=== PATIENT | male | born 1955 ===

== ENCOUNTER 2017-12-09 11:44 | Inpatient (IN) | payer MEDICARE, MEDICAID ==
[2017-12-09 11:45] VITALS: BMI 20.9
[2017-12-09] MEDS ORDERED: Piperacill/Tazo 3.375gm in Dex 3.375 GM/50 ML BAG IVPB STA (13:46)
--- NOTE | 2017-12-09 14:23 | RAD ---
Date of service: 12/09/2017 PROCEDURE: Bilateral Feet Radiographs. HISTORY: Ulcer COMPARISON: . Unspecified location FINDINGS: BONES: Right Foot: Prior resection right 5th metatarsal and digit subtle erosive changes 4th metatarsal phalangeal junction. Left Foot: Prior resection 2nd digit and distal 2nd metatarsal JOINTS: Right Foot: Hammertoe deformities. Left Foot: Hammertoe deformities. SOFT TISSUES: Right Foot: Air within the soft tissues plantar aspect of the right foot at the level of and interposed between the 3rd and 4th digits. Presumably this is the site of the ulcer. Left Foot: Normal. OTHER FINDINGS: None. IMPRESSION: Air within soft tissues right foot and erosive changes this area suspicious for gas-forming organism/osteomyelitis.
[2017-12-09 14:31] LABS: BASO # 0.4 K/uL (0.0-0.2); BASO % 1.4 % (0.0-2.0); EOS # 0.2 K/uL (0.0-0.7); EOS % 0.9 % (0.0-4.0); HEMOGLOBIN 8.8 g/dL (12.0-18.0); LYMPH # 1.8 K/uL (1.0-4.3); LYMPH % 6.6 % (20.0-40.0); MEAN CELL VOLUME 85.1 fL (80.0-94.0); MEAN CORPUSCULAR HEMOGLOBIN 27.7 pg (27.0-31.0); MEAN CORPUSCULAR HGB CONC 32.6 g/dL (33.0-37.0); MEAN PLATELET VOLUME 7.3 fL (7.2-11.7); MONO # 1.8 K/uL (0.0-0.8); MONO % 6.9 % (0.0-10.0); NEUT # 22.2 K/uL (1.8-7.0); NEUT % 84.2 % (50.0-75.0); RBC 3.18 Mil/uL (4.40-5.90); RED CELL DISTRIBUTION WIDTH 16.1 % (11.5-14.5); WHITE BLOOD COUNT 26.4 K/uL (4.8-10.8)
[2017-12-09] MEDS ORDERED: Vancomycin 1 GM 1 GM/250 ML BAG IVPB ONE (14:36)
[2017-12-09] MEDS ORDERED: Piperacillin/Tazobact 3.375 gm 100 ML IVPB ONE (14:36)
--- NOTE | 2017-12-09 14:36 | C.PDOC ---
History Of Present Illness 62 y/o male, w/PMhx of ESRD HD MWF w/ L UE AV fistula, depression, anemia [facility] evaluation of bilateral foot pain. Patient has ulcer to the right heel. Patient also has abnormal labs, he has elevated WBC to 28k. He denies any other complaints. He notes ulcer is mildly painful, denies any drainage from ulcer. No falls, headache, chest pain, neck stiffness or any other complaints. Denies having weakness, numbness, fever, and chills. Pt notes getting dialysis yesterday. No other complaints Time Seen by Provider: 12/09/17 13:26 Chief Complaint (Nursing): Abnormal Skin Integrity Past Medical History Reviewed: Historical Data, Nursing Documentation, Vital Signs Vital Signs: Last Vital Signs Temp 98.5 F 12/09/17 16:18 Pulse 70 12/09/17 16:18 Resp 16 12/09/17 16:18 BP 108/54 L 12/09/17 16:18 Pulse Ox 99 12/09/17 16:32 - Medical History PMH: Anemia, Depression, HTN, Hypercholesterolemia, Peripheral Edema, Chronic Kidney Disease Other Surgeries: Hx of surgeries Family History: States: No Known Family Hx - Social History Hx Alcohol Use: No Hx Substance Use: No - Immunization History Hx Tetanus Toxoid Vaccination: No Hx Influenza Vaccination: Yes Hx Pneumococcal Vaccination: No Review Of Systems Except As Marked, All Systems Reviewed And Found Negative. Constitutional: Negative for: Fever, Chills Musculoskeletal: Positive for: Foot Pain Neurological: Negative for: Weakness, Numbness Physical Exam - Physical Exam Appears: Non-toxic, No Acute Distress Skin: Normal Color, Warm, Dry, Other (ulcer to heel of right foot and R pad of foot 3x2 cm, ulcer to 2nd digit of left foot) Head: Atraumatic, Normacephalic Eye(s): bilateral: Normal Inspection Nose: Normal Oral Mucosa: Moist Neck: Supple, Other (no meningeal signs) Chest: Symmetrical Cardiovascular: Rhythm Regular Respiratory: Normal Breath Sounds, No Rales, No Rhonchi, No Wheezing Back: No CVA Tenderness Extremity: Normal ROM (good n/v status) Extremity: Left: Atraumatic (LUE AVF w/ good bruit and thrill, no erythema), Right: Atraumatic Neurological/Psych: Oriented x3, Normal Speech, Normal Cranial Nerves, No Cerebellar Signs Other Neurological Findings: No Facial Palsy ED Course And Treatment - Laboratory Results Result Diagrams: 12/09/17 14:25 12/09/17 14:25 O2 Sat by Pulse Oximetry: 99 (RA) Pulse Ox Interpretation: Normal - Other Rad X-Ray- Foot X-Ray: Viewed By Me, Read By Radiologist Interpretation: Date of service: 12/09/2017. PROCEDURE: Bilateral Feet Radiographs. HISTORY: Ulcer. COMPARISON: . Unspecified location. FINDINGS: BONES: Right Foot: Prior resection right 5th metatarsal and digit subtle erosive changes 4th metatarsal phalangeal junction. Left Foot: Prior resection 2nd digit and distal 2nd metatarsal. JOINTS: Right Foot: Hammertoe deformities. Left Foot: Hammertoe deformities. SOFT TISSUES: Right Foot: Air within the soft tissues plantar aspect of the right foot at the level of and interposed between the 3rd and 4th digits. Presumably this is the site of the ulcer. Left Foot: Normal. OTHER FINDINGS: None. IMPRESSION: Air within soft tissues right foot and erosive changes this area suspicious for gas-forming organism/osteomyelitis. Medical Decision Making Medical Decision Makin yr old male BIBA from [facility] w/ hx of ESRD HD MWF p/w b/l foot pain. Was xferred for OR as well as elevated wbc to 28k. Given likely sepsis will rx with antibiotics. Given ESRD on HD and non dry on exam will hold fluids for now. 1330 Appreciate consult w/ Dr. John Ayon: Pt likely to OR for gangrenous foot [address] Rios 1436 P[address] Pod[address]. Rios 1445 platelets 1k AOx3 here. 1505 cancelled previous platelet order: 1012 x10^3, not 1012. cancelled ct. spoke to blood bank to cancel order. appreciate consult w/ Dr. Rios: to admit to his service appreciate consult w/ podiatry resident- to see pt XR reviewed w/ podiatry resident: IV Abx ordered previously Disposition - Disposition Disposition Time: 15:05 Condition: GOOD - Clinical Impression Clinical Impression: Gangrene - Scribe Statement The provider has reviewed the documentation as recorded by the Harleyibradha Shelton Provider Attestation: All medical record entries made by the Harleyibe were at my direction and personally dictated by me. I have reviewed the chart and agree that the record accurately reflects my personal performance of the history, physical exam, medical decision making, and the department course for this patient. I have also personally directed, reviewed, and agree with the discharge instructions and disposition.
[2017-12-09 14:39] LABS: INR 1.2; PROTHROMBIN TIME 13.3 SECONDS (9.7-12.2)
[2017-12-09 14:41] LABS: ALB/GLOB RATIO 0.9 (1.0-2.1); ALBUMIN 4.2 g/dL (3.5-5.0); CALCIUM 9.3 mg/dl (8.6-10.4)
[2017-12-09 14:42] LABS: PLATELET COUNT 1012 K/uL (130-400)
[2017-12-09 15:19] LABS: EOSINOPHIL 3 % (0-4); LYMPHOCYTE 8 % (20-40); MONOCYTE 4 % (0-10); NEUTROPHIL 84 % (50-75); PLATELET ESTIMATE MARKEDLY INCREASED (NORMAL); REACTIVE LYMPHOCYTES 1 % (0-0); TOTAL CELLS COUNTED 100
[2017-12-09 15:20] LABS: ANISOCYTOSIS SLIGHT; HYPOCHROMIC SLIGHT; LARGE PLATELETS PRESENT; POIKILOCYTOSIS SLIGHT
--- NOTE | 2017-12-09 17:13 | CP.PCM.PN ---
Subjective - Date & Time of Evaluation Date of Evaluation: 12/09/17 Time of Evaluation: 17:12 - Subjective Subjective: This is a 62 year old male presenting to the ED via EMS, sent from long-term for RLE skin changes. He is unable to provide an accurate history of events and appears confused. As per podiatry the pt was sent in by Dr. Watters following examination of the RLE and concern for gangrene. As per Dr. Rios, the pt's PMD, he has baseline dementia and confusion. The patient denies any complaints himself. PMD: Gabriel PMHx: (obtained via Dr. Rios) Anemia, Depression, HTN, Hypercholesterolemia, Peripheral Edema, Chronic Kidney Disease PSHx: Pt denies- confirmation needed Meds: Allopurinol 100mg QD, Norvasc 10mg QD, B-complex, EPO 10k U IJ TID, Hydralazine 50mg PO TID, Memantine 5mg PO BID, Mirtazepine 30mg PO QHS, Sertraline 20mg PO daily, Renvela 800mg PO daily, zocor 20mg PO daily Allergies: ASA, shellfish Fam HX: unknown Social Hx: previous smoker, further details unclear Objective - Vital Signs/Intake and Output Vital Signs (last 24 hours): Temp Pulse Resp BP Pulse Ox 98.5 F 70 16 108/54 L 99 12/09/17 16:18 12/09/17 16:18 12/09/17 16:18 12/09/17 16:18 12/09/17 16:34 - Labs Labs: 12/09/17 14:25 12/09/17 14:25 PT 13.3 SECONDS (9.7-12.2) H 12/09/17 14:25 INR 1.2 12/09/17 14:25 APTT 37 SECONDS (21-34) H 12/09/17 14:25 - Constitutional Appears: No Acute Distress - Head Exam Head Exam: ATRAUMATIC, NORMOCEPHALIC - Eye Exam Eye Exam: EOMI, Normal appearance - ENT Exam ENT Exam: Mucous Membranes Moist - Respiratory Exam Respiratory Exam: Clear to Ausculation Bilateral, NORMAL BREATHING PATTERN - Cardiovascular Exam Cardiovascular Exam: REGULAR RHYTHM, +S1, +S2 - GI/Abdominal Exam GI & Abdominal Exam: Soft. absent: Tenderness - Extremities Exam Additional comments: Extensive skin decay RLE sole of the foot- necrosis - Neurological Exam Neurological Exam: Alert. absent: Oriented x3 - Psychiatric Exam Psychiatric exam: Normal Affect, Normal Mood Assessment and Plan - Assessment and Plan (Free Text) Plan: Gangrene RLE Podiatry Consult placed- Dr. Aimee white appreciated f/u recs Right foot wound cultures taken - pending KEN/PVR ordered - pending Vascular Surgery Consult placed- Dr. Alan white appreciated f/u recs ID Consult placed- Dr. Tasha white appreciated f/u recs Zosyn and Vanc x1 given in ED Afebrile XRay- air in soft tissue spaces- concern for OM Follow up dopplers Follow up blood Cx Follow up AM labs Thrombocytosis Heme/Onc Consult placed- Dr. Keisha white appreciated f/u recs Repeat labs in AM CKD Creatinine 6.0; baseline unclear Nephro consult placed to Dr. Natacha white appreciated HTN Currently normotensive-hypotensive Hold BP meds at this time Reintroduce PRN Depression Home meds- mirtazepine 30mg PO QD and sertraline 20mg PO QD continued Diabetes II- unclear history Consider ISS and hypoglycemia protocol pending A1C and fingersticks Case discussed with Dr. Rios All medical management as per Dr. Rios
--- NOTE | 2017-12-09 17:32 | CP.PCM.CON ---
History of Present Illness - History of Present Illness History of Present Illness: Podiatry Consult Note: Dr. Ahn 62 year old male with PMHx of Anemia, Depression, HTN, Hypercholesterolemia, Peripheral Edema, Chronic Kidney Disease was seen and evaluated for right plantar foot gangrenous changes. Patient is appears confused during the encounter and is a poor historian. Patient was sent by Dr. Ahn from the snf to be admitted for the concerns of right foot gangrene. Patient reports that he has had this wound for a very long time. Denies of of any pain from the right foot. Patient denies of any recent F/N/V/C/SOB/CP/headache. Denies of any other pedal complains at this time. PMHx: Anemia, Depression, HTN, Hypercholesterolemia, Peripheral Edema, Chronic Kidney Disease PSHx: Patient denies Allergies: ASA SHx: Previous smoker (1 pack every 2 days), denies EtOH or illicit drug usage Review of Systems - Constitutional Constitutional: As Per HPI Past Patient History - Infectious Disease Hx of Infectious Diseases: None - Past Medical History & Family History Past Medical History?: Yes - Past Social History Smoking Status: Never Smoked - CARDIAC Hx Hypercholesterolemia: Yes Hx Hypertension: Yes Hx Peripheral Edema: Yes - RENAL Hx Chronic Kidney Disease: Yes - ENDOCRINE/METABOLIC Hx Endocrine Disorders: Yes Hx Diabetes Mellitus Type 2: Yes - HEMATOLOGICAL/ONCOLOGICAL Hx Anemia: Yes - INTEGUMENTARY Hx Dermatological Problems: Yes (GANGRENE RIGHT FOOT) - MUSCULOSKELETAL/RHEUMATOLOGICAL Hx Musculoskeletal Disorders: Yes Hx Gout: Yes - PSYCHIATRIC Hx Depression: Yes Hx Substance Use: No - SURGICAL HISTORY Hx Surgeries: Yes Hx Vascular Surgery: Yes (AV FISTULA LEFT ARM) - ANESTHESIA Hx Anesthesia: Yes Hx Anesthesia Reactions: No Hx Malignant Hyperthermia: No Meds Allergies/Adverse Reactions: Allergies Allergy/AdvReac Type Severity Reaction Status Date / Time aspirin Allergy Intermediate Verified 12/09/17 12:10 shellfish derived Allergy Intermediate Verified 12/09/17 12:10 Physical Exam - Constitutional Appears: Well, Non-toxic, No Acute Distress - Extremities Exam Additional comments: Bilateral LE exam VASC: DP/PT pulses are very faintly palpable 1/4, Cap refill time is approx 3 sec do the digits, Temp gradient is warm to warm from proximal to distal on the right and warm to cool from proximal to distal on the left, minimal non-pitting edema noted on the right foot DERM: Circular wound measuring approx 4 cm x 3 cm x 0.2 cm noted on the plantar lateral fore foot sub-metatarsal head 3-5, Wound base is mainly necrotic with fibrotic appearance on the periphery, yong-wound maceration with sloughing noted, mal-odor present, tunneling present on the proximal margin at 6 o'clock, no probe to bone, mild yong-wound erythema, no active purulence drainage Left foot: small approx 0.5 cm x 0.5 cm x 0.1 cm wound present on the dorsum of the 2nd digit, wound base is mainly grannular with no active drainage, no tunneling, no tracking, no purulence, no probe to bone, no erythema, no clinical suspicion of active infection NEURO: Protective sensation grossly diminished ORTHO: no pain on palpation of the wounded site, left foot partial 2nd ray amputation, right foot partial 5th ray amputation - Neurological Exam Neurological exam: Alert, Oriented x3 - Psychiatric Exam Psychiatric exam: Normal Affect, Normal Mood Results - Vital Signs Recent Vital Signs: Last Vital Signs Temp 98.5 F 12/09/17 16:18 Pulse 70 12/09/17 16:18 Resp 16 12/09/17 16:18 BP 108/54 L 12/09/17 16:18 Pulse Ox 99 12/09/17 16:34 - Labs Result Diagrams: 12/09/17 14:25 12/09/17 14:25 Labs: Laboratory Results - last 24 hr 12/09/17 12/09/17 12/09/17 12:07 14:25 14:25 WBC 26.4 H RBC 3.18 L Hgb 8.8 L Hct 27.1 L MCV 85.1 MCH 27.7 MCHC 32.6 L RDW 16.1 H Plt Count 1012 H* MPV 7.3 Neut % (Auto) 84.2 H Lymph % (Auto) 6.6 L [place] % (Auto) 6.9 Eos % (Auto) 0.9 Baso % (Auto) 1.4 Neut # (Auto) 22.2 H Lymph # (Auto) 1.8 [place] # (Auto) 1.8 H Eos # (Auto) 0.2 Baso # (Auto) 0.4 H Neutrophils % (Manual) 84 H Lymphocytes % (Manual) 8 L Reactive Lymphs % 1 H Monocytes % (Manual) 4 Eosinophils % (Manual) 3 Platelet Estimate Markedly increased H Large Platelets Present Hypochromasia (manual) Slight Poikilocytosis (manual Slight Anisocytosis (manual) Slight PT INR APTT Sodium 141 Potassium 4.2 Chloride 91 L Carbon Dioxide 37 H Anion Gap 18 BUN 25 H Creatinine 6.0 H Est GFR ( Amer) 12 Est GFR (Non-Af Amer) 10 POC Glucose (mg/dL) 155 H Random Glucose 145 H Calcium 9.3 Magnesium 2.2 Total Bilirubin 0.8 AST 26 ALT 20 L Alkaline Phosphatase 116 Total Protein 8.8 H Albumin 4.2 Globulin 4.7 H Albumin/Globulin Ratio 0.9 L Blood Type Blood Type Confirm Antibody Screen 12/09/17 12/09/17 14:25 14:25 WBC RBC Hgb Hct MCV MCH MCHC RDW Plt Count MPV Neut % (Auto) Lymph % (Auto) [place] % (Auto) Eos % (Auto) Baso % (Auto) Neut # (Auto) Lymph # (Auto) [place] # (Auto) Eos # (Auto) Baso # (Auto) Neutrophils % (Manual) Lymphocytes % (Manual) Reactive Lymphs % Monocytes % (Manual) Eosinophils % (Manual) Platelet Estimate Large Platelets Hypochromasia (manual) Poikilocytosis (manual Anisocytosis (manual) PT 13.3 H INR 1.2 APTT 37 H Sodium Potassium Chloride Carbon Dioxide Anion Gap BUN Creatinine Est GFR ( Amer) Est GFR (Non-Af Amer) POC Glucose (mg/dL) Random Glucose Calcium Magnesium Total Bilirubin AST ALT Alkaline Phosphatase Total Protein Albumin Globulin Albumin/Globulin Ratio Blood Type B POSITIVE Blood Type Confirm B POSITIVE Antibody Screen Negative Assessment & Plan - Assessment and Plan (Free Text) Assessment: 62 year old male with PMHx of Anemia, Depression, HTN, Hypercholesterolemia, Peripheral Edema, Chronic Kidney Disease was evaluated for 1). gangrenous changes of the right plantar foot 2). Stable non-infected 2nd digit wound on the left Plan: Patient seen and evaluated Discussed plan with attending Dr. Ahn Labs, vitals and charts reviewed - afebrile, elevated leukocytosis, elevated coags Right foot wound cultures taken - pending X-rays of the foot taken/evaluated - superficial localized radiolucensy within soft tissue concerning for soft tissue emphysema on the right plantar foot KEN/PVR ordered - pending ID Consult - Dr. Vargas, recs appreciated Vascular consult - Dr. Nina, recs appreciated Wound cleaned with saline and dressing applied using betadine, DSD Podiatry plans for Trans-metatarsal amputation of the right foot once medically stable Thank you for the podiatry consult and allowing to take part in patient care Podiatry to monitor patient while in-house - Date & Time Date: 12/09/17 Time: 17:51
--- NOTE | 2017-12-09 22:47 | CP.PCM.CON ---
History of Present Illness - History of Present Illness History of Present Illness: Vasc Surgery: Dr Nina Pt is a 62M who came to the ED via EMS, per EMR pt was sent in by Dr. Watters following examination of the RLE and concern for gangrene. Per EMR the pt suffers from baseline dementia as well. The patient denies any complaints himself but is concerned he will need amputation. Vascular surgery was called to evaluate. PMD: Gabriel PMHx: (obtained via Dr. Rios) Anemia, Depression, HTN, Hypercholesterolemia, Peripheral Edema, Chronic Kidney Disease PSHx: Pt denies- confirmation needed Allergies: ASA, shellfish Review of Systems - Review of Systems All systems: reviewed and no additional remarkable complaints except (as per hpi) Past Patient History - Infectious Disease Hx of Infectious Diseases: None - Past Medical History & Family History Past Medical History?: Yes - Past Social History Smoking Status: unknown - CARDIAC Hx Cardiac Disorders: Yes Hx Hypercholesterolemia: Yes Hx Hypertension: Yes Hx Peripheral Edema: Yes - PULMONARY Hx Respiratory Disorders: No - NEUROLOGICAL Hx Neurological Disorder: Yes Other/Comment: Forgetful, oriented to person only - HEENT Hx HEENT Problems: No - RENAL Hx Chronic Kidney Disease: Yes Hx Dialysis: Yes Date of Last Dialysis Treatment: 12/08/17 - ENDOCRINE/METABOLIC Hx Endocrine Disorders: Yes Hx Diabetes Mellitus Type 2: Yes - HEMATOLOGICAL/ONCOLOGICAL Hx Blood Disorders: Yes Hx Anemia: Yes - INTEGUMENTARY Hx Dermatological Problems: Yes (GANGRENE RIGHT FOOT) - MUSCULOSKELETAL/RHEUMATOLOGICAL Hx Musculoskeletal Disorders: Yes Hx Falls: No Hx Gout: Yes - GASTROINTESTINAL Hx Gastrointestinal Disorders: No - GENITOURINARY/GYNECOLOGICAL Hx Genitourinary Disorders: No - PSYCHIATRIC Hx Psychophysiologic Disorder: Yes Hx Depression: Yes Hx Substance Use: No - SURGICAL HISTORY Hx Surgeries: Yes Hx Vascular Surgery: Yes (AV FISTULA LEFT ARM) - ANESTHESIA Hx Anesthesia: Yes Hx Anesthesia Reactions: No Hx Malignant Hyperthermia: No Meds Allergies/Adverse Reactions: Allergies Allergy/AdvReac Type Severity Reaction Status Date / Time aspirin Allergy Intermediate Verified 12/09/17 12:10 shellfish derived Allergy Intermediate Verified 12/09/17 12:10 - Medications Medications: Current Medications Acetaminophen (Tylenol 325mg Tab) 650 mg PO Q6 PRN PRN Reason: Fever >100.4 F Mirtazapine (Remeron) 30 mg PO HS [facility] Last Admin: 12/09/17 21:54 Dose: 30 mg Sertraline HCl (Zoloft) 25 mg PO DAILY [facility] Physical Exam - Constitutional Appears: Non-toxic, No Acute Distress, Cachectic - Head Exam Head Exam: ATRAUMATIC - Eye Exam Eye Exam: Normal appearance - ENT Exam ENT Exam: Mucous Membranes Moist - Respiratory Exam Respiratory Exam: absent: Accessory Muscle Use, Respiratory Distress - Cardiovascular Exam Cardiovascular Exam: REGULAR RHYTHM - GI/Abdominal Exam GI & Abdominal Exam: Soft. absent: Tenderness - Extremities Exam Additional comments: b/l distal gangrene of the digits no palpable PT/DP or popliteal appreciated palpable femorals 2+ Results - Vital Signs Recent Vital Signs: Last Vital Signs Temp 98.2 F 12/09/17 20:44 Pulse 80 12/09/17 22:10 Resp 20 12/09/17 20:44 BP 170/75 H 12/09/17 20:44 Pulse Ox 98 12/09/17 20:44 - Labs Result Diagrams: 12/09/17 14:25 12/09/17 14:25 Labs: Laboratory Results - last 24 hr 12/09/17 12/09/17 12/09/17 12:07 14:25 14:25 WBC 26.4 H RBC 3.18 L Hgb 8.8 L Hct 27.1 L MCV 85.1 MCH 27.7 MCHC 32.6 L RDW 16.1 H Plt Count 1012 H* MPV 7.3 Neut % (Auto) 84.2 H Lymph % (Auto) 6.6 L [place] % (Auto) 6.9 Eos % (Auto) 0.9 Baso % (Auto) 1.4 Neut # (Auto) 22.2 H Lymph # (Auto) 1.8 [place] # (Auto) 1.8 H Eos # (Auto) 0.2 Baso # (Auto) 0.4 H Neutrophils % (Manual) 84 H Lymphocytes % (Manual) 8 L Reactive Lymphs % 1 H Monocytes % (Manual) 4 Eosinophils % (Manual) 3 Platelet Estimate Markedly increased H Large Platelets Present Hypochromasia (manual) Slight Poikilocytosis (manual Slight Anisocytosis (manual) Slight PT INR APTT Sodium 141 Potassium 4.2 Chloride 91 L Carbon Dioxide 37 H Anion Gap 18 BUN 25 H Creatinine 6.0 H Est GFR ( Amer) 12 Est GFR (Non-Af Amer) 10 POC Glucose (mg/dL) 155 H Random Glucose 145 H Calcium 9.3 Magnesium 2.2 Total Bilirubin 0.8 AST 26 ALT 20 L Alkaline Phosphatase 116 Total Protein 8.8 H Albumin 4.2 Globulin 4.7 H Albumin/Globulin Ratio 0.9 L Blood Type Blood Type Confirm Antibody Screen 12/09/17 12/09/17 12/09/17 14:25 14:25 21:20 WBC RBC Hgb Hct MCV MCH MCHC RDW Plt Count MPV Neut % (Auto) Lymph % (Auto) [place] % (Auto) Eos % (Auto) Baso % (Auto) Neut # (Auto) Lymph # (Auto) [place] # (Auto) Eos # (Auto) Baso # (Auto) Neutrophils % (Manual) Lymphocytes % (Manual) Reactive Lymphs % Monocytes % (Manual) Eosinophils % (Manual) Platelet Estimate Large Platelets Hypochromasia (manual) Poikilocytosis (manual Anisocytosis (manual) PT 13.3 H INR 1.2 APTT 37 H Sodium Potassium Chloride Carbon Dioxide Anion Gap BUN Creatinine Est GFR ( Amer) Est GFR (Non-Af Amer) POC Glucose (mg/dL) 115 H Random Glucose Calcium Magnesium Total Bilirubin AST ALT Alkaline Phosphatase Total Protein Albumin Globulin Albumin/Globulin Ratio Blood Type B POSITIVE Blood Type Confirm B POSITIVE Antibody Screen Negative Assessment & Plan - Assessment and Plan (Free Text) Assessment: 62M with peripheral gangrene of the feet Plan: will need CTA with illeofemoral runoff given dialysis scheduled and shellfish allergy will need to place on prednisone/benadryl protocol and coordinate with dialysis further recs to follow d/w Dr Floridalma Barnhart, PGY4
[2017-12-10 07:47] LABS: BASO # 0.3 K/uL (0.0-0.2); BASO % 1.2 % (0.0-2.0); EOS # 0.7 K/uL (0.0-0.7); EOS % 3.2 % (0.0-4.0); HEMOGLOBIN 8.8 g/dL (12.0-18.0); LYMPH # 1.2 K/uL (1.0-4.3); LYMPH % 5.6 % (20.0-40.0); MEAN CELL VOLUME 84.9 fL (80.0-94.0); MEAN CORPUSCULAR HEMOGLOBIN 27.7 pg (27.0-31.0); MEAN CORPUSCULAR HGB CONC 32.6 g/dL (33.0-37.0); MEAN PLATELET VOLUME 7.7 fL (7.2-11.7); MONO # 1.3 K/uL (0.0-0.8); NEUT # 17.8 K/uL (1.8-7.0); RBC 3.17 Mil/uL (4.40-5.90); RED CELL DISTRIBUTION WIDTH 15.8 % (11.5-14.5); WHITE BLOOD COUNT 21.2 K/uL (4.8-10.8)
[2017-12-10 07:52] LABS: PLATELET COUNT 982 K/uL (130-400)
[2017-12-10 08:23] LABS: ALB/GLOB RATIO 0.9 (1.0-2.1); ALT/SGPT 18 U/L (21-72); AST/SGOT 21 U/L (17-59); BLOOD UREA NITROGEN 31 mg/dL (9-20); CALCIUM 8.8 mg/dl (8.6-10.4); GFR NON-AFRICAN AMERICAN 7; HDL CHOLESTEROL 24 mg/dL (30-70); LDL CHOLESTEROL < 30 mg/dL (0-129)
[2017-12-10 09:01] LABS: FOLATE > 20.0 ng/mL
--- NOTE | 2017-12-10 09:23 | CP.PCM.PN ---
Subjective - Date & Time of Evaluation Date of Evaluation: 12/10/17 Time of Evaluation: 07:00 - Subjective Subjective: PGY2- Progress Note for Dr. Rios Patient seen and examined at bedside and in no acute distress. Patient has baseline dementia and is slightly confused. Patient says it is March 2017 and [place] [facility] [place] knows Ángel is the the President. Patient has no complaints. Patient says he has had problems with his feet for a long time, but cannot quantify the amount of time. Patient also believes he has been getting dialysis for one year. Patient denies any headache, chest pain, abdominal pain, nausea, vomiting, constipation, or diarrhea. Objective - Vital Signs/Intake and Output Vital Signs (last 24 hours): Temp Pulse Resp BP Pulse Ox 98.4 F 76 18 152/70 H 96 12/10/17 07:00 12/10/17 07:00 12/10/17 07:00 12/10/17 07:00 12/10/17 07:00 Intake and Output: 12/10/17 12/10/17 06:59 18:59 Intake Total 30 Output Total 0 Balance 30 - Medications Medications: Current Medications Acetaminophen (Tylenol 325mg Tab) 650 mg PO Q6 PRN PRN Reason: Fever >100.4 F Allopurinol (Zyloprim) 100 mg PO DAILY ON LICENSE OF [facility] Amlodipine Besylate (Norvasc) 10 mg PO DAILY ON LICENSE OF [facility] Hydralazine HCl (Apresoline) 50 mg PO TID ON LICENSE OF [facility] Memantine (Namenda) 5 mg PO BID ON LICENSE OF [facility] Mirtazapine (Remeron) 30 mg PO [facility] Last Admin: 12/09/17 21:54 Dose: 30 mg Sertraline HCl (Zoloft) 25 mg PO DAILY ON LICENSE OF [facility] - Labs Labs: 12/10/17 07:37 12/10/17 07:37 PT 13.3 SECONDS (9.7-12.2) H 12/09/17 14:25 INR 1.2 12/09/17 14:25 APTT 37 SECONDS (21-34) H 12/09/17 14:25 - Constitutional Appears: Non-toxic, No Acute Distress - Head Exam Head Exam: ATRAUMATIC, NORMAL INSPECTION, NORMOCEPHALIC - Eye Exam Eye Exam: EOMI, Normal appearance - ENT Exam ENT Exam: Mucous Membranes Moist - Respiratory Exam Respiratory Exam: Clear to Ausculation Bilateral, NORMAL BREATHING PATTERN. absent: Rhonchi, Wheezes - Cardiovascular Exam Cardiovascular Exam: REGULAR RHYTHM, RRR, +S1, +S2 - GI/Abdominal Exam GI & Abdominal Exam: Soft, Normal Bowel Sounds. absent: Tenderness - Extremities Exam Extremities Exam: Normal Inspection. absent: Pedal Edema, Tenderness Additional comments: bilateral feet dressings in place-clean/dry/intact, no palpable pulses noted bilaterally for TP or DP left arm av fistula with palpable thrill - Neurological Exam Neurological Exam: Alert, Awake, Oriented x3 - Psychiatric Exam Psychiatric exam: Normal Affect, Normal Mood - Skin Additional comments: bilateral feet dressings in place-clean/dry/intact, no palpable pulses noted bilaterally for TP or DP left arm av fistula with palpable thrill Assessment and Plan - Assessment and Plan (Free Text) Assessment: Gangrene RLE Podiatry Consult placed- Dr. Aimee white appreciated Right foot wound cultures taken - pending KEN/PVR ordered - pending Podiatry plans for Trans-metatarsal amputation of the right foot on 12/11/17, npo past midnight except meds Vascular Surgery Consult placed- Dr. Alan white appreciated CTA to be done on 12/11 after metatarsal amputation and after conclusion of [place] protocol Prednisone 50mg po to be given at 2200 on 12/10, to be given at 3am, 9am on 12/11 Benadryl 50mg po to be given at 9am on 12/11 ID Consult placed- Dr. Tasha white appreciated f/u recs Zosyn and Vanc x1 given in ED Afebrile XRay- air in soft tissue spaces- concern for OM Follow up dopplers blood cultures negative right foot wound culture- gram neg rods meds: Zosyn 2.25gm q8h Vanco 500mg MWF Thrombocytosis Heme/Onc Consult placed- Dr. Keisha white appreciated f/u recs Repeat labs in AM CKD BUN/Cr increasin/7.7 L AVF, [facility] Renvela 800mg tid Procrit 8,000 u MWF Heparin 2000 IVP MWF Nephro consult placed to Dr. Duong HTN continue home meds: Hydralazine 50mg po daily Norvasc 10mg po daily Dementia Namenda 5mg po daily (decreased from BID as per renal dosing) Depression Home meds- mirtazepine 30mg PO QD and sertraline 20mg PO QD IGT HgA1C: 6.1 Prophylaxis Heparin 5000 u sc q12h Dispo: Podiatry plans for Trans-metatarsal amputation of the right foot on 12/11/17 Patient is Class I cardiac risk for noncardiac surgery -6% risk of complications as per Detsky score Case discussed with Dr. Rios All medical management as per Dr. Rios
[2017-12-10 09:49] LABS: ANISOCYTOSIS SLIGHT; BASOPHIL 2 % (0-2); EOSINOPHIL 4 % (0-4); HYPOCHROMIC SLIGHT; LYMPHOCYTE 9 % (20-40); MONOCYTE 5 % (0-10); NEUTROPHIL 80 % (50-75); PLATELET ESTIMATE MARKEDLY INCREASED (NORMAL); POIKILOCYTOSIS SLIGHT; TOTAL CELLS COUNTED 100
[2017-12-10] MEDS ORDERED: Vancomycin 1 gm/NS 200 ml 1 GM/200 ML BAG IVPB ONE (10:00)
[2017-12-10] MEDS ORDERED: Piperacillin/Tazobact 2.25 GM in Sodium Chloride 100 ML IVPB SCH (11:00)
--- NOTE | 2017-12-10 11:15 | CP.PCM.CON ---
History of Present Illness - History of Present Illness History of Present Illness: 62M who came to the ED following examination of the RLE and concern for gangrene. Has necrotic wound on plantar aspect right foot ID consulted for antibiotic management SH denied PMHx: Anemia, Vascular dementia Depression, HTN, Hypercholesterolemia, Peripheral Edema, Chronic Kidney Disease on HD via left arm AV Fistula PSHx: previous digit amputationa and left arm AVF Allergies: ASA, shellfish Review of Systems - Review of Systems All systems: reviewed and no additional remarkable complaints except - Constitutional Constitutional: As Per HPI - EENT Eyes: absent: As Per HPI, Blind Spots, Blurred Vision, Change in Vision, Decreased Night Vision, Diplopia, Discharge, Dry Eye, Exophthalmos, Floaters, Irritation, Itchy Eyes, Loss of Peripheral Vision, Pain, Photophobia, Requires Corrective Lenses, Sees Flashes, Spots in Vision, Tunnel Vision, Other Visual Disturbances, Loss of Vision, Other Ears: absent: As Per HPI, Decreased Hearing, Ear Discharge, Ear Pain, Tinnitus, Abnormal Hearing, Disequilibrium, Dizziness, Other Nose/Mouth/Throat: absent: As Per HPI, Epistaxis, Nasal Congestion, Nasal Discharge, Nasal Obstruction, Nasal Trauma, Nose Pain, Post Nasal Drip, Sinus Pain, Sinus Pressure, Bleeding Gums, Change in Voice, Dental Pain, Dry Mouth, Dysphagia, Halitosis, Hoarsness, Lip Swelling, Mouth Lesions, Mouth Pain, Odynophagia, Sore Throat, Throat Swelling, Tongue Swelling, Facial Pain, Neck Pain, Neck Mass, Other - Cardiovascular Cardiovascular: As Per HPI - Respiratory Respiratory: absent: As Per HPI, Cough, Dyspnea, Hemoptysis, Dyspnea on Exertion, Wheezing, Snoring, Stridor, Pain on Inspiration, Chest Congestion, Excessive Mucous Production, Change in Mucous Color, Pain with Coughing, Other - Gastrointestinal Gastrointestinal: absent: As Per HPI, Abdominal Pain, Belching, Bloating, Change in Bowel Habits, Change in Stool Character, Coffee Ground Emesis, Constipation, Cramping, Diarrhea, Dyspepsia, Dysphagia, Early Satiety, Excessive Flatus, Fecal Incontinence, Heartburn, Hematemesis, Hematochezia, Loose Stools, Melena, Nausea, Odynophagia, Temesmus, Vomiting, Other - Genitourinary Genitourinary: absent: As Per HPI, Change in Urinary Stream, Difficulty Urinating, Dysuria, Flank Pain, Hematuria, Pyuria, Nocturia, Urinary Incontin ence, Urinary Frequency, Urinary Hesitance, Urinary Urgency, Voiding Freq/Small Amts, Freq UTI, Hx Renal/Bladder Calculi, Hx /Renal Surgery, Bladder Distension, Other - Musculoskeletal Musculoskeletal: As Per HPI - Integumentary Integumentary: As Per HPI, Skin Pain, Wounds - Neurological Neurological: As Per HPI - Psychiatric Psychiatric: absent: As Per HPI, Abnormal Sleep Pattern, Anhedonia, Anxiety, Auditory Hallucinations, Behavioral Changes, Change in Appetite, Change in Libido, Confusion, Depression, Difficulty Concentrating, Hallucinations, Homicidal Ideation, Hopelessness, Irritability, Memory Loss, Mood Swings, Panic Attacks, Paranoia, Suicidal Ideation, Visual Hallucinations, Tactile Hallucinations, Other - Endocrine Endocrine: As Per HPI - Hematologic/Lymphatic Hematologic: absent: As Per HPI, Easy Bleeding, Easy Bruising, Lymphadenopathy, Other Past Patient History - Infectious Disease Hx of Infectious Diseases: None - Past Medical History & Family History Past Medical History?: Yes - Past Social History Smoking Status: unknown - CARDIAC Hx Cardiac Disorders: Yes Hx Hypercholesterolemia: Yes Hx Hypertension: Yes Hx Peripheral Edema: Yes - PULMONARY Hx Respiratory Disorders: No - NEUROLOGICAL Hx Neurological Disorder: Yes Other/Comment: Forgetful, oriented to person only - HEENT Hx HEENT Problems: No - RENAL Hx Chronic Kidney Disease: Yes Hx Dialysis: Yes Date of Last Dialysis Treatment: 12/08/17 - ENDOCRINE/METABOLIC Hx Endocrine Disorders: Yes Hx Diabetes Mellitus Type 2: Yes - HEMATOLOGICAL/ONCOLOGICAL Hx Blood Disorders: Yes Hx Anemia: Yes - INTEGUMENTARY Hx Dermatological Problems: Yes (GANGRENE RIGHT FOOT) - MUSCULOSKELETAL/RHEUMATOLOGICAL Hx Musculoskeletal Disorders: Yes Hx Falls: No Hx Gout: Yes - GASTROINTESTINAL Hx Gastrointestinal Disorders: No - GENITOURINARY/GYNECOLOGICAL Hx Genitourinary Disorders: No - PSYCHIATRIC Hx Psychophysiologic Disorder: Yes Hx Depression: Yes Hx Substance Use: No - SURGICAL HISTORY Hx Surgeries: Yes Hx Vascular Surgery: Yes (AV FISTULA LEFT ARM) - ANESTHESIA Hx Anesthesia: Yes Hx Anesthesia Reactions: No Hx Malignant Hyperthermia: No Meds Allergies/Adverse Reactions: Allergies Allergy/AdvReac Type Severity Reaction Status Date / Time aspirin Allergy Intermediate Verified 12/09/17 12:10 shellfish derived Allergy Intermediate Verified 12/09/17 12:10 - Medications Medications: Current Medications Acetaminophen (Tylenol 325mg Tab) 650 mg PO Q6 PRN PRN Reason: Fever >100.4 F Allopurinol (Zyloprim) 100 mg PO DAILY [facility] Amlodipine Besylate (Norvasc) 10 mg PO DAILY [facility] Heparin Sodium (Porcine) (Heparin) 5,000 units SC Q12 [facility] Hydralazine HCl (Apresoline) 50 mg PO TID [facility] Vancomycin/Sodium Chloride (Vancomycin 1 Gm/Ns 200 Ml) 1 gm in 200 mls @ 133.333 mls/hr IVPB ONCE ONE; Protocol Stop: 12/10/17 11:29 Vancomycin HCl 500 mg/ Sodium (Chloride) 100 mls @ 100 mls/hr IVPB MWF [facility]; Protocol Piperacillin Sod/Tazobactam Sod (Zosyn 2.25 Gm Iv Premix) 2.25 gm in 50 mls @ 100 mls/hr IVPB Q8H [facility]; Protocol Memantine (Namenda) 5 mg PO DAILY [facility] Mirtazapine (Remeron) 30 mg PO HS [facility] Last Admin: 12/09/17 21:54 Dose: 30 mg Pneumococcal Polyvalent Vaccine (Pneumovax 23 Vaccine) 0.5 ml IM .ONCE ONE Stop: 12/11/17 12:01 Sertraline HCl (Zoloft) 25 mg PO DAILY [facility] Sevelamer Carbonate (Renvela) 800 mg PO DAILY [facility] Physical Exam - Constitutional Appears: No Acute Distress, Confused, Cachectic, Chronically Ill - Head Exam Head Exam: ATRAUMATIC, NORMAL INSPECTION, NORMOCEPHALIC - Eye Exam Eye Exam: EOMI, PERRL. absent: Scleral icterus - ENT Exam ENT Exam: Mucous Membranes Dry, Normal External Ear Exam, Normal Oropharynx - Neck Exam Neck exam: Negative for: Lymphadenopathy, Thyromegaly - Respiratory Exam Respiratory Exam: Decreased Breath Sounds, Clear to Auscultation Bilateral - Cardiovascular Exam Cardiovascular Exam: REGULAR RHYTHM, +S1, +S2 - GI/Abdominal Exam GI & Abdominal Exam: Diminished Bowel Sounds, Soft. absent: Tenderness - Rectal Exam Rectal Exam: Deferred - Exam Exam: NORMAL INSPECTION - Extremities Exam Extremities exam: Negative for: calf tenderness, pedal edema, tenderness, pedal pulses present Additional comments: Bilateral LE exam VASC: DP/PT pulses are very faintly palpable 1/4, Cap refill time is approx 3 sec do the digits, Temp gradient is warm to warm from proximal to distal on the right and warm to cool from proximal to distal on the left, minimal non-pitting edema noted on the right foot DERM: Circular wound measuring approx 4 cm x 3 cm x 0.2 cm noted on the plantar lateral fore foot sub-metatarsal head 3-5, Wound base is mainly necrotic with fibrotic appearance on the periphery, yong-wound maceration with sloughing noted, mal-odor present, tunneling present on the proximal margin at 6 o'clock, no probe to bone, mild yong-wound erythema, no active purulence drainage Left foot: small approx 0.5 cm x 0.5 cm x 0.1 cm wound present on the dorsum of the 2nd digit, wound base is mainly grannular with no active drainage, no tunneling, no tracking, no purulence, no probe to bone, no erythema, no clinical suspicion of active infection NEURO: Protective sensation grossly diminished ORTHO: no pain on palpation of the wounded site, left foot partial 2nd ray a mputation, right foot partial 5th ray amputation - Back Exam Back exam: absent: CVA tenderness (L), CVA tenderness (R), paraspinal tenderness - Neurological Exam Neurological exam: Alert, CN II-XII Intact - Psychiatric Exam Psychiatric exam: Depressed - Skin Skin Exam: Dry Results - Vital Signs Recent Vital Signs: Last Vital Signs Temp 98.4 F 12/10/17 07:00 Pulse 76 12/10/17 07:00 Resp 18 12/10/17 07:00 BP 152/70 H 12/10/17 07:00 Pulse Ox 96 12/10/17 07:00 - Labs Result Diagrams: 12/10/17 07:37 12/10/17 07:37 Labs: Laboratory Results - last 24 hr 12/09/17 12/09/17 12/09/17 12:07 14:25 14:25 WBC 26.4 H RBC 3.18 L Hgb 8.8 L Hct 27.1 L MCV 85.1 MCH 27.7 MCHC 32.6 L RDW 16.1 H Plt Count 1012 H* MPV 7.3 Neut % (Auto) 84.2 H Lymph % (Auto) 6.6 L [place] % (Auto) 6.9 Eos % (Auto) 0.9 Baso % (Auto) 1.4 Neut # (Auto) 22.2 H Lymph # (Auto) 1.8 [place] # (Auto) 1.8 H Eos # (Auto) 0.2 Baso # (Auto) 0.4 H Neutrophils % (Manual) 84 H Lymphocytes % (Manual) 8 L Reactive Lymphs % 1 H Monocytes % (Manual) 4 Eosinophils % (Manual) 3 Basophils % (Manual) Platelet Estimate Markedly increased H Large Platelets Present Hypochromasia (manual) Slight Poikilocytosis (manual Slight Anisocytosis (manual) Slight PT INR APTT Sodium 141 Potassium 4.2 Chloride 91 L Carbon Dioxide 37 H Anion Gap 18 BUN 25 H Creatinine 6.0 H Est GFR ( Amer) 12 Est GFR (Non-Af Amer) 10 POC Glucose (mg/dL) 155 H Random Glucose 145 H Hemoglobin A1c Calcium 9.3 Magnesium 2.2 Ferritin Total Bilirubin 0.8 AST 26 ALT 20 L Alkaline Phosphatase 116 Total Protein 8.8 H Albumin 4.2 Globulin 4.7 H Albumin/Globulin Ratio 0.9 L Triglycerides Cholesterol LDL Cholesterol Direct HDL Cholesterol Vitamin B12 Folate TSH 3rd Generation Blood Type Blood Type Confirm Antibody Screen 12/09/17 12/09/17 12/09/17 14:25 14:25 21:20 WBC RBC Hgb Hct MCV MCH MCHC RDW Plt Count MPV Neut % (Auto) Lymph % (Auto) [place] % (Auto) Eos % (Auto) Baso % (Auto) Neut # (Auto) Lymph # (Auto) [place] # (Auto) Eos # (Auto) Baso # (Auto) Neutrophils % (Manual) Lymphocytes % (Manual) Reactive Lymphs % Monocytes % (Manual) Eosinophils % (Manual) Basophils % (Manual) Platelet Estimate Large Platelets Hypochromasia (manual) Poikilocytosis (manual Anisocytosis (manual) PT 13.3 H INR 1.2 APTT 37 H Sodium Potassium Chloride Carbon Dioxide Anion Gap BUN Creatinine Est GFR ( Amer) Est GFR (Non-Af Amer) POC Glucose (mg/dL) 115 H Random Glucose Hemoglobin A1c Calcium Magnesium Ferritin Total Bilirubin AST ALT Alkaline Phosphatase Total Protein Albumin Globulin Albumin/Globulin Ratio Triglycerides Cholesterol LDL Cholesterol Direct HDL Cholesterol Vitamin B12 Folate TSH 3rd Generation Blood Type B POSITIVE Blood Type Confirm B POSITIVE Antibody Screen Negative 12/10/17 12/10/17 12/10/17 06:24 07:37 07:37 WBC 21.2 H RBC 3.17 L Hgb 8.8 L Hct 27.0 L MCV 84.9 MCH 27.7 MCHC 32.6 L RDW 15.8 H Plt Count 982 H* MPV 7.7 Neut % (Auto) 84.0 H Lymph % (Auto) 5.6 L [place] % (Auto) 6.0 Eos % (Auto) 3.2 Baso % (Auto) 1.2 Neut # (Auto) 17.8 H Lymph # (Auto) 1.2 [place] # (Auto) 1.3 H Eos # (Auto) 0.7 Baso # (Auto) 0.3 H Neutrophils % (Manual) 80 H Lymphocytes % (Manual) 9 L Reactive Lymphs % Monocytes % (Manual) 5 Eosinophils % (Manual) 4 Basophils % (Manual) 2 Platelet Estimate Markedly increased H Large Platelets Hypochromasia (manual) Slight Poikilocytosis (manual Slight Anisocytosis (manual) Slight PT INR APTT Sodium 144 Potassium 3.8 Chloride 94 L Carbon Dioxide 33 H Anion Gap 22 H BUN 31 H Creatinine 7.7 H* D Est GFR ( Amer) 9 Est GFR (Non-Af Amer) 7 POC Glucose (mg/dL) 89 Random Glucose 99 Hemoglobin A1c Calcium 8.8 Magnesium Ferritin 1490.0 Total Bilirubin 0.6 AST 21 ALT 18 L Alkaline Phosphatase 95 Total Protein 8.2 Albumin 4.0 Globulin 4.2 H Albumin/Globulin Ratio 0.9 L Triglycerides 126 Cholesterol 91 LDL Cholesterol Direct < 30 HDL Cholesterol 24 L Vitamin B12 756 Folate > 20.0 TSH 3rd Generation 0.78 Blood Type Blood Type Confirm Antibody Screen 12/10/17 07:37 WBC RBC Hgb Hct MCV MCH MCHC RDW Plt Count MPV Neut % (Auto) Lymph % (Auto) [place] % (Auto) Eos % (Auto) Baso % (Auto) Neut # (Auto) Lymph # (Auto) [place] # (Auto) Eos # (Auto) Baso # (Auto) Neutrophils % (Manual) Lymphocytes % (Manual) Reactive Lymphs % Monocytes % (Manual) Eosinophils % (Manual) Basophils % (Manual) Platelet Estimate Large Platelets Hypochromasia (manual) Poikilocytosis (manual Anisocytosis (manual) PT INR APTT Sodium Potassium Chloride Carbon Dioxide Anion Gap BUN Creatinine Est GFR ( Amer) Est GFR (Non-Af Amer) POC Glucose (mg/dL) Random Glucose Hemoglobin A1c 6.1 Calcium Magnesium Ferritin Total Bilirubin AST ALT Alkaline Phosphatase Total Protein Albumin Globulin Albumin/Globulin Ratio Triglycerides Cholesterol LDL Cholesterol Direct HDL Cholesterol Vitamin B12 Folate TSH 3rd Generation Blood Type Blood Type Confirm Antibody Screen Assessment & Plan (1) Gangrene Status: Suspected (2) Diabetes Status: Acute (3) PVD (peripheral vascular disease) Status: Acute (4) End stage renal disease on dialysis Status: Acute (5) End stage renal disease on dialysis Status: Acute - Assessment and Plan (Free Text) Assessment: Vascular and podiatry on board cultures pending needs vascular work up as well as MRI right foot to r/o OM cont iv anibiotics and wound care prognosis guarded
[2017-12-10] MEDS: Piperacill/Tazo 2.25gm in Dex 2.25 GM/50 ML BAG IVPB SCH ×2 (11:33→20:38)
--- NOTE | 2017-12-10 14:33 | CP.PCM.PN ---
Subjective - Date & Time of Evaluation Date of Evaluation: 12/10/17 Time of Evaluation: 10:00 - Subjective Subjective: Vascular surgery progress note for Dr. Bebo Tejeda, PGY-2 Pt S & E at bedside at 0940 Pt resting comfortably in bed, no current complaints. Reports he gets HD on MWF. Objective - Vital Signs/Intake and Output Vital Signs (last 24 hours): Temp Pulse Resp BP Pulse Ox 98.4 F 76 18 152/70 H 96 12/10/17 07:00 12/10/17 07:00 12/10/17 07:00 12/10/17 07:00 12/10/17 07:00 Intake and Output: 12/10/17 12/10/17 06:59 18:59 Intake Total 30 Output Total 0 Balance 30 - Medications Medications: Current Medications Acetaminophen (Tylenol 325mg Tab) 650 mg PO Q6 PRN PRN Reason: Fever >100.4 F Allopurinol (Zyloprim) 100 mg PO DAILY [facility] Last Admin: 12/10/17 12:10 Dose: 100 mg Amlodipine Besylate (Norvasc) 10 mg PO DAILY [facility] Last Admin: 12/10/17 12:10 Dose: 10 mg Diphenhydramine HCl (Benadryl) 50 mg PO 0500 ONE Stop: 12/11/17 05:01 Heparin Sodium (Porcine) (Heparin) 5,000 units SC Q12 [facility] Last Admin: 12/10/17 11:00 Dose: Not Given Hydralazine HCl (Apresoline) 50 mg PO TID [facility] Last Admin: 12/10/17 13:59 Dose: 50 mg Hydroxyurea (Hydrea) 1,000 mg PO DAILY [facility] Last Admin: 12/10/17 13:59 Dose: 1,000 mg Vancomycin HCl 500 mg/ Sodium (Chloride) 100 mls @ 100 mls/hr IVPB MWF [facility]; Protocol Piperacillin Sod/Tazobactam Sod (Zosyn 2.25 Gm Iv Premix) 2.25 gm in 50 mls @ 100 mls/hr IVPB Q8H [facility]; Protocol Last Admin: 12/10/17 11:33 Dose: 100 mls/hr Memantine (Namenda) 5 mg PO DAILY [facility] Last Admin: 12/10/17 12:11 Dose: 5 mg Mirtazapine (Remeron) 30 mg PO HS [facility] Last Admin: 12/09/17 21:54 Dose: 30 mg Pneumococcal Polyvalent Vaccine (Pneumovax 23 Vaccine) 0.5 ml IM .ONCE ONE Stop: 12/11/17 12:01 Prednisone (Prednisone Tab) 50 mg PO 0500,1800,2300 [facility] Stop: 12/11/17 05:01 Sertraline HCl (Zoloft) 25 mg PO DAILY [facility] Last Admin: 12/10/17 12:11 Dose: 25 mg Sevelamer Carbonate (Renvela) 800 mg PO DAILY [facility] Last Admin: 12/10/17 12:11 Dose: 800 mg - Labs Labs: 12/10/17 07:37 12/10/17 07:37 PT 13.3 SECONDS (9.7-12.2) H 12/09/17 14:25 INR 1.2 12/09/17 14:25 APTT 37 SECONDS (21-34) H 12/09/17 14:25 - Constitutional Appears: Non-toxic, No Acute Distress - Head Exam Head Exam: ATRAUMATIC, NORMAL INSPECTION, NORMOCEPHALIC - Eye Exam Eye Exam: EOMI, Normal appearance - ENT Exam ENT Exam: Mucous Membranes Moist, Normal Exam - Neck Exam Neck Exam: Full ROM, Normal Inspection - Cardiovascular Exam Cardiovascular Exam: REGULAR RHYTHM, +S1, +S2 - GI/Abdominal Exam GI & Abdominal Exam: Soft. absent: Distended, Firm, Guarding, Rigid, Tenderness - Extremities Exam Extremities Exam: absent: Normal Inspection (bilateral feet dressing in place- clean/dry/intact, no palpable pulses noted bilaterally for TP or DP) - Neurological Exam Neurological Exam: Alert, Awake, CN II-XII Intact, Oriented x3 - Psychiatric Exam Psychiatric exam: Normal Affect, Normal Mood - Skin Skin Exam: Dry, Intact, Normal Color, Warm Assessment and Plan - Assessment and Plan (Free Text) Assessment: 62M w/periperal gangrene of B/L feet Plan: CTA w/ilieofemoral runoff [place] protocol for allergy Plan for CTA on 12/11 after conclusion of [place] protocol Further recs pending imaging results DW Dr. Maico Tejeda, PGY-2
[2017-12-10] MEDS ORDERED: Epoetin Alfa Dialysis 40000 UNIT/ml Inj IV SCH (15:00)
[2017-12-10] MEDS ORDERED: Epoetin Alfa 10,000 unit/ml Dialysis IV SCH (16:15)
--- NOTE | 2017-12-10 16:21 | CP.PCM.CON ---
History of Present Illness - History of Present Illness History of Present Illness: Nephrology Consultation Note: Assessment: Stable Leg ulcers with Gangrene and ? PVD Diabetic chronic Kidney Disease (E11.22) Hypertensive Chronic Kidney Disease (I12.0) End stage renal disease (N18.6) dependence on hemodialysis (Z99.2) (MWF) via AVF Anemia (D64.9), Hyperphosphatemia (E83.39), Secondary Hyperparathyroidism (E21.1), HTN (I12.0) Thrombocytosis Plan: Will plan for HD today as ordered. Continue with Nephrovite 1 tab/day. PRBC as needed for anemia. started on SEUN with dialysis as last Hb 8.8 Continue with phos binders, check phos level BP control with meds as ordered. Patient not on RAAS milan, consider to add if BP high Glycemic control, Dialysis consistent diet Further work up/management as per primary team Dose meds/antibiotics (if needed) for ESRD status. Avoid fleets enema/magnesium based laxatives. vascular surgery, podiatry following, recs reviewed and appreciated heme following, pt on hydroxyurea Thanks for allowing me to participate in care of your patient. Will follow patient with you. Please call if any Qs. had d/w team Dr Volodymyr Oconnor Office: [phone] Chief Complaint; leg wound reason for consult: ESRD HPI: Pt is a 62 M with hx of ESRD on hemodialysis (MWF) via avf for last 1 month in [place], [place] , last dialysis Mon, chronic anemia, hyperphosphatemia, secondary hyperparathyroidism, Diabetes Mellitus, hypertension, presented with complaints of leg wounds and concerns for gangrene. being evaluated for PVD as well Renal consult requested for ESRD management. pt seen on hd and feels same. 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 Pulmonary: no shortness of breath Gastrointestinal: denies abdominal pain No nausea. No vomiting. Genitourinary: No pain while urinating. Denies blood in urine. All other negative except as mentioned in HPI Physical Examination: seen on HD General Appearance: Comfortable, in no acute respiratory distress, co-operative . Vitals reviewed and noted as below Head; Atraumatic, normocephalic ENT: no ulcers no thrush. Tongue is midline. Oropharynx: no rash or ulcers. EYES: Pupils are equal, round and reactive to light accommodation. Eye muscles and extra-ocular movement intact. Sclera is anicteric. Neck; supple no lymphadenopathy, no thyromegaly or bruit Lungs: Normal respiratory rate/effort. Breath sounds bilateral clear Heart: Normal rate. s1s2 normal. No rub or gallop. Extremities: no edema. No varicose veins. feets dressed Neurological: Patient is alert, awake and oriented to person, place and time. No focal deficit. Strength bilateral appropriate and equal Skin: Warm and dry. Normal turgor. No rash. Palpitation: Normal elasticity for age Abdomen: Abdomen is soft. Bowel sounds +. There is no abdominal tenderness, no guarding/rigidity or organomegaly Psych: lack insight and hsa normal affect/mood MSK: no joint tenderness or swelling. Digits and nails normal, no deformity : kidney or bladder not palpable Access: AVF Labs/imaging reviewed. Past medical history, past surgical history, family history, social history, allergy reviewed and noted as below Family Hx: no hx of CKD. Non contributory Past Patient History - Infectious Disease Hx of Infectious Diseases: None - Past Medical History & Family History Past Medical History?: Yes - Past Social History Smoking Status: unknown - CARDIAC Hx Cardiac Disorders: Yes Hx Hypercholesterolemia: Yes Hx Hypertension: Yes Hx Peripheral Edema: Yes - PULMONARY Hx Respiratory Disorders: No - NEUROLOGICAL Hx Neurological Disorder: Yes Other/Comment: Forgetful, oriented to person only - HEENT Hx HEENT Problems: No - RENAL Hx Chronic Kidney Disease: Yes Hx Dialysis: Yes Date of Last Dialysis Treatment: 12/08/17 - ENDOCRINE/METABOLIC Hx Endocrine Disorders: Yes Hx Diabetes Mellitus Type 2: Yes - HEMATOLOGICAL/ONCOLOGICAL Hx Blood Disorders: Yes Hx Anemia: Yes - INTEGUMENTARY Hx Dermatological Problems: Yes (GANGRENE RIGHT FOOT) - MUSCULOSKELETAL/RHEUMATOLOGICAL Hx Musculoskeletal Disorders: Yes Hx Falls: No Hx Gout: Yes - GASTROINTESTINAL Hx Gastrointestinal Disorders: No - GENITOURINARY/GYNECOLOGICAL Hx Genitourinary Disorders: No - PSYCHIATRIC Hx Psychophysiologic Disorder: Yes Hx Depression: Yes Hx Substance Use: No - SURGICAL HISTORY Hx Surgeries: Yes Hx Vascular Surgery: Yes (AV FISTULA LEFT ARM) - ANESTHESIA Hx Anesthesia: Yes Hx Anesthesia Reactions: No Hx Malignant Hyperthermia: No Meds Allergies/Adverse Reactions: Allergies Allergy/AdvReac Type Severity Reaction Status Date / Time aspirin Allergy Intermediate Verified 12/09/17 12:10 shellfish derived Allergy Intermediate Verified 12/09/17 12:10 - Medications Medications: Current Medications Acetaminophen (Tylenol 325mg Tab) 650 mg PO Q6 PRN PRN Reason: Fever >100.4 F Allopurinol (Zyloprim) 100 mg PO DAILY [facility] Last Admin: 12/10/17 12:10 Dose: 100 mg Amlodipine Besylate (Norvasc) 10 mg PO DAILY [facility] Last Admin: 12/10/17 12:10 Dose: 10 mg Diphenhydramine HCl (Benadryl) 50 mg PO 0500 [facility] Stop: 12/11/17 05:01 Epoetin Ivan (Procrit) 8,000 unit [place] [facility] [place] Sodium (Porcine) (Heparin) 5,000 units SC Q12 [facility] Last Admin: 12/10/17 11:00 Dose: Not Given Heparin Sodium (Porcine) (Heparin) 2,000 units IVP [facility] [place] Admin: 12/10/17 16:08 Dose: 2,000 units Hydralazine HCl (Apresoline) 50 mg PO TID [facility] Last Admin: 12/10/17 13:59 Dose: 50 mg Hydroxyurea (Hydrea) 1,000 mg PO DAILY [facility] Last Admin: 12/10/17 13:59 Dose: 1,000 mg Vancomycin HCl 500 mg/ Sodium (Chloride) 100 mls @ 100 mls/hr [place]PB [facility] [place] Protocol Piperacillin Sod/Tazobactam Sod (Zosyn 2.25 Gm Iv Premix) 2.25 gm in 50 mls @ 100 mls/hr IVPB Q8H [facility]; Protocol Last Admin: 12/10/17 11:33 Dose: 100 mls/hr Memantine (Namenda) 5 mg PO DAILY [facility] Last Admin: 12/10/17 12:11 Dose: 5 mg Mirtazapine (Remeron) 30 mg PO HS [facility] Last Admin: 12/09/17 21:54 Dose: 30 mg Pneumococcal Polyvalent Vaccine (Pneumovax 23 Vaccine) 0.5 ml IM .ONCE ONE Stop: 12/11/17 12:01 Prednisone (Prednisone Tab) 50 mg PO 0500,1800,2300 [facility] Stop: 12/11/17 05:01 Sertraline HCl (Zoloft) 25 mg PO DAILY [facility] Last Admin: 12/10/17 12:11 Dose: 25 mg Sevelamer Carbonate (Renvela) 800 mg PO DAILY [facility] Last Admin: 12/10/17 12:11 Dose: 800 mg Vitamin B Complex/Vit C/Folic Acid (Nephro-Carmen) 1 tab PO 0800 [facility] Results - Vital Signs Recent Vital Signs: Last Vital Signs Temp 97.8 F 12/10/17 15:40 Pulse 78 12/10/17 15:40 Resp 20 12/10/17 15:40 BP 148/65 12/10/17 15:55 Pulse Ox 96 12/10/17 15:40 - Labs Result Diagrams: 12/10/17 07:37 12/10/17 07:37 Labs: Laboratory Results - last 24 hr 12/09/17 12/09/17 12/10/17 14:25 21:20 06:24 WBC RBC Hgb Hct MCV MCH MCHC RDW Plt Count MPV Neut % (Auto) Lymph % (Auto) Saunders % (Auto) Eos % (Auto) Baso % (Auto) Neut # (Auto) Lymph # (Auto) Saunders # (Auto) Eos # (Auto) Baso # (Auto) Neutrophils % (Manual) Lymphocytes % (Manual) Monocytes % (Manual) Eosinophils % (Manual) Basophils % (Manual) Platelet Estimate Hypochromasia (manual) Poikilocytosis (manual Anisocytosis (manual) Smear Path Review Sodium Potassium Chloride Carbon Dioxide Anion Gap BUN Creatinine Est GFR ( Amer) Est GFR (Non-Af Amer) POC Glucose (mg/dL) 115 H 89 Random Glucose Hemoglobin A1c Calcium Ferritin Total Bilirubin AST ALT Alkaline Phosphatase Total Protein Albumin Globulin Albumin/Globulin Ratio Triglycerides Cholesterol LDL Cholesterol Direct HDL Cholesterol Vitamin B12 Folate TSH 3rd Generation 12/10/17 12/10/17 12/10/17 07:37 07:37 07:37 WBC 21.2 H RBC 3.17 L Hgb 8.8 L Hct 27.0 L MCV 84.9 MCH 27.7 MCHC 32.6 L RDW 15.8 H Plt Count 982 H* MPV 7.7 Neut % (Auto) 84.0 H Lymph % (Auto) 5.6 L Saunders % (Auto) 6.0 Eos % (Auto) 3.2 Baso % (Auto) 1.2 Neut # (Auto) 17.8 H Lymph # (Auto) 1.2 Saunders # (Auto) 1.3 H Eos # (Auto) 0.7 Baso # (Auto) 0.3 H Neutrophils % (Manual) 80 H Lymphocytes % (Manual) 9 L Monocytes % (Manual) 5 Eosinophils % (Manual) 4 Basophils % (Manual) 2 Platelet Estimate Markedly increased H Hypochromasia (manual) Slight Poikilocytosis (manual Slight Anisocytosis (manual) Slight Smear Path Review Sodium 144 Potassium 3.8 Chloride 94 L Carbon Dioxide 33 H Anion Gap 22 H BUN 31 H Creatinine 7.7 H* D Est GFR ( Amer) 9 Est GFR (Non-Af Amer) 7 POC Glucose (mg/dL) Random Glucose 99 Hemoglobin A1c 6.1 Calcium 8.8 Ferritin 1490.0 Total Bilirubin 0.6 AST 21 ALT 18 L Alkaline Phosphatase 95 Total Protein 8.2 Albumin 4.0 Globulin 4.2 H Albumin/Globulin Ratio 0.9 L Triglycerides 126 Cholesterol 91 LDL Cholesterol Direct < 30 HDL Cholesterol 24 L Vitamin B12 756 Folate > 20.0 TSH 3rd Generation 0.78 12/10/17 11:49 WBC RBC Hgb Hct MCV MCH MCHC RDW Plt Count MPV Neut % (Auto) Lymph % (Auto) Saunders % (Auto) Eos % (Auto) Baso % (Auto) Neut # (Auto) Lymph # (Auto) Saunders # (Auto) Eos # (Auto) Baso # (Auto) Neutrophils % (Manual) Lymphocytes % (Manual) Monocytes % (Manual) Eosinophils % (Manual) Basophils % (Manual) Platelet Estimate Hypochromasia (manual) Poikilocytosis (manual Anisocytosis (manual) Smear Path Review Sodium Potassium Chloride Carbon Dioxide Anion Gap BUN Creatinine Est GFR ( Amer) Est GFR (Non-Af Amer) POC Glucose (mg/dL) 152 H Random Glucose Hemoglobin A1c Calcium Ferritin Total Bilirubin AST ALT Alkaline Phosphatase Total Protein Albumin Globulin Albumin/Globulin Ratio Triglycerides Cholesterol LDL Cholesterol Direct HDL Cholesterol Vitamin B12 Folate TSH 3rd Generation
--- NOTE | 2017-12-10 17:27 | CP.PCM.PN ---
Subjective - Date & Time of Evaluation Date of Evaluation: 12/10/17 Time of Evaluation: 09:35 - Subjective Subjective: Podiatry progress note for Dr. Ahn: 62 year old male seen and evaluated for right plantar foot gangrenous changes. Patient is appears confused during the encounter and is a poor historian. Patient was sent by Dr. Ahn from the assisted to be admitted for the concerns of right foot gangrene. Patient reports that he has had this wound for a very long time. Denies of of any pain from the right foot but states he feels physically ill. Patient denies of any recent F/N/V/C/SOB/CP/headache. Denies of any other pedal complains at this time. Objective - Vital Signs/Intake and Output Vital Signs (last 24 hours): Temp Pulse Resp BP Pulse Ox 97.8 F 78 20 113/65 96 12/10/17 15:40 12/10/17 16:35 12/10/17 16:35 12/10/17 17:10 12/10/17 15:40 Intake and Output: 12/10/17 12/10/17 06:59 18:59 Intake Total 30 Output Total 0 Balance 30 - Medications Medications: Current Medications Acetaminophen (Tylenol 325mg Tab) 650 mg PO Q6 PRN PRN Reason: Fever >100.4 F Allopurinol (Zyloprim) 100 mg PO DAILY [facility] Last Admin: 12/10/17 12:10 Dose: 100 mg Amlodipine Besylate (Norvasc) 10 mg PO DAILY [facility] Last Admin: 12/10/17 12:10 Dose: 10 mg Diphenhydramine HCl (Benadryl) 50 mg PO 0900 [facility] Epoetin Ivan (Procrit) 8,000 unit IV MWF [facility] Last Admin: 12/10/17 16:16 Dose: 8,000 unit Heparin Sodium (Porcine) (Heparin) 5,000 units SC Q12 [facility] Last Admin: 12/10/17 11:00 Dose: Not Given Heparin Sodium (Porcine) (Heparin) 2,000 units IVP MWF [facility] Last Admin: 12/10/17 16:08 Dose: 2,000 units Hydralazine HCl (Apresoline) 50 mg PO TID [facility] Last Admin: 12/10/17 13:59 Dose: 50 mg Hydroxyurea (Hydrea) 1,000 mg PO DAILY [facility] Last Admin: 12/10/17 13:59 Dose: 1,000 mg Vancomycin HCl 500 mg/ Sodium (Chloride) 100 mls @ 100 mls/hr IVPB [facility]; Protocol Piperacillin Sod/Tazobactam Sod (Zosyn 2.25 Gm Iv Premix) 2.25 gm in 50 mls @ 100 mls/hr IVPB Q8H [facility]; Protocol Last Admin: 12/10/17 11:33 Dose: 100 mls/hr Memantine (Namenda) 5 mg PO DAILY [facility] Last Admin: 12/10/17 12:11 Dose: 5 mg Mirtazapine (Remeron) 30 mg PO HS [facility] Last Admin: 12/09/17 21:54 Dose: 30 mg Pneumococcal Polyvalent Vaccine (Pneumovax 23 Vaccine) 0.5 ml IM .ONCE [facility] Stop: 12/11/17 12:01 Prednisone (Prednisone Tab) 10 mg PO ONCE [facility] Stop: 12/10/17 22:01 Prednisone (Prednisone Tab) 40 mg PO Q6H [facility] Stop: 12/11/17 09:01 Prednisone (Prednisone Tab) 40 mg PO ONCE [facility] Stop: 12/10/17 22:01 Prednisone (Prednisone Tab) 10 mg PO Q6H [facility] Stop: 12/11/17 09:01 Sertraline HCl (Zoloft) 25 mg PO DAILY [facility] Last Admin: 12/10/17 12:11 Dose: 25 mg Sevelamer Carbonate (Renvela) 800 mg PO DAILY [facility] Last Admin: 12/10/17 12:11 Dose: 800 mg Vitamin B Complex/Vit C/Folic Acid (Nephro-Carmen) 1 tab PO 0800 [facility] - Labs Labs: 12/10/17 07:37 12/10/17 07:37 PT 13.3 SECONDS (9.7-12.2) H 12/09/17 14:25 INR 1.2 12/09/17 14:25 APTT 37 SECONDS (21-34) H 12/09/17 14:25 - Constitutional Appears: Well, Non-toxic, No Acute Distress - Extremities Exam Additional comments: Bilateral LE exam VASC: DP/PT pulses are very faintly palpable 1/4, Cap refill time is approx 3 sec do the digits, Temp gradient is warm to warm from proximal to distal on the right and warm to cool from proximal to distal on the left, minimal non-pitting edema noted on the right foot DERM: Circular wound measuring approx 4 cm x 3 cm x 0.2 cm noted on the plantar lateral fore foot sub-metatarsal head 3-5, Wound base is mainly necrotic with fibrotic appearance on the periphery, yong-wound maceration with sloughing noted, mal-odor present, tunneling present on the proximal margin at 6 o'clock, no probe to bone, mild yong-wound erythema, no active purulence drainage Left foot: small approx 0.5 cm x 0.5 cm x 0.1 cm wound present on the dorsum of the 2nd digit, wound base is mainly grannular with no active drainage, no tunneling, no tracking, no purulence, no probe to bone, no erythema, no clinical suspicion of active infection NEURO: Protective sensation grossly diminished ORTHO: no pain on palpation of the wounded site, left foot partial 2nd ray amputation, right foot partial 5th ray amputation - Neurological Exam Neurological Exam: Alert, Awake, Oriented x3 - Psychiatric Exam Psychiatric exam: Normal Affect, Normal Mood Assessment and Plan - Assessment and Plan (Free Text) Assessment: 62 year old male with PMHx of Anemia, Depression, HTN, Hypercholesterolemia, Peripheral Edema, Chronic Kidney Disease was evaluated for 1). gangrenous changes of the right plantar foot 2). Stable non-infected 2nd digit wound on the left Plan: Patient seen and evaluated Discussed plan with attending Dr. Ahn Labs, vitals and charts reviewed - afebrile, elevated leukocytosis, elevated coags Right foot wound cultures taken - gram negative carlotta X-rays of the foot taken/evaluated - superficial localized radiolucensy within soft tissue concerning for soft tissue emphysema on the right plantar foot KEN/PVR ordered - performed - read pending ID Consult - Dr. Vargas, recs appreciated Vascular consult - Dr. Nina - will perform peripheral angio once TMA performed Wound cleaned with saline and dressing applied using betadine, DSD Podiatry plans for Trans-metatarsal amputation of the right foot 12/11 at 7:45 AM - medical clearance appreciated Thank you for the podiatry consult and allowing to take part in patient care Podiatry to monitor patient while in-house
--- NOTE | 2017-12-10 20:23 | CON ---
DATE: 12/10/2017 CONSULTATION REQUESTED BY: Bryan Rios MD This is a 62-year-old [place] male, who was seen at [facility] last week. At that time, I noticed that he had a malodorous gangrenous right foot. At that time, I requested that the patient be medically cleared for a surgical procedure. At that time, however, medical clearance was not obtained and I was notified yesterday that the patient was being admitted to [facility]. We see him today at bedside, alert and oriented x3. It is noted that there is a malodorous right foot, and the patient will be required to have surgery on this foot as soon as medical clearance is obtained. The patient will be scheduled to OR for tomorrow morning upon all medical clearances. Roman Hooper DPM
--- NOTE | 2017-12-10 21:03 | CP.PCM.CON ---
History of Present Illness - History of Present Illness History of Present Illness: 62 year old male with a history of HTN, DM, ESRD on HD, PVD with LE ulcers and concern for gangrene, found to have thrombocytosis. The patient is a poor historian and is unaware of having blood problems in the past. Review of his blood work shows a platelet count of 1million, hgb of 8.8, and leukocytosis with neutrophilia, monocytosis, and basophilia. Past medical history: HTN, DM, ESRD on HD, PVD, LE ulcers Past surgical history: AV fistula Family history: Denies hematologic and oncologic problems Social history: Denies tobacco, alcohol, and illicit drug use. Allergies: Aspirin Review of systems: All remaining review of systems including HEENT, cardiovascular, respiratory, gastrointestinal, genitourinary, musculoskeletal, dermatologic, neurologic, and psychiatric are negative unless mentioned in the HPI. Past Patient History - Infectious Disease Hx of Infectious Diseases: None - Past Medical History & Family History Past Medical History?: Yes - Past Social History Smoking Status: unknown - CARDIAC Hx Cardiac Disorders: Yes Hx Hypercholesterolemia: Yes Hx Hypertension: Yes Hx Peripheral Edema: Yes - PULMONARY Hx Respiratory Disorders: No - NEUROLOGICAL Hx Neurological Disorder: Yes Other/Comment: Forgetful, oriented to person only - HEENT Hx HEENT Problems: No - RENAL Hx Chronic Kidney Disease: Yes Hx Dialysis: Yes Date of Last Dialysis Treatment: 12/08/17 - ENDOCRINE/METABOLIC Hx Endocrine Disorders: Yes Hx Diabetes Mellitus Type 2: Yes - HEMATOLOGICAL/ONCOLOGICAL Hx Blood Disorders: Yes Hx Anemia: Yes - INTEGUMENTARY Hx Dermatological Problems: Yes (GANGRENE RIGHT FOOT) - MUSCULOSKELETAL/RHEUMATOLOGICAL Hx Musculoskeletal Disorders: Yes Hx Falls: No Hx Gout: Yes - GASTROINTESTINAL Hx Gastrointestinal Disorders: No - GENITOURINARY/GYNECOLOGICAL Hx Genitourinary Disorders: No - PSYCHIATRIC Hx Psychophysiologic Disorder: Yes Hx Depression: Yes Hx Substance Use: No - SURGICAL HISTORY Hx Surgeries: Yes Hx Vascular Surgery: Yes (AV FISTULA LEFT ARM) - ANESTHESIA Hx Anesthesia: Yes Hx Anesthesia Reactions: No Hx Malignant Hyperthermia: No Meds Allergies/Adverse Reactions: Allergies Allergy/AdvReac Type Severity Reaction Status Date / Time aspirin Allergy Intermediate Verified 12/09/17 12:10 shellfish derived Allergy Intermediate Verified 12/09/17 12:10 - Medications Medications: Current Medications Acetaminophen (Tylenol 325mg Tab) 650 mg PO Q6 PRN PRN Reason: Fever >100.4 F Allopurinol (Zyloprim) 100 mg PO DAILY [facility] Last Admin: 12/10/17 12:10 Dose: 100 mg Amlodipine Besylate (Norvasc) 10 mg PO DAILY [facility] Last Admin: 12/10/17 12:10 Dose: 10 mg Diphenhydramine HCl (Benadryl) 50 mg PO 1100 [facility] Stop: 12/11/17 11:01 Epoetin Ivan (Procrit) 8,000 unit IV [facility] Last Admin: 12/10/17 16:16 Dose: 8,000 unit Heparin Sodium (Porcine) (Heparin) 5,000 units SC Q12 [facility] Last Admin: 12/10/17 11:00 Dose: Not Given Heparin Sodium (Porcine) (Heparin) 2,000 units IVP [facility] Last Admin: 12/10/17 16:08 Dose: 2,000 units Hydralazine HCl (Apresoline) 50 mg PO TID [facility] Last Admin: 12/10/17 20:18 Dose: Not Given Hydroxyurea (Hydrea) 1,000 mg PO DAILY [facility] Last Admin: 12/10/17 13:59 Dose: 1,000 mg Vancomycin HCl 500 mg/ Sodium (Chloride) 100 mls @ 100 mls/hr IVPB [facility]; Protocol Piperacillin Sod/Tazobactam Sod (Zosyn 2.25 Gm Iv Premix) 2.25 gm in 50 mls @ 100 mls/hr IVPB Q8H [facility]; Protocol Last Admin: 12/10/17 20:38 Dose: 100 mls/hr Memantine (Namenda) 5 mg PO DAILY [facility] Last Admin: 12/10/17 12:11 Dose: 5 mg Mirtazapine (Remeron) 30 mg PO HS [facility] Last Admin: 12/09/17 21:54 Dose: 30 mg Pneumococcal Polyvalent Vaccine (Pneumovax 23 Vaccine) 0.5 ml IM .ONCE ONE Stop: 12/11/17 12:01 Prednisone (Prednisone Tab) 40 mg PO Q6H [facility] Stop: 12/11/17 11:01 Prednisone (Prednisone Tab) 10 mg PO ONCE ONE Stop: 12/11/17 00:01 Prednisone (Prednisone Tab) 40 mg PO ONCE ONE Stop: 12/11/17 00:01 Prednisone (Prednisone Tab) 10 mg PO Q6H [facility] Stop: 12/11/17 11:01 Sertraline HCl (Zoloft) 25 mg PO DAILY [facility] Last Admin: 12/10/17 12:11 Dose: 25 mg Sevelamer Carbonate (Renvela) 800 mg PO DAILY [facility] Last Admin: 12/10/17 12:11 Dose: 800 mg Vitamin B Complex/Vit C/Folic Acid (Nephro-Carmen) 1 tab PO 0800 [facility] Physical Exam - Head Exam Head Exam: ATRAUMATIC - Eye Exam Eye Exam: Normal appearance - ENT Exam ENT Exam: Mucous Membranes Dry - Respiratory Exam Respiratory Exam: NORMAL BREATHING PATTERN - Cardiovascular Exam Cardiovascular Exam: +S1, +S2 - GI/Abdominal Exam GI & Abdominal Exam: Normal Bowel Sounds - Extremities Exam Additional comments: B/L LE foot dressings - Neurological Exam Neurological exam: Altered - Psychiatric Exam Psychiatric exam: Normal Affect, Normal Mood - Skin Skin Exam: Warm Results - Vital Signs Recent Vital Signs: Last Vital Signs Temp 97.9 F 12/10/17 19:10 Pulse 89 12/10/17 19:10 Resp 18 12/10/17 19:10 BP 120/55 L 12/10/17 19:10 Pulse Ox 98 12/10/17 19:10 - Labs Result Diagrams: 12/10/17 07:37 12/10/17 07:37 Labs: Laboratory Results - last 24 hr 12/09/17 12/09/17 12/10/17 14:25 21:20 06:24 WBC RBC Hgb Hct MCV MCH MCHC RDW Plt Count MPV Neut % (Auto) Lymph % (Auto) [place] % (Auto) Eos % (Auto) Baso % (Auto) Neut # (Auto) Lymph # (Auto) [place] # (Auto) Eos # (Auto) Baso # (Auto) Neutrophils % (Manual) Lymphocytes % (Manual) Monocytes % (Manual) Eosinophils % (Manual) Basophils % (Manual) Platelet Estimate Hypochromasia (manual) Poikilocytosis (manual Anisocytosis (manual) Smear Path Review Sodium Potassium Chloride Carbon Dioxide Anion Gap BUN Creatinine Est GFR ( Amer) Est GFR (Non-Af Amer) POC Glucose (mg/dL) 115 H 89 Random Glucose Hemoglobin A1c Calcium Ferritin Total Bilirubin AST ALT Alkaline Phosphatase Total Protein Albumin Globulin Albumin/Globulin Ratio Triglycerides Cholesterol LDL Cholesterol Direct HDL Cholesterol Vitamin B12 Folate TSH 3rd Generation Hep Bs Antigen 12/10/17 12/10/17 12/10/17 07:37 07:37 07:37 WBC 21.2 H RBC 3.17 L Hgb 8.8 L Hct 27.0 L MCV 84.9 MCH 27.7 MCHC 32.6 L RDW 15.8 H Plt Count 982 H* MPV 7.7 Neut % (Auto) 84.0 H Lymph % (Auto) 5.6 L [place] % (Auto) 6.0 Eos % (Auto) 3.2 Baso % (Auto) 1.2 Neut # (Auto) 17.8 H Lymph # (Auto) 1.2 [place] # (Auto) 1.3 H Eos # (Auto) 0.7 Baso # (Auto) 0.3 H Neutrophils % (Manual) 80 H Lymphocytes % (Manual) 9 L Monocytes % (Manual) 5 Eosinophils % (Manual) 4 Basophils % (Manual) 2 Platelet Estimate Markedly increased H Hypochromasia (manual) Slight Poikilocytosis (manual Slight Anisocytosis (manual) Slight Smear Path Review Sodium 144 Potassium 3.8 Chloride 94 L Carbon Dioxide 33 H Anion Gap 22 H BUN 31 H Creatinine 7.7 H* D Est GFR ( Amer) 9 Est GFR (Non-Af Amer) 7 POC Glucose (mg/dL) Random Glucose 99 Hemoglobin A1c 6.1 Calcium 8.8 Ferritin 1490.0 Total Bilirubin 0.6 AST 21 ALT 18 L Alkaline Phosphatase 95 Total Protein 8.2 Albumin 4.0 Globulin 4.2 H Albumin/Globulin Ratio 0.9 L Triglycerides 126 Cholesterol 91 LDL Cholesterol Direct < 30 HDL Cholesterol 24 L Vitamin B12 756 Folate > 20.0 TSH 3rd Generation 0.78 Hep Bs Antigen 12/10/17 12/10/17 11:49 16:19 WBC RBC Hgb Hct MCV MCH MCHC RDW Plt Count MPV Neut % (Auto) Lymph % (Auto) [place] % (Auto) Eos % (Auto) Baso % (Auto) Neut # (Auto) Lymph # (Auto) [place] # (Auto) Eos # (Auto) Baso # (Auto) Neutrophils % (Manual) Lymphocytes % (Manual) Monocytes % (Manual) Eosinophils % (Manual) Basophils % (Manual) Platelet Estimate Hypochromasia (manual) Poikilocytosis (manual Anisocytosis (manual) Smear Path Review Sodium Potassium Chloride Carbon Dioxide Anion Gap BUN Creatinine Est GFR ( Amer) Est GFR (Non-Af Amer) POC Glucose (mg/dL) 152 H Random Glucose Hemoglobin A1c Calcium Ferritin Total Bilirubin AST ALT Alkaline Phosphatase Total Protein Albumin Globulin Albumin/Globulin Ratio Triglycerides Cholesterol LDL Cholesterol Direct HDL Cholesterol Vitamin B12 Folate TSH 3rd Generation Hep Bs Antigen Negative Assessment & Plan (1) Thrombocytosis Assessment and Plan: rule out myeloproliferative disorder, essential thrombocytosis JAK2 mutation patient allergic to aspirin will start hydroxyurea daily given vascular disease may also be reactive to gangrene rule out iron deficiency Status: Acute (2) Anemia Assessment and Plan: anemia of CKD - epo per renal likely chronic disease from LE ulcers/gangrene retic count, b12, folate, ferritin to further characterize Status: Acute (3) Leukocytosis Assessment and Plan: given basophilia, will check BCR/ABL on antibiotics Thank you for this interesting consult. Status: Acute
[2017-12-11] MEDS: Piperacill/Tazo 2.25gm in Dex 2.25 GM/50 ML BAG IVPB SCH ×2 (02:16→13:00)
[2017-12-11 05:51] LABS: BASO # 0.3 K/uL (0.0-0.2); BASO % 1.2 % (0.0-2.0); EOS # 0.6 K/uL (0.0-0.7); EOS % 2.2 % (0.0-4.0); HEMOGLOBIN 9.2 g/dL (12.0-18.0); LYMPH # 1.2 K/uL (1.0-4.3); LYMPH % 4.7 % (20.0-40.0); MEAN CELL VOLUME 84.7 fL (80.0-94.0); MEAN CORPUSCULAR HEMOGLOBIN 28.1 pg (27.0-31.0); MEAN CORPUSCULAR HGB CONC 33.2 g/dL (33.0-37.0); MEAN PLATELET VOLUME 7.9 fL (7.2-11.7); MONO # 0.8 K/uL (0.0-0.8); MONO % 3.3 % (0.0-10.0); NEUT # 22.3 K/uL (1.8-7.0); NEUT % 88.6 % (50.0-75.0); RBC 3.27 Mil/uL (4.40-5.90); RED CELL DISTRIBUTION WIDTH 15.9 % (11.5-14.5); WHITE BLOOD COUNT 25.2 K/uL (4.8-10.8)
[2017-12-11 06:00] LABS: PLATELET COUNT 1118 K/uL (130-400)
[2017-12-11 06:21] LABS: ALB/GLOB RATIO 0.9 (1.0-2.1); ALBUMIN 4.3 g/dL (3.5-5.0); CALCIUM 9.1 mg/dl (8.6-10.4)
[2017-12-11] MEDS ORDERED: Sodium Chloride 0.9% 20 ML IV ONE (07:03)
[2017-12-11] MEDS ORDERED: Midazolam 2 MG/2 ML VIAL ONE (07:24)
[2017-12-11] MEDS ORDERED: Propofol 10 mg/ml Inj (20 ML) ONE (07:24)
--- NOTE | 2017-12-11 07:30 | CP.PCM.PN ---
Subjective - Date & Time of Evaluation Date of Evaluation: 12/11/17 Time of Evaluation: 13:00 - Subjective Subjective: PGY2- Progress Note for Dr. Rios Patient seen and examined at bedside s/p right Chopart's amputation, POD #0. Patient comfortable and in no acute distress. Patient has no complaints. Patient is having no pain. Patient denies any headache, chest pain, abdominal pain, nausea, vomiting, constipation, or diarrhea. Objective - Vital Signs/Intake and Output Vital Signs (last 24 hours): Temp Pulse Resp BP Pulse Ox 97.8 F 71 20 147/72 97 12/11/17 07:05 12/11/17 07:05 12/11/17 07:05 12/11/17 07:05 12/11/17 04:00 - Medications Medications: Current Medications Acetaminophen (Tylenol 325mg Tab) 650 mg PO Q6 PRN PRN Reason: Fever >100.4 F Allopurinol (Zyloprim) 100 mg PO DAILY [facility] Last Admin: 12/10/17 12:10 Dose: 100 mg Amlodipine Besylate (Norvasc) 10 mg PO DAILY [facility] Last Admin: 12/10/17 12:10 Dose: 10 mg Diphenhydramine HCl (Benadryl) 50 mg PO 1100 [facility] Stop: 12/11/17 11:01 Epoetin Ivan (Procrit) 8,000 unit IV [facility] Last Admin: 12/10/17 16:16 Dose: 8,000 unit Heparin Sodium (Porcine) (Heparin) 5,000 units SC Q12 [facility] Last Admin: 12/10/17 21:22 Dose: 5,000 units Heparin Sodium (Porcine) (Heparin) 2,000 units IVP [facility] Last Admin: 12/10/17 16:08 Dose: 2,000 units Hydralazine HCl (Apresoline) 50 mg PO TID [facility] Last Admin: 12/10/17 20:18 Dose: Not Given Hydroxyurea (Hydrea) 1,000 mg PO DAILY [facility] Last Admin: 12/10/17 13:59 Dose: 1,000 mg Vancomycin HCl 500 mg/ Sodium (Chloride) 100 mls @ 100 mls/hr IVPB [facility] [place]; Protocol Piperacillin Sod/Tazobactam Sod (Zosyn 2.25 Gm Iv Premix) 2.25 gm in 50 mls @ 100 mls/hr IVPB Q8H [facility]; Protocol Last Admin: 12/11/17 02:16 Dose: 100 mls/hr Memantine (Namenda) 5 mg PO DAILY [facility] Last Admin: 12/10/17 12:11 Dose: 5 mg Mirtazapine (Remeron) 30 mg PO HS [facility] Last Admin: 12/10/17 21:22 Dose: 30 mg Pneumococcal Polyvalent Vaccine (Pneumovax 23 Vaccine) 0.5 ml IM .ONCE ONE Stop: 12/11/17 12:01 Prednisone (Prednisone Tab) 40 mg PO Q6H [facility] Stop: 12/11/17 11:01 Last Admin: 12/11/17 05:11 Dose: 40 mg Prednisone (Prednisone Tab) 10 mg PO Q6H [facility] Stop: 12/11/17 11:01 Last Admin: 12/11/17 05:11 Dose: 10 mg Sertraline HCl (Zoloft) 25 mg PO DAILY [facility] Last Admin: 12/10/17 12:11 Dose: 25 mg Sevelamer Carbonate (Renvela) 800 mg PO DAILY [facility] Last Admin: 12/10/17 12:11 Dose: 800 mg Vitamin B Complex/Vit C/Folic Acid (Nephro-Carmen) 1 tab PO 0800 [facility] - Labs Labs: 12/11/17 05:34 12/11/17 05:34 PT 13.3 SECONDS (9.7-12.2) H 12/09/17 14:25 INR 1.2 12/09/17 14:25 APTT 37 SECONDS (21-34) H 12/09/17 14:25 - Constitutional Appears: Non-toxic, No Acute Distress - Head Exam Head Exam: ATRAUMATIC, NORMAL INSPECTION, NORMOCEPHALIC - Eye Exam Eye Exam: EOMI, Normal appearance - ENT Exam ENT Exam: Mucous Membranes Moist - Respiratory Exam Respiratory Exam: Clear to Ausculation Bilateral, NORMAL BREATHING PATTERN. absent: Rales, Rhonchi, Wheezes - Cardiovascular Exam Cardiovascular Exam: REGULAR RHYTHM, RRR, +S1, +S2 - GI/Abdominal Exam GI & Abdominal Exam: Soft, Normal Bowel Sounds. absent: Tenderness - Back Exam Back Exam: NORMAL INSPECTION - Neurological Exam Neurological Exam: Alert, Awake, Oriented x3 - Psychiatric Exam Psychiatric exam: Normal Affect, Normal Mood - Skin Skin Exam: Warm Additional comments: left foot wrapped in c/d/i dressing right foot s/p surgery wrapped in c/d/i dressing and elevated on pillow Assessment and Plan - Assessment and Plan (Free Text) Assessment: Right Chopart's Amputation, POD #0 2/2 right foot gas gangrene Podiatry Consult placed- Dr. Aimee white appreciated Right foot wound cultures taken - proteus mirabilis Foot XRay- air in soft tissue spaces- concern for OM blood cultures negative KEN/PVR ordered - pending Podiatry plans for Trans-metatarsal amputation of the right foot on 12/11/17, npo past midnight except meds Vascular Surgery Consult placed- Dr. Alan white appreciated CTA to be done on 12/11 after metatarsal amputation and after conclusion of [place] protocol Follow up dopplers ID Consult placed- Dr. Tasha white appreciated Zosyn and Vanc x1 given in ED Afebrile meds: Zosyn 2.25gm q8h Vanco 500mg MWF Leukocytosis given basophilia, will check BCR/ABL on Zosyn and Vanco Thrombocytosis Heme/Onc Consult placed- Dr. Keisha white appreciated f/u recs- rule out myeloproliferative disorder, essential thrombocytosis, JAK2 mutation, iron deficiency -hydroxyurea daily given vascular disease -may also be reactive to gangrene Anemia anemia of CKD - epo per renal b12: 756 folate: >20, ferritin 1490 CKD dialysis done yesterday - BUN/Cr improved L AVF, dialysis MWF at [facility] Renvela 800mg tid Procrit 8,000 u MWF Heparin 2000 IVP MWF Nephro consult placed to Dr. Duong HTN continue home meds: Hydralazine 50mg po daily Norvasc 10mg po daily lipid panel: triglycerides: 126, Cholesterol: 91, LDL < 30, HDL 24 Dementia Namenda 5mg po daily (decreased from BID as per renal dosing) Depression Home meds- mirtazepine 30mg PO QD and sertraline 20mg PO QD Gout Continue Home med- allopurinol 100mg po daily IGT HgA1C: 6.1 Prophylaxis Heparin 5000 u sc q12h Discussed with Dr. Rios Management as per Dr. Rios
--- NOTE | 2017-12-11 07:32 | CP.PCM.PN ---
Subjective - Date & Time of Evaluation Date of Evaluation: 12/11/17 Time of Evaluation: 07:31 - Subjective Subjective: Vascular surgery progress note for Dr. Bebo Tejeda, PGY-2 Pt S & E at bedside at 0640 Pt reports being upset at getting blood draw this AM, no other compliants at this time. Objective - Vital Signs/Intake and Output Vital Signs (last 24 hours): Temp Pulse Resp BP Pulse Ox 97.8 F 71 20 147/72 97 12/11/17 07:05 12/11/17 07:05 12/11/17 07:05 12/11/17 07:05 12/11/17 04:00 - Medications Medications: Current Medications Acetaminophen (Tylenol 325mg Tab) 650 mg PO Q6 PRN PRN Reason: Fever >100.4 F Allopurinol (Zyloprim) 100 mg PO DAILY [facility] Last Admin: 12/10/17 12:10 Dose: 100 mg Amlodipine Besylate (Norvasc) 10 mg PO DAILY [facility] Last Admin: 12/10/17 12:10 Dose: 10 mg Diphenhydramine HCl (Benadryl) 50 mg PO 1100 [facility] Stop: 12/11/17 11:01 Epoetin Ivan (Procrit) 8,000 unit IV [facility] [place] Last Admin: 12/10/17 16:16 Dose: 8,000 unit Heparin Sodium (Porcine) (Heparin) 5,000 units SC Q12 [facility] Last Admin: 12/10/17 21:22 Dose: 5,000 units Heparin Sodium (Porcine) (Heparin) 2,000 units IVP [facility] Last Admin: 12/10/17 16:08 Dose: 2,000 units Hydralazine HCl (Apresoline) 50 mg PO TID [facility] Last Admin: 12/10/17 20:18 Dose: Not Given Hydroxyurea (Hydrea) 1,000 mg PO DAILY [facility] Last Admin: 12/10/17 13:59 Dose: 1,000 mg Vancomycin HCl 500 mg/ Sodium (Chloride) 100 mls @ 100 mls/hr IVPB MWF [facility]; Protocol Piperacillin Sod/Tazobactam Sod (Zosyn 2.25 Gm Iv Premix) 2.25 gm in 50 mls @ 100 mls/hr IVPB Q8H [facility]; Protocol Last Admin: 12/11/17 02:16 Dose: 100 mls/hr Memantine (Namenda) 5 mg PO DAILY [facility] Last Admin: 12/10/17 12:11 Dose: 5 mg Mirtazapine (Remeron) 30 mg PO HS [facility] Last Admin: 12/10/17 21:22 Dose: 30 mg Pneumococcal Polyvalent Vaccine (Pneumovax 23 Vaccine) 0.5 ml IM .ONCE ONE Stop: 12/11/17 12:01 Prednisone (Prednisone Tab) 40 mg PO Q6H [facility] Stop: 12/11/17 11:01 Last Admin: 12/11/17 05:11 Dose: 40 mg Prednisone (Prednisone Tab) 10 mg PO Q6H [facility] Stop: 12/11/17 11:01 Last Admin: 12/11/17 05:11 Dose: 10 mg Sertraline HCl (Zoloft) 25 mg PO DAILY [facility] Last Admin: 12/10/17 12:11 Dose: 25 mg Sevelamer Carbonate (Renvela) 800 mg PO DAILY [facility] Last Admin: 12/10/17 12:11 Dose: 800 mg Vitamin B Complex/Vit C/Folic Acid (Nephro-Carmen) 1 tab PO 0800 [facility] - Labs Labs: 12/11/17 05:34 12/11/17 05:34 PT 13.3 SECONDS (9.7-12.2) H 12/09/17 14:25 INR 1.2 12/09/17 14:25 APTT 37 SECONDS (21-34) H 12/09/17 14:25 - Constitutional Appears: Non-toxic, No Acute Distress - Head Exam Head Exam: ATRAUMATIC, NORMAL INSPECTION, NORMOCEPHALIC - Eye Exam Eye Exam: EOMI, Normal appearance - ENT Exam ENT Exam: Mucous Membranes Moist, Normal Exam - Neck Exam Neck Exam: Full ROM, Normal Inspection - Respiratory Exam Respiratory Exam: NORMAL BREATHING PATTERN - Cardiovascular Exam Cardiovascular Exam: REGULAR RHYTHM, +S1, +S2 - GI/Abdominal Exam GI & Abdominal Exam: Soft. absent: Distended, Tenderness - Extremities Exam Extremities Exam: absent: Normal Inspection (Bilateral dressings to feet- clean/dry/intact) - Neurological Exam Neurological Exam: Alert, Awake, CN II-XII Intact, Oriented x3 - Psychiatric Exam Psychiatric exam: Normal Affect, Normal Mood - Skin Skin Exam: Dry, Normal Color, Warm Assessment and Plan - Assessment and Plan (Free Text) Assessment: 62M w/periperal gangrene of B/L feet Plan: CTA w/ilieofemoral runoff today to be completed by noon after [place] protocol is completed Further recs pending imaging results Will DW Dr. Maico Tejeda, PGY-2
--- NOTE | 2017-12-11 07:46 | RAD ---
Date of service: 12/11/2017 PROCEDURE: CHEST RADIOGRAPH, 1 VIEW HISTORY: pre op COMPARISON: None available. FINDINGS: LUNGS: Clear. PLEURA: No pneumothorax or pleural fluid seen. CARDIOVASCULAR: Top-normal heart size Atherosclerotic vascular calcifications present. OSSEOUS STRUCTURES: Bilateral shoulder arthrosis. VISUALIZED UPPER ABDOMEN: Normal. OTHER FINDINGS: None. IMPRESSION: No acute cardiopulmonary pathology noted.
[2017-12-11] MEDS: Multivitamin Vitamin B Complex (Nephro-Vite) Tab PO SCH (08:00)
[2017-12-11 08:08] LABS: ANISOCYTOSIS SLIGHT; BANDS 1 % (0-2); EOSINOPHIL 2 % (0-4); LYMPHOCYTE 4 % (20-40); MONOCYTE 2 % (0-10); NEUTROPHIL 91 % (50-75); PLATELET ESTIMATE MARKEDLY INCREASED (NORMAL); TOTAL CELLS COUNTED 100
[2017-12-11 08:10] LABS: HYPOCHROMIC SLIGHT; POLYCHROMIC SLIGHT
[2017-12-11] MEDS ORDERED: ePHEDrine 50 mg/ml Inj ONE (08:35)
[2017-12-11] MEDS ORDERED: Phenylephrine 10 mg/ml Inj ONE (08:35)
[2017-12-11] MEDS ORDERED: Oxycodone/Acetaminophen 5/325 mg Tab PO PRN ×2 (09:38)
--- NOTE | 2017-12-11 09:46 | PCM.SURG1 ---
Surgeon's Initial Post Op Note - Surgeon's Notes Surgeon: Dr. Ahn DPM Through Operator: Dr. Huggins PGY1 Dr. Veliz PGY1 Dr. Chin PGY2 Type of Anesthesia: General LMA Anesthesia Administered By: Johnny Pre-Operative Diagnosis: Right foot gas gangrene Operative Findings: see dictation. M: 2-0 chromic gut, 2-0 nylon, ana rosa. xeroform DSD Post-Operative Diagnosis: same Operation Performed: Right Chopart's amputation Specimen/Specimens Removed: Right forefoot bone and soft tissue Estimated Blood Loss: EBL {In ML}: 150 Blood Products Given: N/A Drains Used: Kwame Post-Op Condition: Good Date of Surgery/Procedure: 12/11/17 Time of Surgery/Procedure: 09:46
[2017-12-11] MEDS ORDERED: HYDROmorphone 0.5 mg/0.5 ml ISec IVP PRN (09:50)
[2017-12-11 10:10] LABS: BASO # 0.2 K/uL (0.0-0.2); BASO % 0.9 % (0.0-2.0); EOS # 0.4 K/uL (0.0-0.7); EOS % 1.6 % (0.0-4.0); HEMOGLOBIN 8.8 g/dL (12.0-18.0); LYMPH # 1.8 K/uL (1.0-4.3); LYMPH % 7.1 % (20.0-40.0); MEAN CELL VOLUME 85.5 fL (80.0-94.0); MEAN CORPUSCULAR HGB CONC 32.7 g/dL (33.0-37.0); MEAN PLATELET VOLUME 7.6 fL (7.2-11.7); MONO # 0.4 K/uL (0.0-0.8); MONO % 1.6 % (0.0-10.0); NEUT % 88.8 % (50.0-75.0); RBC 3.15 Mil/uL (4.40-5.90); RED CELL DISTRIBUTION WIDTH 16.2 % (11.5-14.5); WHITE BLOOD COUNT 24.8 K/uL (4.8-10.8)
[2017-12-11 10:14] LABS: PLATELET COUNT 1077 K/uL (130-400)
--- NOTE | 2017-12-11 10:42 | RAD ---
Date of service: 12/11/2017 PROCEDURE: Right Foot Radiographs. HISTORY: s/p right foot chopart amputation COMPARISON: 12/09/2017 FINDINGS: BONES: Interval resection at mid tarsal level. Of those bones present mottled bone mineralization noted. No gross cortical destruction appreciated. JOINTS: Resection as above. Dorsal talonavicular arthrosis SOFT TISSUES: Postop changes. Vascular calcifications.. OTHER FINDINGS: Inferior calcaneal spurring IMPRESSION: Recent amputation at mid tarsal level-history chopart amputation
[2017-12-11 11:35] LABS: BANDS 1 % (0-2); EOSINOPHIL 1 % (0-4); LYMPHOCYTE 7 % (20-40); NEUTROPHIL 91 % (50-75); TOTAL CELLS COUNTED 100
[2017-12-11 11:41] LABS: ANISOCYTOSIS SLIGHT; HYPOCHROMIC SLIGHT; PLATELET ESTIMATE MARKEDLY INCREASED (NORMAL); POLYCHROMIC SLIGHT
[2017-12-11] MEDS ORDERED: Pneumococcal 23-Valent Vaccine IM ONE (12:00)
--- NOTE | 2017-12-11 15:22 | CP.PCM.PN ---
Subjective - Date & Time of Evaluation Date of Evaluation: 12/11/17 Time of Evaluation: 15:21 - Subjective Subjective: Nephrology Consultation Note: Assessment: Stable Leg ulcers with Gangrene and ? PVD Diabetic chronic Kidney Disease (E11.22) Hypertensive Chronic Kidney Disease (I12.0) End stage renal disease (N18.6) dependence on hemodialysis (Z99.2) (MWF) via AVF Anemia (D64.9), Hyperphosphatemia (E83.39), Secondary Hyperparathyroidism (E21.1), HTN (I12.0) Thrombocytosis Plan: Will plan for HD tomorrow as ordered. Continue with Nephrovite 1 tab/day. PRBC as needed for anemia. started on SEUN with dialysis as last Hb 8.8 Continue with phos binders, check phos level BP control with meds as ordered. Patient not on RAAS milan, hydralazine changed to PRN as BP low Glycemic control, Dialysis consistent diet Further work up/management as per primary team Dose meds/antibiotics (if needed) for ESRD status. Avoid fleets enema/magnesium based laxatives. vascular surgery, podiatry following, recs reviewed and appreciated heme following, pt on hydroxyurea Thanks for allowing me to participate in care of your patient. Will follow patient with you. Please call if any Qs. had d/w team Dr Volodymyr Oconnor Office: [phone] Chief Complaint; leg wound reason for consult: ESRD HPI: Pt is a 62 M with hx of ESRD on hemodialysis (MWF) via avf for last 1 month in [place], [place] , last dialysis Mon, chronic anemia, hyperphosphatemia, secondary hyperparathyroidism, Diabetes Mellitus, hypertension, presented with complaints of leg wounds and concerns for gangrene. being evaluated for PVD as well Renal consult requested for ESRD management. pt seen on hd and feels same. 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 Pulmonary: no shortness of breath Gastrointestinal: denies abdominal pain No nausea. No vomiting. Genitourinary: No pain while urinating. Denies blood in urine. All other negative except as mentioned in HPI Physical Examination: General Appearance: Comfortable, in no acute respiratory distress, co-operative . Vitals reviewed and noted as below Head; Atraumatic, normocephalic ENT: no ulcers no thrush. Tongue is midline. Oropharynx: no rash or ulcers. EYES: Pupils are equal, round and reactive to light accommodation. Eye muscles and extra-ocular movement intact. Sclera is anicteric. Neck; supple no lymphadenopathy, no thyromegaly or bruit Lungs: Normal respiratory rate/effort. Breath sounds bilateral clear Heart: Normal rate. s1s2 normal. No rub or gallop. Extremities: no edema. No varicose veins. feets dressed. s/p Rt Foot TMA Neurological: Patient is alert, awake and oriented to person, place and time. No focal deficit. Strength bilateral appropriate and equal Skin: Warm and dry. Normal turgor. No rash. Palpitation: Normal elasticity for age Abdomen: Abdomen is soft. Bowel sounds +. There is no abdominal tenderness, no guarding/rigidity or organomegaly Psych: lack insight and hsa normal affect/mood MSK: no joint tenderness or swelling. Digits and nails normal, no deformity : kidney or bladder not palpable Access: AVF Labs/imaging reviewed. Past medical history, past surgical history, family history, social history, allergy reviewed and noted as below Family Hx: no hx of CKD. Non contributory Objective - Vital Signs/Intake and Output Vital Signs (last 24 hours): Temp Pulse Resp BP Pulse Ox 98 F 80 12 103/43 L 97 12/11/17 11:00 12/11/17 14:00 12/11/17 11:00 12/11/17 11:00 12/11/17 11:00 Intake and Output: 12/11/17 12/11/17 06:59 18:59 Intake Total 90 950 Output Total 100 Balance 90 850 - Medications Medications: Current Medications Acetaminophen (Tylenol 325mg Tab) 650 mg PO Q6 PRN PRN Reason: Fever >100.4 F Allopurinol (Zyloprim) 100 mg PO DAILY [facility] Last Admin: 12/11/17 10:41 Dose: Not Given Amlodipine Besylate (Norvasc) 10 mg PO DAILY [facility] Last Admin: 12/11/17 09:30 Dose: Not Given Epoetin Ivan (Procrit) 8,000 unit IV MWF [facility] Last Admin: 12/10/17 16:16 Dose: 8,000 unit Heparin Sodium (Porcine) (Heparin) 5,000 units SC Q12 [facility] Last Admin: 12/11/17 10:39 Dose: Not Given Heparin Sodium (Porcine) (Heparin) 2,000 units IVP [facility] [place] Last Admin: 12/10/17 16:08 Dose: 2,000 units Hydralazine HCl (Apresoline) 50 mg PO TID PRN PRN Reason: Other Hydroxyurea (Hydrea) 1,000 mg PO DAILY [facility] Last Admin: 12/11/17 10:00 Dose: Not Given Vancomycin HCl 500 mg/ Sodium (Chloride) 100 mls @ 100 mls/hr [facility]; Protocol Piperacillin Sod/Tazobactam Sod (Zosyn 2.25 Gm Iv Premix) 2.25 gm in 50 mls @ 100 mls/hr IVPB Q8H [facility]; Protocol Last Admin: 12/11/17 13:00 Dose: 100 mls/hr Memantine (Namenda) 5 mg PO DAILY [facility] Last Admin: 12/11/17 10:00 Dose: Not Given Mirtazapine (Remeron) 30 mg PO HS [facility] Last Admin: 12/10/17 21:22 Dose: 30 mg Oxycodone/Acetaminophen (Percocet 5/325 Mg Tab) 1 tab PO Q4H PRN PRN Reason: Pain, moderate (4-7) Stop: 12/14/17 09:39 Oxycodone/Acetaminophen (Percocet 5/325 Mg Tab) 2 tab PO Q4H PRN PRN Reason: Pain, severe (8-10) Stop: 12/14/17 09:39 Prednisone (Prednisone Tab) 50 mg PO ONCE PRN PRN Reason: Other Last Admin: 12/11/17 15:01 Dose: 50 mg Sertraline HCl (Zoloft) 25 mg PO DAILY [facility] Last Admin: 12/11/17 09:30 Dose: Not Given Sevelamer Carbonate (Renvela) 800 mg PO DAILY [facility] Last Admin: 12/11/17 10:40 Dose: Not Given Vitamin B Complex/Vit C/Folic Acid (Nephro-Carmen) 1 tab PO 0800 [facility] Last Admin: 12/11/17 08:00 Dose: Not Given - Labs Labs: 12/11/17 10:06 12/11/17 05:34 PT 13.3 SECONDS (9.7-12.2) H 12/09/17 14:25 INR 1.2 12/09/17 14:25 APTT 37 SECONDS (21-34) H 12/09/17 14:25
[2017-12-11] MEDS ORDERED: Iodixanol 320 mg/ml 150 ml Bottle IV ONE (16:03)
--- NOTE | 2017-12-11 18:02 | CP.PCM.PN ---
Subjective - Date & Time of Evaluation Date of Evaluation: 12/11/17 Time of Evaluation: 09:00 - Subjective Subjective: s/p right foot TMA Objective - Vital Signs/Intake and Output Vital Signs (last 24 hours): Temp Pulse Resp BP Pulse Ox 98.3 F 83 20 144/64 100 12/11/17 15:28 12/11/17 15:28 12/11/17 15:28 12/11/17 15:28 12/11/17 15:28 Intake and Output: 12/11/17 12/11/17 06:59 18:59 Intake Total 90 950 Output Total 100 Balance 90 850 - Medications Medications: Current Medications Acetaminophen (Tylenol 325mg Tab) 650 mg PO Q6 PRN PRN Reason: Fever >100.4 F Allopurinol (Zyloprim) 100 mg PO DAILY [facility] Last Admin: 12/11/17 10:41 Dose: Not Given Amlodipine Besylate (Norvasc) 10 mg PO DAILY [facility] Last Admin: 12/11/17 09:30 Dose: Not Given Epoetin Ivan (Procrit) 8,000 unit IV MWF [facility] Last Admin: 12/10/17 16:16 Dose: 8,000 unit Heparin Sodium (Porcine) (Heparin) 5,000 units SC Q12 [facility] Last Admin: 12/11/17 10:39 Dose: Not Given Heparin Sodium (Porcine) (Heparin) 2,000 units IVP MWF [facility] Last Admin: 12/10/17 16:08 Dose: 2,000 units Hydralazine HCl (Apresoline) 50 mg PO TID PRN PRN Reason: Other Hydroxyurea (Hydrea) 1,000 mg PO DAILY [facility] Last Admin: 12/11/17 10:00 Dose: Not Given Vancomycin HCl 500 mg/ Sodium (Chloride) 100 mls @ 100 mls/hr IVPB MWF [facility]; Protocol Meropenem 500 mg/ Sodium (Chloride) 100 mls @ 100 mls/hr IVPB Q12H [facility]; Protocol Memantine (Namenda) 5 mg PO DAILY [facility] Last Admin: 12/11/17 10:00 Dose: Not Given Mirtazapine (Remeron) 30 mg PO HS [facility] Last Admin: 12/10/17 21:22 Dose: 30 mg Oxycodone/Acetaminophen (Percocet 5/325 Mg Tab) 1 tab PO Q4H PRN PRN Reason: Pain, moderate (4-7) Stop: 12/14/17 09:39 Oxycodone/Acetaminophen (Percocet 5/325 Mg Tab) 2 tab PO Q4H PRN PRN Reason: Pain, severe (8-10) Stop: 12/14/17 09:39 Prednisone (Prednisone Tab) 50 mg PO ONCE PRN PRN Reason: Other Last Admin: 12/11/17 15:01 Dose: 50 mg Sertraline HCl (Zoloft) 25 mg PO DAILY [facility] Last Admin: 12/11/17 09:30 Dose: Not Given Sevelamer Carbonate (Renvela) 800 mg PO DAILY [facility] Last Admin: 12/11/17 10:40 Dose: Not Given Vitamin B Complex/Vit C/Folic Acid (Nephro-Carmen) 1 tab PO 0800 [facility] Last Admin: 12/11/17 08:00 Dose: Not Given - Labs Labs: 12/11/17 10:06 12/11/17 05:34 PT 13.3 SECONDS (9.7-12.2) H 12/09/17 14:25 INR 1.2 12/09/17 14:25 APTT 37 SECONDS (21-34) H 12/09/17 14:25 - Constitutional Appears: Non-toxic, Chronically Ill - Head Exam Head Exam: NORMOCEPHALIC - Eye Exam Eye Exam: PERRL - ENT Exam ENT Exam: Mucous Membranes Dry - Neck Exam Neck Exam: absent: Lymphadenopathy - Respiratory Exam Respiratory Exam: Decreased Breath Sounds, Rhonchi - Cardiovascular Exam Cardiovascular Exam: REGULAR RHYTHM, +S1, +S2 - GI/Abdominal Exam GI & Abdominal Exam: Distended, Soft. absent: Tenderness - Rectal Exam Rectal Exam: Deferred - Exam Exam: NORMAL INSPECTION - Extremities Exam Extremities Exam: Pedal Edema - Back Exam Back Exam: absent: CVA tenderness (L), CVA tenderness (R) - Neurological Exam Neurological Exam: Alert - Skin Skin Exam: Dry Assessment and Plan (1) Gangrene Status: Suspected (2) Diabetes Status: Acute (3) PVD (peripheral vascular disease) Status: Acute (4) End stage renal disease on dialysis Status: Acute (5) End stage renal disease on dialysis Status: Acute - Assessment and Plan (Free Text) Assessment: s/p amputation iv rx adjusted prognosis guarded
[2017-12-11] MEDS: Meropenem 500 MG in Sodium Chloride 0.9% 100 ML IVPB SCH (19:15)
[2017-12-11] MEDS ORDERED: (Novolog) Insulin Aspart, Recombinant 100 u/ml 10 ml vial SC STA (21:58)
[2017-12-11] MEDS: (Novolog) Insulin Aspart, Recombinant 100 u/ml 10 ml vial SC SCH (22:20)
[2017-12-12] MEDS ORDERED: (Novolog) Insulin Aspart, Recombinant 100 u/ml 10 ml vial SC ONE (02:17)
[2017-12-12] MEDS: Meropenem 500 MG in Sodium Chloride 0.9% 100 ML IVPB SCH ×2 (06:08→18:42)
--- NOTE | 2017-12-12 07:11 | CP.PCM.PN ---
Subjective - Date & Time of Evaluation Date of Evaluation: 12/12/17 Time of Evaluation: 07:57 - Subjective Subjective: PGY 3 Medicine Note- Dr. Rios's service Patient seen and examined in no acute distress. Patient s/p day 1 right chopart's amputation. Patient is tolerating a diet without problems. Patient denies subjective fevers or chills, nausea. vomiting, diarrhea or constipation at this time. Objective - Vital Signs/Intake and Output Vital Signs (last 24 hours): Temp Pulse Resp BP Pulse Ox 98.6 F 85 20 118/58 L 98 12/12/17 04:00 12/12/17 04:00 12/12/17 04:00 12/12/17 04:00 12/12/17 04:00 Intake and Output: 12/12/17 12/12/17 06:59 18:59 Intake Total 350 Balance 350 - Medications Medications: Current Medications Acetaminophen (Tylenol 325mg Tab) 650 mg PO Q6 PRN PRN Reason: Fever >100.4 F Allopurinol (Zyloprim) 100 mg PO DAILY [facility] Last Admin: 12/11/17 10:41 Dose: Not Given Amlodipine Besylate (Norvasc) 10 mg PO DAILY [facility] Last Admin: 12/11/17 09:30 Dose: Not Given Epoetin Ivan (Procrit) 8,000 unit IV [facility] Last Admin: 12/10/17 16:16 Dose: 8,000 unit Heparin Sodium (Porcine) (Heparin) 5,000 units SC Q12 [facility] Last Admin: 12/11/17 22:27 Dose: 5,000 units Heparin Sodium (Porcine) (Heparin) 2,000 units IVP [facility] Last Admin: 12/10/17 16:08 Dose: 2,000 units Hydralazine HCl (Apresoline) 50 mg PO TID PRN PRN Reason: Other Last Admin: 12/12/17 00:54 Dose: 50 mg Hydroxyurea (Hydrea) 1,000 mg PO DAILY [facility] Last Admin: 12/11/17 10:00 Dose: Not Given Vancomycin HCl 500 mg/ Sodium (Chloride) 100 mls @ 100 mls/hr IVPB [facility]; Protocol Meropenem 500 mg/ Sodium (Chloride) 100 mls @ 100 mls/hr IVPB Q12H [facility]; Protocol Last Admin: 12/12/17 06:08 Dose: 100 mls/hr Insulin Aspart (Novolog) 0 unit SC ACHS [facility]; Protocol Last Admin: 12/11/17 22:20 Dose: Not Given Memantine (Namenda) 5 mg PO DAILY [facility] Last Admin: 12/11/17 10:00 Dose: Not Given Mirtazapine (Remeron) 30 mg PO HS [facility] Last Admin: 12/11/17 22:18 Dose: 30 mg Oxycodone/Acetaminophen (Percocet 5/325 Mg Tab) 1 tab PO Q4H PRN PRN Reason: Pain, moderate (4-7) Stop: 12/14/17 09:39 Oxycodone/Acetaminophen (Percocet 5/325 Mg Tab) 2 tab PO Q4H PRN PRN Reason: Pain, severe (8-10) Stop: 12/14/17 09:39 Prednisone (Prednisone Tab) 50 mg PO ONCE PRN PRN Reason: Other Last Admin: 12/11/17 15:01 Dose: 50 mg Sertraline HCl (Zoloft) 25 mg PO DAILY [facility] Last Admin: 12/11/17 09:30 Dose: Not Given Sevelamer Carbonate (Renvela) 800 mg PO DAILY [facility] Last Admin: 12/11/17 10:40 Dose: Not Given Vitamin B Complex/Vit C/Folic Acid (Nephro-Carmen) 1 tab PO 0800 [facility] Last Admin: 12/11/17 08:00 Dose: Not Given - Labs Labs: 12/11/17 10:06 12/11/17 05:34 PT 13.3 SECONDS (9.7-12.2) H 12/09/17 14:25 INR 1.2 12/09/17 14:25 APTT 37 SECONDS (21-34) H 12/09/17 14:25 - Constitutional Appears: Non-toxic, No Acute Distress - Head Exam Head Exam: ATRAUMATIC, NORMAL INSPECTION - Eye Exam Eye Exam: EOMI, Normal appearance, PERRL Pupil Exam: NORMAL ACCOMODATION - ENT Exam ENT Exam: Mucous Membranes Moist - Neck Exam Neck Exam: Full ROM - Respiratory Exam Respiratory Exam: NORMAL BREATHING PATTERN - Cardiovascular Exam Cardiovascular Exam: +S1, +S2 - GI/Abdominal Exam GI & Abdominal Exam: Soft, Normal Bowel Sounds - Extremities Exam Extremities Exam: Full ROM. absent: Pedal Edema, Tenderness Additional comments: right foot, dressed - site, clean dry and intact - Back Exam Back Exam: NORMAL INSPECTION - Neurological Exam Neurological Exam: Alert, Awake, Oriented x3 - Psychiatric Exam Psychiatric exam: Normal Affect, Normal Mood - Skin Skin Exam: Warm Assessment and Plan - Assessment and Plan (Free Text) Assessment: Right Chopart's Amputation, POD #1 Secondary to right foot gas gangrene Podiatry Consult placed- Dr. Watters- christopher appreciated Right foot wound cultures taken - proteus mirabilis blood cultures negative KEN/PVR ordered -F/U Vascular Surgery Consult placed- Dr. Nina- F/U recs CTA F/U Dopplers- Prelim study negative. F/U official report. ID Consult placed- Dr. Tasha white appreciated Previously on Zosyn 12/09-12/11 On Merrem Started 12/11 On Vanco 500mg MWF started 12/12 Leukocytosis Given basophilia, F/U BCR/ABL On antibiotics therapy Thrombocytosis Heme/Onc Consult placed- Dr. Keisha white appreciated f/u recs- rule out myeloproliferative disorder, essential thrombocytosis, JAK2 mutation, iron deficiency Hydroxyurea daily given vascular disease May also have been reactive secondary to gangrene CKD Dialysis today Renvela 800mg tid Procrit 8,000 u MWF Heparin 2000 IVP MWF Nephro consult placed to Dr. Duong Anemia Anemia of CKD - epo per renal b12: 756 folate: >20, ferritin 1490 HTN Continue home meds: Hydralazine 50mg po daily Norvasc 10mg po daily Gout Continue Home med- Allopurinol 100mg po daily Hyperglycemia HgA1C: 6.1. No other prior records. ISS low dose scale. Will not increase to high dose at this time, due to increased rosk of hypoglycemic events - due to ESRD. 10 units Lantus added on HS- Patient has been having hyperglycemic events overnight Lipid panel: triglycerides: 126, Cholesterol: 91, LDL < 30, HDL 24 Dementia Namenda 5mg po daily (decreased from BID as per renal dosing) Depression Home meds- mirtazapine 30mg PO QD and sertraline 20mg PO QD Prophylaxis Heparin 5000 u sc q12h Discussed with attending. All management and planning as per Dr. Rios
[2017-12-12] MEDS: (Novolog) Insulin Aspart, Recombinant 100 u/ml 10 ml vial SC SCH ×4 (07:57→21:29)
[2017-12-12] MEDS: Multivitamin Vitamin B Complex (Nephro-Vite) Tab PO SCH (07:58)
--- NOTE | 2017-12-12 08:57 | CP.PCM.PN ---
Subjective - Date & Time of Evaluation Date of Evaluation: 12/12/17 Time of Evaluation: 08:54 - Subjective Subjective: Vascular surgery progress note for Dr. Bebo Tejeda, PGY-2 Pt S & E at bedside at 0630 Pt without complaints this AM. Is s/p Right Chopart's amputation, no pain.. Objective - Vital Signs/Intake and Output Vital Signs (last 24 hours): Temp Pulse Resp BP Pulse Ox 98.2 F 82 20 158/63 H 96 12/12/17 07:33 12/12/17 07:33 12/12/17 07:33 12/12/17 07:33 12/12/17 07:33 Intake and Output: 12/12/17 12/12/17 06:59 18:59 Intake Total 460 Balance 460 - Medications Medications: Current Medications Acetaminophen (Tylenol 325mg Tab) 650 mg PO Q6 PRN PRN Reason: Fever >100.4 F Allopurinol (Zyloprim) 100 mg PO DAILY [facility] Last Admin: 12/11/17 10:41 Dose: Not Given Amlodipine Besylate (Norvasc) 10 mg PO DAILY [facility] Last Admin: 12/11/17 09:30 Dose: Not Given [facility]etin [facility] ([facility]) [facility] Last Admin: 12/10/17 16:16 Dose: 8,000 unit Heparin Sodium (Porcine) (Heparin) 5,000 units SC Q12 [facility] Last Admin: 12/11/17 22:27 Dose: 5,000 units Heparin Sodium (Porcine) (Heparin) 2,000 units IVP [facility] [place] [facility] Last Admin: 12/10/17 16:08 Dose: 2,000 units Hydralazine HCl (Apresoline) 50 mg PO TID PRN PRN Reason: Other Last Admin: 12/12/17 00:54 Dose: 50 mg Hydroxyurea (Hydrea) 1,000 mg PO DAILY [facility] Last Admin: 12/11/17 10:00 Dose: Not Given Vancomycin HCl 500 mg/ Sodium (Chloride) 100 mls @ 100 mls/hr IVPB MWF [facility]; Protocol Meropenem 500 mg/ Sodium (Chloride) 100 mls @ 100 mls/hr IVPB Q12H [facility]; Protocol Last Admin: 12/12/17 06:08 Dose: 100 mls/hr Insulin Aspart (Novolog) 0 unit SC ACHS [facility]; Protocol Last Admin: 12/12/17 07:57 Dose: 6 units Memantine (Namenda) 5 mg PO DAILY [facility] Last Admin: 12/11/17 10:00 Dose: Not Given Mirtazapine (Remeron) 30 mg PO HS [facility] Last Admin: 12/11/17 22:18 Dose: 30 mg Oxycodone/Acetaminophen (Percocet 5/325 Mg Tab) 1 tab PO Q4H PRN PRN Reason: Pain, moderate (4-7) Stop: 12/14/17 09:39 Oxycodone/Acetaminophen (Percocet 5/325 Mg Tab) 2 tab PO Q4H PRN PRN Reason: Pain, severe (8-10) Stop: 12/14/17 09:39 Prednisone (Prednisone Tab) 50 mg PO ONCE PRN PRN Reason: Other Last Admin: 12/11/17 15:01 Dose: 50 mg Sertraline HCl (Zoloft) 25 mg PO DAILY [facility] Last Admin: 12/11/17 09:30 Dose: Not Given Sevelamer Carbonate (Renvela) 800 mg PO DAILY [facility] Last Admin: 12/11/17 10:40 Dose: Not Given Vitamin B Complex/Vit C/Folic Acid (Nephro-Carmen) 1 tab PO 0800 [facility] Last Admin: 12/12/17 07:58 Dose: 1 tab - Labs Labs: 12/11/17 10:06 12/11/17 05:34 PT 13.3 SECONDS (9.7-12.2) H 12/09/17 14:25 INR 1.2 12/09/17 14:25 APTT 37 SECONDS (21-34) H 12/09/17 14:25 - Constitutional Appears: Non-toxic, No Acute Distress - Head Exam Head Exam: ATRAUMATIC, NORMAL INSPECTION, NORMOCEPHALIC - Eye Exam Eye Exam: EOMI, Normal appearance - ENT Exam ENT Exam: Mucous Membranes Moist, Normal Exam - Neck Exam Neck Exam: Full ROM, Normal Inspection - Respiratory Exam Respiratory Exam: NORMAL BREATHING PATTERN - Cardiovascular Exam Cardiovascular Exam: REGULAR RHYTHM, +S1, +S2 - GI/Abdominal Exam GI & Abdominal Exam: Soft. absent: Tenderness - Extremities Exam Extremities Exam: absent: Normal Inspection (Right foot with dressing in place- clean/dry/intact) - Neurological Exam Neurological Exam: Alert, Awake - Psychiatric Exam Psychiatric exam: Normal Affect, Normal Mood - Skin Skin Exam: Dry, Normal Color, Warm Assessment and Plan - Assessment and Plan (Free Text) Assessment: 62M w/periperal gangrene of B/L feet, s/p R Chopart's amputation with podiatry Plan: Awaiting read of CTA Further recs pending imaging results Will DW Dr. Maico Tejeda, PGY-2
[2017-12-12 09:24] LABS: BASO # 0.2 K/uL (0.0-0.2); BASO % 0.6 % (0.0-2.0); HEMOGLOBIN 7.4 g/dL (12.0-18.0); LYMPH # 0.8 K/uL (1.0-4.3); LYMPH % 2.2 % (20.0-40.0); MEAN CELL VOLUME 85.2 fL (80.0-94.0); MEAN CORPUSCULAR HEMOGLOBIN 27.1 pg (27.0-31.0); MEAN CORPUSCULAR HGB CONC 31.8 g/dL (33.0-37.0); MEAN PLATELET VOLUME 7.9 fL (7.2-11.7); MONO # 0.9 K/uL (0.0-0.8); MONO % 2.5 % (0.0-10.0); NEUT # 34.9 K/uL (1.8-7.0); NEUT % 94.7 % (50.0-75.0); RBC 2.71 Mil/uL (4.40-5.90); RED CELL DISTRIBUTION WIDTH 16.6 % (11.5-14.5); WHITE BLOOD COUNT 36.9 K/uL (4.8-10.8)
[2017-12-12 09:29] LABS: PLATELET COUNT 1273 K/uL (130-400)
--- NOTE | 2017-12-12 09:39 | VASCLAB ---
Date of service: 12/10/2017 PROCEDURE: Lower Extremity Venous Duplex Exam. HISTORY: r/o DVT. PRIORS: None. TECHNIQUE: Bilateral common femoral, femoral, popliteal and posterior tibial, peroneal and great saphenous veins were evaluated. Flow was assessed with color Doppler, compressibility, assessment of phasic flow and augmentation response. Report prepared by Jamie Porras, BS, RVT FINDINGS: RIGHT: 1. Common Femoral Vein: 1.1. Compressibility - Fully compressible: Thrombus - None : Flow - Phasic: Augmentation -Normal: Reflux - None. 2. Femoral Vein: 2.1. Compressibility - Fully compressible: Thrombus - None : Flow - Phasic: Augmentation -Normal: Reflux - None. 3. Popliteal Vein: 3.1. Compressibility - Fully compressible: Thrombus - None : Flow - Phasic: Augmentation -Normal: Reflux - YES. 4. Posterior Tibial Vein: 4.1. Compressibility - Fully compressible: Thrombus - None: Flow - Phasic: Augmentation -Normal: Reflux - None. 5. Peroneal Vein: 5.1. Compressibility - Fully compressible: Thrombus - None: Flow - Phasic: Augmentation -Normal: Reflux - None. 6. Great Saphenous Vein: 6.1. Compressibility - Fully compressible: Thrombus - None: Flow - Phasic: Augmentation - Normal: Reflux - YES. LEFT: 1. Common Femoral Vein: 1.1. Compressibility - Fully compressible: Thrombus - None: Flow - Phasic: Augmentation -Normal: Reflux - None. 2. Femoral Vein: 2.1. Compressibility - Fully compressible: Thrombus - None: Flow - Phasic: Augmentation -Normal: Reflux - None. 3. Popliteal Vein: 3.1. Compressibility - Fully compressible: Thrombus - None : Flow - Phasic: Augmentation -Normal: Reflux - YES. 4. Posterior Tibial Vein: 4.1. Compressibility - Fully compressible: Thrombus - None: Flow - Phasic: Augmentation -Normal: Reflux - None. 5. Peroneal Vein: 5.1. Compressibility - Fully compressible: Thrombus - None: Flow - Phasic: Augmentation -Normal: Reflux - YES. 6. Great Saphenous Vein: 6.1. Compressibility - Fully compressible: Thrombus - None: Flow - Phasic: Augmentation - Normal: Reflux - None. OTHER FINDINGS: Right: None significant. Left: None significant. IMPRESSION: Right: No evidence of deep or superficial vein thrombosis of the right lower extremity. Valvular incompetence of the right popliteal and greater saphenous veins. Left: No evidence of deep or superficial vein thrombosis of the left lower extremity. Valvular incompetence of the left popliteal and peroneal veins.
--- NOTE | 2017-12-12 09:42 | VASCLAB ---
Date of service: 12/10/2017 STUDY DESCRIPTION: Lower Extremity Arterial Exam (PVR). HISTORY: poor pulses, infection right foot PRIORS: None. TECHNIQUE: Pulse volume recording waveforms and segmental pressures of bilateral lower extremities at multiple levels were obtained. Ankle Brachial Indices (ABIs) were calculated. Report prepared by NEGAR Arango, RVT RIGHT LOWER EXTREMITY: * Brachial artery: Pressure - 127 mmHg. * High thigh: Pressure - 220 mmHg: Ratio - NC: PVR waveform - Pulsatile * Low thigh: Pressure - 220 mmHg: Ratio - NC PVR waveform: Pulsatile * Calf: Pressure - 220 mmHg: Ratio - NC PVR waveform: Pulsatile * Posterior tibial Artery: Pressure - 220 mmHg: Ratio - NC PVR waveform: Pulsatile * Dorsalis pedis Artery: Pressure - 220 mmHg: Ratio - NC PVR waveform: Pulsatile * Great toe: Pressure - mmHg: Ratio - PVR waveform: Ankle brachial index (KEN): NC LEFT LOWER EXTREMITY: * Brachial artery: Pressure - mmHg. * High thigh: Pressure - 220 mmHg: Ratio - NC: PVR waveform - Pulsatile * Low thigh: Pressure - 220 mmHg: Ratio - NC PVR waveform: Pulsatile * Calf: Pressure - 220 mmHg: Ratio - NC PVR waveform: Pulsatile * Posterior tibial Artery: Pressure - 220 mmHg: Ratio - NC PVR waveform: Pulsatile * Dorsalis pedis Artery: Pressure - 220 mmHg: Ratio - NC PVR waveform: Pulsatile * Great toe: Pressure - mmHg: Ratio - PVR waveform: Ankle brachial index (KEN): NC OTHER FINDINGS: Right: Left: IMPRESSION: Right: The ankle pressure index of the right lower extremity is non-diagnostic due to possible arterial wall calcifications. Left: The ankle pressure index of the left lower extremity is non-diagnostic due to possible arterial wall calcifications. Recommend CT angiogram.
[2017-12-12 10:03] LABS: ANISOCYTOSIS SLIGHT; LYMPHOCYTE 3 % (20-40); MONOCYTE 2 % (0-10); MYELOCYTE 1 % (0-0); NEUTROPHIL 94 % (50-75); PLATELET ESTIMATE MARKEDLY INCREASED (NORMAL); POIKILOCYTOSIS SLIGHT; TOTAL CELLS COUNTED 100
[2017-12-12 10:04] LABS: HYPOCHROMIC MODERATE; LARGE PLATELETS PRESENT; MICROCYTOSIS SLIGHT; TARGET CELLS SLIGHT
[2017-12-12 10:10] LABS: ALB/GLOB RATIO 0.9 (1.0-2.1); ALBUMIN 3.8 g/dL (3.5-5.0); CALCIUM 8.5 mg/dl (8.6-10.4)
--- NOTE | 2017-12-12 10:13 | CP.PCM.PN ---
Subjective - Date & Time of Evaluation Date of Evaluation: 12/12/17 Time of Evaluation: 10:11 - Subjective Subjective: Podiatry progress note for Dr. Ahn 62 year old male seen and evaluated 1 day s/p right chopart's amputation. Reports that he was seen by Dr. Ahn this morning and his dressing was changed. Denies of of any pain from the right foot. Patient denies of any recent F/N/V/C/SOB/CP/headache. Denies of any other pedal complains at this time. Objective - Vital Signs/Intake and Output Vital Signs (last 24 hours): Temp Pulse Resp BP Pulse Ox 97.7 F 93 H 16 103/57 L 96 12/12/17 09:10 12/12/17 09:10 12/12/17 09:10 12/12/17 09:10 12/12/17 09:10 Intake and Output: 12/12/17 12/12/17 06:59 18:59 Intake Total 460 Balance 460 - Medications Medications: Current Medications Acetaminophen (Tylenol 325mg Tab) 650 mg PO Q6 PRN PRN Reason: Fever >100.4 F Allopurinol (Zyloprim) 100 mg PO DAILY [facility] Last Admin: 12/11/17 10:41 Dose: Not Given Amlodipine Besylate (Norvasc) 10 mg PO DAILY [facility] Last Admin: 12/11/17 09:30 Dose: Not Given Epoetin Ivan (Procrit) 12,000 unit IV MWF [facility] Heparin Sodium (Porcine) (Heparin) 5,000 units SC Q12 [facility] Last Admin: 12/11/17 22:27 Dose: 5,000 units Heparin Sodium (Porcine) (Heparin) 2,000 units IVP [facility] Hydralazine HCl (Apresoline) 50 mg PO TID PRN PRN Reason: Other Last Admin: 12/12/17 00:54 Dose: 50 mg Hydroxyurea (Hydrea) 1,000 mg PO DAILY [facility] Last Admin: 12/11/17 10:00 Dose: Not Given Vancomycin HCl 500 mg/ Sodium (Chloride) 100 mls @ 100 mls/hr IVPB MWF [facility]; Protocol Meropenem 500 mg/ Sodium (Chloride) 100 mls @ 100 mls/hr IVPB Q12H [facility]; Protocol Last Admin: 12/12/17 06:08 Dose: 100 mls/hr Insulin Aspart (Novolog) 0 unit SC ACHS [facility]; Protocol Memantine (Namenda) 5 mg PO DAILY [facility] Last Admin: 12/11/17 10:00 Dose: Not Given Mirtazapine (Remeron) 30 mg PO HS [facility] Last Admin: 12/11/17 22:18 Dose: 30 mg Oxycodone/Acetaminophen (Percocet 5/325 Mg Tab) 1 tab PO Q4H PRN PRN Reason: Pain, moderate (4-7) Stop: 12/14/17 09:39 Oxycodone/Acetaminophen (Percocet 5/325 Mg Tab) 2 tab PO Q4H PRN PRN Reason: Pain, severe (8-10) Stop: 12/14/17 09:39 Prednisone (Prednisone Tab) 50 mg PO ONCE PRN PRN Reason: Other Last Admin: 12/11/17 15:01 Dose: 50 mg Sertraline HCl (Zoloft) 25 mg PO DAILY [facility] Last Admin: 12/11/17 09:30 Dose: Not Given Sevelamer Carbonate (Renvela) 800 mg PO DAILY [facility] Last Admin: 12/11/17 10:40 Dose: Not Given Vitamin B Complex/Vit C/Folic Acid (Nephro-Carmen) 1 tab PO 0800 [facility] Last Admin: 12/12/17 07:58 Dose: 1 tab - Labs Labs: 12/12/17 09:21 12/12/17 09:21 PT 13.3 SECONDS (9.7-12.2) H 12/09/17 14:25 INR 1.2 12/09/17 14:25 APTT 37 SECONDS (21-34) H 12/09/17 14:25 - Constitutional Appears: Well, Non-toxic, No Acute Distress - Extremities Exam Additional comments: Dressing is clean, dry and intact with no strike-through noted - Neurological Exam Neurological Exam: Alert, Awake, Oriented x3 - Psychiatric Exam Psychiatric exam: Normal Affect, Normal Mood Assessment and Plan - Assessment and Plan (Free Text) Assessment: 62 year old male evaluated 1 day s/p right chopart's amputation Plan: Patient seen and evaluated by attending Dr. Ahn Labs, vitals and charts reviewed - afebrile, elevated leukocytosis Right foot wound cultures taken - Proteus Mirabilis Pre-op X-rays of the foot taken/evaluated - superficial localized radiolucensy within soft tissue concerning for soft tissue emphysema on the right plantar foot Pre-op KEN/PVR ordered - non-conclusive ID Consult - Dr. Vargas, recs appreciated - Continue IV abx as per ID Vascular consult - Dr. Nina - christopher appreciated - s/p CTA Surgical path - pending report Wound cleaned with saline and dressing applied using hydrogenperoxide, DSD, MELISA bandage; DSD to the left foot Patient to remain NWB to the RLE at this time Podiatry to monitor patient while in-house
--- NOTE | 2017-12-12 10:35 | CP.PCM.PN ---
Subjective - Date & Time of Evaluation Date of Evaluation: 12/12/17 Time of Evaluation: 10:33 - Subjective Subjective: Nephrology Consultation Note: Assessment: Stable Leg ulcers with Gangrene and ? PVD Diabetic chronic Kidney Disease (E11.22) Hypertensive Chronic Kidney Disease (I12.0) End stage renal disease (N18.6) dependence on hemodialysis (Z99.2) (MWF) via AVF Anemia (D64.9), Hyperphosphatemia (E83.39), Secondary Hyperparathyroidism (E21.1), HTN (I12.0) Thrombocytosis uncontrolled DM with hyperglycemia Plan: Will plan for HD as ordered per MWF schedule. Continue with Nephrovite 1 tab/day. PRBC as needed for anemia. started on SEUN with dialysis as last Hb 8.8 Continue with phos binders, last phos level 3.3 BP control with meds as ordered. Patient not on RAAS milan, hydralazine changed to PRN and d/c norvasc as BP low Glycemic control, Dialysis consistent diet Further work up/management as per primary team Dose meds/antibiotics (if needed) for ESRD status. Avoid fleets enema/magnesium based laxatives. vascular surgery, podiatry following, recs reviewed and appreciated heme following, pt on hydroxyurea Thanks for allowing me to participate in care of your patient. Will follow patient with you. Please call if any Qs. had d/w team Dr Volodymyr Oconnor Office: [phone] Chief Complaint; leg wound reason for consult: ESRD HPI: Pt is a 62 M with hx of ESRD on hemodialysis (MWF) via avf for last 1 month in [place], [place] , last dialysis Mon, chronic anemia, hyperphosphatemia, secondary hyperparathyroidism, Diabetes Mellitus, hypertension, presented with complaints of leg wounds and concerns for gangrene. being evaluated for PVD as well Renal consult requested for ESRD management. pt seen on hd and feels same. 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 Pulmonary: no shortness of breath Gastrointestinal: denies abdominal pain No nausea. No vomiting. Genitourinary: No pain while urinating. Denies blood in urine. All other negative except as mentioned in HPI Physical Examination: seen on HD General Appearance: Comfortable, in no acute respiratory distress, co-operative . Vitals reviewed and noted as below Head; Atraumatic, normocephalic ENT: no ulcers no thrush. Tongue is midline. Oropharynx: no rash or ulcers. EYES: Pupils are equal, round and reactive to light accommodation. Eye muscles and extra-ocular movement intact. Sclera is anicteric. Neck; supple no lymphadenopathy, no thyromegaly or bruit Lungs: Normal respiratory rate/effort. Breath sounds bilateral clear Heart: Normal rate. s1s2 normal. No rub or gallop. Extremities: no edema. No varicose veins. feets dressed. s/p Rt Foot TMA Neurological: Patient is alert, awake and oriented to person, place and time. No focal deficit. Strength bilateral appropriate and equal Skin: Warm and dry. Normal turgor. No rash. Palpitation: Normal elasticity for age Abdomen: Abdomen is soft. Bowel sounds +. There is no abdominal tenderness, no guarding/rigidity or organomegaly Psych: lack insight and hsa normal affect/mood MSK: no joint tenderness or swelling. Digits and nails normal, no deformity : kidney or bladder not palpable Access: AVF Labs/imaging reviewed. Past medical history, past surgical history, family history, social history, allergy reviewed and noted as below Family Hx: no hx of CKD. Non contributory Objective - Vital Signs/Intake and Output Vital Signs (last 24 hours): Temp Pulse Resp BP Pulse Ox 97.7 F 93 H 16 97/52 L 96 12/12/17 09:10 12/12/17 09:10 12/12/17 09:10 12/12/17 10:10 12/12/17 09:10 Intake and Output: 12/12/17 12/12/17 06:59 18:59 Intake Total 460 Balance 460 - Medications Medications: Current Medications Acetaminophen (Tylenol 325mg Tab) 650 mg PO Q6 PRN PRN Reason: Fever >100.4 F Allopurinol (Zyloprim) 100 mg PO DAILY [facility] Last Admin: 12/11/17 10:41 Dose: Not Given Amlodipine Besylate (Norvasc) 10 mg PO DAILY [facility] Last Admin: 12/11/17 09:30 Dose: Not Given Epoetin Ivan (Procrit) 12,000 unit IV MWF [facility] Heparin Sodium (Porcine) (Heparin) 5,000 units SC Q12 [facility] Last Admin: 12/11/17 22:27 Dose: 5,000 units Heparin Sodium (Porcine) (Heparin) 2,000 units IVP [facility] Hydralazine HCl (Apresoline) 50 mg PO TID PRN PRN Reason: Other Last Admin: 12/12/17 00:54 Dose: 50 mg Hydroxyurea (Hydrea) 1,000 mg PO DAILY [facility] Last Admin: 12/11/17 10:00 Dose: Not Given Vancomycin HCl 500 mg/ Sodium (Chloride) 100 mls @ 100 mls/hr IVPB MWF [facility]; Protocol Meropenem 500 mg/ Sodium (Chloride) 100 mls @ 100 mls/hr IVPB Q12H [facility]; Protocol Last Admin: 12/12/17 06:08 Dose: 100 mls/hr Insulin Aspart (Novolog) 0 unit SC ACHS [facility]; Protocol Memantine (Namenda) 5 mg PO DAILY [facility] Last Admin: 12/11/17 10:00 Dose: Not Given Mirtazapine (Remeron) 30 mg PO HS [facility] Last Admin: 12/11/17 22:18 Dose: 30 mg Oxycodone/Acetaminophen (Percocet 5/325 Mg Tab) 1 tab PO Q4H PRN PRN Reason: Pain, moderate (4-7) Stop: 12/14/17 09:39 Oxycodone/Acetaminophen (Percocet 5/325 Mg Tab) 2 tab PO Q4H PRN PRN Reason: Pain, severe (8-10) Stop: 12/14/17 09:39 Prednisone (Prednisone Tab) 50 mg PO ONCE PRN PRN Reason: Other Last Admin: 12/11/17 15:01 Dose: 50 mg Sertraline HCl (Zoloft) 25 mg PO DAILY [facility] Last Admin: 12/11/17 09:30 Dose: Not Given Sevelamer Carbonate (Renvela) 800 mg PO DAILY [facility] Last Admin: 12/11/17 10:40 Dose: Not Given Vitamin B Complex/Vit C/Folic Acid (Nephro-Carmen) 1 tab PO 0800 [facility] Last Admin: 12/12/17 07:58 Dose: 1 tab - Labs Labs: 12/12/17 09:21 12/12/17 09:21 PT 13.3 SECONDS (9.7-12.2) H 12/09/17 14:25 INR 1.2 12/09/17 14:25 APTT 37 SECONDS (21-34) H 12/09/17 14:25
[2017-12-12] MEDS ORDERED: Glucagon Recombinant 1 mg Inj IM PRN (11:13)
[2017-12-12] MEDS ORDERED: Dextrose 50% SYRINGE Inj (50 ml) IV PRN (11:13)
[2017-12-12] MEDS ORDERED: (Novolog) Insulin Aspart, Recombinant 100 u/ml 10 ml vial SC SCH (11:30)
--- NOTE | 2017-12-12 11:45 | CARD ---
APPROVED REPORT Date of service: 12/10/2017 EKG Measurement Heart [id number] <Conclusion> Normal sinus rhythm Prolonged QT Abnormal ECG
--- NOTE | 2017-12-12 11:51 | PN ---
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 PHYSICAL EXAMINATION: GENERAL: The patient is seen at bedside this morning, alert, orientated x3, in no apparent distress. EXTREMITIES: Dressing is changed. The drain is pulled. ASSESSMENT AND PLAN: It appears that the surgical site is coapting nicely and from my standpoint, the patient to be transferred to a subacute facility and I will follow him up there. Roman Hooper DPM
[2017-12-12] MEDS: EPOETIN ALFA 4,000 UNIT/ML ML Dialysis IV SCH (11:53)
--- NOTE | 2017-12-12 12:06 | CT ---
Date of service: 12/11/2017 PROCEDURE: CT Angiography Abdomen, Pelvis and Lower Extremity with Contrast HISTORY: peripheral vascular disease COMPARISON: None available. TECHNIQUE: Technique: CT angiography of the abdomen, pelvis and bilateral lower extremities performed in the arterial phase of enhancement. Coronal and sagittal reformats, and well as rotating MIP images of the vessels generated at the workstation. Intravenous contrast dose: 150 milliliters Visipaque 320 Radiation dose: Total exam DLP = 1518.59 mGy-cm. This CT exam was performed using one or more of the following dose reduction techniques: Automated exposure control, adjustment of the mA and/or kV according to patient size, and/or use of iterative reconstruction technique. FINDINGS: CT ANGIOGRAPHY: ABDOMINAL AORTA:: Diffuse calcification throughout the abdominal aorta without any stenosis. MAJOR AORTIC BRANCHES: [place]: Diffuse moderate calcific plaque without stenosis. Superior mesenteric artery: Diffuse moderate calcific plaque without stenosis. Inferior mesenteric artery: Diffuse moderate calcific plaque without stenosis. Renal arteries: No significant stenosis of the renal arteries. PELVIC ARTERIES: Right Common Iliac: Moderate calcific plaque without significant stenosis per Right External Iliac: Unremarkable. Right Internal Iliac: Unremarkable. Left Common Iliac: Moderate calcific plaque without significant stenosis. Left External Iliac: Unremarkable. Left Internal Iliac: Unremarkable. RIGHT LOWER EXTREMITY ARTERIES: Right Common Femoral: Severe calcific plaque with moderate stenosis. Right Superficial Femoral: Severe calcific plaque throughout the SFA with multiple areas of mild to severe stenosis and a occluded segment in the mid SF A. Right Profunda Femoris: Unremarkable. Right Popliteal:Severe calcific plaque of the popliteal artery with moderate stenosis. Right Anterior Tibial: Assessment of anterior tibial artery is limited secondary diffuse severe calcific plaque. The occluded. Right Tibioperoneal Trunk: Unremarkable. Right Posterior Tibial: Into the posterior tibial artery is limited secondary to calcific plaque. Possibly occluded. Right Peroneal: There is flow seen within the peroneal artery. Right dorsalis pedis : Unremarkable. LEFT LOWER EXTREMITY ARTERIES: Left Common Femoral: Calcific plaque with no significant stenosis. Left Superficial Femoral: Severe calcific plaque throughout the SFA stenosis in the proximal segment. Left Profunda Femoris: Unremarkable. Left Popliteal: Plaque of the popliteal artery without significant stenosis. Left Anterior Tibial: Into the anterior tibial artery is limited secondary to diffuse moderate calcific plaque. Left Tibioperoneal Trunk: Unremarkable. Left Posterior Tibial: Of the posterior tibial artery is limited secondary to diffuse moderate calcific plaque. Left Peroneal: Unremarkable. Left Dorsalis pedis: Unremarkable. NON-ANGIOGRAPHIC ASPECT OF THE EXAM: LOWER THORAX: Unremarkable. LIVER: Unremarkable. No gross lesion or ductal dilatation. GALLBLADDER AND BILE DUCTS: Unremarkable. PANCREAS: Unremarkable. No gross lesion or ductal dilatation. SPLEEN: Unremarkable. ADRENALS: Unremarkable. No mass. KIDNEYS AND URETERS: Unremarkable. No hydronephrosis. No solid mass. STOMACH AND BOWEL: Unremarkable. No obstruction. No gross mural thickening. APPENDIX: Normal appendix. PERITONEUM: Unremarkable. No free fluid. No free air. LYMPH NODES: Unremarkable. No enlarged lymph nodes. BLADDER: Unremarkable. REPRODUCTIVE: Unremarkable. BONES: No acute fracture. OTHER FINDINGS: None. IMPRESSION: CT ANGIOGRAM ABDOMEN/PELVIS: 1. Moderate calcific plaque throughout the abdominal aorta, the major branches, and the pelvic arteries without significant stenosis. RIGHT LOWER EXTREMITY CT ANGIOGRAM: 1. Moderate to severe calcific plaque of the common femoral artery with moderate stenosis. 2. Severe calcific plaque throughout the SFA with multiple areas of moderate stenosis and a short segment occlusion of the mid SFA. 3. Mild to severe calcific plaque of the popliteal artery moderate stenosis. 4. Runoff shows a patent peroneal artery. The anterior tibial and posterior tibial artery are diffusely calcified which limits evaluation. LEFT LOWER EXTREMITY CT ANGIOGRAM: 1. Moderate calcific plaque of the common femoral artery with no significant stenosis. 2. Severe calcific plaque of the SFA with moderate stenosis of the proximal segment. 3. Popliteal artery is mildly calcified but not stenotic. 4. The peroneal artery is patent. Assessment of the anterior tibial artery and posterior tibial artery is limited secondary to diffuse calcific plaque.
--- NOTE | 2017-12-12 18:45 | CP.PCM.PN ---
Subjective - Date & Time of Evaluation Date of Evaluation: 12/12/17 Time of Evaluation: 09:00 - Subjective Subjective: tolerating rx s/p amp await path cultures reviewed iv rx reordered Objective - Vital Signs/Intake and Output Vital Signs (last 24 hours): Temp Pulse Resp BP Pulse Ox 98.2 F 83 20 131/67 100 12/12/17 15:00 12/12/17 16:00 12/12/17 15:00 12/12/17 15:00 12/12/17 15:00 Intake and Output: 12/12/17 12/12/17 06:59 18:59 Intake Total 460 Balance 460 - Medications Medications: Current Medications Acetaminophen (Tylenol 325mg Tab) 650 mg PO Q6 PRN PRN Reason: Fever >100.4 F Allopurinol (Zyloprim) 100 mg PO DAILY [facility] Last Admin: 12/12/17 13:14 Dose: 100 mg Dextrose (Dextrose 50% Inj) 0 ml IV STAT PRN; Protocol PRN Reason: Hypoglycemia Protocol Dextrose (Glutose 15) 0 gm PO ONCE PRN; Protocol PRN Reason: Hypoglycemia Protocol Epoetin Ivan (Procrit) 12,000 unit IV [facility] Last Admin: 12/12/17 11:53 Dose: 12,000 unit Glucagon (Glucagen Diagnostic Kit) 0 mg IM STAT PRN; Protocol PRN Reason: Hypoglycemia Protocol Heparin Sodium (Porcine) (Heparin) 5,000 units SC Q12 [facility] Last Admin: 12/12/17 10:50 Dose: Not Given Heparin Sodium (Porcine) (Heparin) 2,000 units IVP [facility] Hydralazine HCl (Apresoline) 50 mg PO TID PRN PRN Reason: Other Last Admin: 12/12/17 00:54 Dose: 50 mg Hydroxyurea (Hydrea) 1,000 mg PO DAILY [facility] Last Admin: 12/12/17 13:14 Dose: 1,000 mg Vancomycin HCl 500 mg/ Sodium (Chloride) 100 mls @ 100 mls/hr IVPB [facility]; Protocol Last Admin: 12/12/17 13:16 Dose: 100 mls/hr Meropenem 500 mg/ Sodium (Chloride) 100 mls @ 100 mls/hr IVPB Q12H [facility]; Protocol Last Admin: 12/12/17 18:42 Dose: 100 mls/hr Dextrose (Dextrose 5% In Water 1000 Ml) 1,000 mls @ 0 mls/hr IV .Q0M PRN; Protocol PRN Reason: Hypoglycemia Protocol Insulin Aspart (Novolog) 0 unit SC [facility]; Protocol Last Admin: 12/12/17 16:44 Dose: 3 units Insulin Glargine (Lantus) 10 unit SC [facility] Memantine (Namenda) 5 mg PO DAILY [facility] Last Admin: 12/12/17 13:15 Dose: 5 mg Mirtazapine (Remeron) 30 mg PO [facility] Last Admin: 12/11/17 22:18 Dose: 30 mg Oxycodone/Acetaminophen (Percocet 5/325 Mg Tab) 1 tab PO Q4H PRN PRN Reason: Pain, moderate (4-7) Stop: 12/14/17 09:39 Oxycodone/Acetaminophen (Percocet 5/325 Mg Tab) 2 tab PO Q4H PRN PRN Reason: Pain, severe (8-10) Stop: 12/14/17 09:39 Prednisone (Prednisone Tab) 50 mg PO ONCE PRN PRN Reason: Other Last Admin: 12/11/17 15:01 Dose: 50 mg Sertraline HCl (Zoloft) 25 mg PO DAILY [facility] Last Admin: 12/12/17 13:15 Dose: 25 mg Sevelamer Carbonate (Renvela) 800 mg PO DAILY [facility] Last Admin: 12/12/17 13:15 Dose: 800 mg Vitamin B Complex/Vit C/Folic Acid (Nephro-Carmen) 1 tab PO 0800 [facility] Last Admin: 12/12/17 07:58 Dose: 1 tab - Labs Labs: 12/12/17 09:21 12/12/17 09:21 PT 13.3 SECONDS (9.7-12.2) H 12/09/17 14:25 INR 1.2 12/09/17 14:25 APTT 37 SECONDS (21-34) H 12/09/17 14:25 - Constitutional Appears: Non-toxic, Chronically Ill - Head Exam Head Exam: NORMOCEPHALIC - Eye Exam Eye Exam: PERRL - ENT Exam ENT Exam: Mucous Membranes Dry - Neck Exam Neck Exam: absent: Lymphadenopathy - Respiratory Exam Respiratory Exam: Decreased Breath Sounds - Cardiovascular Exam Cardiovascular Exam: REGULAR RHYTHM - GI/Abdominal Exam GI & Abdominal Exam: Distended, Soft - Rectal Exam Rectal Exam: Deferred - Exam Exam: NORMAL INSPECTION - Extremities Exam Extremities Exam: Pedal Edema, Tenderness. absent: Calf Tenderness - Back Exam Back Exam: absent: CVA tenderness (L), CVA tenderness (R) - Neurological Exam Neurological Exam: Alert, Awake - Psychiatric Exam Psychiatric exam: Depressed Assessment and Plan (1) Gangrene Status: Suspected (2) Diabetes Status: Acute (3) PVD (peripheral vascular disease) Status: Acute (4) End stage renal disease on dialysis Status: Acute (5) End stage renal disease on dialysis Status: Acute - Assessment and Plan (Free Text) Assessment: iv rx reordered cont wound care
[2017-12-12] MEDS: (Lantus) Insulin Glargine, Recombinant SC SCH (21:19)
--- NOTE | 2017-12-12 22:51 | CP.PCM.PN ---
Subjective - Date & Time of Evaluation Date of Evaluation: 12/11/17 Time of Evaluation: 13:00 - Subjective Subjective: S/p right TMA Objective - Vital Signs/Intake and Output Vital Signs (last 24 hours): Temp Pulse Resp BP Pulse Ox 98.2 F 82 20 131/67 100 12/12/17 15:00 12/12/17 20:00 12/12/17 15:00 12/12/17 15:00 12/12/17 15:00 - Medications Medications: Current Medications Acetaminophen (Tylenol 325mg Tab) 650 mg PO Q6 PRN PRN Reason: Fever >100.4 F Allopurinol (Zyloprim) 100 mg PO DAILY [facility] Last Admin: 12/12/17 13:14 Dose: 100 mg Dextrose (Dextrose 50% Inj) 0 ml IV STAT PRN; Protocol PRN Reason: Hypoglycemia Protocol Dextrose (Glutose 15) 0 gm PO ONCE PRN; Protocol PRN Reason: Hypoglycemia Protocol Epoetin Ivan (Procrit) 12,000 unit IV [facility] Last Admin: 12/12/17 11:53 Dose: 12,000 unit Glucagon (Glucagen Diagnostic Kit) 0 mg IM STAT PRN; Protocol PRN Reason: Hypoglycemia Protocol Heparin Sodium (Porcine) (Heparin) 5,000 units SC Q12 [facility] Last Admin: 12/12/17 21:19 Dose: 5,000 units Heparin Sodium (Porcine) (Heparin) 2,000 units IVP [facility] Hydralazine HCl (Apresoline) 50 mg PO TID PRN PRN Reason: Other Last Admin: 12/12/17 00:54 Dose: 50 mg Hydroxyurea (Hydrea) 1,000 mg PO DAILY [facility] Last Admin: 12/12/17 13:14 Dose: 1,000 mg Vancomycin HCl 500 mg/ Sodium (Chloride) 100 mls @ 100 mls/hr IVPB [facility]; Protocol Last Admin: 12/12/17 13:16 Dose: 100 mls/hr Meropenem 500 mg/ Sodium (Chloride) 100 mls @ 100 mls/hr IVPB Q12H [facility]; Protocol Last Admin: 12/12/17 18:42 Dose: 100 mls/hr Dextrose (Dextrose 5% In Water 1000 Ml) 1,000 mls @ 0 mls/hr IV .Q0M PRN; Protocol PRN Reason: Hypoglycemia Protocol Insulin Aspart (Novolog) 0 unit SC [facility]; Protocol Last Admin: 12/12/17 21:29 Dose: Not Given Insulin Glargine (Lantus) 10 unit SC [facility] Last Admin: 12/12/17 21:19 Dose: 10 units Memantine (Namenda) 5 mg PO DAILY [facility] Last Admin: 12/12/17 13:15 Dose: 5 mg Mirtazapine (Remeron) 30 mg PO [facility] Last Admin: 12/12/17 21:19 Dose: 30 mg Oxycodone/Acetaminophen (Percocet 5/325 Mg Tab) 1 tab PO Q4H PRN PRN Reason: Pain, moderate (4-7) Stop: 12/14/17 09:39 Oxycodone/Acetaminophen (Percocet 5/325 Mg Tab) 2 tab PO Q4H PRN PRN Reason: Pain, severe (8-10) Stop: 12/14/17 09:39 Prednisone (Prednisone Tab) 50 mg PO ONCE PRN PRN Reason: Other Last Admin: 12/11/17 15:01 Dose: 50 mg Sertraline HCl (Zoloft) 25 mg PO DAILY [facility] Last Admin: 12/12/17 13:15 Dose: 25 mg Sevelamer Carbonate (Renvela) 800 mg PO DAILY [facility] Last Admin: 12/12/17 13:15 Dose: 800 mg Vitamin B Complex/Vit C/Folic Acid (Nephro-Carmen) 1 tab PO 0800 [facility] Last Admin: 12/12/17 07:58 Dose: 1 tab - Labs Labs: 12/12/17 09:21 12/12/17 09:21 PT 13.3 SECONDS (9.7-12.2) H 12/09/17 14:25 INR 1.2 12/09/17 14:25 APTT 37 SECONDS (21-34) H 12/09/17 14:25 - Head Exam Head Exam: ATRAUMATIC - Eye Exam Eye Exam: Normal appearance - ENT Exam ENT Exam: Mucous Membranes Dry - Respiratory Exam Respiratory Exam: NORMAL BREATHING PATTERN - Cardiovascular Exam Cardiovascular Exam: +S1, +S2 - GI/Abdominal Exam GI & Abdominal Exam: Normal Bowel Sounds Assessment and Plan (1) Thrombocytosis Assessment & Plan: rule out myeloproliferative disorder, essential thrombocytosis JAK2 mutation sent patient allergic to aspirin on hydroxyurea daily given vascular disease may also be reactive to gangrene no iron deficiency Status: Acute (2) Anemia Assessment & Plan: anemia of CKD - epo per renal anemia of chronic disease Status: Acute (3) Leukocytosis Assessment & Plan: given basophilia, f/u BCR/ABL on antibiotics Status: Acute
--- NOTE | 2017-12-12 22:55 | CP.PCM.PN ---
Subjective - Date & Time of Evaluation Date of Evaluation: 12/12/17 Time of Evaluation: 18:00 - Subjective Subjective: Has some surgical pain. Objective - Vital Signs/Intake and Output Vital Signs (last 24 hours): Temp Pulse Resp BP Pulse Ox 98.2 F 82 20 131/67 100 12/12/17 15:00 12/12/17 20:00 12/12/17 15:00 12/12/17 15:00 12/12/17 15:00 - Medications Medications: Current Medications Acetaminophen (Tylenol 325mg Tab) 650 mg PO Q6 PRN PRN Reason: Fever >100.4 F Allopurinol (Zyloprim) 100 mg PO DAILY [facility] Last Admin: 12/12/17 13:14 Dose: 100 mg Dextrose (Dextrose 50% Inj) 0 ml IV STAT PRN; Protocol PRN Reason: Hypoglycemia Protocol Dextrose (Glutose 15) 0 gm PO ONCE PRN; Protocol PRN Reason: Hypoglycemia Protocol Epoetin Ivan (Procrit) 12,000 unit IV [facility] Last Admin: 12/12/17 11:53 Dose: 12,000 unit Glucagon (Glucagen Diagnostic Kit) 0 mg IM STAT PRN; Protocol PRN Reason: Hypoglycemia Protocol Heparin Sodium (Porcine) (Heparin) 5,000 units SC Q12 [facility] Last Admin: 12/12/17 21:19 Dose: 5,000 units Heparin Sodium (Porcine) (Heparin) 2,000 units IVP [facility] Hydralazine HCl (Apresoline) 50 mg PO TID PRN PRN Reason: Other Last Admin: 12/12/17 00:54 Dose: 50 mg Hydroxyurea (Hydrea) 1,000 mg PO DAILY [facility] Last Admin: 12/12/17 13:14 Dose: 1,000 mg Vancomycin HCl 500 mg/ Sodium (Chloride) 100 mls @ 100 mls/hr IVPB [facility]; Protocol Last Admin: 12/12/17 13:16 Dose: 100 mls/hr Meropenem 500 mg/ Sodium (Chloride) 100 mls @ 100 mls/hr IVPB Q12H [facility]; Protocol Last Admin: 12/12/17 18:42 Dose: 100 mls/hr Dextrose (Dextrose 5% In Water 1000 Ml) 1,000 mls @ 0 mls/hr IV .Q0M PRN; Pr otocol PRN Reason: Hypoglycemia Protocol Insulin Aspart (Novolog) 0 unit SC [facility]; Protocol Last Admin: 12/12/17 21:29 Dose: Not Given Insulin Glargine (Lantus) 10 unit SC [facility] Last Admin: 12/12/17 21:19 Dose: 10 units Memantine (Namenda) 5 mg PO DAILY [facility] Last Admin: 12/12/17 13:15 Dose: 5 mg Mirtazapine (Remeron) 30 mg PO [facility] Last Admin: 12/12/17 21:19 Dose: 30 mg Oxycodone/Acetaminophen (Percocet 5/325 Mg Tab) 1 tab PO Q4H PRN PRN Reason: Pain, moderate (4-7) Stop: 12/14/17 09:39 Oxycodone/Acetaminophen (Percocet 5/325 Mg Tab) 2 tab PO Q4H PRN PRN Reason: Pain, severe (8-10) Stop: 12/14/17 09:39 Prednisone (Prednisone Tab) 50 mg PO ONCE PRN PRN Reason: Other Last Admin: 12/11/17 15:01 Dose: 50 mg Sertraline HCl (Zoloft) 25 mg PO DAILY [facility] Last Admin: 12/12/17 13:15 Dose: 25 mg Sevelamer Carbonate (Renvela) 800 mg PO DAILY [facility] Last Admin: 12/12/17 13:15 Dose: 800 mg Vitamin B Complex/Vit C/Folic Acid (Nephro-Carmen) 1 tab PO 0800 [facility] Last Admin: 12/12/17 07:58 Dose: 1 tab - Labs Labs: 12/12/17 09:21 12/12/17 09:21 PT 13.3 SECONDS (9.7-12.2) H 12/09/17 14:25 INR 1.2 12/09/17 14:25 APTT 37 SECONDS (21-34) H 12/09/17 14:25 - Head Exam Head Exam: ATRAUMATIC - Eye Exam Eye Exam: Normal appearance - ENT Exam ENT Exam: Mucous Membranes Dry - Respiratory Exam Respiratory Exam: NORMAL BREATHING PATTERN - Cardiovascular Exam Cardiovascular Exam: +S1, +S2 - GI/Abdominal Exam GI & Abdominal Exam: Normal Bowel Sounds Assessment and Plan (1) Thrombocytosis Assessment & Plan: rule out myeloproliferative disorder, essential thrombocytosis JAK2 mutation sent patient allergic to aspirin on hydroxyurea daily given vascular disease may also be reactive to gangrene no iron deficiency Status: Acute (2) Anemia Assessment & Plan: anemia of CKD - epo per renal anemia of chronic disease Status: Acute (3) Leukocytosis Assessment & Plan: f/u BCR/ABL on antibiotics Status: Acute
[2017-12-13] MEDS: Meropenem 500 MG in Sodium Chloride 0.9% 100 ML IVPB SCH ×2 (06:22→19:55)
[2017-12-13 07:06] LABS: BASO # 0.2 K/uL (0.0-0.2); BASO % 0.6 % (0.0-2.0); EOS # 0.5 K/uL (0.0-0.7); EOS % 1.5 % (0.0-4.0); HEMOGLOBIN 6.8 g/dL (12.0-18.0); LYMPH # 2.8 K/uL (1.0-4.3); LYMPH % 8.2 % (20.0-40.0); MEAN CELL VOLUME 85.5 fL (80.0-94.0); MEAN CORPUSCULAR HEMOGLOBIN 27.4 pg (27.0-31.0); MEAN PLATELET VOLUME 8.2 fL (7.2-11.7); MONO # 1.2 K/uL (0.0-0.8); MONO % 3.4 % (0.0-10.0); NEUT # 29.4 K/uL (1.8-7.0); NEUT % 86.3 % (50.0-75.0); NRBC % 0.1 % (0.0-2.0); RBC 2.49 Mil/uL (4.40-5.90); RED CELL DISTRIBUTION WIDTH 16.2 % (11.5-14.5); WHITE BLOOD COUNT 34.2 K/uL (4.8-10.8)
[2017-12-13 07:13] LABS: PLATELET COUNT 1225 K/uL (130-400)
[2017-12-13 07:27] LABS: ALB/GLOB RATIO 0.9 (1.0-2.1); ALBUMIN 3.5 g/dL (3.5-5.0); CALCIUM 8.4 mg/dl (8.6-10.4)
[2017-12-13] MEDS: (Novolog) Insulin Aspart, Recombinant 100 u/ml 10 ml vial SC SCH ×4 (08:20→21:35)
[2017-12-13] MEDS: Multivitamin Vitamin B Complex (Nephro-Vite) Tab PO SCH (08:25)
[2017-12-13 09:32] LABS: BANDS 1 % (0-2); EOSINOPHIL 1 % (0-4); LYMPHOCYTE 9 % (20-40); MONOCYTE 4 % (0-10); NEUTROPHIL 85 % (50-75); NUCLEATED RED BLOOD CELL 1 % (0-0); PLATELET ESTIMATE MARKEDLY INCREASED (NORMAL); TOTAL CELLS COUNTED 100
[2017-12-13 09:33] LABS: ANISOCYTOSIS SLIGHT; HYPOCHROMIC SLIGHT; POLYCHROMIC SLIGHT
[2017-12-13 09:34] LABS: LARGE PLATELETS PRESENT
--- NOTE | 2017-12-13 10:16 | CP.PCM.PN ---
Subjective - Date & Time of Evaluation Date of Evaluation: 12/13/17 Time of Evaluation: 10:15 - Subjective Subjective: Nephrology Consultation Note: Assessment: Stable Leg ulcers with Gangrene and ? PVD Diabetic chronic Kidney Disease (E11.22) Hypertensive Chronic Kidney Disease (I12.0) End stage renal disease (N18.6) dependence on hemodialysis (Z99.2) (MWF) via AVF Anemia (D64.9), Hyperphosphatemia (E83.39), Secondary Hyperparathyroidism (E21.1), HTN (I12.0) Thrombocytosis uncontrolled DM with hyperglycemia Plan: 2 unit PRBC with HD today as pt without any peripheral access to give PRBC Will plan for next HD as ordered per MWF schedule. Continue with Nephrovite 1 tab/day. PRBC as needed for anemia. started on SEUN with dialysis as last Hb 6.8 Continue with phos binders, last phos level 3.3 BP control with meds as ordered. Patient not on RAAS milan, hydralazine changed to PRN and d/c norvasc as BP low Glycemic control, Dialysis consistent diet Further work up/management as per primary team Dose meds/antibiotics (if needed) for ESRD status. Avoid fleets enema/magnesium based laxatives. vascular surgery, podiatry following, recs reviewed and appreciated heme following, pt on hydroxyurea Thanks for allowing me to participate in care of your patient. Will follow patient with you. Please call if any Qs. had d/w team Dr Volodymyr Oconnor Office: [phone] Chief Complaint; leg wound reason for consult: ESRD HPI: Pt is a 62 M with hx of ESRD on hemodialysis (MWF) via avf for last 1 month in [place], [place] , last dialysis Mon, chronic anemia, hyperphosphatemia, secondary hyperparathyroidism, Diabetes Mellitus, hypertension, presented with complaints of leg wounds and concerns for gangrene. being evaluated for PVD as well Renal consult requested for ESRD management. pt seen on hd and feels same. not aware about his reason for ESRD or who his environmental health sanitarian is ROS: limited from pt Cardiovascular: No chest pain. Pulmonary: no shortness of breath Gastrointestinal: denies abdominal pain No nausea. No vomiting. Genitourinary: No pain while urinating. Denies blood in urine. All other negative except as mentioned in HPI Physical Examination: General Appearance: Comfortable, in no acute respiratory distress, co-operative . Vitals reviewed and noted as below Head; Atraumatic, normocephalic ENT: no ulcers no thrush. Tongue is midline. Oropharynx: no rash or ulcers. EYES: Pupils are equal, round and reactive to light accommodation. Eye muscles and extra-ocular movement intact. Sclera is anicteric. Neck; supple no lymphadenopathy, no thyromegaly or bruit Lungs: Normal respiratory rate/effort. Breath sounds bilateral clear Heart: Normal rate. s1s2 normal. No rub or gallop. Extremities: no edema. No varicose veins. feets dressed. s/p Rt Foot TMA. had muscles wasting noted Neurological: Patient is alert, awake and oriented. No focal deficit. Strength bilateral appropriate and equal Skin: Warm and dry. Normal turgor. No rash. Palpitation: Normal elasticity for age Abdomen: Abdomen is soft. Bowel sounds +. There is no abdominal tenderness, no guarding/rigidity or organomegaly Psych: lack insight and crow normal affect/moods MSK: no joint tenderness or swelling. Digits and nails normal, no deformity : kidney or bladder not palpable Access: AVF Labs/imaging reviewed. Past medical history, past surgical history, family history, social history, allergy reviewed and noted as below Family Hx: no hx of CKD. Non contributory Objective - Vital Signs/Intake and Output Vital Signs (last 24 hours): Temp Pulse Resp BP Pulse Ox 97.9 F 66 20 118/65 97 12/13/17 07:00 12/13/17 07:00 12/13/17 07:00 12/13/17 07:00 12/13/17 07:00 Intake and Output: 12/13/17 12/13/17 06:59 18:59 Intake Total 560 Balance 560 - Medications Medications: Current Medications Acetaminophen (Tylenol 325mg Tab) 650 mg PO Q6 PRN PRN Reason: Fever >100.4 F Allopurinol (Zyloprim) 100 mg PO DAILY [facility] Last Admin: 12/12/17 13:14 Dose: 100 mg Dextrose (Dextrose 50% Inj) 0 ml IV STAT PRN; Protocol PRN Reason: Hypoglycemia Protocol Dextrose (Glutose 15) 0 gm PO ONCE PRN; Protocol PRN Reason: Hypoglycemia Protocol Epoetin Ivan (Procrit) 12,000 unit IV [facility] Last Admin: 12/12/17 11:53 Dose: 12,000 unit Glucagon (Glucagen Diagnostic Kit) 0 mg IM STAT PRN; Protocol PRN Reason: Hypoglycemia Protocol Heparin Sodium (Porcine) (Heparin) 5,000 units SC Q12 [facility] Last Admin: 12/12/17 21:19 Dose: 5,000 units Heparin Sodium (Porcine) (Heparin) 2,000 units IVP [facility] Hydralazine HCl (Apresoline) 50 mg PO TID PRN PRN Reason: Other Last Admin: 12/12/17 00:54 Dose: 50 mg Hydroxyurea (Hydrea) 1,000 mg PO DAILY [facility] Last Admin: 12/12/17 13:14 Dose: 1,000 mg Meropenem 500 mg/ Sodium (Chloride) 100 mls @ 100 mls/hr IVPB Q12H [facility]; Protocol Last Admin: 12/13/17 06:22 Dose: 100 mls/hr Dextrose (Dextrose 5% In Water 1000 Ml) 1,000 mls @ 0 mls/hr IV .Q0M PRN; Protocol PRN Reason: Hypoglycemia Protocol Insulin Aspart (Novolog) 0 unit SC [facility]; Protocol Last Admin: 12/13/17 08:20 Dose: 3 units Insulin Glargine (Lantus) 10 unit SC [facility] Last Admin: 12/12/17 21:19 Dose: 10 units Memantine (Namenda) 5 mg PO DAILY [facility] Last Admin: 12/12/17 13:15 Dose: 5 mg Mirtazapine (Remeron) 30 mg PO [facility] Last Admin: 12/12/17 21:19 Dose: 30 mg Oxycodone/Acetaminophen (Percocet 5/325 Mg Tab) 1 tab PO Q4H PRN PRN Reason: Pain, moderate (4-7) Stop: 12/14/17 09:39 Oxycodone/Acetaminophen (Percocet 5/325 Mg Tab) 2 tab PO Q4H PRN PRN Reason: Pain, severe (8-10) Stop: 12/14/17 09:39 Prednisone (Prednisone Tab) 50 mg PO ONCE PRN PRN Reason: Other Last Admin: 12/11/17 15:01 Dose: 50 mg Sertraline HCl (Zoloft) 25 mg PO DAILY [facility] Last Admin: 12/12/17 13:15 Dose: 25 mg Sevelamer Carbonate (Renvela) 800 mg PO DAILY [facility] Last Admin: 12/12/17 13:15 Dose: 800 mg Vitamin B Complex/Vit C/Folic Acid (Nephro-Carmen) 1 tab PO 0800 [facility] Last Admin: 12/13/17 08:25 Dose: Not Given - Labs Labs: 12/13/17 06:46 12/13/17 06:46 PT 13.3 SECONDS (9.7-12.2) H 12/09/17 14:25 INR 1.2 12/09/17 14:25 APTT 37 SECONDS (21-34) H 12/09/17 14:25
--- NOTE | 2017-12-13 12:50 | CP.PCM.PN ---
Subjective - Date & Time of Evaluation Date of Evaluation: 12/13/17 Time of Evaluation: 09:00 - Subjective Subjective: Vascular surgery progress note for Dr. Bebo Tejeda, PGY-2 Pt S & E at bedside at 0640 Pt resting comfortably in bed. No current complaints. Objective - Vital Signs/Intake and Output Vital Signs (last 24 hours): Temp Pulse Resp BP Pulse Ox 98.1 F 81 17 143/73 97 12/13/17 12:38 12/13/17 12:38 12/13/17 12:38 12/13/17 12:38 12/13/17 07:00 Intake and Output: 12/13/17 12/13/17 06:59 18:59 Intake Total 560 20 Balance 560 20 - Medications Medications: Current Medications Acetaminophen (Tylenol 325mg Tab) 650 mg PO Q6 PRN PRN Reason: Fever >100.4 F Allopurinol (Zyloprim) 100 mg PO DAILY [facility] Last Admin: 12/13/17 10:21 Dose: Not Given Dextrose (Dextrose 50% Inj) 0 ml IV STAT PRN; Protocol PRN Reason: Hypoglycemia Protocol Dextrose (Glutose 15) 0 gm PO ONCE PRN; Protocol PRN Reason: Hypoglycemia Protocol Epoetin Ivan (Procrit) 12,000 unit IV MWF [facility] Last Admin: 12/12/17 11:53 Dose: 12,000 unit Glucagon (Glucagen Diagnostic Kit) 0 mg IM STAT PRN; Protocol PRN Reason: Hypoglycemia Protocol Heparin Sodium (Porcine) (Heparin) 5,000 units SC Q12 [facility] Last Admin: 12/13/17 10:21 Dose: Not Given Heparin Sodium (Porcine) (Heparin) 2,000 units IVP [facility] Hydralazine HCl (Apresoline) 50 mg PO TID PRN PRN Reason: Other Last Admin: 12/12/17 00:54 Dose: 50 mg Hydroxyurea (Hydrea) 1,000 mg PO DAILY [facility] Last Admin: 12/13/17 10:21 Dose: Not Given Meropenem 500 mg/ Sodium (Chloride) 100 mls @ 100 mls/hr IVPB Q12H [facility]; Protocol Last Admin: 12/13/17 06:22 Dose: 100 mls/hr Dextrose (Dextrose 5% In Water 1000 Ml) 1,000 mls @ 0 mls/hr IV .Q0M PRN; Protocol PRN Reason: Hypoglycemia Protocol Influenza Virus Vaccine (Fluzone Quad 7310-3950) 60 mcg IM .ONCE ONE Stop: 12/15/17 10:01 Insulin Aspart (Novolog) 0 unit SC [facility]; Protocol Last Admin: 12/13/17 08:20 Dose: 3 units Insulin Glargine (Lantus) 10 unit SC [facility] Last Admin: 12/12/17 21:19 Dose: 10 units Memantine (Namenda) 5 mg PO DAILY [facility] Last Admin: 12/13/17 10:21 Dose: Not Given Mirtazapine (Remeron) 30 mg PO [facility] Last Admin: 12/12/17 21:19 Dose: 30 mg Oxycodone/Acetaminophen (Percocet 5/325 Mg Tab) 1 tab PO Q4H PRN PRN Reason: Pain, moderate (4-7) Stop: 12/14/17 09:39 Oxycodone/Acetaminophen (Percocet 5/325 Mg Tab) 2 tab PO Q4H PRN PRN Reason: Pain, severe (8-10) Stop: 12/14/17 09:39 Prednisone (Prednisone Tab) 50 mg PO ONCE PRN PRN Reason: Other Last Admin: 12/11/17 15:01 Dose: 50 mg Sertraline HCl (Zoloft) 25 mg PO DAILY [facility] Last Admin: 12/13/17 10:21 Dose: Not Given Sevelamer Carbonate (Renvela) 800 mg PO DAILY [facility] Last Admin: 12/13/17 10:21 Dose: Not Given Vitamin B Complex/Vit C/Folic Acid (Nephro-Carmen) 1 tab PO 0800 [facility] Last Admin: 12/13/17 08:25 Dose: Not Given - Labs Labs: 12/13/17 06:46 12/13/17 06:46 PT 13.3 SECONDS (9.7-12.2) H 12/09/17 14:25 INR 1.2 12/09/17 14:25 APTT 37 SECONDS (21-34) H 12/09/17 14:25 - Constitutional Appears: Non-toxic, No Acute Distress - Head Exam Head Exam: ATRAUMATIC, NORMAL INSPECTION, NORMOCEPHALIC - Eye Exam Eye Exam: EOMI, Normal appearance - ENT Exam ENT Exam: Mucous Membranes Moist, Normal Exam - Neck Exam Neck Exam: Full ROM, Normal Inspection - Respiratory Exam Respiratory Exam: NORMAL BREATHING PATTERN - Cardiovascular Exam Cardiovascular Exam: REGULAR RHYTHM, +S1, +S2 - GI/Abdominal Exam GI & Abdominal Exam: Soft. absent: Tenderness - Extremities Exam Extremities Exam: absent: Normal Inspection (right foot with dressing in place- clean/dry/intact; left foot with dressing in place-clean/dry/intact) - Neurological Exam Neurological Exam: Alert, Awake - Psychiatric Exam Psychiatric exam: Normal Affect, Normal Mood - Skin Skin Exam: Dry, Intact (did not examine under dressings), Normal Color, Warm Assessment and Plan - Assessment and Plan (Free Text) Assessment: 62M w/periperal gangrene of B/L feet, s/p R Chopart's amputation with podiatry CTA w/findings of multiple segments of stenosis/plaque in bilateral LE vessels Plan: Plan for angio 12/15 NPO pMN 12/[address] Maico Tejeda, PGY-2
--- NOTE | 2017-12-13 17:35 | CP.PCM.PN ---
Subjective - Date & Time of Evaluation Date of Evaluation: 12/13/17 Time of Evaluation: 17:32 - Subjective Subjective: Podiatry progress note for Dr. Ahn 62 year old male seen and evaluated 2 day s/p right chopart's amputation. AAOx3, NAD. Denies of of any pain from the right foot. Patient denies of any recent F/N/V/C/SOB/CP/headache. Denies of any other pedal complains at this time. Objective - Vital Signs/Intake and Output Vital Signs (last 24 hours): Temp Pulse Resp BP Pulse Ox 97.7 F 79 17 177/89 H 100 12/13/17 14:30 12/13/17 15:30 12/13/17 14:30 12/13/17 14:30 12/13/17 14:30 Intake and Output: 12/13/17 12/13/17 06:59 18:59 Intake Total 560 970 Balance 560 970 - Medications Medications: Current Medications Acetaminophen (Tylenol 325mg Tab) 650 mg PO Q6 PRN PRN Reason: Fever >100.4 F Allopurinol (Zyloprim) 100 mg PO DAILY [facility] Last Admin: 12/13/17 10:21 Dose: Not Given Dextrose (Dextrose 50% Inj) 0 ml IV STAT PRN; Protocol PRN Reason: Hypoglycemia Protocol Dextrose (Glutose 15) 0 gm PO ONCE PRN; Protocol PRN Reason: Hypoglycemia Protocol Epoetin Ivan (Procrit) 12,000 unit IV [facility] Last Admin: 12/12/17 11:53 Dose: 12,000 unit Glucagon (Glucagen Diagnostic Kit) 0 mg IM STAT PRN; Protocol PRN Reason: Hypoglycemia Protocol Heparin Sodium (Porcine) (Heparin) 5,000 units SC Q12 [facility] Last Admin: 12/13/17 10:21 Dose: Not Given Heparin Sodium (Porcine) (Heparin) 2,[facility] Hydralazine HCl (Apresoline) 50 mg PO TID PRN PRN Reason: Other Last Admin: 12/12/17 00:54 Dose: 50 mg Hydroxyurea (Hydrea) 1,000 mg PO DAILY [facility] Last Admin: 12/13/17 10:21 Dose: Not Given Meropenem 500 mg/ Sodium (Chloride) 100 mls @ 100 mls/hr IVPB Q12H [facility]; Protocol Last Admin: 12/13/17 06:22 Dose: 100 mls/hr Dextrose (Dextrose 5% In Water 1000 Ml) 1,000 mls @ 0 mls/hr IV .Q0M PRN; Protocol PRN Reason: Hypoglycemia Protocol Influenza Virus Vaccine (Fluzone Quad 9324-3713) 60 mcg IM .ONCE ONE Stop: 12/15/17 10:01 Insulin Aspart (Novolog) 0 unit SC [facility]; Protocol Last Admin: 12/13/17 11:30 Dose: Not Given Insulin Glargine (Lantus) 10 unit SC [facility] Last Admin: 12/12/17 21:19 Dose: 10 units Memantine (Namenda) 5 mg PO DAILY [facility] Last Admin: 12/13/17 10:21 Dose: Not Given Mirtazapine (Remeron) 30 mg PO [facility] Last Admin: 12/12/17 21:19 Dose: 30 mg Oxycodone/Acetaminophen (Percocet 5/325 Mg Tab) 1 tab PO Q4H PRN PRN Reason: Pain, moderate (4-7) Stop: 12/14/17 09:39 Oxycodone/Acetaminophen (Percocet 5/325 Mg Tab) 2 tab PO Q4H PRN PRN Reason: Pain, severe (8-10) Stop: 12/14/17 09:39 Prednisone (Prednisone Tab) 50 mg PO ONCE PRN PRN Reason: Other Last Admin: 12/11/17 15:01 Dose: 50 mg Sertraline HCl (Zoloft) 25 mg PO DAILY [facility] Last Admin: 12/13/17 10:21 Dose: Not Given Sevelamer Carbonate (Renvela) 800 mg PO DAILY [facility] Last Admin: 12/13/17 10:21 Dose: Not Given Vitamin B Complex/Vit C/Folic Acid (Nephro-Carmen) 1 tab PO 0800 [facility] Last Admin: 12/13/17 08:25 Dose: Not Given - Labs Labs: 12/13/17 06:46 12/13/17 06:46 PT 13.3 SECONDS (9.7-12.2) H 12/09/17 14:25 INR 1.2 12/09/17 14:25 APTT 37 SECONDS (21-34) H 12/09/17 14:25 - Extremities Exam Additional comments: Bilateral lower extremity exam: VASC: DP/PT pulses are very faintly palpable 1/4, Temp gradient is warm to warm from proximal to distal on the right DERM: surgical site ana rosa intact, no wound dehiscence noted, no malodor. Wound at the lateral malleolus noted measuring approximately 2.0 cm x2.0 cm with a fibrotic base, no malodor, no tunneling or tracking noted, no active drainage noted, no clinical signs of infection. Left foot: small approx 0.5 cm x 0.5 cm x 0.1 cm wound present on the dorsum of the 2nd digit, wound base is mainly grannular with no active drainage, no tunneling, no tracking, no purulence, no probe to bone, no erythema, no clinical suspicion of active infection NEURO: Protective sensation grossly diminished ORTHO: no pain on palpation of the wounded site, left foot partial 2nd ray amputation, gross inversion of right foot. Assessment and Plan - Assessment and Plan (Free Text) Assessment: 62 year old male evaluated 1 day s/p right chopart's amputation Plan: Patient seen and evaluated by attending Dr. Ahn Labs, vitals and charts reviewed - afebrile, elevated leukocytosis Right foot wound cultures taken - Proteus Mirabilis Pre-op X-rays of the foot taken/evaluated - superficial localized radiolucensy within soft tissue concerning for soft tissue emphysema on the right plantar foot Pre-op KEN/PVR ordered - non-conclusive ID Consult - Dr. Vargas, recs appreciated - Continue IV abx as per ID Vascular consult - Dr. Nina - recs appreciated - s/p CTA Surgical path - gangrene and acute OM Wound cleaned with saline and dressing applied DSD, MELISA bandage; DSD to the left foot Patient to remain NWB to the RLE at this time Podiatry to monitor patient while in-house
[2017-12-13] MEDS: (Lantus) Insulin Glargine, Recombinant SC SCH (21:35)
[2017-12-14] MEDS: Meropenem 500 MG in Sodium Chloride 0.9% 100 ML IVPB SCH ×2 (06:05→21:30)
[2017-12-14 07:39] LABS: BASO # 0.2 K/uL (0.0-0.2); BASO % 0.7 % (0.0-2.0); EOS # 0.9 K/uL (0.0-0.7); EOS % 3.2 % (0.0-4.0); LYMPH % 6.8 % (20.0-40.0); MEAN CORPUSCULAR HGB CONC 33.7 g/dL (33.0-37.0); MEAN PLATELET VOLUME 7.9 fL (7.2-11.7); MONO # 1.3 K/uL (0.0-0.8); MONO % 4.3 % (0.0-10.0); NEUT # 24.8 K/uL (1.8-7.0); NRBC % 0.2 % (0.0-2.0); RBC 3.28 Mil/uL (4.40-5.90); RED CELL DISTRIBUTION WIDTH 16.5 % (11.5-14.5); WHITE BLOOD COUNT 29.2 K/uL (4.8-10.8)
[2017-12-14 07:41] LABS: HEMOGLOBIN 9.5 g/dL (12.0-18.0)
[2017-12-14 07:42] LABS: PLATELET COUNT 1063 K/uL (130-400)
[2017-12-14 08:03] LABS: ALB/GLOB RATIO 0.8 (1.0-2.1); ALBUMIN 3.3 g/dL (3.5-5.0); CALCIUM 8.2 mg/dl (8.6-10.4)
[2017-12-14] MEDS: (Novolog) Insulin Aspart, Recombinant 100 u/ml 10 ml vial SC SCH ×4 (08:09→21:28)
[2017-12-14] MEDS: Multivitamin Vitamin B Complex (Nephro-Vite) Tab PO SCH ×3 (08:09→10:16)
--- NOTE | 2017-12-14 08:19 | CP.PCM.PN ---
Subjective - Date & Time of Evaluation Date of Evaluation: 12/14/17 Time of Evaluation: 08:17 - Subjective Subjective: Vascular surgery progress note for Dr. Bebo Tejeda, PGY-2 Pt S & E at bedside at 0640 Pt sleeping, resting comfortably in bed, no complaints. Understands he is to have angio tomorrow. Objective - Vital Signs/Intake and Output Vital Signs (last 24 hours): Temp Pulse Resp BP Pulse Ox 98.4 F 67 20 158/66 H 95 12/13/17 23:00 12/14/17 04:17 12/13/17 23:00 12/13/17 23:00 12/13/17 23:00 - Medications Medications: Current Medications Acetaminophen (Tylenol 325mg Tab) 650 mg PO Q6 PRN PRN Reason: Fever >100.4 F Allopurinol (Zyloprim) 100 mg PO DAILY [facility] Last Admin: 12/13/17 10:21 Dose: Not Given Dextrose (Dextrose 50% Inj) 0 ml IV STAT PRN; Protocol PRN Reason: Hypoglycemia Protocol Dextrose (Glutose 15) 0 gm PO ONCE PRN; Protocol PRN Reason: Hypoglycemia Protocol Epoetin Ivan (Procrit) 12,000 unit IV F [facility] Last Admin: 12/12/17 11:53 Dose: 12,000 unit Glucagon (Glucagen Diagnostic Kit) 0 mg IM STAT PRN; Protocol PRN Reason: Hypoglycemia Protocol Heparin Sodium (Porcine) (Heparin) 5,000 units SC Q12 [facility] Last Admin: 12/13/17 21:34 Dose: 5,000 units Heparin Sodium (Porcine) (Heparin) 2,000 units IVP [facility] [place] Hydralazine HCl (Apresoline) 50 mg PO TID PRN PRN Reason: Other Last Admin: 12/12/17 00:54 Dose: 50 mg Hydroxyurea (Hydrea) 1,000 mg PO DAILY [facility] Last Admin: 12/13/17 10:21 Dose: Not Given Meropenem 500 mg/ Sodium (Chloride) 100 mls @ 100 mls/hr IVPB Q12H [facility]; Protocol Last Admin: 12/14/17 06:05 Dose: 100 mls/hr Dextrose (Dextrose 5% In Water 1000 Ml) 1,000 mls @ 0 mls/hr IV .Q0M PRN; Protocol PRN Reason: Hypoglycemia Protocol Influenza Virus Vaccine (Fluzone Quad 9593-1157) 60 mcg IM .ONCE ONE Stop: 12/15/17 10:01 Insulin Aspart (Novolog) 0 unit SC [facility]; Protocol Last Admin: 12/14/17 08:09 Dose: 1 units Insulin Glargine (Lantus) 10 unit SC [facility] Last Admin: 12/13/17 21:35 Dose: 10 units Memantine (Namenda) 5 mg PO DAILY [facility] Last Admin: 12/13/17 10:21 Dose: Not Given Mirtazapine (Remeron) 30 mg PO [facility] Last Admin: 12/13/17 21:34 Dose: 30 mg Oxycodone/Acetaminophen (Percocet 5/325 Mg Tab) 1 tab PO Q4H PRN PRN Reason: Pain, moderate (4-7) Stop: 12/14/17 09:39 Oxycodone/Acetaminophen (Percocet 5/325 Mg Tab) 2 tab PO Q4H PRN PRN Reason: Pain, severe (8-10) Stop: 12/14/17 09:39 Prednisone (Prednisone Tab) 50 mg PO ONCE PRN PRN Reason: Other Last Admin: 12/11/17 15:01 Dose: 50 mg Sertraline HCl (Zoloft) 25 mg PO DAILY [facility] Last Admin: 12/13/17 10:21 Dose: Not Given Sevelamer Carbonate (Renvela) 800 mg PO DAILY [facility] Last Admin: 12/13/17 10:21 Dose: Not Given Vitamin B Complex/Vit C/Folic Acid (Nephro-Carmen) 1 tab PO 0800 [facility] Last Admin: 12/14/17 08:11 Dose: Not Given - Labs Labs: 12/14/17 07:23 12/14/17 07:23 PT 13.3 SECONDS (9.7-12.2) H 12/09/17 14:25 INR 1.2 12/09/17 14:25 APTT 37 SECONDS (21-34) H 12/09/17 14:25 - Constitutional Appears: Non-toxic, No Acute Distress - Head Exam Head Exam: ATRAUMATIC, NORMAL INSPECTION, NORMOCEPHALIC - Eye Exam Eye Exam: EOMI, Normal appearance - ENT Exam ENT Exam: Mucous Membranes Moist, Normal Exam - Neck Exam Neck Exam: Full ROM, Normal Inspection - Respiratory Exam Respiratory Exam: NORMAL BREATHING PATTERN - Cardiovascular Exam Cardiovascular Exam: REGULAR RHYTHM, +S1, +S2 - GI/Abdominal Exam GI & Abdominal Exam: Soft. absent: Distended, Tenderness - Extremities Exam Extremities Exam: absent: Normal Inspection (right foot with dressing in place- clean/dry/intact; left foot with dressing in place- clean/dry/intact) - Neurological Exam Neurological Exam: Alert, Awake, CN II-XII Intact, Oriented x3 - Psychiatric Exam Psychiatric exam: Normal Affect, Normal Mood - Skin Skin Exam: Dry, Normal Color, Warm Assessment and Plan - Assessment and Plan (Free Text) Assessment: 62M w/peripheral gangrene of B/L feet, s/p R Chopart's amputation with podiatry CTA w/findings of multiple segments of stenosis/plaque in bilateral LE vessels Plan: Plan for angio 12/15 NPO pMN tonight Consent in chart DW Dr. Maico Tejeda, PGY-2
[2017-12-14 09:27] LABS: BANDS 1 % (0-2); BASOPHIL 4 % (0-2); EOSINOPHIL 3 % (0-4); LYMPHOCYTE 6 % (20-40); MONOCYTE 4 % (0-10); NEUTROPHIL 82 % (50-75); NUCLEATED RED BLOOD CELL 1 % (0-0); TOTAL CELLS COUNTED 100
[2017-12-14 09:28] LABS: PLATELET ESTIMATE MARKEDLY INCREASED (NORMAL)
[2017-12-14 09:30] LABS: ANISOCYTOSIS SLIGHT; HYPOCHROMIC SLIGHT; MICROCYTOSIS SLIGHT; POIKILOCYTOSIS SLIGHT; POLYCHROMIC SLIGHT
[2017-12-14 09:31] LABS: OVALOCYTES SLIGHT
[2017-12-14 09:32] LABS: LARGE PLATELETS PRESENT
--- NOTE | 2017-12-14 11:55 | CP.PCM.PN ---
Subjective - Date & Time of Evaluation Date of Evaluation: 12/14/17 Time of Evaluation: 11:54 - Subjective Subjective: Nephrology Consultation Note: Assessment: Stable Leg ulcers with Gangrene and ? PVD Diabetic chronic Kidney Disease (E11.22) Hypertensive Chronic Kidney Disease (I12.0) End stage renal disease (N18.6) dependence on hemodialysis (Z99.2) (MWF) via AVF Anemia (D64.9), Hyperphosphatemia (E83.39), Secondary Hyperparathyroidism (E21.1), HTN (I12.0) Thrombocytosis uncontrolled DM with hyperglycemia Plan: s/p 2 unit PRBC with HD on 12/13/17 Will plan for next HD as ordered per [facility] schedule. Continue with Nephrovite 1 tab/day. PRBC as needed for anemia. started on SEUN with dialysis as last Hb 6.8 Continue with phos binders, last phos level 3.3 BP control with meds as ordered. Patient not on RAAS milan, hydralazine changed to PRN and added losartan Glycemic control, Dialysis consistent diet Further work up/management as per primary team Dose meds/antibiotics (if needed) for ESRD status. Avoid fleets enema/magnesium based laxatives. vascular surgery, podiatry following, recs reviewed and appreciated heme following, pt on hydroxyurea Thanks for allowing me to participate in care of your patient. Will follow patient with you. Please call if any Qs. had d/w team Dr Volodymyr Oconnor Office: [phone] Chief Complaint; leg wound reason for consult: ESRD HPI: Pt is a 62 M with hx of ESRD on hemodialysis (MWF) via avf for last Fri in [place], [place] , last dialysis Mon, chronic anemia, hyperphosphatemia, secondary hyperparathyroidism, Diabetes Mellitus, hypertension, presented with complaints of leg wounds and concerns for gangrene. being evaluated for PVD as well Renal consult requested for ESRD management. pt seen on hd and feels same. 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 Pulmonary: no shortness of breath Gastrointestinal: denies abdominal pain No nausea. No vomiting. Genitourinary: No pain while urinating. Denies blood in urine. All other negative except as mentioned in HPI Physical Examination: General Appearance: Comfortable, in no acute respiratory distress, co-operative . Vitals reviewed and noted as below Head; Atraumatic, normocephalic ENT: no ulcers no thrush. Tongue is midline. Oropharynx: no rash or ulcers. EYES: Pupils are equal, round and reactive to light accommodation. Eye muscles and extra-ocular movement intact. Sclera is anicteric. Neck; supple no lymphadenopathy, no thyromegaly or bruit Lungs: Normal respiratory rate/effort. Breath sounds bilateral clear Heart: Normal rate. s1s2 normal. No rub or gallop. Extremities: no edema. No varicose veins. feets dressed. s/p Rt Foot TMA. had muscles wasting noted Neurological: Patient is alert, awake and oriented. No focal deficit. Strength bilateral appropriate and equal Skin: Warm and dry. Normal turgor. No rash. Palpitation: Normal elasticity for age Abdomen: Abdomen is soft. Bowel sounds +. There is no abdominal tenderness, no guarding/rigidity or organomegaly Psych: lack insight and crow normal affect/moods MSK: no joint tenderness or swelling. Digits and nails normal, no deformity : kidney or bladder not palpable Access: AVF Labs/imaging reviewed. Past medical history, past surgical history, family history, social history, allergy reviewed and noted as below Family Hx: no hx of CKD. Non contributory Objective - Vital Signs/Intake and Output Vital Signs (last 24 hours): Temp Pulse Resp BP Pulse Ox 98.3 F 75 20 163/77 H 96 12/14/17 07:00 12/14/17 07:00 12/14/17 07:00 12/14/17 07:00 12/14/17 07:00 Intake and Output: 12/14/17 12/14/17 06:59 18:59 Intake Total 480 Balance 480 - Medications Medications: Current Medications Acetaminophen (Tylenol 325mg Tab) 650 mg PO Q6 PRN PRN Reason: Fever >100.4 F Allopurinol (Zyloprim) 100 mg PO DAILY [facility] Last Admin: 12/14/17 10:12 Dose: 100 mg Dextrose (Dextrose 50% Inj) 0 ml IV STAT PRN; Protocol PRN Reason: Hypoglycemia Protocol Dextrose (Glutose 15) 0 gm PO ONCE PRN; Protocol PRN Reason: Hypoglycemia Protocol Epoetin Ivan (Procrit) 12,000 unit IV MWF [facility] Last Admin: 12/12/17 11:53 Dose: 12,000 unit Glucagon (Glucagen Diagnostic Kit) 0 mg IM STAT PRN; Protocol PRN Reason: Hypoglycemia Protocol Heparin Sodium (Porcine) (Heparin) 5,000 units SC Q12 [facility] Last Admin: 12/14/17 10:21 Dose: 5,000 units Heparin Sodium (Porcine) (Heparin) 2,000 units IVP [facility] [place] Hydralazine HCl (Apresoline) 50 mg PO TID PRN PRN Reason: Other Last Admin: 12/12/17 00:54 Dose: 50 mg Hydroxyurea (Hydrea) 1,000 mg PO DAILY [facility] Last Admin: 12/14/17 10:19 Dose: 1,000 mg Meropenem 500 mg/ Sodium (Chloride) 100 mls @ 100 mls/hr IVPB Q12H [facility]; [facility]oco l Last Admin: 12/14/17 06:05 Dose: 100 mls/hr Dextrose (Dextrose 5% In Water 1000 Ml) 1,000 mls @ 0 mls/hr IV .Q0M PRN; Protocol PRN Reason: Hypoglycemia Protocol Influenza Virus Vaccine (Fluzone Quad 3427-5930) 60 mcg IM .ONCE ONE Stop: 12/15/17 10:01 Insulin Aspart (Novolog) 0 unit SC [facility]; Protocol Last Admin: 12/14/17 08:09 Dose: 1 units Insulin Glargine (Lantus) 10 unit SC [facility] Last Admin: 12/13/17 21:35 Dose: 10 units Losartan Potassium (Cozaar) 50 mg PO DAILY [facility] Last Admin: 12/14/17 10:48 Dose: 50 mg Memantine (Namenda) 5 mg PO DAILY [facility] Last Admin: 12/14/17 10:12 Dose: 5 mg Mirtazapine (Remeron) 30 mg PO HS [facility] Last Admin: 12/13/17 21:34 Dose: 30 mg Prednisone (Prednisone Tab) 50 mg PO ONCE PRN PRN Reason: Other Last Admin: 12/11/17 15:01 Dose: 50 mg Sertraline HCl (Zoloft) 25 mg PO DAILY [facility] Last Admin: 12/14/17 10:12 Dose: 25 mg Sevelamer Carbonate (Renvela) 800 mg PO DAILY [facility] Last Admin: 12/14/17 10:12 Dose: 800 mg Vitamin B Complex/Vit C/Folic Acid (Nephro-Carmen) 1 tab PO 0800 [facility] Last Admin: 12/14/17 10:16 Dose: 1 tab - Labs Labs: 12/14/17 07:23 12/14/17 07:23 PT 13.3 SECONDS (9.7-12.2) H 12/09/17 14:25 INR 1.2 12/09/17 14:25 APTT 37 SECONDS (21-34) H 12/09/17 14:25
--- NOTE | 2017-12-14 13:04 | CP.PCM.PN ---
Subjective - Date & Time of Evaluation Date of Evaluation: 12/14/17 Time of Evaluation: 13:01 - Subjective Subjective: Podiatry progress note for Dr. Ahn 62 year old male seen and evaluated 3 day s/p right chopart's amputation. AAOx3, NAD. Denies of of any pain from the right foot. Patient denies of any recent F/N/V/C/SOB/CP/headache. Denies of any other pedal complains at this time. Objective - Vital Signs/Intake and Output Vital Signs (last 24 hours): Temp Pulse Resp BP Pulse Ox 98.3 F 75 20 163/77 H 96 12/14/17 07:00 12/14/17 07:00 12/14/17 07:00 12/14/17 07:00 12/14/17 07:00 Intake and Output: 12/14/17 12/14/17 06:59 18:59 Intake Total 480 Balance 480 - Medications Medications: Current Medications Acetaminophen (Tylenol 325mg Tab) 650 mg PO Q6 PRN PRN Reason: Fever >100.4 F Allopurinol (Zyloprim) 100 mg PO DAILY [facility] Last Admin: 12/14/17 10:12 Dose: 100 mg Dextrose (Dextrose 50% Inj) 0 ml IV STAT PRN; Protocol PRN Reason: Hypoglycemia Protocol Dextrose (Glutose 15) 0 gm PO ONCE PRN; Protocol PRN Reason: Hypoglycemia Protocol Epoetin Ivan (Procrit) 12,000 unit IV [facility] Last Admin: 12/12/17 11:53 Dose: 12,000 unit Glucagon (Glucagen Diagnostic Kit) 0 mg IM STAT PRN; Protocol PRN Reason: Hypoglycemia Protocol Heparin Sodium (Porcine) (Heparin) 5,000 units SC Q12 [facility] Last Admin: 12/14/17 10:21 Dose: 5,000 units Heparin Sodium (Porcine) (Heparin) 2,000 units IVP MWF [facility] Hydralazine HCl (Apresoline) 50 mg PO TID PRN PRN Reason: Other Last Admin: 12/12/17 00:54 Dose: 50 mg Hydroxyurea (Hydrea) 1,000 mg PO DAILY [facility] Last Admin: 12/14/17 10:19 Dose: 1,000 mg Meropenem 500 mg/ Sodium (Chloride) 100 mls @ 100 mls/hr IVPB Q12H [facility]; Protocol Last Admin: 12/14/17 06:05 Dose: 100 mls/hr Dextrose (Dextrose 5% In Water 1000 Ml) 1,000 mls @ 0 mls/hr IV .Q0M PRN; Protocol PRN Reason: Hypoglycemia Protocol Influenza Virus Vaccine (Fluzone Quad 4634-0185) 60 mcg IM .ONCE ONE Stop: 12/15/17 10:01 Insulin Aspart (Novolog) 0 unit SC [facility]; Protocol Last Admin: 12/14/17 12:25 Dose: 1 units Insulin Glargine (Lantus) 10 unit SC [facility] Last Admin: 12/13/17 21:35 Dose: 10 units Losartan Potassium (Cozaar) 50 mg PO DAILY [facility] Last Admin: 12/14/17 10:48 Dose: 50 mg Memantine (Namenda) 5 mg PO DAILY [facility] Last Admin: 12/14/17 10:12 Dose: 5 mg Mirtazapine (Remeron) 30 mg PO HS [facility] Last Admin: 12/13/17 21:34 Dose: 30 mg Prednisone (Prednisone Tab) 50 mg PO ONCE PRN PRN Reason: Other Last Admin: 12/11/17 15:01 Dose: 50 mg Sertraline HCl (Zoloft) 25 mg PO DAILY [facility] Last Admin: 12/14/17 10:12 Dose: 25 mg Sevelamer Carbonate (Renvela) 800 mg PO DAILY [facility] Last Admin: 12/14/17 10:12 Dose: 800 mg Vitamin B Complex/Vit C/Folic Acid (Nephro-Carmen) 1 tab PO 0800 [facility] Last Admin: 12/14/17 10:16 Dose: 1 tab - Labs Labs: 12/14/17 07:23 12/14/17 07:23 PT 13.3 SECONDS (9.7-12.2) H 12/09/17 14:25 INR 1.2 12/09/17 14:25 APTT 37 SECONDS (21-34) H 12/09/17 14:25 - Constitutional Appears: Well, Non-toxic, No Acute Distress - Head Exam Head Exam: ATRAUMATIC, NORMOCEPHALIC - Extremities Exam Additional comments: Bilateral lower extremity exam: VASC: DP/PT pulses are very faintly palpable 1/4, Temp gradient is warm to warm from proximal to distal on the right DERM: surgical site ana rosa intact, no wound dehiscence noted, no malodor, no active drainage. Wound at the lateral malleolus noted measuring approximately 2.0 cm x2.0 cm with a fibrotic base, no malodor, no tunneling or tracking noted, no active drainage noted, no clinical signs of infection. Left foot: small approx 0.5 cm x 0.5 cm x 0.1 cm wound present on the dorsum of the 2nd digit, wound base is mainly grannular with no active drainage, no tunneling, no tracking, no purulence, no probe to bone, no erythema, no clinical suspicion of active infection NEURO: Protective sensation grossly diminished ORTHO: no pain on palpation of the wounded site, left foot partial 2nd ray amputation, gross inversion of right foot. - Neurological Exam Neurological Exam: Alert, Awake, Oriented x3 - Psychiatric Exam Psychiatric exam: Normal Affect - Skin Skin Exam: Normal Color Assessment and Plan - Assessment and Plan (Free Text) Assessment: 62 year old male evaluated 3 day s/p right chopart's amputation Plan: Patient seen and evaluated by attending Dr. Ahn Labs, vitals and charts reviewed - afebrile, elevated leukocytosis Right foot wound cultures taken - Proteus Mirabilis Post op x-rays : choparts amputation, no subcutaneous emphysema noted. Pre-op KEN/PVR ordered - non-conclusive ID Consult - christopher Irving appreciated - Continue IV abx as per ID Vascular consult - Dr. Nina - christopher appreciated - s/p CTA; angio 12/15 Surgical pathology - gangrene and acute OM Wound cleaned with saline and dressing applied DSD, MELISA bandage; DSD to the left foot Patient to remain NWB to the RLE at this time Podiatry to monitor patient while in-house
--- NOTE | 2017-12-14 15:04 | CP.PCM.PN ---
Subjective - Date & Time of Evaluation Date of Evaluation: 12/14/17 Time of Evaluation: 08:00 - Subjective Subjective: afeb s/p amp right foot Objective - Vital Signs/Intake and Output Vital Signs (last 24 hours): Temp Pulse Resp BP Pulse Ox 98.3 F 75 20 163/77 H 96 12/14/17 07:00 12/14/17 07:00 12/14/17 07:00 12/14/17 07:00 12/14/17 07:00 Intake and Output: 12/14/17 12/14/17 06:59 18:59 Intake Total 600 Balance 600 - Medications Medications: Current Medications Acetaminophen (Tylenol 325mg Tab) 650 mg PO Q6 PRN PRN Reason: Fever >100.4 F Allopurinol (Zyloprim) 100 mg PO DAILY [facility] Last Admin: 12/14/17 10:12 Dose: 100 mg Dextrose (Dextrose 50% Inj) 0 ml IV STAT PRN; Protocol PRN Reason: Hypoglycemia Protocol Dextrose (Glutose 15) 0 gm PO ONCE PRN; Protocol PRN Reason: Hypoglycemia Protocol Epoetin Ivan (Procrit) 12,000 unit [place] [facility] Last Admin: 12/12/17 11:53 Dose: 12,000 unit Glucagon (Glucagen Diagnostic Kit) 0 mg IM STAT PRN; Protocol PRN Reason: Hypoglycemia Protocol Heparin Sodium (Porcine) (Heparin) 5,000 units SC Q12 [facility] Last Admin: 12/14/17 10:21 Dose: 5,000 units Heparin Sodium (Porcine) (Heparin) 2,000 units IVP [facility] Hydralazine HCl (Apresoline) 50 mg PO TID PRN PRN Reason: Other Last Admin: 12/12/17 00:54 Dose: 50 mg Hydroxyurea (Hydrea) 1,000 mg PO DAILY [facility] Last Admin: 12/14/17 10:19 Dose: 1,000 mg Meropenem 500 mg/ Sodium (Chloride) 100 mls @ 100 mls/hr IVPB Q12H [facility]; Protocol Last Admin: 12/14/17 06:05 Dose: 100 mls/hr Dextrose (Dextrose 5% In Water 1000 Ml) 1,000 mls @ 0 mls/hr IV .Q0M PRN; Protocol PRN Reason: Hypoglycemia Protocol Influenza Virus Vaccine (Fluzone Quad 6841-0619) 60 mcg IM .ONCE ONE Stop: 12/15/17 10:01 Insulin Aspart (Novolog) 0 unit SC [facility]; Protocol Last Admin: 12/14/17 12:25 Dose: 1 units Insulin Glargine (Lantus) 10 unit SC [facility] Last Admin: 12/13/17 21:35 Dose: 10 units Losartan Potassium (Cozaar) 50 mg PO DAILY [facility] Last Admin: 12/14/17 10:48 Dose: 50 mg Memantine (Namenda) 5 mg PO DAILY [facility] Last Admin: 12/14/17 10:12 Dose: 5 mg Mirtazapine (Remeron) 30 mg PO [facility] Last Admin: 12/13/17 21:34 Dose: 30 mg Prednisone (Prednisone Tab) 50 mg PO ONCE PRN PRN Reason: Other Last Admin: 12/11/17 15:01 Dose: 50 mg Sertraline HCl (Zoloft) 25 mg PO DAILY [facility] Last Admin: 12/14/17 10:12 Dose: 25 mg Sevelamer Carbonate (Renvela) 800 mg PO DAILY [facility] Last Admin: 12/14/17 10:12 Dose: 800 mg Vitamin B Complex/Vit C/Folic Acid (Nephro-Carmen) 1 tab PO 0800 [facility] Last Admin: 12/14/17 10:16 Dose: 1 tab - Labs Labs: 12/14/17 07:23 12/14/17 07:23 PT 13.3 SECONDS (9.7-12.2) H 12/09/17 14:25 INR 1.2 12/09/17 14:25 APTT 37 SECONDS (21-34) H 12/09/17 14:25 - Constitutional Appears: Non-toxic, Chronically Ill - Head Exam Head Exam: NORMOCEPHALIC - Eye Exam Eye Exam: PERRL - ENT Exam ENT Exam: Mucous Membranes Dry - Neck Exam Neck Exam: absent: Lymphadenopathy - Respiratory Exam Respiratory Exam: Decreased Breath Sounds - Cardiovascular Exam Cardiovascular Exam: REGULAR RHYTHM - GI/Abdominal Exam GI & Abdominal Exam: Distended, Soft - Rectal Exam Rectal Exam: Deferred - Exam Exam: NORMAL INSPECTION - Extremities Exam Extremities Exam: absent: Pedal Edema - Back Exam Back Exam: absent: CVA tenderness (L), CVA tenderness (R) Assessment and Plan (1) Gangrene Status: Suspected (2) Diabetes Status: Acute (3) PVD (peripheral vascular disease) Status: Acute (4) End stage renal disease on dialysis Status: Acute (5) End stage renal disease on dialysis Status: Acute - Assessment and Plan (Free Text) Assessment: renew iv antibiotics
[2017-12-14] MEDS: (Lantus) Insulin Glargine, Recombinant SC SCH (21:31)
[2017-12-15] MEDS: Meropenem 500 MG in Sodium Chloride 0.9% 100 ML IVPB SCH ×2 (06:14→21:20)
[2017-12-15 06:45] LABS: BASO # 0.2 K/uL (0.0-0.2); BASO % 0.6 % (0.0-2.0); EOS # 1.1 K/uL (0.0-0.7); EOS % 4.4 % (0.0-4.0); HEMOGLOBIN 9.5 g/dL (12.0-18.0); LYMPH # 1.4 K/uL (1.0-4.3); LYMPH % 5.6 % (20.0-40.0); MEAN CELL VOLUME 87.3 fL (80.0-94.0); MEAN CORPUSCULAR HEMOGLOBIN 28.5 pg (27.0-31.0); MEAN CORPUSCULAR HGB CONC 32.7 g/dL (33.0-37.0); MEAN PLATELET VOLUME 7.5 fL (7.2-11.7); MONO # 0.9 K/uL (0.0-0.8); MONO % 3.5 % (0.0-10.0); NEUT # 21.5 K/uL (1.8-7.0); NEUT % 85.9 % (50.0-75.0); NRBC % 0.1 % (0.0-2.0); RBC 3.34 Mil/uL (4.40-5.90); RED CELL DISTRIBUTION WIDTH 16.5 % (11.5-14.5)
[2017-12-15 06:56] LABS: PLATELET COUNT 957 K/uL (130-400)
[2017-12-15 07:35] LABS: ALB/GLOB RATIO 0.9 (1.0-2.1); ALBUMIN 3.2 g/dL (3.5-5.0)
[2017-12-15] MEDS: (Novolog) Insulin Aspart, Recombinant 100 u/ml 10 ml vial SC SCH ×4 (07:45→21:20)
[2017-12-15] MEDS ORDERED: Midazolam 2 MG/2 ML VIAL ONE ×2 (08:03)
[2017-12-15] MEDS ORDERED: DiphenhydrAMINE 50 mg/ml Inj ONE (08:07)
[2017-12-15] MEDS: Multivitamin Vitamin B Complex (Nephro-Vite) Tab PO SCH (08:12)
[2017-12-15 08:28] LABS: EOSINOPHIL 2 % (0-4); LYMPHOCYTE 5 % (20-40); MONOCYTE 4 % (0-10); NEUTROPHIL 89 % (50-75); PLATELET ESTIMATE MARKEDLY INCREASED (NORMAL); TOTAL CELLS COUNTED 100
[2017-12-15 08:29] LABS: ANISOCYTOSIS SLIGHT; GIANT PLATELETS PRESENT; HYPOCHROMIC SLIGHT; LARGE PLATELETS PRESENT; POIKILOCYTOSIS SLIGHT
[2017-12-15] MEDS ORDERED: Iodixanol 320 MG/ML 100 ML BOTTLE IV ONE ×2 (08:37→09:24)
[2017-12-15] MEDS ORDERED: Heparin 2,000 ML IV ONE (08:37)
[2017-12-15] MEDS ORDERED: Iodixanol 320 MG/ML 200 ML BOTTLE IV ONE (08:37)
[2017-12-15] MEDS ORDERED: Lidocaine PF 2% (5 ml) Inj (For Cardiac Arrhy) ONE ×2 (09:01→09:02)
--- NOTE | 2017-12-15 09:43 | PCM.SURG1 ---
Addendum entered and electronically signed by Antonieta Minor DO 12/15/17 09:52: Aortofemoroangiogram R femoral selective angiogram. Original Note: Surgeon's Initial Post Op Note - Surgeon's Notes Surgeon: garrison Certified Wellness Program Manager: antonieta minor Anesthesia Administered By: shanika Pre-Operative Diagnosis: B/L SFA stenosis Operative Findings: <50% SFA segemental stenosis B/L. Good flow to right PT, AT, Peroneal. Good left PT, stenosed AT Post-Operative Diagnosis: same Operation Performed: B/L Angiogram Specimen/Specimens Removed: none Estimated Blood Loss: EBL {In ML}: 5 Blood Products Given: N/A Drains Used: No Drains Post-Op Condition: Good Date of Surgery/Procedure: 12/15/17 Time of Surgery/Procedure: 09:00
[2017-12-15] MEDS ORDERED: Oxycodone/Acetaminophen 5/325 mg Tab PO PRN (09:47)
[2017-12-15] MEDS ORDERED: Influenza Vaccine 60 MCG/0.5 ML SYR (3 yr & up) IM ONE (10:00)
--- NOTE | 2017-12-15 10:54 | CP.PCM.PN ---
Subjective - Date & Time of Evaluation Date of Evaluation: 12/15/17 Time of Evaluation: 13:00 - Subjective Subjective: PGY2 Progress Note for Dr. Rios Patient seen and examined at bedside s/p angio. Patient has no complaints. Patient denies any headache, chest pain, abdominal pain, nausea, vomiting, constipation, or diarrhea. Objective - Vital Signs/Intake and Output Vital Signs (last 24 hours): Temp Pulse Resp BP Pulse Ox 98.0 F 75 20 136/66 96 12/15/17 04:00 12/15/17 07:44 12/15/17 04:00 12/15/17 04:00 12/15/17 04:00 - Medications Medications: Current Medications Acetaminophen (Tylenol 325mg Tab) 650 mg PO Q6 PRN PRN Reason: Fever >100.4 F Allopurinol (Zyloprim) 100 mg PO DAILY [facility] Last Admin: 12/14/17 10:12 Dose: 100 mg Dextrose (Dextrose 50% Inj) 0 ml IV STAT PRN; Protocol PRN Reason: Hypoglycemia Protocol Dextrose (Glutose 15) 0 gm PO ONCE PRN; Protocol PRN Reason: Hypoglycemia Protocol Epoetin Ivan (Procrit) 12,000 unit IV F [facility] Last Admin: 12/12/17 11:53 Dose: 12,000 unit Glucagon (Glucagen Diagnostic Kit) 0 mg IM STAT PRN; Protocol PRN Reason: Hypoglycemia Protocol Heparin Sodium (Porcine) (Heparin) 5,000 units SC Q12 [facility] Last Admin: 12/14/17 21:30 Dose: 5,000 units Heparin Sodium (Porcine) (Heparin) 2,000 units IVP [facility] Hydralazine HCl (Apresoline) 50 mg PO TID PRN PRN Reason: Other Last Admin: 12/14/17 23:39 Dose: 50 mg Hydroxyurea (Hydrea) 1,000 mg PO DAILY [facility] Last Admin: 12/14/17 10:19 Dose: 1,000 mg Meropenem 500 mg/ Sodium (Chloride) 100 mls @ 100 mls/hr IVPB Q12H [facility]; Protocol Last Admin: 12/15/17 06:14 Dose: 100 mls/hr Dextrose (Dextrose 5% In Water 1000 Ml) 1,000 mls @ 0 mls/hr IV .Q0M PRN; Protocol PRN Reason: Hypoglycemia Protocol Insulin Aspart (Novolog) 0 unit SC ACHS [facility]; Protocol Last Admin: 12/15/17 07:45 Dose: Not Given Insulin Glargine (Lantus) 15 unit SC [facility] Losartan Potassium (Cozaar) 50 mg PO DAILY [facility] Last Admin: 12/14/17 10:48 Dose: 50 mg Memantine (Namenda) 5 mg PO DAILY [facility] Last Admin: 12/14/17 10:12 Dose: 5 mg Mirtazapine (Remeron) 30 mg PO [facility] Last Admin: 12/14/17 23:39 Dose: 30 mg Oxycodone/Acetaminophen (Percocet 5/325 Mg Tab) 2 tab PO Q4H PRN PRN Reason: Pain, moderate (4-7) Stop: 12/18/17 09:48 Prednisone (Prednisone Tab) 50 mg PO ONCE PRN PRN Reason: Other Last Admin: 12/11/17 15:01 Dose: 50 mg Sertraline HCl (Zoloft) 25 mg PO DAILY [facility] Last Admin: 12/14/17 10:12 Dose: 25 mg Sevelamer Carbonate (Renvela) 800 mg PO DAILY [facility] Last Admin: 12/14/17 10:12 Dose: 800 mg Vitamin B Complex/Vit C/Folic Acid (Nephro-Carmen) 1 tab PO 0800 [facility] Last Admin: 12/15/17 08:12 Dose: Not Given - Labs Labs: 12/15/17 06:35 12/15/17 06:35 PT 13.3 SECONDS (9.7-12.2) H 12/09/17 14:25 INR 1.2 12/09/17 14:25 APTT 37 SECONDS (21-34) H 12/09/17 14:25 - Additional Findings Additional findings: - Constitutional Appears: Non-toxic, No Acute Distress - Head Exam Head Exam: ATRAUMATIC, NORMAL INSPECTION - Eye Exam Eye Exam: EOMI, Normal appearance, PERRL Pupil Exam: NORMAL ACCOMODATION - ENT Exam ENT Exam: Mucous Membranes Moist - Neck Exam Neck Exam: Full ROM - Respiratory Exam Respiratory Exam: NORMAL BREATHING PATTERN - Cardiovascular Exam Cardiovascular Exam: +S1, +S2 - GI/Abdominal Exam GI & Abdominal Exam: Soft, Normal Bowel Sounds - Extremities Exam Extremities Exam: Full ROM. absent: Pedal Edema, Tenderness Additional comments: right foot, dressed - site, clean dry and intact - Back Exam Back Exam: NORMAL INSPECTION - Neurological Exam Neurological Exam: Alert, Awake, Oriented x3 - Psychiatric Exam Psychiatric exam: Normal Affect, Normal Mood - Skin Skin Exam: Warm Assessment and Plan - Assessment and Plan (Free Text) Assessment: Right Chopart's Amputation, POD #4 angiogram (12/15/17) showed: <50% SFA segemental stenosis B/L. Good flow to right PT, AT, Peroneal. Good left PT, stenosed AT Secondary to right foot gas gangrene Podiatry Consult placed- Dr. Aimee white appreciated Right foot wound cultures taken - proteus mirabilis blood cultures negative KEN/PVR ordered -F/U Vascular Surgery Consult placed- Dr. Nina- F/U recs CTA F/U Dopplers- Prelim study negative. F/U official report. ID Consult placed- Dr. Tasha white appreciated Previously on Zosyn 12/09-12/11 On Merrem 500mg q12h Started 12/11 (for at least 7 days) On Vanco 500mg MWF started 12/12 Leukocytosis Given basophilia, F/U BCR/ABL On antibiotics therapy Thrombocytosis Heme/Onc Consult placed- Dr. Keisha white appreciated f/u recs- rule out myeloproliferative disorder, essential thrombocytosis, JAK2 mutation, iron deficiency Hydroxyurea daily given vascular disease May also have been reactive secondary to gangrene CKD Dialysis MWF Renvela 800mg tid Procrit 8,000 u MWF Heparin 2000 IVP MWF Nephro consult placed to Dr. Duong Anemia Anemia of CKD - epo per renal b12: 756 folate: >20, ferritin 1490 HTN Hydralazine 50mg po TID prn Norvasc 10mg po daily Losartan 50mg po daily Gout Continue Home med- Allopurinol 100mg po daily Hyperglycemia HgA1C: 6.1. No other prior records. ISS low dose scale. Will not increase to high dose at this time, due to increased rosk of hypoglycemic events - due to ESRD. Lantus 15 u sc HS (increased from 10u on 12/15) Lipid panel: triglycerides: 126, Cholesterol: 91, LDL < 30, HDL 24 Dementia Namenda 5mg po daily (decreased from BID as per renal dosing) Depression Home meds- mirtazapine 30mg PO QD and sertraline 20mg PO QD Prophylaxis Heparin 5000 u sc q12h Discussed with attending. All management and planning as per Dr. Rios
--- NOTE | 2017-12-15 11:36 | CP.PCM.PN ---
Subjective - Date & Time of Evaluation Date of Evaluation: 12/15/17 Time of Evaluation: 11:33 - Subjective Subjective: Podiatry - Dr. Ahn 62M seen and examined this AM 4 days s/p right Chopart's amputation. Patient seen s/p aortofemoroangiogram, R femoral selective angiogram, recovering well w/o issues. Patient denies any pain to right foot surgical site; no new pedal complaints. Dressing to RLE clean/dry/intact. Denies N/V/F/D/C/SOB/CP/DELACRUZ. Objective - Vital Signs/Intake and Output Vital Signs (last 24 hours): Temp Pulse Resp BP Pulse Ox 98.0 F 75 20 136/66 96 12/15/17 04:00 12/15/17 07:44 12/15/17 04:00 12/15/17 04:00 12/15/17 04:00 - Medications Medications: Current Medications Acetaminophen (Tylenol 325mg Tab) 650 mg PO Q6 PRN PRN Reason: Fever >100.4 F Allopurinol (Zyloprim) 100 mg PO DAILY [facility] Last Admin: 12/15/17 11:30 Dose: Not Given Dextrose (Dextrose 50% Inj) 0 ml IV STAT PRN; Protocol PRN Reason: Hypoglycemia Protocol Dextrose (Glutose 15) 0 gm PO ONCE PRN; Protocol PRN Reason: Hypoglycemia Protocol Epoetin Ivan (Procrit) 12,000 unit IV [facility] Last Admin: 12/12/17 11:53 Dose: 12,000 unit Glucagon (Glucagen Diagnostic Kit) 0 mg IM STAT PRN; Protocol PRN Reason: Hypoglycemia Protocol Heparin Sodium (Porcine) (Heparin) 5,000 units SC Q12 [facility] Last Admin: 12/15/17 11:00 Dose: Not Given Heparin Sodium (Porcine) (Heparin) 2,000 units IVP [facility] Hydralazine HCl (Apresoline) 50 mg PO TID PRN PRN Reason: Other Last Admin: 12/14/17 23:39 Dose: 50 mg Hydroxyurea (Hydrea) 1,000 mg PO DAILY [facility] Last Admin: 12/15/17 11:00 Dose: Not Given Meropenem 500 mg/ Sodium (Chloride) 100 mls @ 100 mls/hr IVPB Q12H [facility]; Protocol Last Admin: 12/15/17 06:14 Dose: 100 mls/hr Dextrose (Dextrose 5% In Water 1000 Ml) 1,000 mls @ 0 mls/hr IV .Q0M PRN; Protocol PRN Reason: Hypoglycemia Protocol Insulin Aspart (Novolog) 0 unit SC [facility]; Protocol Last Admin: 12/15/17 07:45 Dose: Not Given Insulin Glargine (Lantus) 15 unit SC HS [facility] Losartan Potassium (Cozaar) 50 mg PO DAILY [facility] Last Admin: 12/15/17 11:00 Dose: Not Given Memantine (Namenda) 5 mg PO DAILY [facility] Last Admin: 12/15/17 11:00 Dose: Not Given Mirtazapine (Remeron) 30 mg PO HS [facility] Last Admin: 12/14/17 23:39 Dose: 30 mg Oxycodone/Acetaminophen (Percocet 5/325 Mg Tab) 2 tab PO Q4H PRN PRN Reason: Pain, moderate (4-7) Stop: 12/18/17 09:48 Prednisone (Prednisone Tab) 50 mg PO ONCE PRN PRN Reason: Other Last Admin: 12/11/17 15:01 Dose: 50 mg Sertraline HCl (Zoloft) 25 mg PO DAILY [facility] Last Admin: 12/15/17 11:29 Dose: Not Given Sevelamer Carbonate (Renvela) 800 mg PO DAILY [facility] Last Admin: 12/15/17 11:29 Dose: Not Given Vitamin B Complex/Vit C/Folic Acid (Nephro-Carmen) 1 tab PO 0800 [facility] Last Admin: 12/15/17 08:12 Dose: Not Given - Labs Labs: 12/15/17 06:35 12/15/17 06:35 PT 13.3 SECONDS (9.7-12.2) H 12/09/17 14:25 INR 1.2 12/09/17 14:25 APTT 37 SECONDS (21-34) H 12/09/17 14:25 - Constitutional Appears: Well, Non-toxic, No Acute Distress - Extremities Exam Additional comments: Bilateral lower extremity exam: VASC: DP/PT pulses are weakly palpable 1/4, Temp gradient is warm to warm from proximal to distal on the right DERM: Linear incision noted to distal Chopart's amputation site with ana rosa and sutures intact, no wound dehiscence noted, no malodor, no active drainage, minimal periwound erythema. Wound at the lateral malleolus noted measuring approximately 2.0 cm x2.0 cm with a fibrotic base, no malodor, no tunneling or tracking noted, no active drainage noted, no clinical signs of infection. Left foot: small approx 0.5 cm x 0.5 cm x 0.1 cm wound present on the dorsum of the 2nd digit, wound base is mainly granular with no active drainage, no tunneling, no tracking, no purulence, no probe to bone, no erythema, no clinical suspicion of active infection NEURO: Protective sensation grossly diminished ORTHO: RLE Chopart's amputation, left foot partial 2nd ray amputation, gross inversion of right foot. - Neurological Exam Neurological Exam: Alert, Awake - Psychiatric Exam Psychiatric exam: Normal Affect, Normal Mood Assessment and Plan - Assessment and Plan (Free Text) Assessment: 62M POD#4 right Chopart's amputation (DOS: 12/11/17) Plan: Patient seen and evaluated Discussed with attending, Dr. Ahn Afebrile, WBC trending downwards 25.0 Right foot WCx (12/09) - Proteus Mirabilis Surgical pathology - gangrene and acute OM Post op x-rays : choparts amputation, no subcutaneous emphysema noted. ID Dr. Vargas - continue IV abx, Meropenem Vascular Dr. Nina - Angio findings: <50% SFA segemental stenosis B/L. Good f low to right PT, AT, Peroneal. Good left PT, stenosed AT Continue local wound care: saline cleanse, DSD, MELISA RLE; DSD LLE Activity: NWB RLE Continue PT/OT Pain control: Tylenol PO Podiatry will continue to follow
[2017-12-15 12:43] LABS: JAK2 V617F DETECTED
--- NOTE | 2017-12-15 12:44 | CP.PCM.PN ---
Subjective - Date & Time of Evaluation Date of Evaluation: 12/15/17 Time of Evaluation: 09:00 - Subjective Subjective: stable post op course IV rx in progress Objective - Vital Signs/Intake and Output Vital Signs (last 24 hours): Temp Pulse Resp BP Pulse Ox 98.5 F 70 18 180/71 H 98 12/15/17 11:30 12/15/17 11:30 12/15/17 11:30 12/15/17 11:30 12/15/17 11:30 - Medications Medications: Current Medications Acetaminophen (Tylenol 325mg Tab) 650 mg PO Q6 PRN PRN Reason: Fever >100.4 F Allopurinol (Zyloprim) 100 mg PO DAILY [facility] Last Admin: 12/15/17 11:30 Dose: Not Given Dextrose (Dextrose 50% Inj) 0 ml IV STAT PRN; Protocol PRN Reason: Hypoglycemia Protocol Dextrose (Glutose 15) 0 gm PO ONCE PRN; Protocol PRN Reason: Hypoglycemia Protocol Epoetin Ivan (Procrit) 12,000 unit IV [facility] Last Admin: 12/12/17 11:53 Dose: 12,000 unit Glucagon (Glucagen Diagnostic Kit) 0 mg IM STAT PRN; Protocol PRN Reason: Hypoglycemia Protocol Heparin Sodium (Porcine) (Heparin) 5,000 units SC Q12 [facility] Last Admin: 12/15/17 11:00 Dose: Not Given Heparin Sodium (Porcine) (Heparin) 2,000 units IVP MWF [facility] Hydralazine HCl (Apresoline) 50 mg PO TID PRN PRN Reason: Other Last Admin: 12/14/17 23:39 Dose: 50 mg Hydroxyurea (Hydrea) 1,000 mg PO DAILY [facility] Last Admin: 12/15/17 11:00 Dose: Not Given Meropenem 500 mg/ Sodium (Chloride) 100 mls @ 100 mls/hr IVPB Q12H [facility]; Protocol Last Admin: 12/15/17 06:14 Dose: 100 mls/hr Insulin Aspart (Novolog) 0 unit SC ACHS [facility]; Protocol Last Admin: 12/15/17 12:22 Dose: 2 units Insulin Glargine (Lantus) 15 unit SC HS [facility] Losartan Potassium (Cozaar) 50 mg PO DAILY [facility] Last Admin: 12/15/17 11:00 Dose: Not Given Memantine (Namenda) 5 mg PO DAILY [facility] Last Admin: 12/15/17 11:00 Dose: Not Given Mirtazapine (Remeron) 30 mg PO HS [facility] Last Admin: 12/14/17 23:39 Dose: 30 mg Oxycodone/Acetaminophen (Percocet 5/325 Mg Tab) 2 tab PO Q4H PRN PRN Reason: Pain, moderate (4-7) Stop: 12/18/17 09:48 Prednisone (Prednisone Tab) 50 mg PO ONCE PRN PRN Reason: Other Last Admin: 12/11/17 15:01 Dose: 50 mg Sertraline HCl (Zoloft) 25 mg PO DAILY [facility] Last Admin: 12/15/17 11:29 Dose: Not Given Sevelamer Carbonate (Renvela) 800 mg PO DAILY [facility] Last Admin: 12/15/17 11:29 Dose: Not Given Vitamin B Complex/Vit C/Folic Acid (Nephro-Carmen) 1 tab PO 0800 [facility] Last Admin: 12/15/17 08:12 Dose: Not Given - Labs Labs: 12/15/17 06:35 12/15/17 06:35 PT 13.3 SECONDS (9.7-12.2) H 12/09/17 14:25 INR 1.2 12/09/17 14:25 APTT 37 SECONDS (21-34) H 12/09/17 14:25 - Constitutional Appears: Non-toxic, Chronically Ill - Head Exam Head Exam: NORMOCEPHALIC - Eye Exam Eye Exam: absent: Scleral icterus - ENT Exam ENT Exam: Mucous Membranes Dry - Neck Exam Neck Exam: absent: Lymphadenopathy - Respiratory Exam Respiratory Exam: Decreased Breath Sounds - Cardiovascular Exam Cardiovascular Exam: REGULAR RHYTHM - GI/Abdominal Exam GI & Abdominal Exam: Distended, Soft - Rectal Exam Rectal Exam: Deferred - Exam Exam: NORMAL INSPECTION Assessment and Plan (1) Gangrene Status: Suspected (2) Diabetes Status: Acute (3) PVD (peripheral vascular disease) Status: Acute (4) End stage renal disease on dialysis Status: Acute (5) End stage renal disease on dialysis Status: Acute - Assessment and Plan (Free Text) Assessment: cont iv rx and wound care
--- NOTE | 2017-12-15 15:38 | CP.PCM.PN ---
Subjective - Date & Time of Evaluation Date of Evaluation: 12/15/17 Time of Evaluation: 15:37 - Subjective Subjective: Nephrology Consultation Note: Assessment: Stable Leg ulcers with Gangrene and ? PVD Diabetic chronic Kidney Disease (E11.22) Hypertensive Chronic Kidney Disease (I12.0) End stage renal disease (N18.6) dependence on hemodialysis (Z99.2) (MWF) via AVF Anemia (D64.9), Hyperphosphatemia (E83.39), Secondary Hyperparathyroidism (E21.1), HTN (I12.0) Thrombocytosis uncontrolled DM with hyperglycemia Plan: s/p 2 unit PRBC with HD on 12/13/17 HD as ordered per MWF schedule. Continue with Nephrovite 1 tab/day. PRBC as needed for anemia. started on SEUN with dialysis as last Hb 9.5 Continue with phos binders, last phos level 3.3 BP control with meds as ordered. Patient not on RAAS milan, hydralazine changed to PRN and added losartan, norvasc Glycemic control, Dialysis consistent diet Further work up/management as per primary team Dose meds/antibiotics (if needed) for ESRD status. Avoid fleets enema/magnesium based laxatives. vascular surgery, podiatry following, recs reviewed and appreciated heme following, pt on hydroxyurea Thanks for allowing me to participate in care of your patient. Will follow patient with you. Please call if any Qs. had d/w team Dr Volodymyr Oconnor Office: [phone] Chief Complaint; leg wound reason for consult: ESRD HPI: Pt is a 62 M with hx of ESRD on hemodialysis (MWF) via avf for last 1 month in [place], [place] , last dialysis Mon, chronic anemia, hyperphosphatemia, secondary hyperparathyroidism, Diabetes Mellitus, hypertension, presented with complaints of leg wounds and concerns for gangrene. being evaluated for PVD as well Renal consult requested for ESRD management. pt seen on hd and feels same. not aware about his reason for ESRD or who his import specialist is ROS: limited from pt Cardiovascular: No chest pain. Pulmonary: no shortness of breath Gastrointestinal: denies abdominal pain No nausea. No vomiting. Genitourinary: No pain while urinating. Denies blood in urine. All other negative except as mentioned in HPI Physical Examination: seen on HD General Appearance: Comfortable, in no acute respiratory distress, co-operative . Vitals reviewed and noted as below Head; Atraumatic, normocephalic ENT: no ulcers no thrush. Tongue is midline. Oropharynx: no rash or ulcers. EYES: Pupils are equal, round and reactive to light accommodation. Eye muscles and extra-ocular movement intact. Sclera is anicteric. Neck; supple no lymphadenopathy, no thyromegaly or bruit Lungs: Normal respiratory rate/effort. Breath sounds bilateral clear Heart: Normal rate. s1s2 normal. No rub or gallop. Extremities: no edema. No varicose veins. feets dressed. s/p Rt Foot TMA. had muscles wasting noted Neurological: Patient is alert, awake and oriented. No focal deficit. Strength bilateral appropriate and equal Skin: Warm and dry. Normal turgor. No rash. Palpitation: Normal elasticity for age Abdomen: Abdomen is soft. Bowel sounds +. There is no abdominal tenderness, no guarding/rigidity or organomegaly Psych: lack insight and crow normal affect/moods MSK: no joint tenderness or swelling. Digits and nails normal, no deformity : kidney or bladder not palpable Access: AVF Labs/imaging reviewed. Past medical history, past surgical history, family history, social history, allergy reviewed and noted as below Family Hx: no hx of CKD. Non contributory Objective - Vital Signs/Intake and Output Vital Signs (last 24 hours): Temp Pulse Resp BP Pulse Ox 98.5 F 70 18 180/71 H 98 12/15/17 11:30 12/15/17 11:30 12/15/17 11:30 12/15/17 11:30 12/15/17 11:30 - Medications Medications: Current Medications Acetaminophen (Tylenol 325mg Tab) 650 mg PO Q6 PRN PRN Reason: Fever >100.4 F Allopurinol (Zyloprim) 100 mg PO DAILY [facility] Last Admin: 12/15/17 11:30 Dose: Not Given Amlodipine Besylate (Norvasc) 5 mg PO QPM [facility] Dextrose (Dextrose 50% Inj) 0 ml IV STAT PRN; Protocol PRN Reason: Hypoglycemia Protocol Dextrose (Glutose 15) 0 gm PO ONCE PRN; Protocol PRN Reason: Hypoglycemia Protocol Epoetin Ivan (Procrit) 12,000 unit IV MWF [facility] Last Admin: 12/12/17 11:53 Dose: 12,000 unit Glucagon (Glucagen Diagnostic Kit) 0 mg IM STAT PRN; Protocol PRN Reason: Hypoglycemia Protocol Heparin Sodium (Porcine) (Heparin) 5,000 units SC Q12 [facility] Last Admin: 12/15/17 11:00 Dose: Not Given Heparin Sodium (Porcine) (Heparin) 2,000 units IVP [facility] Hydralazine HCl (Apresoline) 50 mg PO TID PRN PRN Reason: Other Last Admin: 12/14/17 23:39 Dose: 50 mg Hydroxyurea (Hydrea) 1,000 mg PO DAILY [facility] Last Admin: 12/15/17 11:00 Dose: Not Given Meropenem 500 mg/ Sodium (Chloride) 100 mls @ 100 mls/hr IVPB Q12H [facility]; Protocol Last Admin: 12/15/17 06:14 Dose: 100 mls/hr Insulin Aspart (Novolog) 0 unit SC ACHS [facility]; Protocol Last Admin: 12/15/17 12:22 Dose: 2 units Insulin Glargine (Lantus) 15 unit SC [facility] Losartan Potassium (Cozaar) 50 mg PO DAILY [facility] Last Admin: 12/15/17 11:00 Dose: Not Given Memantine (Namenda) 5 mg PO DAILY [facility] Last Admin: 12/15/17 11:00 Dose: Not Given Mirtazapine (Remeron) 30 mg PO [facility] Last Admin: 12/14/17 23:39 Dose: 30 mg Oxycodone/Acetaminophen (Percocet 5/325 Mg Tab) 2 tab PO Q4H PRN PRN Reason: Pain, moderate (4-7) Stop: 12/18/17 09:48 Prednisone (Prednisone Tab) 50 mg PO ONCE PRN PRN Reason: Other Last Admin: 12/11/17 15:01 Dose: 50 mg Sertraline HCl (Zoloft) 25 mg PO DAILY [facility] Last Admin: 12/15/17 11:29 Dose: Not Given Sevelamer Carbonate (Renvela) 800 mg PO DAILY [facility] Last Admin: 12/15/17 11:29 Dose: Not Given Vitamin B Complex/Vit C/Folic Acid (Nephro-Carmen) 1 tab PO 0800 [facility] Last Admin: 12/15/17 08:12 Dose: Not Given - Labs Labs: 12/15/17 06:35 12/15/17 06:35 PT 13.3 SECONDS (9.7-12.2) H 12/09/17 14:25 INR 1.2 12/09/17 14:25 APTT 37 SECONDS (21-34) H 12/09/17 14:25
--- NOTE | 2017-12-15 20:43 | OP ---
PROCEDURE DATE: 12/15/2017 PREOPERATIVE DIAGNOSIS: Gangrene, both feet. POSTOPERATIVE DIAGNOSIS: Gangrene, both feet. PROCEDURE CARRIED OUT: Aortofemoral angiogram via left groin, selective catheterization of right femoral artery. HISTORY: The patient is a 62-year-old male on dialysis with gangrenous changes on his right foot. He had previous ischemic changes also on his left foot. He also undergone a high transmetatarsal amputation on the right. OPERATIVE FINDINGS: Access was obtained via the left groin. The aorta and renal arteries were free of significant occlusive disease. The right common iliac artery and left common iliac artery were widely patent. On the right side, the internal iliac artery was occluded. There was a high-grade stenosis at the origin of left internal iliac artery. Both common iliac arteries, external iliac arteries, and common femoral/profunda femoral arteries were widely patent. On both sides, there was less than 50% stenosis at proximal superficial femoral artery. Distally, there were moderate degrees of atherosclerotic changes throughout both superficial femoral arteries. However, there was a posterior tibial artery patent to the foot, and on the right side, the anterior tibial artery remained patent, and on the left side, it was occluded. Posterior tibial artery is a dominant vessel. Subsequent to the performance of diagnostic arteriogram, a stiff-angled guidewire was advanced. A selective catheterization had been made on the opposite side with the above-mentioned findings. Pressure was then applied to the left groin after the procedure was terminated. Blood loss from the procedure was less than 20 mL. OPERATION CARRIED OUT: Aortofemoral angiogram with selective catheterization of right femoral artery. Navi Nina Jr., MD
[2017-12-15] MEDS: (Lantus) Insulin Glargine, Recombinant SC SCH (22:39)
[2017-12-16 00:35] LABS: BCR-ABL SOURCE NOT GIVEN; P190 BCR-ABL1 NOT DETECTED; P210 BCR-ABL1 NOT DETECTED
[2017-12-16 07:20] LABS: BASO # 0.2 K/uL (0.0-0.2); BASO % 0.7 % (0.0-2.0); EOS # 0.1 K/uL (0.0-0.7); EOS % 0.2 % (0.0-4.0); LYMPH # 1.6 K/uL (1.0-4.3); LYMPH % 5.8 % (20.0-40.0); MEAN CELL VOLUME 86.9 fL (80.0-94.0); MEAN CORPUSCULAR HEMOGLOBIN 29.2 pg (27.0-31.0); MEAN CORPUSCULAR HGB CONC 33.6 g/dL (33.0-37.0); MEAN PLATELET VOLUME 7.9 fL (7.2-11.7); MONO # 1.1 K/uL (0.0-0.8); NEUT # 24.9 K/uL (1.8-7.0); NEUT % 89.3 % (50.0-75.0); PLATELET COUNT 833 K/uL (130-400); RBC 3.44 Mil/uL (4.40-5.90); RED CELL DISTRIBUTION WIDTH 16.6 % (11.5-14.5); WHITE BLOOD COUNT 27.9 K/uL (4.8-10.8)
[2017-12-16] MEDS: (Novolog) Insulin Aspart, Recombinant 100 u/ml 10 ml vial SC SCH ×4 (07:48→21:53)
[2017-12-16] MEDS: Multivitamin Vitamin B Complex (Nephro-Vite) Tab PO SCH (08:09)
[2017-12-16 08:11] LABS: ALB/GLOB RATIO 0.9 (1.0-2.1); ALBUMIN 3.4 g/dL (3.5-5.0); CALCIUM 8.6 mg/dl (8.6-10.4)
[2017-12-16 08:29] LABS: ANISOCYTOSIS SLIGHT; BASOPHIL 1 % (0-2); HYPOCHROMIC SLIGHT; LYMPHOCYTE 6 % (20-40); MONOCYTE 3 % (0-10); NEUTROPHIL 90 % (50-75); PLATELET ESTIMATE INCREASED (NORMAL); POIKILOCYTOSIS SLIGHT; TOTAL CELLS COUNTED 100
[2017-12-16 08:30] LABS: LARGE PLATELETS PRESENT; MICROCYTOSIS SLIGHT; POLYCHROMIC SLIGHT; TARGET CELLS SLIGHT; TEARDROP CELLS SLIGHT
--- NOTE | 2017-12-16 10:26 | CP.PCM.PN ---
Subjective - Date & Time of Evaluation Date of Evaluation: 12/16/17 Time of Evaluation: 10:19 - Subjective Subjective: Podiatry - Dr. Ahn 62M seen and examined this AM 5 days s/p right Chopart's amputation, right ankle wound, and left 2nd digit wound. Patient resting comfortably at time of visit, NAD. Pt stable since angio yesterday. Patient offers no complaints to right foot wound or surgical site. Patient scheduled for OR tomorrow 7:45 left 2nd digit amputation. Dressings clean/dry/intact. Denies N/V/F/D/C/SOB/CP/DELACRUZ. Objective - Vital Signs/Intake and Output Vital Signs (last 24 hours): Temp Pulse Resp BP Pulse Ox 97.8 F 78 20 199/94 H 96 12/16/17 07:00 12/16/17 07:00 12/16/17 07:00 12/16/17 07:00 12/16/17 07:00 - Medications Medications: Current Medications Acetaminophen (Tylenol 325mg Tab) 650 mg PO Q6 PRN PRN Reason: Fever >100.4 F Allopurinol (Zyloprim) 100 mg PO DAILY [facility] Last Admin: 12/15/17 11:30 Dose: Not Given Amlodipine Besylate (Norvasc) 5 mg PO QPM [facility] Last Admin: 12/15/17 19:01 Dose: 5 mg Dextrose (Dextrose 50% Inj) 0 ml IV STAT PRN; Protocol PRN Reason: Hypoglycemia Protocol Dextrose (Glutose 15) 0 gm PO ONCE PRN; Protocol PRN Reason: Hypoglycemia Protocol Epoetin Ivan (Procrit) 12,000 unit IV [facility] Last Admin: 12/12/17 11:53 Dose: 12,000 unit Glucagon (Glucagen Diagnostic Kit) 0 mg IM STAT PRN; Protocol PRN Reason: Hypoglycemia Protocol Heparin Sodium (Porcine) (Heparin) 5,000 units SC Q12 [facility] Last Admin: 12/15/17 22:38 Dose: 5,000 units Heparin Sodium (Porcine) (Heparin) 2,000 units IVP [facility] Hydralazine HCl (Apresoline) 50 mg PO TID PRN PRN Reason: Other Last Admin: 12/16/17 07:45 Dose: 50 mg Hydroxyurea (Hydrea) 1,000 mg PO DAILY [facility] Last Admin: 12/15/17 11:00 Dose: Not Given Meropenem 500 mg/ Sodium (Chloride) 100 mls @ 100 mls/hr IVPB Q12H [facility]; Protocol Last Admin: 12/15/17 21:20 Dose: Not Given Insulin Aspart (Novolog) 0 unit SC [facility]; Protocol Last Admin: 12/16/17 07:48 Dose: 2 units Insulin Glargine (Lantus) 15 unit SC [facility] Last Admin: 12/15/17 22:39 Dose: 15 u Losartan Potassium (Cozaar) 50 mg PO DAILY [facility] Last Admin: 12/15/17 11:00 Dose: Not Given Memantine (Namenda) 5 mg PO DAILY [facility] Last Admin: 12/15/17 11:00 Dose: Not Given Mirtazapine (Remeron) 30 mg PO HS [facility] Last Admin: 12/15/17 22:39 Dose: 30 mg Oxycodone/Acetaminophen (Percocet 5/325 Mg Tab) 2 tab PO Q4H PRN PRN Reason: Pain, moderate (4-7) Stop: 12/18/17 09:48 Prednisone (Prednisone Tab) 50 mg PO ONCE PRN PRN Reason: Other Last Admin: 12/11/17 15:01 Dose: 50 mg Sertraline HCl (Zoloft) 25 mg PO DAILY [facility] Last Admin: 12/15/17 11:29 Dose: Not Given Sevelamer Carbonate (Renvela) 800 mg PO DAILY [facility] Last Admin: 12/15/17 11:29 Dose: Not Given Vitamin B Complex/Vit C/Folic Acid (Nephro-Carmen) 1 tab PO 0800 [facility] Last Admin: 12/16/17 08:09 Dose: 1 tab - Labs Labs: 12/16/17 07:11 12/16/17 07:11 PT 13.3 SECONDS (9.7-12.2) H 12/09/17 14:25 INR 1.2 12/09/17 14:25 APTT 37 SECONDS (21-34) H 12/09/17 14:25 - Constitutional Appears: Well, Non-toxic, No Acute Distress - Extremities Exam Additional comments: Bilateral lower extremity exam: VASC: DP/PT pulses are weakly palpable 1/4 however audible on doppler exam, Temp gradient is warm to warm b/l. DERM: Linear incision noted to distal Chopart's amputation site with ana rosa and sutures intact, no wound dehiscence noted, no malodor, no active drainage, minimal periwound erythema. Wound at the lateral malleolus noted measuring approximately 2.0 cm x2.0 cm with a fibrotic base, no malodor, no tunneling or tracking noted, no active drainage noted, no clinical signs of infection. Left foot: Ulceration measuring approx. 0.5 cm x 0.5 cm x 0.1 cm present on the dorsum of the 2nd digit PIPJ, wound base is mainly granular with proximal phal angeal head exposed, no active drainage, no tunneling, no tracking, no purulence NEURO: Protective sensation grossly diminished ORTHO: RLE Chopart's amputation, left foot partial 2nd ray amputation, gross inversion of right foot. - Neurological Exam Neurological Exam: Alert, Awake, Oriented x3 - Psychiatric Exam Psychiatric exam: Normal Affect, Normal Mood Assessment and Plan - Assessment and Plan (Free Text) Assessment: 62M POD#5 right Chopart's amputation (DOS: 12/11/17) Right ankle ulceration Left 2nd digit ulceration with exposed proximal phalangeal head Plan: Patient seen and evaluated with attending, Dr. Ahn Afebrile, WBC 27.9 Right foot WCx (12/09) - Proteus Mirabilis Surgical pathology - gangrene and acute OM Post op x-rays : choparts amputation, no subcutaneous emphysema noted. ID Dr. Vargas - continue IV abx, Meropenem Vascular Dr. Nina - Angio findings: <50% SFA segemental stenosis B/L. Good flow to right PT, AT, Peroneal. Good left PT, stenosed AT Continue local wound care: saline cleanse, DSD, MELISA RLE; DSD LLE Plan for OR tomorrow Sunday 12/17 @ 7:45 Left 2nd digit amputation -NPO @ mn, hold heparin Activity: NWB RLE Continue PT/OT Pain control: Tylenol PO Podiatry will continue to follow
--- NOTE | 2017-12-16 12:29 | CP.PCM.PN ---
Subjective - Date & Time of Evaluation Date of Evaluation: 12/16/17 Time of Evaluation: 12:28 - Subjective Subjective: Nephrology Consultation Note: Assessment: Stable Leg ulcers with Gangrene and ? PVD Diabetic chronic Kidney Disease (E11.22) Hypertensive Chronic Kidney Disease (I12.0) End stage renal disease (N18.6) dependence on hemodialysis (Z99.2) (MWF) via AVF Anemia (D64.9), Hyperphosphatemia (E83.39), Secondary Hyperparathyroidism (E21.1), HTN (I12.0) Thrombocytosis uncontrolled DM with hyperglycemia Plan: s/p 2 unit PRBC with HD on 12/13/17 HD as ordered tomorrow per F schedule. Continue with Nephrovite 1 tab/day. PRBC as needed for anemia. started on SEUN with dialysis as last Hb 9.5 Continue with phos binders, last phos level 3.3 BP control with meds as ordered. Patient not on RAAS milan, hydralazine changed to PRN and Increased losartan 100, norvasc 10 mg Glycemic control, Dialysis consistent diet Further work up/management as per primary team Dose meds/antibiotics (if needed) for ESRD status. Avoid fleets enema/magnesium based laxatives. vascular surgery, podiatry following, recs reviewed and appreciated heme following, pt on hydroxyurea Thanks for allowing me to participate in care of your patient. Will follow patient with you. Please call if any Qs. had d/w team Dr Volodymyr Oconnor Office: [phone] Chief Complaint; leg wound reason for consult: ESRD HPI: Pt is a 62 M with hx of ESRD on hemodialysis (MWF) via avf for last 1 month in [place], [place] , last dialysis Mon, chronic anemia, hyperphosphatemia, secondary hyperparathyroidism, Diabetes Mellitus, hypertension, presented with complaints of leg wounds and concerns for gangrene. being evaluated for PVD as well Renal consult requested for ESRD management. pt seen on hd and feels same. 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 Pulmonary: no shortness of breath Gastrointestinal: denies abdominal pain No nausea. No vomiting. Genitourinary: No pain while urinating. Denies blood in urine. All other negative except as mentioned in HPI Physical Examination: General Appearance: Comfortable, in no acute respiratory distress, co-operative . Vitals reviewed and noted as below Head; Atraumatic, normocephalic ENT: no ulcers no thrush. Tongue is midline. Oropharynx: no rash or ulcers. EYES: Pupils are equal, round and reactive to light accommodation. Eye muscles and extra-ocular movement intact. Sclera is anicteric. Neck; supple no lymphadenopathy, no thyromegaly or bruit Lungs: Normal respiratory rate/effort. Breath sounds bilateral clear Heart: Normal rate. s1s2 normal. No rub or gallop. Extremities: no edema. No varicose veins. feets dressed. s/p Rt Foot TMA. had muscles wasting noted Neurological: Patient is alert, awake and oriented. No focal deficit. Strength bilateral appropriate and equal Skin: Warm and dry. Normal turgor. No rash. Palpitation: Normal elasticity for age Abdomen: Abdomen is soft. Bowel sounds +. There is no abdominal tenderness, no guarding/rigidity or organomegaly Psych: lack insight and crow normal affect/moods MSK: no joint tenderness or swelling. Digits and nails normal, no deformity : kidney or bladder not palpable Access: AVF Labs/imaging reviewed. Past medical history, past surgical history, family history, social history, allergy reviewed and noted as below Family Hx: no hx of CKD. Non contributory Objective - Vital Signs/Intake and Output Vital Signs (last 24 hours): Temp Pulse Resp BP Pulse Ox 97.8 F 78 20 199/94 H 96 12/16/17 07:00 12/16/17 07:00 12/16/17 07:00 12/16/17 07:00 12/16/17 07:00 - Medications Medications: Current Medications Acetaminophen (Tylenol 325mg Tab) 650 mg PO Q6 PRN PRN Reason: Fever >100.4 F Allopurinol (Zyloprim) 100 mg PO DAILY [facility] Last Admin: 12/16/17 11:06 Dose: 100 mg Amlodipine Besylate (Norvasc) 10 mg PO DAILY [facility] Dextrose (Dextrose 50% Inj) 0 ml IV STAT PRN; Protocol PRN Reason: Hypoglycemia Protocol Dextrose (Glutose 15) 0 gm PO ONCE PRN; Protocol PRN Reason: Hypoglycemia Protocol Epoetin Ivan (Procrit) 12,000 unit IV MWF [facility] Last Admin: 12/12/17 11:53 Dose: 12,000 unit Glucagon (Glucagen Diagnostic Kit) 0 mg IM STAT PRN; Protocol PRN Reason: Hypoglycemia Protocol Heparin Sodium (Porcine) (Heparin) 5,000 units SC Q12 [facility] Last Admin: 12/16/17 11:07 Dose: 5,000 units Heparin Sodium (Porcine) (Heparin) 2,[facility] Hydralazine HCl (Apresoline) 50 mg PO TID PRN PRN Reason: Other Last Admin: 12/16/17 07:45 Dose: 50 mg Hydroxyurea (Hydrea) 1,000 mg PO DAILY [facility] Last Admin: 12/16/17 11:06 Dose: 1,000 mg Meropenem 500 mg/ Sodium (Chloride) 100 mls @ 100 mls/hr IVPB Q12H [facility]; Protocol Last Admin: 12/15/17 21:20 Dose: Not Given Insulin Aspart (Novolog) 0 unit SC [facility]; Protocol Last Admin: 12/16/17 11:11 Dose: 6 units Insulin Glargine (Lantus) 15 unit SC [facility] Last Admin: 12/15/17 22:39 Dose: 15 u Losartan Potassium (Cozaar) 100 mg PO DAILY [facility] Memantine (Namenda) 5 mg PO DAILY [facility] Last Admin: 12/15/17 11:00 Dose: Not Given Mirtazapine (Remeron) 30 mg PO [facility] Last Admin: 12/15/17 22:39 Dose: 30 mg Oxycodone/Acetaminophen (Percocet 5/325 Mg Tab) 2 tab PO Q4H PRN PRN Reason: Pain, moderate (4-7) Stop: 12/18/17 09:48 Prednisone (Prednisone Tab) 50 mg PO ONCE PRN PRN Reason: Other Last Admin: 12/11/17 15:01 Dose: 50 mg Sertraline HCl (Zoloft) 25 mg PO DAILY [facility] Last Admin: 12/16/17 11:08 Dose: 25 mg Sevelamer Carbonate (Renvela) 800 mg PO DAILY [facility] Last Admin: 12/16/17 11:05 Dose: 800 mg Vitamin B Complex/Vit C/Folic Acid (Nephro-Carmen) 1 tab PO 0800 [facility] Last Admin: 12/16/17 08:09 Dose: 1 tab - Labs Labs: 12/16/17 07:11 12/16/17 07:11 PT 13.3 SECONDS (9.7-12.2) H 12/09/17 14:25 INR 1.2 12/09/17 14:25 APTT 37 SECONDS (21-34) H 12/09/17 14:25
--- NOTE | 2017-12-16 12:43 | CP.PCM.PN ---
Subjective - Date & Time of Evaluation Date of Evaluation: 12/16/17 Time of Evaluation: 12:41 - Subjective Subjective: Surgery Pt seen and examined. Underwent angiogram yesterday. Tolerated it well. Denies pain. Groin site looks clean. Pt has more than 50% patent LE arteries except L AT. Objective - Vital Signs/Intake and Output Vital Signs (last 24 hours): Temp Pulse Resp BP Pulse Ox 97.8 F 78 20 199/94 H 96 12/16/17 07:00 12/16/17 07:00 12/16/17 07:00 12/16/17 07:00 12/16/17 07:00 - Medications Medications: Current Medications Acetaminophen (Tylenol 325mg Tab) 650 mg PO Q6 PRN PRN Reason: Fever >100.4 F Allopurinol (Zyloprim) 100 mg PO DAILY [facility] Last Admin: 12/16/17 11:06 Dose: 100 mg Amlodipine Besylate (Norvasc) 10 mg PO DAILY [facility] Dextrose (Dextrose 50% Inj) 0 ml IV STAT PRN; Protocol PRN Reason: Hypoglycemia Protocol Dextrose (Glutose 15) 0 gm PO ONCE PRN; Protocol PRN Reason: Hypoglycemia Protocol Epoetin Ivan (Procrit) 12,000 unit IV [facility] [place] Last Admin: 12/12/17 11:53 Dose: 12,000 unit Glucagon (Glucagen Diagnostic Kit) 0 mg IM STAT PRN; Protocol PRN Reason: Hypoglycemia Protocol Heparin Sodium (Porcine) (Heparin) 5,000 units SC Q12 [facility] Last Admin: 12/16/17 11:07 Dose: 5,000 units Heparin Sodium (Porcine) (Heparin) 2,000 units IVP [facility] [place] Hydralazine HCl (Apresoline) 50 mg PO TID PRN PRN Reason: Other Last Admin: 12/16/17 07:45 Dose: 50 mg Hydroxyurea (Hydrea) 1,000 mg PO DAILY [facility] Last Admin: 12/16/17 11:06 Dose: 1,000 mg Meropenem 500 mg/ Sodium (Chloride) 100 mls @ 100 mls/hr IVPB Q12H [facility]; Protocol Last Admin: 12/15/17 21:20 Dose: Not Given Insulin Aspart (Novolog) 0 unit SC [facility]; Protocol Last Admin: 12/16/17 11:11 Dose: 6 units Insulin Glargine (Lantus) 15 unit SC [facility] Last Admin: 12/15/17 22:39 Dose: 15 u Losartan Potassium (Cozaar) 100 mg PO DAILY [facility] Memantine (Namenda) 5 mg PO DAILY [facility] Last Admin: 12/15/17 11:00 Dose: Not Given Mirtazapine (Remeron) 30 mg PO HS [facility] Last Admin: 12/15/17 22:39 Dose: 30 mg Oxycodone/Acetaminophen (Percocet 5/325 Mg Tab) 2 tab PO Q4H PRN PRN Reason: Pain, moderate (4-7) Stop: 12/18/17 09:48 Prednisone (Prednisone Tab) 50 mg PO ONCE PRN PRN Reason: Other Last Admin: 12/11/17 15:01 Dose: 50 mg Sertraline HCl (Zoloft) 25 mg PO DAILY [facility] Last Admin: 12/16/17 11:08 Dose: 25 mg Sevelamer Carbonate (Renvela) 800 mg PO DAILY [facility] Last Admin: 12/16/17 11:05 Dose: 800 mg Vitamin B Complex/Vit C/Folic Acid (Nephro-Carmen) 1 tab PO 0800 [facility] Last Admin: 12/16/17 08:09 Dose: 1 tab - Labs Labs: 12/16/17 07:11 12/16/17 07:11 PT 13.3 SECONDS (9.7-12.2) H 12/09/17 14:25 INR 1.2 12/09/17 14:25 APTT 37 SECONDS (21-34) H 12/09/17 14:25 - Constitutional Appears: No Acute Distress - Head Exam Head Exam: ATRAUMATIC, NORMAL INSPECTION, NORMOCEPHALIC - Eye Exam Eye Exam: EOMI, Normal appearance, PERRL Pupil Exam: NORMAL ACCOMODATION, PERRL - ENT Exam ENT Exam: Mucous Membranes Moist, Normal Exam - Neck Exam Neck Exam: Full ROM, Normal Inspection. absent: Lymphadenopathy - Respiratory Exam Respiratory Exam: NORMAL BREATHING PATTERN - Cardiovascular Exam Cardiovascular Exam: REGULAR RHYTHM - GI/Abdominal Exam GI & Abdominal Exam: Soft. absent: Tenderness - Exam Exam: NORMAL INSPECTION Additional comments: L groin dressing C/D/I. No hematoma. - Extremities Exam Extremities Exam: Full ROM. absent: Joint Swelling, Pedal Edema Additional comments: R TMA - Back Exam Back Exam: NORMAL INSPECTION - Neurological Exam Neurological Exam: Alert, Awake, CN II-XII Intact, Oriented x3 - Psychiatric Exam Psychiatric exam: Normal Affect, Normal Mood - Skin Skin Exam: Warm. absent: Intact Assessment and Plan - Assessment and Plan (Free Text) Assessment: POD 1 s/p b/l angio : 50% + patent b/l LE arteries except L AT. Segmental stenosis. -No further surgical intervention
--- NOTE | 2017-12-16 13:12 | CP.PCM.PN ---
Subjective - Date & Time of Evaluation Date of Evaluation: 12/16/17 Time of Evaluation: 07:00 - Subjective Subjective: s/p angio nad Objective - Vital Signs/Intake and Output Vital Signs (last 24 hours): Temp Pulse Resp BP Pulse Ox 97.8 F 78 20 199/94 H 96 12/16/17 07:00 12/16/17 07:00 12/16/17 07:00 12/16/17 07:00 12/16/17 07:00 - Medications Medications: Current Medications Acetaminophen (Tylenol 325mg Tab) 650 mg PO Q6 PRN PRN Reason: Fever >100.4 F Allopurinol (Zyloprim) 100 mg PO DAILY [facility] Last Admin: 12/16/17 11:06 Dose: 100 mg Amlodipine Besylate (Norvasc) 10 mg PO DAILY [facility] Dextrose (Dextrose 50% Inj) 0 ml IV STAT PRN; Protocol PRN Reason: Hypoglycemia Protocol Dextrose (Glutose 15) 0 gm PO ONCE PRN; Protocol PRN Reason: Hypoglycemia Protocol Epoetin Ivan (Procrit) 12,000 unit IV [facility] [place] Last Admin: 12/12/17 11:53 Dose: 12,000 unit Glucagon (Glucagen Diagnostic Kit) 0 mg IM STAT PRN; Protocol PRN Reason: Hypoglycemia Protocol Heparin Sodium (Porcine) (Heparin) 5,000 units SC Q12 [facility] Last Admin: 12/16/17 11:07 Dose: 5,000 units Heparin Sodium (Porcine) (Heparin) 2,000 units IVP [facility] Hydralazine HCl (Apresoline) 50 mg PO TID PRN PRN Reason: Other Last Admin: 12/16/17 07:45 Dose: 50 mg Hydroxyurea (Hydrea) 1,000 mg PO DAILY [facility] Last Admin: 12/16/17 11:06 Dose: 1,000 mg Meropenem 500 mg/ Sodium (Chloride) 100 mls @ 100 mls/hr IVPB Q12H [facility]; Protocol Last Admin: 12/15/17 21:20 Dose: Not Given Insulin Aspart (Novolog) 0 unit SC [facility]S [facility]; Protocol Last Admin: 12/16/17 11:11 Dose: 6 units Insulin Glargine (Lantus) 15 unit SC HS [facility] Last Admin: 12/15/17 22:39 Dose: 15 u Losartan Potassium (Cozaar) 100 mg PO DAILY [facility] Memantine (Namenda) 5 mg PO DAILY [facility] Last Admin: 12/15/17 11:00 Dose: Not Given Mirtazapine (Remeron) 30 mg PO HS [facility] Last Admin: 12/15/17 22:39 Dose: 30 mg Oxycodone/Acetaminophen (Percocet 5/325 Mg Tab) 2 tab PO Q4H PRN PRN Reason: Pain, moderate (4-7) Stop: 12/18/17 09:48 Prednisone (Prednisone Tab) 50 mg PO ONCE PRN PRN Reason: Other Last Admin: 12/11/17 15:01 Dose: 50 mg Sertraline HCl (Zoloft) 25 mg PO DAILY [facility] Last Admin: 12/16/17 11:08 Dose: 25 mg Sevelamer Carbonate (Renvela) 800 mg PO DAILY [facility] Last Admin: 12/16/17 11:05 Dose: 800 mg Vitamin B Complex/Vit C/Folic Acid (Nephro-Carmen) 1 tab PO 0800 [facility] Last Admin: 12/16/17 08:09 Dose: 1 tab - Labs Labs: 12/16/17 07:11 12/16/17 07:11 PT 13.3 SECONDS (9.7-12.2) H 12/09/17 14:25 INR 1.2 12/09/17 14:25 APTT 37 SECONDS (21-34) H 12/09/17 14:25 - Constitutional Appears: Non-toxic, Chronically Ill - Head Exam Head Exam: NORMOCEPHALIC - Eye Exam Eye Exam: PERRL - ENT Exam ENT Exam: Mucous Membranes Dry - Neck Exam Neck Exam: absent: Lymphadenopathy - Respiratory Exam Respiratory Exam: Decreased Breath Sounds - Cardiovascular Exam Cardiovascular Exam: REGULAR RHYTHM - GI/Abdominal Exam GI & Abdominal Exam: Distended - Rectal Exam Rectal Exam: Deferred - Exam Exam: NORMAL INSPECTION - Extremities Exam Extremities Exam: absent: Pedal Edema Additional comments: right TMA site healing c/d/i Assessment and Plan (1) Gangrene Status: Suspected (2) Diabetes Status: Acute (3) PVD (peripheral vascular disease) Status: Acute (4) End stage renal disease on dialysis Status: Acute (5) End stage renal disease on dialysis Status: Acute - Assessment and Plan (Free Text) Assessment: cont iv antibiotics
[2017-12-16] MEDS: Meropenem 500 MG in Sodium Chloride 0.9% 100 ML IVPB SCH ×2 (14:35→18:23)
--- NOTE | 2017-12-16 15:26 | CP.PCM.PN ---
Subjective - Date & Time of Evaluation Date of Evaluation: 12/16/17 Time of Evaluation: 10:40 - Subjective Subjective: PGY2 Medicine Note for Dr. Rios Patient seen and examined at bedside this morning. No acute events overnight. Patient is feeling well without complaints. Foot pain is minimal/well controlled. No fevers, chills, nausea, vomiting, diarrhea, constipation, chest pain, shortness of breath, abdominal pain, urinary symptoms or headaches. Objective - Vital Signs/Intake and Output Vital Signs (last 24 hours): Temp Pulse Resp BP Pulse Ox 97.8 F 80 20 133/65 96 12/16/17 07:00 12/16/17 13:00 12/16/17 07:00 12/16/17 13:00 12/16/17 07:00 - Medications Medications: Current Medications Acetaminophen (Tylenol 325mg Tab) 650 mg PO Q6 PRN PRN Reason: Fever >100.4 F Allopurinol (Zyloprim) 100 mg PO DAILY [facility] Last Admin: 12/16/17 11:06 Dose: 100 mg Amlodipine Besylate (Norvasc) 10 mg PO DAILY [facility] Last Admin: 12/16/17 13:27 Dose: 10 mg Dextrose (Dextrose 50% Inj) 0 ml IV STAT PRN; Protocol PRN Reason: Hypoglycemia Protocol Dextrose (Glutose 15) 0 gm PO ONCE PRN; Protocol PRN Reason: Hypoglycemia Protocol Epoetin Ivan (Procrit) 12,000 unit IV F [facility] Last Admin: 12/12/17 11:53 Dose: 12,000 unit Glucagon (Glucagen Diagnostic Kit) 0 mg IM STAT PRN; Protocol PRN Reason: Hypoglycemia Protocol Heparin Sodium (Porcine) (Heparin) 5,000 units SC Q12 [facility] Last Admin: 12/16/17 11:07 Dose: 5,000 units Heparin Sodium (Porcine) (Heparin) 2,000 units IVP MWF [facility] Hydralazine HCl (Apresoline) 50 mg PO TID PRN PRN Reason: Other Last Admin: 12/16/17 07:45 Dose: 50 mg Hydroxyurea (Hydrea) 1,000 mg PO DAILY [facility] Last Admin: 12/16/17 11:06 Dose: 1,000 mg Meropenem 500 mg/ Sodium (Chloride) 100 mls @ 100 mls/hr IVPB Q12H [facility]; Protocol Last Admin: 12/16/17 14:35 Dose: Not Given Insulin Aspart (Novolog) 0 unit SC [facility]; Protocol Last Admin: 12/16/17 11:11 Dose: 6 units Insulin Glargine (Lantus) 15 unit SC [facility] Last Admin: 12/15/17 22:39 Dose: 15 u Losartan Potassium (Cozaar) 100 mg PO DAILY [facility] Memantine (Namenda) 5 mg PO DAILY [facility] Last Admin: 12/16/17 11:00 Dose: 5 mg Mirtazapine (Remeron) 30 mg PO [facility] Last Admin: 12/15/17 22:39 Dose: 30 mg Oxycodone/Acetaminophen (Percocet 5/325 Mg Tab) 2 tab PO Q4H PRN PRN Reason: Pain, moderate (4-7) Stop: 12/18/17 09:48 Prednisone (Prednisone Tab) 50 mg PO ONCE PRN PRN Reason: Other Last Admin: 12/11/17 15:01 Dose: 50 mg Sertraline HCl (Zoloft) 25 mg PO DAILY [facility] Last Admin: 12/16/17 11:08 Dose: 25 mg Sevelamer Carbonate (Renvela) 800 mg PO DAILY [facility] Last Admin: 12/16/17 11:05 Dose: 800 mg Vitamin B Complex/Vit C/Folic Acid (Nephro-Carmen) 1 tab PO 0800 [facility] Last Admin: 12/16/17 08:09 Dose: 1 tab - Labs Labs: 12/16/17 07:11 12/16/17 07:11 PT 13.3 SECONDS (9.7-12.2) H 12/09/17 14:25 INR 1.2 12/09/17 14:25 APTT 37 SECONDS (21-34) H 12/09/17 14:25 - Additional Findings Additional findings: - Constitutional Appears: Non-toxic, No Acute Distress - Head Exam Head Exam: ATRAUMATIC, NORMAL INSPECTION - Eye Exam Eye Exam: EOMI, Normal appearance, PERRL Pupil Exam: NORMAL ACCOMODATION - ENT Exam ENT Exam: Mucous Membranes Moist - Neck Exam Neck Exam: Full ROM. absent: cervical lymphadenopathy - Respiratory Exam Respiratory Exam: NORMAL BREATHING PATTERN - Cardiovascular Exam Cardiovascular Exam: +S1, +S2 - GI/Abdominal Exam GI & Abdominal Exam: Soft, Normal Bowel Sounds - Extremities Exam Extremities Exam: Full ROM. absent: Pedal Edema, Tenderness Additional comments: right foot, dressed - site, clean dry and intact - Back Exam Back Exam: NORMAL INSPECTION - Neurological Exam Neurological Exam: Alert, Awake, Oriented x3 - Psychiatric Exam Psychiatric exam: Normal Affect, Normal Mood - Skin Skin Exam: Warm Assessment and Plan - Assessment and Plan (Free Text) Plan: Right Chopart's Amputation, POD #5 angiogram (12/15/17) showed: <50% SFA segemental stenosis B/L. Good flow to right PT, AT, Peroneal. Good left PT, stenosed AT Secondary to right foot gas gangrene Podiatry Consult placed- Dr. Aimee white appreciated Right foot wound cultures (12/09) - proteus mirabilis blood cultures negative KEN/PVR ordered -F/U Vascular Surgery Consult placed- Dr. Nina- F/U recs * s/p b/l angio: 50% + patent b/l LE arteries except L AT. Segmental stenosis. * No further surgical intervention Dopplers- Prelim study negative. F/U official report. ID Consult placed- Dr. Tasha white appreciated Previously on Zosyn 12/09-12/11 On Merrem 500mg q12h Started 12/11 (for at least 7 days) On Vanco 500mg MWF started 12/12 Patient's IV became dislodged during the day, order for PICC line placed. Patient needs Nephro clearance due to HD prior to placement. Left 2nd Toe Wound Plan for OR tomorrow Sunday 12/17 @ 7:45 Left 2nd digit amputation NPO past midnight Hold Heparin Leukocytosis Given basophilia, BCR/ABL ordered - not detected On antibiotics therapy Thrombocytosis Heme/Onc Consult placed- Dr. Keisha white appreciated f/u recs- rule out myeloproliferative disorder, essential thrombocytosis, JAK2 mutation, iron deficiency Hydroxyurea daily given vascular disease May also have been reactive secondary to gangrene CKD Dialysis MWF Renvela 800mg tid Procrit 8,000 u MWF Heparin 2000 IVP MWF Nephro consult placed to Dr. Duong Anemia Anemia of CKD - epo per renal b12: 756 folate: >20, ferritin 1490 HTN Hydralazine 50mg po TID prn Norvasc 10mg po daily Losartan 50mg po daily Gout Continue Home med- Allopurinol 100mg po daily Hyperglycemia HgA1C: 6.1. No other prior records. ISS low dose scale. Will not increase to high dose at this time, due to increased rosk of hypoglycemic events - due to ESRD. Lantus 15 u sc HS (increased from 10u on 12/15) Lipid panel: triglycerides: 126, Cholesterol: 91, LDL < 30, HDL 24 Dementia Namenda 5mg po daily (decreased from BID as per renal dosing) Depression Home meds- mirtazapine 30mg PO QD and sertraline 20mg PO QD Prophylaxis Heparin 5000 u sc q12h - held for pre-op All medical management as per Dr. Gabriel Kat Errol PGY2
[2017-12-16] MEDS: (Lantus) Insulin Glargine, Recombinant SC SCH (21:52)
[2017-12-17] MEDS: Meropenem 500 MG in Sodium Chloride 0.9% 100 ML IVPB SCH ×2 (05:59→18:44)
[2017-12-17] MEDS ORDERED: Sodium Chloride 0.9% 20 ML IV ONE (06:55)
[2017-12-17] MEDS: (Novolog) Insulin Aspart, Recombinant 100 u/ml 10 ml vial SC SCH ×4 (07:30→23:46)
[2017-12-17] MEDS ORDERED: Lidocaine Hydrochloride 20 ML INJ ONE (07:36)
[2017-12-17] MEDS ORDERED: Bupivacaine 0.25% 20 ML INJ IJ ONE (07:36)
[2017-12-17] MEDS ORDERED: Midazolam 2 MG/2 ML VIAL ONE (07:56)
[2017-12-17] MEDS ORDERED: Propofol 10 mg/ml Inj (20 ML) ONE (07:59)
[2017-12-17] MEDS ORDERED: Phenylephrine 10 mg/ml Inj ONE (09:03)
[2017-12-17] MEDS ORDERED: Oxycodone/Acetaminophen 5/325 mg Tab PO PRN ×2 (09:15)
--- NOTE | 2017-12-17 09:24 | PCM.SURG1 ---
Surgeon's Initial Post Op Note - Surgeon's Notes Surgeon: Dr. Ahn Thread Laster: Ellen Veliz, PGY1 Lizy Keen MS4 Type of Anesthesia: IV Sedation, Local Anesthesia Administered By: Scarlett Pre-Operative Diagnosis: osteomyelitis of the left second digit Operative Findings: see dictation. Injectibles: 10 cc of 1% Lidocaine plain and .5% marcaine plain. materials: Chromic gut suture, and 3-0 nylon Post-Operative Diagnosis: same Operation Performed: Amputation of the left second digit and metatarsal head Specimen/Specimens Removed: pathology: Second digit and metatarsal head Estimated Blood Loss: EBL {In ML}: 10 Blood Products Given: N/A Drains Used: No Drains Post-Op Condition: Good Date of Surgery/Procedure: 12/17/17 Time of Surgery/Procedure: 09:22
[2017-12-17] MEDS ORDERED: HYDROmorphone 0.5 mg/0.5 ml ISec IVP PRN (09:45)
--- NOTE | 2017-12-17 10:56 | RAD ---
Date of service: 12/17/2017 PROCEDURE: Left Foot Radiographs. HISTORY: s/p second digit amputation COMPARISON: 12/09/2017 FINDINGS: BONES: Status post amputation 2nd digit at the distal aspect of the 3rd metatarsal. Previous amputation at distal aspect 2nd metatarsal again noted. The patient is status post osteotomy at at the distal aspect 1st proximal phalanx and proximal aspect 1st distal phalanx. This is unchanged. No other interval change is noted. There is no osseous fracture. There is no periosteal reaction or osseous erosion. JOINTS: Normal. SOFT TISSUES: Normal. OTHER FINDINGS: None. IMPRESSION: Status post amputation 3rd digit at distal aspect 3rd metatarsal.
[2017-12-17] MEDS: Multivitamin Vitamin B Complex (Nephro-Vite) Tab PO SCH (10:59)
--- NOTE | 2017-12-17 14:09 | CP.PCM.PN ---
Subjective - Date & Time of Evaluation Date of Evaluation: 12/17/17 Time of Evaluation: 13:30 - Subjective Subjective: PGY2- Progress Note for Dr. Rios Patient seen and examined in dialysis. Patient is POD#0 s/p amputation of the left second digit and metatarsal head. Patient denies any pain in either feet. Patient denies any headache, chest pain, shortness of breath, abdominal pain, nausea, vomiting, diarrhea, or constipation. Objective - Vital Signs/Intake and Output Vital Signs (last 24 hours): Temp Pulse Resp BP Pulse Ox 97.9 F 73 11 L 134/69 100 12/17/17 10:15 12/17/17 10:15 12/17/17 10:15 12/17/17 10:15 12/17/17 10:15 Intake and Output: 12/17/17 12/17/17 06:59 18:59 Intake Total 450 Balance 450 - Medications Medications: Current Medications Acetaminophen (Tylenol 325mg Tab) 650 mg PO Q6 PRN PRN Reason: Fever >100.4 F Allopurinol (Zyloprim) 100 mg PO DAILY [facility] Last Admin: 12/17/17 10:59 Dose: 100 mg Amlodipine Besylate (Norvasc) 10 mg PO DAILY [facility] Last Admin: 12/17/17 12:42 Dose: Not Given Dextrose (Dextrose 50% Inj) 0 ml IV STAT PRN; Protocol PRN Reason: Hypoglycemia Protocol Dextrose (Glutose 15) 0 gm PO ONCE PRN; Protocol PRN Reason: Hypoglycemia Protocol Epoetin Ivan (Procrit) 12,000 unit IV [facility] [place] Admin: 12/12/17 11:53 Dose: 12,000 unit Glucagon (Glucagen Diagnostic Kit) 0 mg IM STAT PRN; Protocol PRN Reason: Hypoglycemia Protocol Heparin Sodium (Porcine) (Heparin) 5,000 units SC Q12 [facility] Last Admin: 12/16/17 11:07 Dose: 5,000 units Heparin Sodium (Porcine) (Heparin) 2,000 units IVP [facility] Hydralazine HCl (Apresoline) 50 mg PO TID PRN PRN Reason: Other Last Admin: 12/17/17 05:59 Dose: 50 mg Hydromorphone HCl (Dilaudid) 0.5 mg IVP Q10M PRN PRN Reason: Pain, moderate (4-7) Hydroxyurea (Hydrea) 1,000 mg PO DAILY [facility] Last Admin: 12/17/17 10:57 Dose: 1,000 mg Meropenem 500 mg/ Sodium (Chloride) 100 mls @ 100 mls/hr IVPB Q12H [facility]; Protocol Last Admin: 12/17/17 05:59 Dose: 100 mls/hr Insulin Aspart (Novolog) 0 unit SC [facility]; Protocol Last Admin: 12/17/17 13:13 Dose: 1 units Insulin Glargine (Lantus) 15 unit SC HS [facility] Last Admin: 12/16/17 21:52 Dose: Not Given Losartan Potassium (Cozaar) 100 mg PO DAILY [facility] Last Admin: 12/17/17 12:41 Dose: Not Given Memantine (Namenda) 5 mg PO DAILY [facility] Last Admin: 12/17/17 10:59 Dose: 5 mg Mirtazapine (Remeron) 30 mg PO HS [facility] Last Admin: 12/16/17 21:59 Dose: 30 mg Oxycodone/Acetaminophen (Percocet 5/325 Mg Tab) 2 tab PO Q4H PRN PRN Reason: Pain, moderate (4-7) Stop: 12/18/17 09:48 Oxycodone/Acetaminophen (Percocet 5/325 Mg Tab) 1 tab PO Q6H PRN PRN Reason: Pain, moderate (4-7) Stop: 12/20/17 09:16 Oxycodone/Acetaminophen (Percocet 5/325 Mg Tab) 2 tab PO Q6H PRN PRN Reason: Pain, severe (8-10) Stop: 12/20/17 09:16 Prednisone (Prednisone Tab) 50 mg PO ONCE PRN PRN Reason: Other Last Admin: 12/11/17 15:01 Dose: 50 mg Sertraline HCl (Zoloft) 25 mg PO DAILY [facility] Last Admin: 12/16/17 11:08 Dose: 25 mg Sevelamer Carbonate (Renvela) 800 mg PO DAILY [facility] Last Admin: 12/17/17 10:59 Dose: 800 mg Vitamin B Complex/Vit C/Folic Acid (Nephro-Carmen) 1 tab PO 0800 [facility] Last Admin: 12/17/17 10:59 Dose: 1 tab - Labs Labs: 12/16/17 07:11 12/16/17 07:11 PT 13.3 SECONDS (9.7-12.2) H 12/09/17 14:25 INR 1.2 12/09/17 14:25 APTT 37 SECONDS (21-34) H 12/09/17 14:25 - Constitutional Appears: Non-toxic, No Acute Distress - Head Exam Head Exam: ATRAUMATIC, NORMAL INSPECTION, NORMOCEPHALIC - Eye Exam Eye Exam: EOMI, Normal appearance - ENT Exam ENT Exam: Mucous Membranes Moist - Respiratory Exam Respiratory Exam: Clear to Ausculation Bilateral, NORMAL BREATHING PATTERN. absent: Rales, Rhonchi, Wheezes - Cardiovascular Exam Cardiovascular Exam: REGULAR RHYTHM, RRR, +S1, +S2 - GI/Abdominal Exam GI & Abdominal Exam: Soft, Normal Bowel Sounds. absent: Tenderness - Extremities Exam Additional comments: b/l feet wrapped in c/d/i dressings - Neurological Exam Neurological Exam: Alert, Awake - Psychiatric Exam Psychiatric exam: Normal Affect, Normal Mood - Skin Additional comments: b/l feet wrapped in c/d/i dressings Assessment and Plan - Assessment and Plan (Free Text) Assessment: Right Chopart's Amputation, POD #6 Amputation of the left second digit and metatarsal head POD #0 angiogram (12/15/17) showed: <50% SFA segemental stenosis B/L. Good flow to right PT, AT, Peroneal. Good left PT, stenosed AT Secondary to right foot gas gangrene Podiatry Consult placed- Dr. Aimee white appreciated Right foot wound cultures (12/09) - proteus mirabilis blood cultures negative Vascular Surgery Consult placed- Dr. Nina- F/U recs * s/p b/l angio: 50% + patent b/l LE arteries except L AT. Segmental stenosis. * No further surgical intervention Dopplers- Prelim study negative. F/U official report. ID Consult placed- Dr. Tasha white appreciated Previously on Zosyn 12/09-12/11 On Merrem 500mg q12h Started 12/11 (for at least 7 days) On Vanco 500mg MWF started 12/12 Patient's IV became dislodged on 12/16/17, order for PICC line placed. picc line unable to be placed by picc line nurse, consulted IR, Dr. Rg Leukocytosis Given basophilia, BCR/ABL ordered - not detected On antibiotics therapy Thrombocytosis Heme/Onc Consult placed- Dr. Chaney- recs appreciated f/u recs- rule out myeloproliferative disorder, essential thrombocytosis, JAK2 mutation, iron deficiency Hydroxyurea daily given vascular disease May also have been reactive secondary to gangrene CKD Dialysis MWF Renvela 800mg tid Procrit 8,000 u MWF Heparin 2000 IVP MWF Nephro consult placed to Dr. Duong Anemia Anemia of CKD - epo per renal b12: 756 folate: >20, ferritin 1490 HTN Hydralazine 50mg po TID prn Norvasc 10mg po daily Losartan 50mg po daily Gout Continue Home med- Allopurinol 100mg po daily Hyperglycemia HgA1C: 6.1. No other prior records. ISS low dose scale. Will not increase to high dose at this time, due to increased rosk of hypoglycemic events - due to ESRD. Lantus 15 u sc HS (increased from 10u on 12/15) Lipid panel: triglycerides: 126, Cholesterol: 91, LDL < 30, HDL 24 Dementia Namenda 5mg po daily (decreased from BID as per renal dosing) Depression Home meds- mirtazapine 30mg PO QD and sertraline 20mg PO QD Prophylaxis Heparin 5000 u sc q12h All medical management as per Dr. Rios
[2017-12-17 15:01] LABS: BASO # 0.2 K/uL (0.0-0.2); BASO % 1.1 % (0.0-2.0); EOS # 0.8 K/uL (0.0-0.7); HEMOGLOBIN 9.5 g/dL (12.0-18.0); LYMPH # 1.8 K/uL (1.0-4.3); MEAN CELL VOLUME 88.2 fL (80.0-94.0); MEAN CORPUSCULAR HEMOGLOBIN 29.2 pg (27.0-31.0); MEAN CORPUSCULAR HGB CONC 33.1 g/dL (33.0-37.0); MEAN PLATELET VOLUME 7.7 fL (7.2-11.7); MONO # 0.6 K/uL (0.0-0.8); MONO % 3.5 % (0.0-10.0); NEUT # 13.4 K/uL (1.8-7.0); NEUT % 79.4 % (50.0-75.0); NRBC % 0.1 % (0.0-2.0); RBC 3.25 Mil/uL (4.40-5.90); RED CELL DISTRIBUTION WIDTH 17.7 % (11.5-14.5); WHITE BLOOD COUNT 16.8 K/uL (4.8-10.8)
--- NOTE | 2017-12-17 15:11 | CP.PCM.PN ---
Subjective - Date & Time of Evaluation Date of Evaluation: 12/17/17 Time of Evaluation: 15:10 - Subjective Subjective: Nephrology Consultation Note: Assessment: Stable Leg ulcers with Gangrene and ? PVD Diabetic chronic Kidney Disease (E11.22) Hypertensive Chronic Kidney Disease (I12.0) End stage renal disease (N18.6) dependence on hemodialysis (Z99.2) (MWF) via AVF Anemia (D64.9), Hyperphosphatemia (E83.39), Secondary Hyperparathyroidism (E21.1), HTN (I12.0) Thrombocytosis uncontrolled DM with hyperglycemia Plan: s/p 2 unit PRBC with HD on 12/13/17 HD as ordered today per F schedule. Continue with Nephrovite 1 tab/day. PRBC as needed for anemia. started on SEUN with dialysis as last Hb 9.5 Continue with phos binders, last phos level 3.3 BP control with meds as ordered. Patient not on RAAS milan, hydralazine changed to PRN and Increased losartan 100, norvasc 10 mg Glycemic control, Dialysis consistent diet Further work up/management as per primary team Dose meds/antibiotics (if needed) for ESRD status. Avoid fleets enema/magnesium based laxatives. vascular surgery, podiatry following, recs reviewed and appreciated heme following, pt on hydroxyurea check stool for c.diff Thanks for allowing me to participate in care of your patient. Will follow patient with you. Please call if any Qs. had d/w team Dr Volodymyr Oconnor Office: [phone] Chief Complaint; leg wound reason for consult: ESRD HPI: Pt is a 62 M with hx of ESRD on hemodialysis (MWF) via avf for last 1 month in [place], [place] , last dialysis Mon, chronic anemia, hyperphosphatemia, secondary hyperparathyroidism, Diabetes Mellitus, hypertension, presented with complaints of leg wounds and concerns for gangrene. being evaluated for PVD as well Renal consult requested for ESRD management. pt seen on hd and feels same. 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 Pulmonary: no shortness of breath Gastrointestinal: denies abdominal pain No nausea. No vomiting. Genitourinary: No pain while urinating. Denies blood in urine. All other negative except as mentioned in HPI Physical Examination: seen on HD General Appearance: Comfortable, in no acute respiratory distress, co-operative . Vitals reviewed and noted as below Head; Atraumatic, normocephalic ENT: no ulcers no thrush. Tongue is midline. Oropharynx: no rash or ulcers. EYES: Pupils are equal, round and reactive to light accommodation. Eye muscles and extra-ocular movement intact. Sclera is anicteric. Neck; supple no lymphadenopathy, no thyromegaly or bruit Lungs: Normal respiratory rate/effort. Breath sounds bilateral clear Heart: Normal rate. s1s2 normal. No rub or gallop. Extremities: no edema. No varicose veins. feets dressed. s/p Rt Foot TMA. had muscles wasting noted Neurological: Patient is alert, awake and oriented. No focal deficit. Strength b ilateral appropriate and equal Skin: Warm and dry. Normal turgor. No rash. Palpitation: Normal elasticity for age Abdomen: Abdomen is soft. Bowel sounds +. There is no abdominal tenderness, no guarding/rigidity or organomegaly Psych: lack insight and crow normal affect/moods MSK: no joint tenderness or swelling. Digits and nails normal, no deformity : kidney or bladder not palpable Access: AVF Labs/imaging reviewed. Past medical history, past surgical history, family history, social history, allergy reviewed and noted as below Family Hx: no hx of CKD. Non contributory Objective - Vital Signs/Intake and Output Vital Signs (last 24 hours): Temp Pulse Resp BP Pulse Ox 97.9 F 73 11 L 134/69 100 12/17/17 10:15 12/17/17 10:15 12/17/17 10:15 12/17/17 10:15 12/17/17 10:15 Intake and Output: 12/17/17 12/17/17 06:59 18:59 Intake Total 450 Balance 450 - Medications Medications: Current Medications Acetaminophen (Tylenol 325mg Tab) 650 mg PO Q6 PRN PRN Reason: Fever >100.4 F Allopurinol (Zyloprim) 100 mg PO DAILY [facility] Last Admin: 12/17/17 10:59 Dose: 100 mg Amlodipine Besylate (Norvasc) 10 mg PO DAILY [facility] Last Admin: 12/17/17 12:42 Dose: Not Given Dextrose (Dextrose 50% Inj) 0 ml IV STAT PRN; Protocol PRN Reason: Hypoglycemia Protocol Dextrose (Glutose 15) 0 gm PO ONCE PRN; Protocol PRN Reason: Hypoglycemia Protocol Epoetin Ivan (Procrit) 12,000 unit IV [facility] [place] Last Admin: 12/12/17 11:53 Dose: 12,000 unit Glucagon (Glucagen Diagnostic Kit) 0 mg IM STAT PRN; Protocol PRN Reason: Hypoglycemia Protocol Heparin Sodium (Porcine) (Heparin) 5,000 units SC Q12 [facility] Last Admin: 12/16/17 11:07 Dose: 5,000 units Heparin Sodium (Porcine) (Heparin) 2,000 units IVP [facility] [place] Hydralazine HCl (Apresoline) 50 mg PO TID PRN PRN Reason: Other Last Admin: 12/17/17 05:59 Dose: 50 mg Hydromorphone HCl (Dilaudid) 0.5 mg IVP Q10M PRN PRN Reason: Pain, moderate (4-7) Hydroxyurea (Hydrea) 1,000 mg PO DAILY [facility] Last Admin: 12/17/17 10:57 Dose: 1,000 mg Meropenem 500 mg/ Sodium (Chloride) 100 mls @ 100 mls/hr IVPB Q12H [facility]; Protocol Last Admin: 12/17/17 05:59 Dose: 100 mls/hr Insulin Aspart (Novolog) 0 unit SC [facility]; Protocol Last Admin: 12/17/17 13:13 Dose: 1 units Insulin Glargine (Lantus) 15 unit SC [facility] Last Admin: 12/16/17 21:52 Dose: Not Given Losartan Potassium (Cozaar) 100 mg PO DAILY [facility] Last Admin: 12/17/17 12:41 Dose: Not Given Memantine (Namenda) 5 mg PO DAILY [facility] Last Admin: 12/17/17 10:59 Dose: 5 mg Mirtazapine (Remeron) 30 mg PO HS [facility] Last Admin: 12/16/17 21:59 Dose: 30 mg Oxycodone/Acetaminophen (Percocet 5/325 Mg Tab) 2 tab PO Q4H PRN PRN Reason: Pain, moderate (4-7) Stop: 12/18/17 09:48 Oxycodone/Acetaminophen (Percocet 5/325 Mg Tab) 1 tab PO Q6H PRN PRN Reason: Pain, moderate (4-7) Stop: 12/20/17 09:16 Oxycodone/Acetaminophen (Percocet 5/325 Mg Tab) 2 tab PO Q6H PRN PRN Reason: Pain, severe (8-10) Stop: 12/20/17 09:16 Prednisone (Prednisone Tab) 50 mg PO ONCE PRN PRN Reason: Other Last Admin: 12/11/17 15:01 Dose: 50 mg Sertraline HCl (Zoloft) 25 mg PO DAILY [facility] Last Admin: 12/16/17 11:08 Dose: 25 mg Sevelamer Carbonate (Renvela) 800 mg PO DAILY [facility] Last Admin: 12/17/17 10:59 Dose: 800 mg Vitamin B Complex/Vit C/Folic Acid (Nephro-Carmen) 1 tab PO 0800 [facility] Last Admin: 12/17/17 10:59 Dose: 1 tab - Labs Labs: 12/17/17 14:56 12/16/17 07:11 PT 13.3 SECONDS (9.7-12.2) H 12/09/17 14:25 INR 1.2 12/09/17 14:25 APTT 37 SECONDS (21-34) H 12/09/17 14:25
[2017-12-17 15:23] LABS: ALB/GLOB RATIO 0.9 (1.0-2.1); ALBUMIN 3.2 g/dL (3.5-5.0)
--- NOTE | 2017-12-17 15:25 | CP.PCM.PN ---
Subjective - Date & Time of Evaluation Date of Evaluation: 12/17/17 Time of Evaluation: 08:00 - Subjective Subjective: denies fever pain less s/p right TMA gangrene s/p Amputation of the left second digit and metatarsal head Objective - Vital Signs/Intake and Output Vital Signs (last 24 hours): Temp Pulse Resp BP Pulse Ox 97.9 F 73 11 L 134/69 100 12/17/17 10:15 12/17/17 10:15 12/17/17 10:15 12/17/17 10:15 12/17/17 10:15 Intake and Output: 12/17/17 12/17/17 06:59 18:59 Intake Total 450 Balance 450 - Medications Medications: Current Medications Acetaminophen (Tylenol 325mg Tab) 650 mg PO Q6 PRN PRN Reason: Fever >100.4 F Allopurinol (Zyloprim) 100 mg PO DAILY [facility] Last Admin: 12/17/17 10:59 Dose: 100 mg Amlodipine Besylate (Norvasc) 10 mg PO DAILY [facility] Last Admin: 12/17/17 12:42 Dose: Not Given Dextrose (Dextrose 50% Inj) 0 ml IV STAT PRN; Protocol PRN Reason: Hypoglycemia Protocol Dextrose (Glutose 15) 0 gm PO ONCE PRN; Protocol PRN Reason: Hypoglycemia Protocol Epoetin [place] (Procrit) 12,000 [place] [facility] [place] Last Admin: 12/12/17 11:53 Dose: 12,000 unit Glucagon (Glucagen Diagnostic Kit) 0 mg IM STAT PRN; Protocol PRN Reason: Hypoglycemia Protocol Heparin Sodium (Porcine) (Heparin) 5,000 units SC Q12 [facility] Last Admin: 12/16/17 11:07 Dose: 5,000 units Heparin Sodium (Porcine) (Heparin) 2,000 units [place] [facility] [place] Hydralazine HCl (Apresoline) 50 mg PO TID PRN PRN Reason: Other Last Admin: 12/17/17 05:59 Dose: 50 mg Hydromorphone HCl (Dilaudid) 0.5 mg IVP Q10M PRN PRN Reason: Pain, moderate (4-7) Hydroxyurea (Hydrea) 1,000 mg PO DAILY [facility] Last Admin: 12/17/17 10:57 Dose: 1,000 mg Meropenem 500 mg/ Sodium (Chloride) 100 mls @ 100 mls/hr IVPB Q12H [facility]; Protocol Last Admin: 12/17/17 05:59 Dose: 100 mls/hr Insulin Aspart (Novolog) 0 unit SC ACHS [facility]; Protocol Last Admin: 12/17/17 13:13 Dose: 1 units Insulin Glargine (Lantus) 15 unit SC HS [facility] Last Admin: 12/16/17 21:52 Dose: Not Given Losartan Potassium (Cozaar) 100 mg PO DAILY [facility] Last Admin: 12/17/17 12:41 Dose: Not Given Memantine (Namenda) 5 mg PO DAILY [facility] Last Admin: 12/17/17 10:59 Dose: 5 mg Mirtazapine (Remeron) 30 mg PO HS [facility] Last Admin: 12/16/17 21:59 Dose: 30 mg Oxycodone/Acetaminophen (Percocet 5/325 Mg Tab) 2 tab PO Q4H PRN PRN Reason: Pain, moderate (4-7) Stop: 12/18/17 09:48 Oxycodone/Acetaminophen (Percocet 5/325 Mg Tab) 1 tab PO Q6H PRN PRN Reason: Pain, moderate (4-7) Stop: 12/20/17 09:16 Oxycodone/Acetaminophen (Percocet 5/325 Mg Tab) 2 tab PO Q6H PRN PRN Reason: Pain, severe (8-10) Stop: 12/20/17 09:16 Prednisone (Prednisone Tab) 50 mg PO ONCE PRN PRN Reason: Other Last Admin: 12/11/17 15:01 Dose: 50 mg Sertraline HCl (Zoloft) 25 mg PO DAILY [facility] Last Admin: 12/16/17 11:08 Dose: 25 mg Sevelamer Carbonate (Renvela) 800 mg PO DAILY [facility] Last Admin: 12/17/17 10:59 Dose: 800 mg Vitamin B Complex/Vit C/Folic Acid (Nephro-Carmen) 1 tab PO 0800 [facility] Last Admin: 12/17/17 10:59 Dose: 1 tab - Labs Labs: 12/17/17 14:56 12/16/17 07:11 PT 13.3 SECONDS (9.7-12.2) H 12/09/17 14:25 INR 1.2 12/09/17 14:25 APTT 37 SECONDS (21-34) H 12/09/17 14:25 - Constitutional Appears: Cachectic, Chronically Ill - Head Exam Head Exam: NORMOCEPHALIC - Eye Exam Eye Exam: PERRL - ENT Exam ENT Exam: Mucous Membranes Dry - Neck Exam Neck Exam: absent: Lymphadenopathy - Respiratory Exam Respiratory Exam: Decreased Breath Sounds - Cardiovascular Exam Cardiovascular Exam: REGULAR RHYTHM - GI/Abdominal Exam GI & Abdominal Exam: Distended, Soft - Rectal Exam Rectal Exam: Deferred - Exam Exam: NORMAL INSPECTION - Extremities Exam Extremities Exam: Pedal Edema Additional comments: s/p Amputation of the left second digit and metatarsal head s/p right TMA - Back Exam Back Exam: absent: CVA tenderness (L), CVA tenderness (R) - Neurological Exam Neurological Exam: Alert, Awake, CN II-XII Intact - Psychiatric Exam Psychiatric exam: Depressed Assessment and Plan (1) Gangrene Status: Suspected (2) Diabetes Status: Acute (3) PVD (peripheral vascular disease) Status: Acute (4) End stage renal disease on dialysis Status: Acute (5) End stage renal disease on dialysis Status: Acute - Assessment and Plan (Free Text) Assessment: iv rx reordered possible marleny
[2017-12-17] MEDS: EPOETIN ALFA 4,000 UNIT/ML ML Dialysis IV SCH (16:08)
[2017-12-17] MEDS: (Lantus) Insulin Glargine, Recombinant SC SCH (21:43)
--- NOTE | 2017-12-18 00:07 | CP.PCM.PN ---
Subjective - Date & Time of Evaluation Date of Evaluation: 12/13/17 Time of Evaluation: 12:00 - Subjective Subjective: No complaints. Objective - Vital Signs/Intake and Output Vital Signs (last 24 hours): Temp Pulse Resp BP Pulse Ox 98.1 F 99 H 20 190/66 H 98 12/17/17 18:00 12/17/17 18:00 12/17/17 18:00 12/17/17 18:00 12/17/17 18:00 Intake and Output: 12/17/17 12/18/17 18:59 06:59 Intake Total 450 Balance 450 - Medications Medications: Current Medications Acetaminophen (Tylenol 325mg Tab) 650 mg PO Q6 PRN PRN Reason: Fever >100.4 F Allopurinol (Zyloprim) 100 mg PO DAILY [facility] Last Admin: 12/17/17 10:59 Dose: 100 mg Amlodipine Besylate (Norvasc) 10 mg PO DAILY [facility] Last Admin: 12/17/17 12:42 Dose: Not Given Dextrose (Dextrose 50% Inj) 0 ml IV STAT PRN; Protocol PRN Reason: Hypoglycemia Protocol Dextrose (Glutose 15) 0 gm PO ONCE PRN; Protocol PRN Reason: Hypoglycemia Protocol Epoetin Ivan (Procrit) 12,000 unit IV MWF [facility] Last Admin: 12/17/17 16:08 Dose: 12,000 unit Glucagon (Glucagen Diagnostic Kit) 0 mg IM STAT PRN; Protocol PRN Reason: Hypoglycemia Protocol Heparin Sodium (Porcine) (Heparin) 5,000 units SC Q12 [facility] Last Admin: 12/17/17 21:37 Dose: 5,000 units Heparin Sodium (Porcine) (Heparin) 2,000 units IVP [facility] [place] Last Admin: 12/17/17 16:11 Dose: Not Given Hydralazine HCl (Apresoline) 50 mg PO TID PRN PRN Reason: Other Last Admin: 12/17/17 18:46 Dose: 50 mg Hydromorphone HCl (Dilaudid) 0.5 mg IVP Q10M PRN PRN Reason: Pain, moderate (4-7) Hydroxyurea (Hydrea) 1,000 mg PO DAILY [facility] Last Admin: 12/17/17 10:57 Dose: 1,000 mg Meropenem 500 mg/ Sodium (Chloride) 100 mls @ 100 mls/hr IVPB Q12H [facility]; Protocol Last Admin: 12/17/17 18:44 Dose: 100 mls/hr Insulin Aspart (Novolog) 0 unit SC ACHS [facility]; Protocol Last Admin: 12/17/17 23:46 Dose: Not Given Insulin Glargine (Lantus) 15 unit SC HS [facility] Last Admin: 12/17/17 21:43 Dose: 15 u Losartan Potassium (Cozaar) 100 mg PO DAILY [facility] Last Admin: 12/17/17 12:41 Dose: Not Given Memantine (Namenda) 5 mg PO DAILY [facility] Last Admin: 12/17/17 10:59 Dose: 5 mg Mirtazapine (Remeron) 30 mg PO HS [facility] Last Admin: 12/17/17 21:37 Dose: 30 mg Oxycodone/Acetaminophen (Percocet 5/325 Mg Tab) 2 tab PO Q4H PRN PRN Reason: Pain, moderate (4-7) Stop: 12/18/17 09:48 Oxycodone/Acetaminophen (Percocet 5/325 Mg Tab) 1 tab PO Q6H PRN PRN Reason: Pain, moderate (4-7) Stop: 12/20/17 09:16 Oxycodone/Acetaminophen (Percocet 5/325 Mg Tab) 2 tab PO Q6H PRN PRN Reason: Pain, severe (8-10) Stop: 12/20/17 09:16 Prednisone (Prednisone Tab) 50 mg PO ONCE PRN PRN Reason: Other Last Admin: 12/11/17 15:01 Dose: 50 mg Sertraline HCl (Zoloft) 25 mg PO DAILY [facility] Last Admin: 12/16/17 11:08 Dose: 25 mg Sevelamer Carbonate (Renvela) 800 mg PO DAILY [facility] Last Admin: 12/17/17 10:59 Dose: 800 mg Vitamin B Complex/Vit C/Folic Acid (Nephro-Carmen) 1 tab PO 0800 [facility] Last Admin: 12/17/17 10:59 Dose: 1 tab - Labs Labs: 12/17/17 14:56 12/17/17 14:56 PT 13.3 SECONDS (9.7-12.2) H 12/09/17 14:25 INR 1.2 12/09/17 14:25 APTT 37 SECONDS (21-34) H 09/25/18 14:25 - Head Exam Head Exam: ATRAUMATIC - Eye Exam Eye Exam: Normal appearance - ENT Exam ENT Exam: Mucous Membranes Dry - Respiratory Exam Respiratory Exam: NORMAL BREATHING PATTERN - Cardiovascular Exam Cardiovascular Exam: +S1, +S2 - GI/Abdominal Exam GI & Abdominal Exam: Normal Bowel Sounds Assessment and Plan (1) Thrombocytosis Assessment & Plan: rule out myeloproliferative disorder, essential thrombocytosis JAK2 mutation sent patient allergic to aspirin on hydroxyurea daily given vascular disease may also be reactive to gangrene no iron deficiency Status: Acute (2) Anemia Assessment & Plan: anemia of CKD - epo per renal anemia of chronic disease Status: Acute (3) Leukocytosis Assessment & Plan: f/u BCR/ABL on antibiotics Status: Acute
--- NOTE | 2017-12-18 00:08 | CP.PCM.PN ---
Subjective - Date & Time of Evaluation Date of Evaluation: 12/14/17 Time of Evaluation: 13:00 - Subjective Subjective: No complaints. Objective - Vital Signs/Intake and Output Vital Signs (last 24 hours): Temp Pulse Resp BP Pulse Ox 98.1 F 99 H 20 190/66 H 98 12/17/17 18:00 12/17/17 18:00 12/17/17 18:00 12/17/17 18:00 12/17/17 18:00 Intake and Output: 12/17/17 12/18/17 18:59 06:59 Intake Total 450 Balance 450 - Medications Medications: Current Medications Acetaminophen (Tylenol 325mg Tab) 650 mg PO Q6 PRN PRN Reason: Fever >100.4 F Allopurinol (Zyloprim) 100 mg PO DAILY [facility] Last Admin: 12/17/17 10:59 Dose: 100 mg Amlodipine Besylate (Norvasc) 10 mg PO DAILY [facility] Last Admin: 12/17/17 12:42 Dose: Not Given Dextrose (Dextrose 50% Inj) 0 ml IV STAT PRN; Protocol PRN Reason: Hypoglycemia Protocol Dextrose (Glutose 15) 0 gm PO ONCE PRN; Protocol PRN Reason: Hypoglycemia Protocol Epoetin Ivan (Procrit) 12,000 unit IV MWF [facility] Last Admin: 12/17/17 16:08 Dose: 12,000 unit Glucagon (Glucagen Diagnostic Kit) 0 mg IM STAT PRN; Protocol PRN Reason: Hypoglycemia Protocol Heparin Sodium (Porcine) (Heparin) 5,000 units SC Q12 [facility] Last Admin: 12/17/17 21:37 Dose: 5,000 units Heparin Sodium (Porcine) (Heparin) 2,000 units [place] [facility] [place] Last Admin: 12/17/17 16:11 Dose: Not Given Hydralazine HCl (Apresoline) 50 mg PO TID PRN PRN Reason: Other Last Admin: 12/17/17 18:46 Dose: 50 mg Hydromorphone HCl (Dilaudid) 0.5 mg IVP Q10M PRN PRN Reason: Pain, moderate (4-7) Hydroxyurea (Hydrea) 1,000 mg PO DAILY [facility] Last Admin: 12/17/17 10:57 Dose: 1,000 mg Meropenem 500 mg/ Sodium (Chloride) 100 mls @ 100 mls/hr IVPB Q12H [facility]; Protocol Last Admin: 12/17/17 18:44 Dose: 100 mls/hr Insulin Aspart (Novolog) 0 unit SC ACHS [facility]; Protocol Last Admin: 12/17/17 23:46 Dose: Not Given Insulin Glargine (Lantus) 15 unit SC HS [facility] Last Admin: 12/17/17 21:43 Dose: 15 u Losartan Potassium (Cozaar) 100 mg PO DAILY [facility] Last Admin: 12/17/17 12:41 Dose: Not Given Memantine (Namenda) 5 mg PO DAILY [facility] Last Admin: 12/17/17 10:59 Dose: 5 mg Mirtazapine (Remeron) 30 mg PO HS [facility] Last Admin: 12/17/17 21:37 Dose: 30 mg Oxycodone/Acetaminophen (Percocet 5/325 Mg Tab) 2 tab PO Q4H PRN PRN Reason: Pain, moderate (4-7) Stop: 12/18/17 09:48 Oxycodone/Acetaminophen (Percocet 5/325 Mg Tab) 1 tab PO Q6H PRN PRN Reason: Pain, moderate (4-7) Stop: 12/20/17 09:16 Oxycodone/Acetaminophen (Percocet 5/325 Mg Tab) 2 tab PO Q6H PRN PRN Reason: Pain, severe (8-10) Stop: 12/20/17 09:16 Prednisone (Prednisone Tab) 50 mg PO ONCE PRN PRN Reason: Other Last Admin: 12/11/17 15:01 Dose: 50 mg Sertraline HCl (Zoloft) 25 mg PO DAILY [facility] Last Admin: 12/16/17 11:08 Dose: 25 mg Sevelamer Carbonate (Renvela) 800 mg PO DAILY [facility] Last Admin: 12/17/17 10:59 Dose: 800 mg Vitamin B Complex/Vit C/Folic Acid (Nephro-Carmen) 1 tab PO 0800 [facility] Last Admin: 12/17/17 10:59 Dose: 1 tab - Labs Labs: 12/17/17 14:56 12/17/17 14:56 PT 13.3 SECONDS (9.7-12.2) H 12/09/17 14:25 INR 1.2 12/09/17 14:25 APTT 37 SECONDS (21-34) H 09/25/18 14:25 - Head Exam Head Exam: ATRAUMATIC - Eye Exam Eye Exam: Normal appearance - ENT Exam ENT Exam: Mucous Membranes Dry - Respiratory Exam Respiratory Exam: NORMAL BREATHING PATTERN - Cardiovascular Exam Cardiovascular Exam: +S1, +S2 - GI/Abdominal Exam GI & Abdominal Exam: Normal Bowel Sounds Assessment and Plan (1) Thrombocytosis Assessment & Plan: rule out myeloproliferative disorder, essential thrombocytosis JAK2 mutation sent patient allergic to aspirin on hydroxyurea daily given vascular disease may also be reactive to gangrene no iron deficiency Status: Acute (2) Anemia Assessment & Plan: anemia of CKD - epo per renal anemia of chronic disease Status: Acute (3) Leukocytosis Assessment & Plan: f/u BCR/ABL on antibiotics Status: Acute
--- NOTE | 2017-12-18 00:09 | CP.PCM.PN ---
Subjective - Date & Time of Evaluation Date of Evaluation: 12/15/17 Time of Evaluation: 19:00 - Subjective Subjective: No complaints. Objective - Vital Signs/Intake and Output Vital Signs (last 24 hours): Temp Pulse Resp BP Pulse Ox 98.1 F 99 H 20 190/66 H 98 12/17/17 18:00 12/17/17 18:00 12/17/17 18:00 12/17/17 18:00 12/17/17 18:00 Intake and Output: 12/17/17 12/18/17 18:59 06:59 Intake Total 450 Balance 450 - Medications Medications: Current Medications Acetaminophen (Tylenol 325mg Tab) 650 mg PO Q6 PRN PRN Reason: Fever >100.4 F Allopurinol (Zyloprim) 100 mg PO DAILY [facility] Last Admin: 12/17/17 10:59 Dose: 100 mg Amlodipine Besylate (Norvasc) 10 mg PO DAILY [facility] Last Admin: 12/17/17 12:42 Dose: Not Given Dextrose (Dextrose 50% Inj) 0 ml IV STAT PRN; Protocol PRN Reason: Hypoglycemia Protocol Dextrose (Glutose 15) 0 gm PO ONCE PRN; Protocol PRN Reason: Hypoglycemia Protocol Epoetin Ivan (Procrit) 12,000 unit IV MWF [facility] Last Admin: 12/17/17 16:08 Dose: 12,000 unit Glucagon (Glucagen Diagnostic Kit) 0 mg IM STAT PRN; Protocol PRN Reason: Hypoglycemia Protocol Heparin Sodium (Porcine) (Heparin) 5,000 units SC Q12 [facility] Last Admin: 12/17/17 21:37 Dose: 5,000 units Heparin Sodium (Porcine) (Heparin) 2,000 units IVP [facility] Last Admin: 12/17/17 16:11 Dose: Not Given Hydralazine HCl (Apresoline) 50 mg PO TID PRN PRN Reason: Other Last Admin: 12/17/17 18:46 Dose: 50 mg Hydromorphone HCl (Dilaudid) 0.5 mg IVP Q10M PRN PRN Reason: Pain, moderate (4-7) Hydroxyurea (Hydrea) 1,000 mg PO DAILY [facility] Last Admin: 12/17/17 10:57 Dose: 1,000 mg Meropenem 500 mg/ Sodium (Chloride) 100 mls @ 100 mls/hr IVPB Q12H [facility]; Protocol Last Admin: 12/17/17 18:44 Dose: 100 mls/hr Insulin Aspart (Novolog) 0 unit SC ACHS [facility]; Protocol Last Admin: 12/17/17 23:46 Dose: Not Given Insulin Glargine (Lantus) 15 unit SC HS [facility] Last Admin: 12/17/17 21:43 Dose: 15 u Losartan Potassium (Cozaar) 100 mg PO DAILY [facility] Last Admin: 12/17/17 12:41 Dose: Not Given Memantine (Namenda) 5 mg PO DAILY [facility] Last Admin: 12/17/17 10:59 Dose: 5 mg Mirtazapine (Remeron) 30 mg PO HS [facility] Last Admin: 12/17/17 21:37 Dose: 30 mg Oxycodone/Acetaminophen (Percocet 5/325 Mg Tab) 2 tab PO Q4H PRN PRN Reason: Pain, moderate (4-7) Stop: 12/18/17 09:48 Oxycodone/Acetaminophen (Percocet 5/325 Mg Tab) 1 tab PO Q6H PRN PRN Reason: Pain, moderate (4-7) Stop: 12/20/17 09:16 Oxycodone/Acetaminophen (Percocet 5/325 Mg Tab) 2 tab PO Q6H PRN PRN Reason: Pain, severe (8-10) Stop: 12/20/17 09:16 Prednisone (Prednisone Tab) 50 mg PO ONCE PRN PRN Reason: Other Last Admin: 12/11/17 15:01 Dose: 50 mg Sertraline HCl (Zoloft) 25 mg PO DAILY [facility] Last Admin: 12/16/17 11:08 Dose: 25 mg Sevelamer Carbonate (Renvela) 800 mg PO DAILY [facility] Last Admin: 12/17/17 10:59 Dose: 800 mg Vitamin B Complex/Vit C/Folic Acid (Nephro-Carmen) 1 tab PO 0800 [facility] Last Admin: 12/17/17 10:59 Dose: 1 tab - Labs Labs: 12/17/17 14:56 12/17/17 14:56 PT 13.3 SECONDS (9.7-12.2) H 12/09/17 14:25 INR 1.2 12/09/17 14:25 APTT 37 SECONDS (21-34) H 09/25/18 14:25 - Head Exam Head Exam: ATRAUMATIC - Eye Exam Eye Exam: Normal appearance - ENT Exam ENT Exam: Mucous Membranes Dry - Respiratory Exam Respiratory Exam: NORMAL BREATHING PATTERN - Cardiovascular Exam Cardiovascular Exam: +S1, +S2 - GI/Abdominal Exam GI & Abdominal Exam: Normal Bowel Sounds Assessment and Plan (1) Thrombocytosis Assessment & Plan: rule out myeloproliferative disorder, essential thrombocytosis JAK2 mutation sent patient allergic to aspirin on hydroxyurea daily given vascular disease may also be reactive to gangrene no iron deficiency Status: Acute (2) Anemia Assessment & Plan: anemia of CKD - epo per renal anemia of chronic disease Status: Acute (3) Leukocytosis Assessment & Plan: f/u BCR/ABL on antibiotics Status: Acute
--- NOTE | 2017-12-18 00:10 | CP.PCM.PN ---
Subjective - Date & Time of Evaluation Date of Evaluation: 12/16/17 Time of Evaluation: 14:00 - Subjective Subjective: No complaints. Objective - Vital Signs/Intake and Output Vital Signs (last 24 hours): Temp Pulse Resp BP Pulse Ox 98.1 F 99 H 20 190/66 H 98 12/17/17 18:00 12/17/17 18:00 12/17/17 18:00 12/17/17 18:00 12/17/17 18:00 Intake and Output: 12/17/17 12/18/17 18:59 06:59 Intake Total 450 Balance 450 - Medications Medications: Current Medications Acetaminophen (Tylenol 325mg Tab) 650 mg PO Q6 PRN PRN Reason: Fever >100.4 F Allopurinol (Zyloprim) 100 mg PO DAILY [facility] Last Admin: 12/17/17 10:59 Dose: 100 mg Amlodipine Besylate (Norvasc) 10 mg PO DAILY [facility] Last Admin: 12/17/17 12:42 Dose: Not Given Dextrose (Dextrose 50% Inj) 0 ml IV STAT PRN; Protocol PRN Reason: Hypoglycemia Protocol Dextrose (Glutose 15) 0 gm PO ONCE PRN; Protocol PRN Reason: Hypoglycemia Protocol Epoetin Ivan (Procrit) 12,000 unit IV MWF [facility] Last Admin: 12/17/17 16:08 Dose: 12,000 unit Glucagon (Glucagen Diagnostic Kit) 0 mg IM STAT PRN; Protocol PRN Reason: Hypoglycemia Protocol Heparin Sodium (Porcine) (Heparin) 5,000 units SC Q12 [facility] Last Admin: 12/17/17 21:37 Dose: 5,000 units Heparin Sodium (Porcine) (Heparin) 2,000 units IVP [facility] Last Admin: 12/17/17 16:11 Dose: Not Given Hydralazine HCl (Apresoline) 50 mg PO TID PRN PRN Reason: Other Last Admin: 12/17/17 18:46 Dose: 50 mg Hydromorphone HCl (Dilaudid) 0.5 mg IVP Q10M PRN PRN Reason: Pain, moderate (4-7) Hydroxyurea (Hydrea) 1,000 mg PO DAILY [facility] Last Admin: 12/17/17 10:57 Dose: 1,000 mg Meropenem 500 mg/ Sodium (Chloride) 100 mls @ 100 mls/hr IVPB Q12H [facility]; Protocol Last Admin: 12/17/17 18:44 Dose: 100 mls/hr Insulin Aspart (Novolog) 0 unit SC ACHS [facility]; Protocol Last Admin: 12/17/17 23:46 Dose: Not Given Insulin Glargine (Lantus) 15 unit SC HS [facility] Last Admin: 12/17/17 21:43 Dose: 15 u Losartan Potassium (Cozaar) 100 mg PO DAILY [facility] Last Admin: 12/17/17 12:41 Dose: Not Given Memantine (Namenda) 5 mg PO DAILY [facility] Last Admin: 12/17/17 10:59 Dose: 5 mg Mirtazapine (Remeron) 30 mg PO HS [facility] Last Admin: 12/17/17 21:37 Dose: 30 mg Oxycodone/Acetaminophen (Percocet 5/325 Mg Tab) 2 tab PO Q4H PRN PRN Reason: Pain, moderate (4-7) Stop: 12/18/17 09:48 Oxycodone/Acetaminophen (Percocet 5/325 Mg Tab) 1 tab PO Q6H PRN PRN Reason: Pain, moderate (4-7) Stop: 12/20/17 09:16 Oxycodone/Acetaminophen (Percocet 5/325 Mg Tab) 2 tab PO Q6H PRN PRN Reason: Pain, severe (8-10) Stop: 12/20/17 09:16 Prednisone (Prednisone Tab) 50 mg PO ONCE PRN PRN Reason: Other Last Admin: 12/11/17 15:01 Dose: 50 mg Sertraline HCl (Zoloft) 25 mg PO DAILY [facility] Last Admin: 12/16/17 11:08 Dose: 25 mg Sevelamer Carbonate (Renvela) 800 mg PO DAILY [facility] Last Admin: 12/17/17 10:59 Dose: 800 mg Vitamin B Complex/Vit C/Folic Acid (Nephro-Carmen) 1 tab PO 0800 [facility] Last Admin: 12/17/17 10:59 Dose: 1 tab - Labs Labs: 12/17/17 14:56 12/17/17 14:56 PT 13.3 SECONDS (9.7-12.2) H 12/09/17 14:25 INR 1.2 12/09/17 14:25 APTT 37 SECONDS (21-34) H 09/25/18 14:25 - Head Exam Head Exam: ATRAUMATIC - Eye Exam Eye Exam: Normal appearance - ENT Exam ENT Exam: Mucous Membranes Dry - Respiratory Exam Respiratory Exam: NORMAL BREATHING PATTERN - Cardiovascular Exam Cardiovascular Exam: +S1, +S2 - GI/Abdominal Exam GI & Abdominal Exam: Normal Bowel Sounds Assessment and Plan (1) Thrombocytosis Assessment & Plan: rule out myeloproliferative disorder, essential thrombocytosis JAK2 mutation sent patient allergic to aspirin on hydroxyurea daily given vascular disease may also be reactive to gangrene no iron deficiency Status: Acute (2) Anemia Assessment & Plan: anemia of CKD - epo per renal anemia of chronic disease Status: Acute (3) Leukocytosis Assessment & Plan: f/u BCR/ABL on antibiotics Status: Acute
--- NOTE | 2017-12-18 00:12 | CP.PCM.PN ---
Subjective - Date & Time of Evaluation Date of Evaluation: 12/17/17 Time of Evaluation: 19:00 - Subjective Subjective: No complaints. Objective - Vital Signs/Intake and Output Vital Signs (last 24 hours): Temp Pulse Resp BP Pulse Ox 98.1 F 99 H 20 190/66 H 98 12/17/17 18:00 12/17/17 18:00 12/17/17 18:00 12/17/17 18:00 12/17/17 18:00 Intake and Output: 12/17/17 12/18/17 18:59 06:59 Intake Total 450 Balance 450 - Medications Medications: Current Medications Acetaminophen (Tylenol 325mg Tab) 650 mg PO Q6 PRN PRN Reason: Fever >100.4 F Allopurinol (Zyloprim) 100 mg PO DAILY [facility] Last Admin: 12/17/17 10:59 Dose: 100 mg Amlodipine Besylate (Norvasc) 10 mg PO DAILY [facility] Last Admin: 12/17/17 12:42 Dose: Not Given Dextrose (Dextrose 50% Inj) 0 ml IV STAT PRN; Protocol PRN Reason: Hypoglycemia Protocol Dextrose (Glutose 15) 0 gm PO ONCE PRN; Protocol PRN Reason: Hypoglycemia Protocol Epoetin Ivan (Procrit) 12,000 unit IV MWF [facility] Last Admin: 12/17/17 16:08 Dose: 12,000 unit Glucagon (Glucagen Diagnostic Kit) 0 mg IM STAT PRN; Protocol PRN Reason: Hypoglycemia Protocol Heparin Sodium (Porcine) (Heparin) 5,000 units SC Q12 [facility] Last Admin: 12/17/17 21:37 Dose: 5,000 units Heparin Sodium (Porcine) (Heparin) 2,000 units IVP [facility] Last Admin: 12/17/17 16:11 Dose: Not Given Hydralazine HCl (Apresoline) 50 mg PO TID PRN PRN Reason: Other Last Admin: 12/17/17 18:46 Dose: 50 mg Hydromorphone HCl (Dilaudid) 0.5 mg IVP Q10M PRN PRN Reason: Pain, moderate (4-7) Hydroxyurea (Hydrea) 1,000 mg PO DAILY [facility] Last Admin: 12/17/17 10:57 Dose: 1,000 mg Meropenem 500 mg/ Sodium (Chloride) 100 mls @ 100 mls/hr IVPB Q12H [facility]; Protocol Last Admin: 12/17/17 18:44 Dose: 100 mls/hr Insulin Aspart (Novolog) 0 unit SC ACHS [facility]; Protocol Last Admin: 12/17/17 23:46 Dose: Not Given Insulin Glargine (Lantus) 15 unit SC HS [facility] Last Admin: 12/17/17 21:43 Dose: 15 u Losartan Potassium (Cozaar) 100 mg PO DAILY [facility] Last Admin: 12/17/17 12:41 Dose: Not Given Memantine (Namenda) 5 mg PO DAILY [facility] Last Admin: 12/17/17 10:59 Dose: 5 mg Mirtazapine (Remeron) 30 mg PO HS [facility] Last Admin: 12/17/17 21:37 Dose: 30 mg Oxycodone/Acetaminophen (Percocet 5/325 Mg Tab) 2 tab PO Q4H PRN PRN Reason: Pain, moderate (4-7) Stop: 12/18/17 09:48 Oxycodone/Acetaminophen (Percocet 5/325 Mg Tab) 1 tab PO Q6H PRN PRN Reason: Pain, moderate (4-7) Stop: 12/20/17 09:16 Oxycodone/Acetaminophen (Percocet 5/325 Mg Tab) 2 tab PO Q6H PRN PRN Reason: Pain, severe (8-10) Stop: 12/20/17 09:16 Prednisone (Prednisone Tab) 50 mg PO ONCE PRN PRN Reason: Other Last Admin: 12/11/17 15:01 Dose: 50 mg Sertraline HCl (Zoloft) 25 mg PO DAILY [facility] Last Admin: 12/16/17 11:08 Dose: 25 mg Sevelamer Carbonate (Renvela) 800 mg PO DAILY [facility] Last Admin: 12/17/17 10:59 Dose: 800 mg Vitamin B Complex/Vit C/Folic Acid (Nephro-Carmen) 1 tab PO 0800 [facility] Last Admin: 12/17/17 10:59 Dose: 1 tab - Labs Labs: 12/17/17 14:56 12/17/17 14:56 PT 13.3 SECONDS (9.7-12.2) H 12/09/17 14:25 INR 1.2 12/09/17 14:25 APTT 37 SECONDS (21-34) H 09/25/18 14:25 - Head Exam Head Exam: ATRAUMATIC - Eye Exam Eye Exam: Normal appearance - ENT Exam ENT Exam: Mucous Membranes Dry - Respiratory Exam Respiratory Exam: NORMAL BREATHING PATTERN - Cardiovascular Exam Cardiovascular Exam: +S1, +S2 - GI/Abdominal Exam GI & Abdominal Exam: Normal Bowel Sounds Assessment and Plan (1) Essential thrombocythemia Assessment & Plan: JAK2 positive allergic to aspirin on hydroxyurea Status: Acute (2) Anemia Assessment & Plan: anemia of CKD - epo per renal anemia of chronic disease Status: Acute (3) Leukocytosis Assessment & Plan: on antibiotics BCR/ABL negative Status: Acute
[2017-12-18] MEDS: Meropenem 500 MG in Sodium Chloride 0.9% 100 ML IVPB SCH ×2 (06:14→18:06)
[2017-12-18] MEDS: (Novolog) Insulin Aspart, Recombinant 100 u/ml 10 ml vial SC SCH ×4 (07:30→21:45)
--- NOTE | 2017-12-18 08:03 | OP ---
PROCEDURE DATE: 12/17/2017 PREOPERATIVE DIAGNOSIS: Left second digit osteomyelitis. POSTOPERATIVE DIAGNOSIS: Left second digit osteomyelitis. PROCEDURE: Left foot second digit amputation and second metatarsal head amputation. SURGEON: Dr. Roman Hooper DPM. [facility] DEPARTMENT: Dr. Ellen Veliz. ANESTHESIA: IV sedation with local anesthesia including 10 mL of 50:50 mixture of 1% lidocaine plain and 0.5% Marcaine. ANESTHESIOLOGIST: Chet Pantoja CRNA. INDICATION: The patient is a 62-year-old male with the above diagnosis. The patient exhausted all conservative treatment at this time and now requires surgical intervention. The patient signed the consent after careful explanation of risk, benefits, complications, and alternatives for surgical procedures. No guarantees were given nor implied. N.p.o. status was confirmed prior to taking the patient to the OR. PREPARATION: The patient was brought into the operating room and placed on the operating room table in a supine position. Time-out was performed for identification of the correct patient and procedure. The patient received a total of 10 mL of 1:1 mixture of 1% lidocaine plain and 0.5% Marcaine plain in a digital block fashion to the left second digit and metatarsal. Left foot was then prepped and draped in normal sterile manner and the procedure began. No tourniquet was utilized during the procedure. DESCRIPTION OF PROCEDURE: Attention was then drawn to the dorsal aspect of the left foot second digit at the MPJ joint, where a fish mouth circumferential incision was made extending from the dorsal distal aspect of the second metatarsal dorsally and plantarly around the second digit proximal phalanx. Using a #15 blade, the incision was then extended down through the subcutaneous layers to the level of bone with care being taken to the neurovascular structures. Using a bone clamp to stabilize the toe, the second toe was then disarticulated from the foot at the level of the second MPJ. All bone and soft tissue was sent for pathology at this time. The wound was then copiously irrigated with sterile saline. Attention was then drawn to the metatarsal head and, signs of infarction were noted at the second metatarsal head. At that point, a sagittal saw was utilized to resect the second metatarsal head from the second metatarsal shaft. Bone saw was angulated at 45 degree angle and more bone was taken off plantarly than dorsally. Using a bone clamp to stabilize the metatarsal head. The metatarsal head was freed from the metatarsal shaft. All bone and soft tissue was sent for pathology. Wound site was then irrigated with copious amounts of saline. The surgical site was then sutured with chromic gut used subcutaneously, 4-0 nylon was then utilized to close the layer of the skin. Foot was then dressed with Xeroform, gauze, Kerlix. POSTOPERATIVE CONDITION: The patient tolerated the local anesthesia and procedure well, and was escorted to the recovery room with neurovascular status intact to the left foot and vital signs stable. The patient is to remain nonweightbearing at this time. The patient will remain in-house and Podiatry will continue to follow. Ellen Veliz Roman Hooper DPM
[2017-12-18] MEDS: Multivitamin Vitamin B Complex (Nephro-Vite) Tab PO SCH (08:30)
--- NOTE | 2017-12-18 09:47 | CP.PCM.PN ---
Subjective - Date & Time of Evaluation Date of Evaluation: 12/18/17 Time of Evaluation: 09:35 - Subjective Subjective: PGY2 Medicine Note for Dr. Rios Patient seen and examined this morning at bedside. No acute events overnight. Patient was unable to get a PICC line placed yesterday due to difficult placement. He is scheduled to have picc line placed with IR today. He had surgery yesterday to remove the second digit on his left foot. He denies any pain and states that he has no complaints at this time. Denies fevers, chills, nausea, vomiting, chest pain or shortness of breath. Objective - Vital Signs/Intake and Output Vital Signs (last 24 hours): Temp Pulse Resp BP Pulse Ox 98.8 F 71 20 147/74 98 12/18/17 04:27 12/18/17 07:05 12/18/17 04:27 12/18/17 04:27 12/18/17 04:27 - Medications Medications: Current Medications Acetaminophen (Tylenol 325mg Tab) 650 mg PO Q6 PRN PRN Reason: Fever >100.4 F Allopurinol (Zyloprim) 100 mg PO DAILY [facility] Last Admin: 12/17/17 10:59 Dose: 100 mg Amlodipine Besylate (Norvasc) 10 mg PO DAILY [facility] Last Admin: 12/17/17 12:42 Dose: Not Given Dextrose (Dextrose 50% Inj) 0 ml IV STAT PRN; Protocol PRN Reason: Hypoglycemia Protocol Dextrose (Glutose 15) 0 gm PO ONCE PRN; Protocol PRN Reason: Hypoglycemia Protocol Epoetin Ivan (Procrit) 12,000 unit IV [facility] Last Admin: 12/17/17 16:08 Dose: 12,000 unit Glucagon (Glucagen Diagnostic Kit) 0 mg IM STAT PRN; Protocol PRN Reason: Hypoglycemia Protocol Heparin Sodium (Porcine) (Heparin) 5,000 units SC Q12 [facility] Last Admin: 12/17/17 21:37 Dose: 5,000 units Heparin Sodium (Porcine) (Heparin) 2,000 units IVP [facility] Last Admin: 12/17/17 16:11 Dose: Not Given Hydralazine HCl (Apresoline) 50 mg PO TID PRN PRN Reason: Other Last Admin: 12/17/17 18:46 Dose: 50 mg Hydromorphone HCl (Dilaudid) 0.5 mg IVP Q10M PRN PRN Reason: Pain, moderate (4-7) Hydroxyurea (Hydrea) 1,500 mg PO DAILY [facility] Meropenem 500 mg/ Sodium (Chloride) 100 mls @ 100 mls/hr IVPB Q12H [facility]; Protocol Last Admin: 12/18/17 06:14 Dose: 100 mls/hr Insulin Aspart (Novolog) 0 unit SC ACHS [facility]; Protocol Last Admin: 12/17/17 23:46 Dose: Not Given Insulin Glargine (Lantus) 15 unit SC HS [facility] Last Admin: 12/17/17 21:43 Dose: 15 u Losartan Potassium (Cozaar) 100 mg PO DAILY [facility] Last Admin: 12/17/17 12:41 Dose: Not Given Memantine (Namenda) 5 mg PO DAILY [facility] Last Admin: 12/17/17 10:59 Dose: 5 mg Mirtazapine (Remeron) 30 mg PO HS [facility] Last Admin: 12/17/17 21:37 Dose: 30 mg Oxycodone/Acetaminophen (Percocet 5/325 Mg Tab) 2 tab PO Q4H PRN PRN Reason: Pain, moderate (4-7) Stop: 12/18/17 09:48 Oxycodone/Acetaminophen (Percocet 5/325 Mg Tab) 1 tab PO Q6H PRN PRN Reason: Pain, moderate (4-7) Stop: 12/20/17 09:16 Oxycodone/Acetaminophen (Percocet 5/325 Mg Tab) 2 tab PO Q6H PRN PRN Reason: Pain, severe (8-10) Stop: 12/20/17 09:16 Prednisone (Prednisone Tab) 50 mg PO ONCE PRN PRN Reason: Other Last Admin: 12/11/17 15:01 Dose: 50 mg Sertraline HCl (Zoloft) 25 mg PO DAILY [facility] Last Admin: 12/16/17 11:08 Dose: 25 mg Sevelamer Carbonate (Renvela) 800 mg PO DAILY [facility] Last Admin: 12/17/17 10:59 Dose: 800 mg Vitamin B Complex/Vit C/Folic Acid (Nephro-Carmen) 1 tab PO 0800 [facility] Last Admin: 12/18/17 08:30 Dose: 1 tab - Labs Labs: 12/17/17 14:56 12/17/17 14:56 PT 13.3 SECONDS (9.7-12.2) H 12/09/17 14:25 INR 1.2 12/09/17 14:25 APTT 37 SECONDS (21-34) H 12/09/17 14:25 - Additional Findings Additional findings: - Constitutional Appears: Non-toxic, No Acute Distress - Head Exam Head Exam: ATRAUMATIC, NORMAL INSPECTION, NORMOCEPHALIC - Eye Exam Eye Exam: EOMI, Normal appearance - ENT Exam ENT Exam: Mucous Membranes Moist - Respiratory Exam Respiratory Exam: Clear to Ausculation Bilateral, NORMAL BREATHING PATTERN. absent: Rales, Rhonchi, Wheezes - Cardiovascular Exam Cardiovascular Exam: REGULAR RHYTHM, RRR, +S1, +S2 - GI/Abdominal Exam GI & Abdominal Exam: Soft, Normal Bowel Sounds. absent: Tenderness - Extremities Exam Additional comments: b/l feet wrappings, c/d/i dressings - Neurological Exam Neurological Exam: Alert, Awake - Psychiatric Exam Psychiatric exam: Normal Affect, Normal Mood - Skin Additional comments: b/l feet wrappings, c/d/i dressings Assessment and Plan - Assessment and Plan (Free Text) Plan: Right Chopart's Amputation, POD #6 Amputation of the left second digit and metatarsal head POD #0 angiogram (12/15/17) showed: <50% SFA segemental stenosis B/L. Good flow to right PT, AT, Peroneal. Good left PT, stenosed AT Secondary to right foot gas gangrene Podiatry Consult placed- Dr. Aimee white appreciated Right foot wound cultures (12/09) - proteus mirabilis blood cultures negative Vascular Surgery Consult placed- Dr. Nina- F/U recs * s/p b/l angio: 50% + patent b/l LE arteries except L AT. Segmental stenosis. * No further surgical intervention Dopplers- Prelim study negative. F/U official report. ID Consult placed- Dr. Tasha white appreciated Previously on Zosyn 12/09-12/11 On Merrem 500mg q12h Started 12/11 (for at least 7 days) On Vanco 500mg MWF started 12/12 Patient's IV became dislodged on 12/16/17, order for PICC line placed. picc line unable to be placed by picc line nurse, consulted IR, Dr. Rg Leukocytosis/Thrombocytosis Heme/Onc Consult placed- Dr. Chaney- recs appreciated f/u recs- rule out myeloproliferative disorder, essential thrombocytosis, JAK2 mutation, iron deficiency JAK2 - positive Hydroxyurea daily given vascular disease May also have been reactive secondary to gangrene CKD Dialysis MWF Renvela 800mg tid Procrit 8,000 u MWF Heparin 2000 IVP MWF Nephro consult placed to Dr. Duong Anemia Anemia of CKD - epo per renal b12: 756 folate: >20, ferritin 1490 HTN Hydralazine 50mg po TID prn Norvasc 10mg po daily Losartan 50mg po daily Gout Continue Home med- Allopurinol 100mg po daily Hyperglycemia HgA1C: 6.1. No other prior records. ISS low dose scale. Will not increase to high dose at this time, due to increased rosk of hypoglycemic events - due to ESRD. Lantus 15 u sc HS (increased from 10u on 12/15) Lipid panel: triglycerides: 126, Cholesterol: 91, LDL < 30, HDL 24 Dementia Namenda 5mg po daily (decreased from BID as per renal dosing) Depression Home meds- mirtazapine 30mg PO QD and sertraline 20mg PO QD Prophylaxis Heparin 5000 u sc q12h All medical management as per Dr. Gabriel Kat Errol PGY2
--- NOTE | 2017-12-18 10:59 | CP.PCM.PN ---
Subjective - Date & Time of Evaluation Date of Evaluation: 12/18/17 Time of Evaluation: 10:59 - Subjective Subjective: Podiatry - Dr. Ahn 62M seen and examined this AM 1 day s/p left 2nd digit amputation & 7 days s/p right Chopart's amputation. Patient resting comfortably at time of visit, NAD. No acute events overnight. Patient returning from PICC placement at time of visit. Patient offers no complaints to bilateral surgical sites. Dressings clean/dry/intact. Denies N/V/F/D/C/SOB/CP/DELACRUZ. Objective - Vital Signs/Intake and Output Vital Signs (last 24 hours): Temp Pulse Resp BP Pulse Ox 98.8 F 71 20 147/74 98 12/18/17 04:27 12/18/17 07:05 12/18/17 04:27 12/18/17 04:27 12/18/17 04:27 - Medications Medications: Current Medications Acetaminophen (Tylenol 325mg Tab) 650 mg PO Q6 PRN PRN Reason: Fever >100.4 F Allopurinol (Zyloprim) 100 mg PO DAILY [facility] Last Admin: 12/18/17 10:41 Dose: 100 mg Amlodipine Besylate (Norvasc) 10 mg PO DAILY [facility] Last Admin: 12/18/17 10:40 Dose: 10 mg Dextrose (Dextrose 50% Inj) 0 ml IV STAT PRN; Protocol PRN Reason: Hypoglycemia Protocol Dextrose (Glutose 15) 0 gm PO ONCE PRN; Protocol PRN Reason: Hypoglycemia Protocol Epoetin Ivan (Procrit) 12,000 unit IV [facility] Last Admin: 12/17/17 16:08 Dose: 12,000 unit Glucagon (Glucagen Diagnostic Kit) 0 mg IM STAT PRN; Protocol PRN Reason: Hypoglycemia Protocol Heparin Sodium (Porcine) (Heparin) 5,000 units SC Q12 [facility] Last Admin: 12/18/17 10:49 Dose: Not Given Heparin Sodium (Porcine) (Heparin) 2,000 units IVP MWF [facility] Last Admin: 12/17/17 16:11 Dose: Not Given Hydralazine HCl (Apresoline) 50 mg PO TID PRN PRN Reason: Other Last Admin: 12/17/17 18:46 Dose: 50 mg Hydromorphone HCl (Dilaudid) 0.5 mg IVP Q10M PRN PRN Reason: Pain, moderate (4-7) Hydroxyurea (Hydrea) 1,500 mg PO DAILY [facility] Last Admin: 12/18/17 10:39 Dose: 1,500 mg Meropenem 500 mg/ Sodium (Chloride) 100 mls @ 100 mls/hr IVPB Q12H [facility]; Protocol Last Admin: 12/18/17 06:14 Dose: 100 mls/hr Insulin Aspart (Novolog) 0 unit SC ACHS [facility]; Protocol Last Admin: 12/17/17 23:46 Dose: Not Given Insulin Glargine (Lantus) 15 unit SC HS [facility] Last Admin: 12/17/17 21:43 Dose: 15 u Losartan Potassium (Cozaar) 100 mg PO DAILY [facility] Last Admin: 12/18/17 10:37 Dose: 100 mg Memantine (Namenda) 5 mg PO DAILY [facility] Last Admin: 12/18/17 10:40 Dose: 5 mg Mirtazapine (Remeron) 30 mg PO HS [facility] Last Admin: 12/17/17 21:37 Dose: 30 mg Oxycodone/Acetaminophen (Percocet 5/325 Mg Tab) 1 tab PO Q6H PRN PRN Reason: Pain, moderate (4-7) Stop: 12/20/17 09:16 Oxycodone/Acetaminophen (Percocet 5/325 Mg Tab) 2 tab PO Q6H PRN PRN Reason: Pain, severe (8-10) Stop: 12/20/17 09:16 Prednisone (Prednisone Tab) 50 mg PO ONCE PRN PRN Reason: Other Last Admin: 12/11/17 15:01 Dose: 50 mg Sertraline HCl (Zoloft) 25 mg PO DAILY [facility] Last Admin: 12/18/17 10:41 Dose: 25 mg Sevelamer Carbonate (Renvela) 800 mg PO DAILY [facility] Last Admin: 12/18/17 10:41 Dose: 800 mg Vitamin B Complex/Vit C/Folic Acid (Nephro-Carmen) 1 tab PO 0800 [facility] Last Admin: 12/18/17 08:30 Dose: 1 tab - Labs Labs: 12/17/17 14:56 12/17/17 14:56 PT 13.3 SECONDS (9.7-12.2) H 12/09/17 14:25 INR 1.2 12/09/17 14:25 APTT 37 SECONDS (21-34) H 12/09/17 14:25 - Constitutional Appears: Well, No Acute Distress - Extremities Exam Additional comments: Bilateral lower extremity exam: VASC: DP/PT pulses are weakly palpable 1/4 however audible on doppler exam, Temp gradient is warm to warm b/l. Nonpitting edema surrounding Chopart's amputation site. DERM: RLE=Linear incision noted to distal Chopart's amputation site with ana rosa and sutures intact, no wound dehiscence noted, no malodor, no active drainage, minimal periwound erythema. Ulceration noted to lateral malleolus measuring approximately 2.0 cm x2.0 cm with a mixed fibrogranular base, no malodor, no tunneling or tracking noted, no active drainage noted, no clinical signs of infection. LLE=Linear incision noted to 2nd digit amputation site with sutures intact and no wound dehiscence noted, no malodor, no active drainage, minimal periwound erythema. NEURO: Protective sensation grossly diminished ORTHO: RLE Chopart's amputation, left foot partial 2nd ray amputation - Neurological Exam Neurological Exam: Alert, Awake - Psychiatric Exam Psychiatric exam: Normal Affect, Normal Mood Assessment and Plan - Assessment and Plan (Free Text) Assessment: 62M POD#1 left 2nd digit amputation (DOS: 12/17/17) POD#7 right Chopart's amputation (DOS: 12/11/17) Right ankle ulceration Plan: Patient seen and evaluated Discussed with attending, Dr. Ahn Afebrile Right foot WCx (12/09) - Proteus Mirabilis Surgical pathology RLE- gangrene and acute OM Surgical pathology LLE pending Post op x-rays : choparts amputation, no subcutaneous emphysema noted. ID Dr. Vargas - continue IV abx, Meropenem Vascular Dr. Nina - Angio findings: <50% SFA segemental stenosis B/L. Good flow to right PT, AT, Peroneal. Good left PT, stenosed AT Continue local wound care: saline cleanse, DSD Activity: NWB Continue PT/OT Pain control: Tylenol 650mg, Percocet 1-2 tabs Podiatry will continue to follow
[2017-12-18] MEDS ORDERED: Lidocaine 2% PF (10 ml) Amp ONE (11:39)
--- NOTE | 2017-12-18 11:59 | PCM.SURG1 ---
Surgeon's Initial Post Op Note - Surgeon's Notes Surgeon: Claudio Rg MD Electric Melt Operator: NONE Type of Anesthesia: Local Pre-Operative Diagnosis: ESRD, poor venous access Operative Findings: US showed a patent right brachial vein Post-Operative Diagnosis: ESRD, infection, central venous occlusion Operation Performed: Single lumen picc placement, 23 cm. Tip is in the subclav riya vein. Specimen/Specimens Removed: NONE Estimated Blood Loss: EBL {In ML}: 2 Blood Products Given: N/A Drains Used: No Drains Post-Op Condition: Fair Date of Surgery/Procedure: 12/18/17 Time of Surgery/Procedure: 11:55
--- NOTE | 2017-12-18 13:27 | SPECPROC ---
PROCEDURE: Date of procedure: 12/18/2017 Procedure: 1. Placement of a right arm PICC with ultrasound and fluoroscopic guidance, CPT 68686 2. PICC tip confirmation with spot radiograph and is in the superior vena cava Medications: 1 percent lidocaine Total Fluoro time: 44 seconds Radiation: 5 mGy EBL: 2 cc HISTORY: Infection requiring long-term IV antibiotics, end-stage renal disease TECHNIQUE: Following informed consent and procedure time-out, the patient was placed supine on the interventional table and the right arm prepped and draped in the usual sterile fashion. Ultrasound showed a patent and compressible right brachial vein. After the skin was anesthetized with lidocaine, the brachial vein was accessed with micro micropuncture technique using ultrasound guidance. A guidewire was then advanced under fluoroscopic guidance into the subclavian vein. An image documenting ultrasound guidance for vascular access was permanently saved. The wire could not be advanced into superior vena cava secondary to innominate vein stenosis or occlusion. The length of the single-lumen 4 [place] PICC was trimmed to 23 centimeters and advanced through a peel-away sheath. The PICC was position with tip of PICC confirm a spot radiograph the subclavian vein. The PICC could not be advanced centrally into the superior vena cava. The PICC was secured to the patient's skin. The PICC was flushed. A biopatch and sterile dressing was applied. IMPRESSION: Placement of a single-lumen 4 [place] PICC trimmed to 23 centimeters via right brachial vein. The PICC is position within the subclavian vein. 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 The PICC could not be positioned within the superior vena cava.
--- NOTE | 2017-12-18 15:14 | CP.PCM.PN ---
Subjective - Date & Time of Evaluation Date of Evaluation: 12/18/17 Time of Evaluation: 15:14 - Subjective Subjective: Nephrology Consultation Note: Assessment: Stable Leg ulcers with Gangrene and ? PVD Diabetic chronic Kidney Disease (E11.22) Hypertensive Chronic Kidney Disease (I12.0) End stage renal disease (N18.6) dependence on hemodialysis (Z99.2) (MWF) via AVF Anemia (D64.9), Hyperphosphatemia (E83.39), Secondary Hyperparathyroidism (E21.1), HTN (I12.0) Thrombocytosis uncontrolled DM with hyperglycemia Plan: s/p 2 unit PRBC with HD on 12/13/17 HD as ordered tomorrow per F schedule. Continue with Nephrovite 1 tab/day. PRBC as needed for anemia. started on SEUN with dialysis as last Hb 9.5 Continue with phos binders, last phos level 3.3 BP control with meds as ordered. Patient not on RAAS milan, hydralazine changed to PRN and Increased losartan 100, norvasc 10 mg Glycemic control, Dialysis consistent diet Further work up/management as per primary team Dose meds/antibiotics (if needed) for ESRD status. Avoid fleets enema/magnesium based laxatives. vascular surgery, podiatry following, recs reviewed and appreciated heme following, pt on hydroxyurea Thanks for allowing me to participate in care of your patient. Will follow patient with you. Please call if any Qs. had d/w team Dr Volodymyr Oconnor Office: [phone] Chief Complaint; leg wound reason for consult: ESRD HPI: Pt is a 62 M with hx of ESRD on hemodialysis (MWF) via avf for last 1 month in [place], [place] , last dialysis Mon, chronic anemia, hyperphosphatemia, secondary hyperparathyroidism, Diabetes Mellitus, hypertension, presented with complaints of leg wounds and concerns for gangrene. being evaluated for PVD as well Renal consult requested for ESRD management. pt seen on hd and feels same. 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 Pulmonary: no shortness of breath Gastrointestinal: denies abdominal pain No nausea. No vomiting. Genitourinary: No pain while urinating. Denies blood in urine. All other negative except as mentioned in HPI Physical Examination: General Appearance: Comfortable, in no acute respiratory distress, co-operative . Vitals reviewed and noted as below Head; Atraumatic, normocephalic ENT: no ulcers no thrush. Tongue is midline. Oropharynx: no rash or ulcers. EYES: Pupils are equal, round and reactive to light accommodation. Eye muscles and extra-ocular movement intact. Sclera is anicteric. Neck; supple no lymphadenopathy, no thyromegaly or bruit Lungs: Normal respiratory rate/effort. Breath sounds bilateral clear Heart: Normal rate. s1s2 normal. No rub or gallop. Extremities: no edema. No varicose veins. feets dressed. s/p Rt Foot TMA. had muscles wasting noted Neurological: Patient is alert, awake and oriented. No focal deficit. Strength bilateral appropriate and equal Skin: Warm and dry. Normal turgor. No rash. Palpitation: Normal elasticity for age Abdomen: Abdomen is soft. Bowel sounds +. There is no abdominal tenderness, no guarding/rigidity or organomegaly Psych: lack insight and crow normal affect/moods MSK: no joint tenderness or swelling. Digits and nails normal, no deformity : kidney or bladder not palpable Access: AVF Labs/imaging reviewed. Past medical history, past surgical history, family history, social history, allergy reviewed and noted as below Family Hx: no hx of CKD. Non contributory Objective - Vital Signs/Intake and Output Vital Signs (last 24 hours): Temp Pulse Resp BP Pulse Ox 98.8 F 71 20 147/74 98 12/18/17 04:27 12/18/17 07:05 12/18/17 04:27 12/18/17 04:27 12/18/17 04:27 - Medications Medications: Current Medications Acetaminophen (Tylenol 325mg Tab) 650 mg PO Q6 PRN PRN Reason: Fever >100.4 F Allopurinol (Zyloprim) 100 mg PO DAILY [facility] Last Admin: 12/18/17 10:41 Dose: 100 mg Amlodipine Besylate (Norvasc) 10 mg PO DAILY [facility] Last Admin: 12/18/17 10:40 Dose: 10 mg Dextrose (Dextrose 50% Inj) 0 ml IV STAT PRN; Protocol PRN Reason: Hypoglycemia Protocol Dextrose (Glutose 15) 0 gm PO ONCE PRN; Protocol PRN Reason: Hypoglycemia Protocol Epoetin Ivan (Procrit) 12,000 unit IV MWF [facility] Last Admin: 12/17/17 16:08 Dose: 12,000 unit Glucagon (Glucagen Diagnostic Kit) 0 mg IM STAT PRN; Protocol PRN Reason: Hypoglycemia Protocol Heparin Sodium (Porcine) (Heparin) 5,000 units SC Q12 [facility] Last Admin: 12/18/17 10:49 Dose: Not Given Heparin Sodium (Porcine) (Heparin) 2,[address] [facility] Last Admin: 12/17/17 16:11 Dose: Not Given Hydralazine HCl (Apresoline) 50 mg PO TID PRN PRN Reason: Other Last Admin: 12/17/17 18:46 Dose: 50 mg Hydromorphone HCl (Dilaudid) 0.5 mg IVP Q10M PRN PRN Reason: Pain, moderate (4-7) Hydroxyurea (Hydrea) 1,500 mg PO DAILY [facility] Last Admin: 12/18/17 10:39 Dose: 1,500 mg Meropenem 500 mg/ Sodium (Chloride) 100 mls @ 100 mls/hr IVPB Q12H [facility]; Protocol Last Admin: 12/18/17 06:14 Dose: 100 mls/hr Insulin Aspart (Novolog) 0 unit [facility]; Protocol Last Admin: 12/18/17 12:44 Dose: 1 units Insulin Glargine (Lantus) 15 unit SC [facility] Last Admin: 12/17/17 21:43 Dose: 15 u Losartan Potassium (Cozaar) 100 mg PO DAILY [facility] Last Admin: 12/18/17 10:37 Dose: 100 mg Memantine (Namenda) 5 mg PO DAILY [facility] Last Admin: 12/18/17 10:40 Dose: 5 mg Mirtazapine (Remeron) 30 mg PO [facility] Last Admin: 12/17/17 21:37 Dose: 30 mg Oxycodone/Acetaminophen (Percocet 5/325 Mg Tab) 1 tab PO Q6H PRN PRN Reason: Pain, moderate (4-7) Stop: 12/20/17 09:16 Oxycodone/Acetaminophen (Percocet 5/325 Mg Tab) 2 tab PO Q6H PRN PRN Reason: Pain, severe (8-10) Stop: 12/20/17 09:16 Prednisone (Prednisone Tab) 50 mg PO ONCE PRN PRN Reason: Other Last Admin: 12/11/17 15:01 Dose: 50 mg Sertraline HCl (Zoloft) 25 mg PO DAILY [facility] Last Admin: 12/18/17 10:41 Dose: 25 mg Sevelamer Carbonate (Renvela) 800 mg PO DAILY [facility] Last Admin: 12/18/17 10:41 Dose: 800 mg Vitamin B Complex/Vit C/Folic Acid (Nephro-Carmen) 1 tab PO 0800 [facility] Last Admin: 12/18/17 08:30 Dose: 1 tab - Labs Labs: 12/17/17 14:56 12/17/17 14:56 PT 13.3 SECONDS (9.7-12.2) H 12/09/17 14:25 INR 1.2 12/09/17 14:25 APTT 37 SECONDS (21-34) H 12/09/17 14:25
--- NOTE | 2017-12-18 16:56 | CP.PCM.PN ---
Subjective - Date & Time of Evaluation Date of Evaluation: 12/18/17 Time of Evaluation: 08:00 - Subjective Subjective: less confused pain less nad Objective - Vital Signs/Intake and Output Vital Signs (last 24 hours): Temp Pulse Resp BP Pulse Ox 98.8 F 71 20 147/74 98 12/18/17 04:27 12/18/17 07:05 12/18/17 04:27 12/18/17 04:27 12/18/17 04:27 - Medications Medications: Current Medications Acetaminophen (Tylenol 325mg Tab) 650 mg PO Q6 PRN PRN Reason: Fever >100.4 F Allopurinol (Zyloprim) 100 mg PO DAILY [facility] Last Admin: 12/18/17 10:41 Dose: 100 mg Amlodipine Besylate (Norvasc) 10 mg PO DAILY [facility] Last Admin: 12/18/17 10:40 Dose: 10 mg Dextrose (Dextrose 50% Inj) 0 ml IV STAT PRN; Protocol PRN Reason: Hypoglycemia Protocol Dextrose (Glutose 15) 0 gm PO ONCE PRN; Protocol PRN Reason: Hypoglycemia Protocol Epoetin Ivan (Procrit) 12,000 unit IV [facility] Last Admin: 12/17/17 16:08 Dose: 12,000 unit Glucagon (Glucagen Diagnostic Kit) 0 mg IM STAT PRN; Protocol PRN Reason: Hypoglycemia Protocol Heparin Sodium (Porcine) (Heparin) 5,000 units SC Q12 [facility] Last Admin: 12/18/17 10:49 Dose: Not Given Heparin Sodium (Porcine) (Heparin) 2,000 units IVP [facility] Last Admin: 12/17/17 16:11 Dose: Not Given Hydralazine HCl (Apresoline) 50 mg PO TID PRN PRN Reason: Other Last Admin: 12/17/17 18:46 Dose: 50 mg Hydromorphone HCl (Dilaudid) 0.5 mg IVP Q10M PRN PRN Reason: Pain, moderate (4-7) Hydroxyurea (Hydrea) 1,500 mg PO DAILY [facility] Last Admin: 12/18/17 10:39 Dose: 1,500 mg Meropenem 500 mg/ Sodium (Chloride) 100 mls @ 100 mls/hr IVPB Q12H [facility]; Protocol Last Admin: 12/18/17 06:14 Dose: 100 mls/hr Insulin Aspart (Novolog) [facility] unit [facility]; Protocol Last Admin: 12/18/17 12:44 Dose: 1 units Insulin Glargine (Lantus) [address] [facility] Last Admin: 12/17/17 21:43 Dose: 15 u Losartan Potassium (Cozaar) 100 mg PO DAILY [facility] Last Admin: 12/18/17 10:37 Dose: 100 mg Memantine (Namenda) 5 mg PO DAILY [facility] Last Admin: 12/18/17 10:40 Dose: 5 mg Mirtazapine (Remeron) [address] [facility] Last Admin: 12/17/17 21:37 Dose: 30 mg Oxycodone/Acetaminophen (Percocet 5/325 Mg Tab) 1 tab PO Q6H PRN PRN Reason: Pain, moderate (4-7) Stop: 12/20/17 09:16 Oxycodone/Acetaminophen (Percocet 5/325 Mg Tab) 2 tab PO Q6H PRN PRN Reason: Pain, severe (8-10) Stop: 12/20/17 09:16 Prednisone (Prednisone Tab) 50 mg PO ONCE PRN PRN Reason: Other Last Admin: 12/11/17 15:01 Dose: 50 mg Sertraline HCl (Zoloft) 25 mg PO DAILY [facility] Last Admin: 12/18/17 10:41 Dose: 25 mg Sevelamer Carbonate (Renvela) 800 mg PO DAILY [facility] Last Admin: 12/18/17 10:41 Dose: 800 mg Vitamin B Complex/Vit C/Folic Acid (Nephro-Carmen) 1 tab PO 0800 [facility] Last Admin: 12/18/17 08:30 Dose: 1 tab - Labs Labs: 12/17/17 14:56 12/17/17 14:56 PT 13.3 SECONDS (9.7-12.2) H 12/09/17 14:25 INR 1.2 12/09/17 14:25 APTT 37 SECONDS (21-34) H 12/09/17 14:25 - Constitutional Appears: Non-toxic, Chronically Ill - Head Exam Head Exam: NORMOCEPHALIC - Eye Exam Eye Exam: PERRL - ENT Exam ENT Exam: Mucous Membranes Dry - Neck Exam Neck Exam: absent: Lymphadenopathy - Respiratory Exam Respiratory Exam: Decreased Breath Sounds - Cardiovascular Exam Cardiovascular Exam: REGULAR RHYTHM - GI/Abdominal Exam GI & Abdominal Exam: Distended - Rectal Exam Rectal Exam: Deferred - Exam Exam: NORMAL INSPECTION - Extremities Exam Extremities Exam: absent: Pedal Edema Additional comments: dressings on both feet c/d/i - Back Exam Back Exam: absent: CVA tenderness (L), CVA tenderness (R) - Neurological Exam Neurological Exam: Alert, Awake, CN II-XII Intact Assessment and Plan (1) Gangrene Status: Suspected (2) Diabetes Status: Acute (3) PVD (peripheral vascular disease) Status: Acute (4) End stage renal disease on dialysis Status: Acute (5) End stage renal disease on dialysis Status: Acute
--- NOTE | 2017-12-18 16:58 | PQF ---
PROVIDER RESPONSE TEXT: Patient had fever altered mental status leukocytosis with diabetic gangrene on admission = sepsis on admission REVIEWER QUERY TEXT: Clarification of Clinical Diagnostic Findings Please clarify documentation or clinical relevance for the clinical / diagnostic findings or whether those are insignificant or unable to be further specified. ------Sepsis present on admission ------Diabetic Gangrene ------ SIRS ------Other please specify and document ------Unknown The patient's Clinical Indicators include: 62 M, b/l foot pain, Rt heel ulcer, b/l distal gangrene of the digits pe: mental status altered Labs: wbc=26.4, blf=2310 x-ray of the foot: Air within soft tissues right foot and erosive changes this area suspicious for ga s-forming organism/osteomyelitis Med: piperacillin/tazobactam Query created by: Rosette Crockett on 12/17/2017 5:30 PM Electronically signed by: Jamie Varags MD 12/18/2017 4:55 PM
--- NOTE | 2017-12-18 18:03 | CP.PCM.PN ---
Subjective - Date & Time of Evaluation Date of Evaluation: 12/18/17 Time of Evaluation: 15:00 - Subjective Subjective: No complaints. Objective - Vital Signs/Intake and Output Vital Signs (last 24 hours): Temp Pulse Resp BP Pulse Ox 98.8 F 71 20 147/74 98 12/18/17 04:27 12/18/17 07:05 12/18/17 04:27 12/18/17 04:27 12/18/17 04:27 - Medications Medications: Current Medications Acetaminophen (Tylenol 325mg Tab) 650 mg PO Q6 PRN PRN Reason: Fever >100.4 F Allopurinol (Zyloprim) 100 mg PO DAILY [facility] Last Admin: 12/18/17 10:41 Dose: 100 mg Amlodipine Besylate (Norvasc) 10 mg PO DAILY [facility] Last Admin: 12/18/17 10:40 Dose: 10 mg Dextrose (Dextrose 50% Inj) 0 ml IV STAT PRN; Protocol PRN Reason: Hypoglycemia Protocol Dextrose (Glutose 15) 0 gm PO ONCE PRN; Protocol PRN Reason: Hypoglycemia Protocol Epoetin Ivan (Procrit) 12,000 unit IV [facility] Last Admin: 12/17/17 16:08 Dose: 12,000 unit Glucagon (Glucagen Diagnostic Kit) 0 mg IM STAT PRN; Protocol PRN Reason: Hypoglycemia Protocol Heparin Sodium (Porcine) (Heparin) 5,000 units SC Q12 [facility] Last Admin: 12/18/17 10:49 Dose: Not Given Heparin Sodium (Porcine) (Heparin) 2,000 units IVP [facility] Last Admin: 12/17/17 16:11 Dose: Not Given Hydralazine HCl (Apresoline) 50 mg PO TID PRN PRN Reason: Other Last Admin: 12/17/17 18:46 Dose: 50 mg Hydromorphone HCl (Dilaudid) 0.5 mg IVP Q10M PRN PRN Reason: Pain, moderate (4-7) Hydroxyurea (Hydrea) 1,500 mg PO DAILY [facility] Last Admin: 12/18/17 10:39 Dose: 1,500 mg Meropenem 500 mg/ Sodium (Chloride) 100 mls @ 100 mls/hr IVPB Q12H [facility]; Protocol Last Admin: 12/18/17 06:14 Dose: 100 mls/hr Insulin Aspart (Novolog) 0 unit SC [facility]; Protocol Last Admin: 12/18/17 12:44 Dose: 1 units Insulin Glargine (Lantus) 15 unit SC [facility] Last Admin: 12/17/17 21:43 Dose: 15 u Losartan Potassium (Cozaar) 100 mg PO DAILY [facility] Last Admin: 12/18/17 10:37 Dose: 100 mg Memantine (Namenda) 5 mg PO DAILY [facility] Last Admin: 12/18/17 10:40 Dose: 5 mg Mirtazapine (Remeron) 30 mg PO HS [facility] Last Admin: 12/17/17 21:37 Dose: 30 mg Oxycodone/Acetaminophen (Percocet 5/325 Mg Tab) 1 tab PO Q6H PRN PRN Reason: Pain, moderate (4-7) Stop: 12/20/17 09:16 Oxycodone/Acetaminophen (Percocet 5/325 Mg Tab) 2 tab PO Q6H PRN PRN Reason: Pain, severe (8-10) Stop: 12/20/17 09:16 Prednisone (Prednisone Tab) 50 mg PO ONCE PRN PRN Reason: Other Last Admin: 12/11/17 15:01 Dose: 50 mg Sertraline HCl (Zoloft) 25 mg PO DAILY [facility] Last Admin: 12/18/17 10:41 Dose: 25 mg Sevelamer Carbonate (Renvela) 800 mg PO DAILY [facility] Last Admin: 12/18/17 10:41 Dose: 800 mg Vitamin B Complex/Vit C/Folic Acid (Nephro-Carmen) 1 tab PO 0800 [facility] Last Admin: 12/18/17 08:30 Dose: 1 tab - Labs Labs: 12/17/17 14:56 12/17/17 14:56 PT 13.3 SECONDS (9.7-12.2) H 12/09/17 14:25 INR 1.2 12/09/17 14:25 APTT 37 SECONDS (21-34) H 12/09/17 14:25 - Head Exam Head Exam: ATRAUMATIC - Eye Exam Eye Exam: Normal appearance - ENT Exam ENT Exam: Mucous Membranes Dry - Respiratory Exam Respiratory Exam: NORMAL BREATHING PATTERN - Cardiovascular Exam Cardiovascular Exam: +S1, +S2 - GI/Abdominal Exam GI & Abdominal Exam: Normal Bowel Sounds Assessment and Plan (1) Essential thrombocythemia Assessment & Plan: JAK2 positive allergic to aspirin on hydroxyurea; dose increased for goal plt ~ 400 Status: Acute (2) Anemia Assessment & Plan: anemia of CKD - epo per renal anemia of chronic disease Status: Acute (3) Leukocytosis Assessment & Plan: on antibiotics BCR/ABL negative Status: Acute
[2017-12-18] MEDS: (Lantus) Insulin Glargine, Recombinant SC SCH (21:42)
[2017-12-19] MEDS: Meropenem 500 MG in Sodium Chloride 0.9% 100 ML IVPB SCH ×2 (06:50→17:59)
[2017-12-19 08:10] LABS: BASO # 0.2 K/uL (0.0-0.2); BASO % 1.1 % (0.0-2.0); EOS # 0.6 K/uL (0.0-0.7); EOS % 3.4 % (0.0-4.0); HEMOGLOBIN 9.6 g/dL (12.0-18.0); LYMPH # 1.7 K/uL (1.0-4.3); LYMPH % 9.1 % (20.0-40.0); MEAN CELL VOLUME 88.4 fL (80.0-94.0); MEAN CORPUSCULAR HEMOGLOBIN 28.7 pg (27.0-31.0); MEAN CORPUSCULAR HGB CONC 32.4 g/dL (33.0-37.0); MEAN PLATELET VOLUME 7.6 fL (7.2-11.7); MONO # 0.8 K/uL (0.0-0.8); MONO % 4.5 % (0.0-10.0); NEUT # 15.3 K/uL (1.8-7.0); NEUT % 81.9 % (50.0-75.0); NRBC % 0.1 % (0.0-2.0); RBC 3.34 Mil/uL (4.40-5.90); RED CELL DISTRIBUTION WIDTH 17.7 % (11.5-14.5); WHITE BLOOD COUNT 18.6 K/uL (4.8-10.8)
--- NOTE | 2017-12-19 08:11 | CP.PCM.PN ---
Subjective - Date & Time of Evaluation Date of Evaluation: 12/19/17 Time of Evaluation: 08:10 - Subjective Subjective: Podiatry - Dr. Ahn 62M seen and examined this AM 2 days s/p left 2nd digit amputation & 8 days s/p right Chopart's amputation. Patient resting comfortably, NAD. No acute events overnight. No new complaints to bilateral LE. Dressings clean/dry/intact. Denies N/V/F/D/C/SOB/CP/DELACRUZ. Objective - Vital Signs/Intake and Output Vital Signs (last 24 hours): Temp Pulse Resp BP Pulse Ox 97.9 F 95 H 20 159/66 H 99 12/19/17 04:00 12/19/17 04:00 12/19/17 04:00 12/19/17 04:00 12/19/17 04:00 - Medications Medications: Current Medications Acetaminophen (Tylenol 325mg Tab) 650 mg PO Q6 PRN PRN Reason: Fever >100.4 F Allopurinol (Zyloprim) 100 mg PO DAILY [facility] Last Admin: 12/18/17 10:41 Dose: 100 mg Amlodipine Besylate (Norvasc) 10 mg PO DAILY [facility] Last Admin: 12/18/17 10:40 Dose: 10 mg Dextrose (Dextrose 50% Inj) 0 ml IV STAT PRN; Protocol PRN Reason: Hypoglycemia Protocol Dextrose (Glutose 15) 0 gm PO ONCE PRN; Protocol PRN Reason: Hypoglycemia Protocol Epoetin Ivan (Procrit) 12,000 [place] [facility] Last Admin: 12/17/17 16:08 Dose: 12,000 unit Glucagon (Glucagen Diagnostic Kit) 0 mg IM STAT PRN; Protocol PRN Reason: Hypoglycemia Protocol Heparin Sodium (Porcine) (Heparin) 5,000 units SC Q12 [facility] Last Admin: 12/18/17 21:42 Dose: 5,000 units Heparin Sodium (Porcine) (Heparin) 2,000 units IVP [facility] Last Admin: 12/17/17 16:11 Dose: Not Given Hydralazine HCl (Apresoline) 50 mg PO TID PRN PRN Reason: Other Last Admin: 12/17/17 18:46 Dose: 50 mg Hydromorphone HCl (Dilaudid) 0.5 mg IVP Q10M PRN PRN Reason: Pain, moderate (4-7) Hydroxyurea (Hydrea) 1,500 mg PO DAILY [facility] Last Admin: 12/18/17 10:39 Dose: 1,500 mg Meropenem 500 mg/ Sodium (Chloride) 100 mls @ 100 mls/hr IVPB Q12H [facility]; Protocol Last Admin: 12/19/17 06:50 Dose: 100 mls/hr Insulin Aspart (Novolog) 0 unit SC [facility]; Protocol Last Admin: 12/18/17 21:45 Dose: Not Given Insulin Glargine (Lantus) 15 unit SC HS [facility] Last Admin: 12/18/17 21:42 Dose: 15 u Losartan Potassium (Cozaar) 100 mg PO DAILY [facility] Last Admin: 12/18/17 10:37 Dose: 100 mg Memantine (Namenda) 5 mg PO DAILY [facility] Last Admin: 12/18/17 10:40 Dose: 5 mg Mirtazapine (Remeron) 30 mg PO HS [facility] Last Admin: 12/18/17 21:42 Dose: 30 mg Oxycodone/Acetaminophen (Percocet 5/325 Mg Tab) 1 tab PO Q6H PRN PRN Reason: Pain, moderate (4-7) Stop: 12/20/17 09:16 Oxycodone/Acetaminophen (Percocet 5/325 Mg Tab) 2 tab PO Q6H PRN PRN Reason: Pain, severe (8-10) Stop: 12/20/17 09:16 Prednisone (Prednisone Tab) 50 mg PO ONCE PRN PRN Reason: Other Last Admin: 12/11/17 15:01 Dose: 50 mg Sertraline HCl (Zoloft) 25 mg PO DAILY [facility] Last Admin: 12/18/17 10:41 Dose: 25 mg Sevelamer Carbonate (Renvela) 800 mg PO DAILY [facility] Last Admin: 12/18/17 10:41 Dose: 800 mg Vitamin B Complex/Vit C/Folic Acid (Nephro-Carmen) 1 tab PO 0800 [facility] Last Admin: 12/18/17 08:30 Dose: 1 tab - Labs Labs: 12/17/17 14:56 12/17/17 14:56 PT 13.3 SECONDS (9.7-12.2) H 12/09/17 14:25 INR 1.2 12/09/17 14:25 APTT 37 SECONDS (21-34) H 12/09/17 14:25 - Constitutional Appears: Well, Non-toxic, No Acute Distress - Extremities Exam Additional comments: Bilateral lower extremity exam: VASC: DP/PT pulses are weakly palpable 1/4 however audible on doppler exam, Temp gradient is warm to warm b/l. Nonpitting edema surrounding Chopart's amputation site. DERM: RLE=Linear incision noted to distal Chopart's amputation site with ana rosa and sutures intact, no wound dehiscence noted, no malodor, no active drainage, minimal periwound erythema. Ulceration noted to lateral malleolus measuring approximately 2.0 cm x2.0 cm with a mixed fibrogranular base, no malodor, no tunneling or tracking noted, no active drainage noted, no clinical signs of infection. LLE=Linear incision noted to 2nd digit amputation site with sutures intact and no wound dehiscence noted, no malodor, no active drainage, minimal periwound erythema. NEURO: Protective sensation grossly diminished ORTHO: RLE Chopart's amputation, left foot partial 2nd ray amputation - Neurological Exam Neurological Exam: Alert, Awake, Oriented x3 - Psychiatric Exam Psychiatric exam: Normal Affect, Normal Mood Assessment and Plan - Assessment and Plan (Free Text) Assessment: 62M POD#2 left 2nd digit amputation (DOS: 12/17/17) POD#8 right Chopart's amputation (DOS: 12/11/17) Right ankle ulceration Plan: Patient seen and evaluated alongside attending, Dr. Ahn Afebrile Right foot WCx (12/09) - [facility] Surgical pathology RLE- gangrene and acute OM Surgical pathology LLE- gangrene and acute OM ID Dr. Vargas - continue IV abx, Meropenem Vascular Dr. Nina - Angio findings: <50% SFA segemental stenosis B/L. Good flow to right PT, AT, Peroneal. Good left PT, stenosed AT Continue local wound care: saline cleanse, DSD Continue elevation RLE Activity: NWB Continue PT/OT Pain control: Tylenol 650mg, Percocet 1-2 tabs Patient stable for dc per podiatry - will be followed up by Dr. Ahn in alf Podiatry will continue to follow
[2017-12-19 08:12] LABS: PLATELET COUNT 725 K/uL (130-400)
[2017-12-19] MEDS: Multivitamin Vitamin B Complex (Nephro-Vite) Tab PO SCH (08:17)
[2017-12-19] MEDS: (Novolog) Insulin Aspart, Recombinant 100 u/ml 10 ml vial SC SCH (08:20)
[2017-12-19 08:38] LABS: ALB/GLOB RATIO 0.9 (1.0-2.1); ALBUMIN 3.4 g/dL (3.5-5.0); CALCIUM 8.3 mg/dl (8.6-10.4)
--- NOTE | 2017-12-19 09:35 | CP.PCM.PN ---
Subjective - Date & Time of Evaluation Date of Evaluation: 12/19/17 Time of Evaluation: 07:00 - Subjective Subjective: PGY2 Medicine Note for Dr. Rios Patient seen and examined this morning at bedside. No acute events overnight. Patient states he is feeling well and has no complaints. He was able to successful have a PICC line placed yesterday by IR. Patient is scheduled for HD later today. He is feeling well, denying any pain. Objective - Vital Signs/Intake and Output Vital Signs (last 24 hours): Temp Pulse Resp BP Pulse Ox 97.5 F L 86 20 183/74 H 96 12/19/17 07:00 12/19/17 07:05 12/19/17 07:00 12/19/17 07:00 12/19/17 07:00 - Medications Medications: Current Medications Acetaminophen (Tylenol 325mg Tab) 650 mg PO Q6 PRN PRN Reason: Fever >100.4 F Allopurinol (Zyloprim) 100 mg PO DAILY [facility] Last Admin: 12/18/17 10:41 Dose: 100 mg Amlodipine Besylate (Norvasc) 10 mg PO DAILY [facility] Last Admin: 12/18/17 10:40 Dose: 10 mg Dextrose (Dextrose 50% Inj) 0 ml IV STAT PRN; Protocol PRN Reason: Hypoglycemia Protocol Dextrose (Glutose 15) 0 gm PO ONCE PRN; Protocol PRN Reason: Hypoglycemia Protocol Epoetin Ivan (Procrit) 12,000 unit IV MWF [facility] Last Admin: 12/17/17 16:08 Dose: 12,000 unit Glucagon (Glucagen Diagnostic Kit) 0 mg IM STAT PRN; Protocol PRN Reason: Hypoglycemia Protocol Heparin Sodium (Porcine) (Heparin) 5,000 units SC Q12 [facility] Last Admin: 12/18/17 21:42 Dose: 5,000 units Heparin Sodium (Porcine) (Heparin) 2,000 units IVP MWF [facility] Last Admin: 12/17/17 16:11 Dose: Not Given Hydralazine HCl (Apresoline) 50 mg PO TID PRN PRN Reason: Other Last Admin: 12/17/17 18:46 Dose: 50 mg Hydromorphone HCl (Dilaudid) 0.5 mg IVP Q10M PRN PRN Reason: Pain, moderate (4-7) Hydroxyurea (Hydrea) 1,500 mg PO DAILY [facility] Last Admin: 12/18/17 10:39 Dose: 1,500 mg Meropenem 500 mg/ Sodium (Chloride) 100 mls @ 100 mls/hr IVPB Q12H [facility]; Protocol Last Admin: 12/19/17 06:50 Dose: 100 mls/hr Insulin Aspart (Novolog) 0 unit SC ACHS [facility]; Protocol Last Admin: 12/19/17 08:20 Dose: Not Given Insulin Glargine (Lantus) 15 unit SC HS [facility] Last Admin: 12/18/17 21:42 Dose: 15 u Losartan Potassium (Cozaar) 100 mg PO DAILY [facility] Last Admin: 12/18/17 10:37 Dose: 100 mg Memantine (Namenda) 5 mg PO DAILY [facility] Last Admin: 12/18/17 10:40 Dose: 5 mg Mirtazapine (Remeron) 30 mg PO HS [facility] Last Admin: 12/18/17 21:42 Dose: 30 mg Oxycodone/Acetaminophen (Percocet 5/325 Mg Tab) 1 tab PO Q6H PRN PRN Reason: Pain, moderate (4-7) Stop: 12/20/17 09:16 Oxycodone/Acetaminophen (Percocet 5/325 Mg Tab) 2 tab PO Q6H PRN PRN Reason: Pain, severe (8-10) Stop: 12/20/17 09:16 Prednisone (Prednisone Tab) 50 mg PO ONCE PRN PRN Reason: Other Last Admin: 12/11/17 15:01 Dose: 50 mg Sertraline HCl (Zoloft) 25 mg PO DAILY [facility] Last Admin: 12/18/17 10:41 Dose: 25 mg Sevelamer Carbonate (Renvela) 800 mg PO DAILY [facility] Last Admin: 12/18/17 10:41 Dose: 800 mg Vitamin B Complex/Vit C/Folic Acid (Nephro-Carmen) 1 tab PO 0800 [facility] Last Admin: 12/19/17 08:17 Dose: 1 tab - Labs Labs: 12/19/17 07:43 12/19/17 07:43 PT 13.3 SECONDS (9.7-12.2) H 12/09/17 14:25 INR 1.2 12/09/17 14:25 APTT 37 SECONDS (21-34) H 12/09/17 14:25 - Additional Findings Additional findings: - Constitutional Appears: Non-toxic, No Acute Distress - Head Exam Head Exam: ATRAUMATIC, NORMAL INSPECTION, NORMOCEPHALIC - Eye Exam Eye Exam: EOMI, Normal appearance - ENT Exam ENT Exam: Mucous Membranes Moist - Respiratory Exam Respiratory Exam: Clear to Ausculation Bilateral, NORMAL BREATHING PATTERN. absent: Rales, Rhonchi, Wheezes - Cardiovascular Exam Cardiovascular Exam: REGULAR RHYTHM, RRR, +S1, +S2 - GI/Abdominal Exam GI & Abdominal Exam: Soft, Normal Bowel Sounds. absent: Tenderness - Extremities Exam Additional comments: b/l feet wrappings, c/d/i dressings - Neurological Exam Neurological Exam: Alert, Awake - Psychiatric Exam Psychiatric exam: Normal Affect, Normal Mood - Skin Additional comments: b/l feet wrappings, c/d/i dressings Assessment and Plan - Assessment and Plan (Free Text) Plan: Right Chopart's Amputation, POD #8 (DOS: 12/11/17) Amputation of the left second digit and metatarsal head POD #2 (DOS: 12/17/17) angiogram (12/15/17) showed: <50% SFA segemental stenosis B/L. Good flow to right PT, AT, Peroneal. Good left PT, stenosed AT Secondary to right foot gas gangrene Podiatry Consult placed- Dr. Watters- christopher appreciated Right foot wound cultures (12/09) - proteus mirabilis blood cultures negative Vascular Surgery Consult placed- Dr. Nina- F/U recs * s/p b/l angio: 50% + patent b/l LE arteries except L AT. Segmental stenosis. * No further surgical intervention Dopplers- Prelim study negative. F/U official report. ID Consult placed- Dr. Vargas- christopher appreciated Previously on Zosyn 12/09-12/11 On Merrem 500mg q12h Started 12/11 (for at least 7 days) On Vanco 500mg MWF started 12/12 IR consulted, Dr. Rg - successful placement of PICC line on 12/18. Essential Thrombocythemia Heme/Onc Consult placed- Dr. Keisha white appreciated * Goal platelet count <400 * Downtrending - 725 today JAK2 - positive Hydroxyurea daily given vascular disease May also have been reactive secondary to gangrene ESRD on HD Dialysis MWF Renvela 800mg tid Procrit 8,000 u MWF Heparin 2000 IVP MWF Nephro consult placed to Dr. Duong Anemia Anemia of CKD - epo per renal * s/p 2 unit pRBC with HD on 12/13/17 b12: 756 folate: >20, ferritin 1490 HTN Hydralazine 50mg po TID prn Norvasc 10mg po daily Losartan 50mg po daily Gout Continue Home med- Allopurinol 100mg po daily Hyperglycemia HgA1C: 6.1. No other prior records. ISS low dose scale. Will not increase to high dose at this time, due to increa sed rosk of hypoglycemic events - due to ESRD. Lantus 15 u sc HS (increased from 10u on 12/15) Lipid panel: triglycerides: 126, Cholesterol: 91, LDL < 30, HDL 24 Dementia Namenda 5mg po daily (decreased from BID as per renal dosing) Depression Home meds- mirtazapine 30mg PO QD and sertraline 20mg PO QD Prophylaxis Heparin 5000 u sc q12h DISPO: Patient to be discharged back to [facility] after hemodialysis today with the following instructions: Patient is to be transferred back to [facility] per Dr. Rios. Patient is to continue his medications as directed. - Patient has PICC line in place. Will need to continue Meropenum 500mg IVPB q12h for 14 days. - Patient is to continue Hydroxyurea 1,500mg PO daily Patient will be re-evaluated by Dr. Watters (Podiatry) at [facility] within two weeks. Patient is to follow up with Dr. Chaney (Hem/Onc), please call and schedule an appointment. Patient is to continue with hemodialysis as schedule. If patient experiences any new or worsening symptoms, please contact Dr. Rios or take to nearest to emergency department. All medical management as per Dr. Gabriel Kat Errol PGY2
[2017-12-19 10:51] LABS: EOSINOPHIL 8 % (0-4); LYMPHOCYTE 3 % (20-40); MONOCYTE 1 % (0-10); NEUTROPHIL 88 % (50-75); PLATELET ESTIMATE INCREASED (NORMAL); TOTAL CELLS COUNTED 100
[2017-12-19 10:56] LABS: ANISOCYTOSIS SLIGHT
[2017-12-19 10:57] LABS: HYPOCHROMIC SLIGHT; POLYCHROMIC SLIGHT
--- NOTE | 2017-12-19 11:15 | CP.PCM.PCO ---
Physician Communication Note - Physician Communication Note Physician Communication Note: CLEARED FOR D/C BY DR. ZHANG; CONT HYDROXYUREA 1500MG PO QD, F/U OFFICE
--- NOTE | 2017-12-19 12:54 | CP.PCM.PN ---
Subjective - Date & Time of Evaluation Date of Evaluation: 12/19/17 Time of Evaluation: 12:05 - Subjective Subjective: No complaints. Objective - Vital Signs/Intake and Output Vital Signs (last 24 hours): Temp Pulse Resp BP Pulse Ox 97.5 F L 86 20 197/77 H 96 12/19/17 07:00 12/19/17 07:05 12/19/17 07:00 12/19/17 10:12 12/19/17 07:00 - Medications Medications: Current Medications Acetaminophen (Tylenol 325mg Tab) 650 mg PO Q6 PRN PRN Reason: Fever >100.4 F Allopurinol (Zyloprim) 100 mg PO DAILY [facility] Last Admin: 12/19/17 10:56 Dose: 100 mg Amlodipine Besylate (Norvasc) 10 mg PO DAILY [facility] Last Admin: 12/19/17 11:10 Dose: Not Given Dextrose (Dextrose 50% Inj) 0 ml IV STAT PRN; Protocol PRN Reason: Hypoglycemia Protocol Dextrose (Glutose 15) 0 gm PO ONCE PRN; Protocol PRN Reason: Hypoglycemia Protocol Epoetin Ivan (Procrit) 12,000 unit IV [facility] [place] Admin: 12/17/17 16:08 Dose: 12,000 unit Glucagon (Glucagen Diagnostic Kit) 0 mg IM STAT PRN; Protocol PRN Reason: Hypoglycemia Protocol Heparin Sodium (Porcine) (Heparin) 5,000 units SC Q12 [facility] Last Admin: 12/19/17 11:05 Dose: 5,000 units Heparin Sodium (Porcine) (Heparin) 2,000 units IVP [facility] [place] Admin: 12/17/17 16:11 Dose: Not Given Hydralazine HCl (Apresoline) 50 mg PO TID PRN PRN Reason: Other Last Admin: 12/19/17 10:10 Dose: 50 mg Hydralazine HCl (Apresoline) 50 mg PO BID [facility] Hydroxyurea (Hydrea) 1,500 mg PO DAILY [facility] Last Admin: 12/19/17 10:56 Dose: 1,500 mg Meropenem 500 mg/ Sodium (Chloride) 100 mls @ 100 mls/hr IVPB Q12H [facility]; Protocol Last Admin: 12/19/17 06:50 Dose: 100 mls/hr Insulin Aspart (Novolog) 0 unit SC ACHS [facility]; Protocol Last Admin: 12/19/17 08:20 Dose: Not Given Insulin Glargine (Lantus) 15 unit SC [facility] Last Admin: 12/18/17 21:42 Dose: 15 u Losartan Potassium (Cozaar) 100 mg PO DAILY [facility] Last Admin: 12/19/17 11:08 Dose: Not Given Memantine (Namenda) 5 mg PO DAILY [facility] Last Admin: 12/19/17 11:02 Dose: 5 mg Mirtazapine (Remeron) 30 mg PO [facility] Last Admin: 12/18/17 21:42 Dose: 30 mg Oxycodone/Acetaminophen (Percocet 5/325 Mg Tab) 1 tab PO Q6H PRN PRN Reason: Pain, moderate (4-7) Stop: 12/20/17 09:16 Oxycodone/Acetaminophen (Percocet 5/325 Mg Tab) 2 tab PO Q6H PRN PRN Reason: Pain, severe (8-10) Stop: 12/20/17 09:16 Prednisone (Prednisone Tab) 50 mg PO ONCE PRN PRN Reason: Other Last Admin: 12/11/17 15:01 Dose: 50 mg Sertraline HCl (Zoloft) 25 mg PO DAILY [facility] Last Admin: 12/19/17 11:04 Dose: 25 mg Sevelamer Carbonate (Renvela) 800 mg PO DAILY [facility] Last Admin: 12/19/17 10:56 Dose: 800 mg Vitamin B Complex/Vit C/Folic Acid (Nephro-Carmen) 1 tab PO 0800 [facility] Last Admin: 12/19/17 08:17 Dose: 1 tab - Labs Labs: 12/19/17 07:43 12/19/17 07:43 PT 13.3 SECONDS (9.7-12.2) H 12/09/17 14:25 INR 1.2 12/09/17 14:25 APTT 37 SECONDS (21-34) H 12/09/17 14:25 - Head Exam Head Exam: ATRAUMATIC - Eye Exam Eye Exam: Normal appearance - ENT Exam ENT Exam: Mucous Membranes Dry - Respiratory Exam Respiratory Exam: NORMAL BREATHING PATTERN - Cardiovascular Exam Cardiovascular Exam: +S1, +S2 - GI/Abdominal Exam GI & Abdominal Exam: Normal Bowel Sounds Assessment and Plan (1) Essential thrombocythemia Assessment & Plan: JAK2 positive allergic to aspirin on hydroxyurea; dose increased for goal plt ~ 400 Status: Acute (2) Anemia Assessment & Plan: anemia of CKD - epo per renal anemia of chronic disease Status: Acute (3) Leukocytosis Assessment & Plan: on antibiotics BCR/ABL negative Status: Acute
[2017-12-19 14:39] VITALS: TEMP 97.7
--- NOTE | 2017-12-19 14:49 | CP.PCM.PN ---
Subjective - Date & Time of Evaluation Date of Evaluation: 12/19/17 Time of Evaluation: 14:48 - Subjective Subjective: Nephrology Consultation Note: Assessment: Stable Leg ulcers with Gangrene and ? PVD Diabetic chronic Kidney Disease (E11.22) Hypertensive Chronic Kidney Disease (I12.0) End stage renal disease (N18.6) dependence on hemodialysis (Z99.2) (MWF) via AVF Anemia (D64.9), Hyperphosphatemia (E83.39), Secondary Hyperparathyroidism (E21.1), HTN (I12.0) Thrombocytosis uncontrolled DM with hyperglycemia Plan: s/p 2 unit PRBC with HD on 12/13/17 HD as ordered today per MWF schedule. Continue with Nephrovite 1 tab/day. PRBC as needed for anemia. started on SEUN with dialysis as last Hb 9.5 Continue with phos binders, last phos level 3.3 BP control with meds as ordered. Patient on RAAS milan, hydralazine bid losartan 100, norvasc 10 mg Glycemic control, Dialysis consistent diet Further work up/management as per primary team Dose meds/antibiotics (if needed) for ESRD status. Avoid fleets enema/magnesium based laxatives. vascular surgery, podiatry following, recs reviewed and appreciated heme following, pt on hydroxyurea Thanks for allowing me to participate in care of your patient. Will follow patient with you. Please call if any Qs. had d/w team Dr Volodymyr Oconnor Office: [phone] Chief Complaint; leg wound reason for consult: ESRD HPI: Pt is a 62 M with hx of ESRD on hemodialysis (MWF) via avf for last 1 month in [place], [place] , last dialysis Mon, chronic anemia, hyperphosphatemia, secondary hyperparathyroidism, Diabetes Mellitus, hypertension, presented with complaints of leg wounds and concerns for gangrene. being evaluated for PVD as well Renal consult requested for ESRD management. pt seen on hd and feels same. 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 Pulmonary: no shortness of breath Gastrointestinal: denies abdominal pain No nausea. No vomiting. Genitourinary: No pain while urinating. Denies blood in urine. All other negative except as mentioned in HPI Physical Examination: seen on HD General Appearance: Comfortable, in no acute respiratory distress, co-operative . Vitals reviewed and noted as below Head; Atraumatic, normocephalic ENT: no ulcers no thrush. Tongue is midline. Oropharynx: no rash or ulcers. EYES: Pupils are equal, round and reactive to light accommodation. Eye muscles and extra-ocular movement intact. Sclera is anicteric. Neck; supple no lymphadenopathy, no thyromegaly or bruit Lungs: Normal respiratory rate/effort. Breath sounds bilateral clear Heart: Normal rate. s1s2 normal. No rub or gallop. Extremities: no edema. No varicose veins. feets dressed. s/p Rt Foot TMA. had muscles wasting noted Neurological: Patient is alert, awake and oriented. No focal deficit. Strength bilateral appropriate and equal Skin: Warm and dry. Normal turgor. No rash. Palpitation: Normal elasticity for age Abdomen: Abdomen is soft. Bowel sounds +. There is no abdominal tenderness, no guarding/rigidity or organomegaly Psych: lack insight and crow normal affect/moods MSK: no joint tenderness or swelling. Digits and nails normal, no deformity : kidney or bladder not palpable Access: AVF Labs/imaging reviewed. Past medical history, past surgical history, family history, social history, allergy reviewed and noted as below Family Hx: no hx of CKD. Non contributory Objective - Vital Signs/Intake and Output Vital Signs (last 24 hours): Temp Pulse Resp BP Pulse Ox 97.7 F 77 16 137/69 96 12/19/17 13:30 12/19/17 14:00 12/19/17 14:00 12/19/17 14:00 12/19/17 14:00 - Medications Medications: Current Medications Acetaminophen (Tylenol 325mg Tab) 650 mg PO Q6 PRN PRN Reason: Fever >100.4 F Allopurinol (Zyloprim) 100 mg PO DAILY [facility] Last Admin: 12/19/17 10:56 Dose: 100 mg Amlodipine Besylate (Norvasc) 10 mg PO DAILY [facility] Last Admin: 12/19/17 11:10 Dose: Not Given Dextrose (Dextrose 50% Inj) 0 ml IV STAT PRN; Protocol PRN Reason: Hypoglycemia Protocol Dextrose (Glutose 15) 0 gm PO ONCE PRN; Protocol PRN Reason: Hypoglycemia Protocol Epoetin Ivan (Procrit) 12,000 unit IV [facility] [place] Last Admin: 12/17/17 16:08 Dose: 12,000 unit Glucagon (Glucagen Diagnostic Kit) 0 mg IM STAT PRN; Protocol PRN Reason: Hypoglycemia Protocol Heparin Sodium (Porcine) (Heparin) 5,000 units SC Q12 [facility] Last Admin: 12/19/17 11:05 Dose: 5,000 units Heparin Sodium (Porcine) (Heparin) 2,000 units IVP [facility] [place] Last Admin: 12/17/17 16:11 Dose: Not Given Hydralazine HCl (Apresoline) 50 mg PO TID PRN PRN Reason: Other Last Admin: 12/19/17 10:10 Dose: 50 mg Hydralazine HCl (Apresoline) 50 mg PO BID [facility] Hydroxyurea (Hydrea) 1,500 mg PO DAILY [facility] Last Admin: 12/19/17 10:56 Dose: 1,500 mg Meropenem 500 mg/ Sodium (Chloride) 100 mls @ 100 mls/hr IVPB Q12H [facility]; Protocol Last Admin: 12/19/17 06:50 Dose: 100 mls/hr Insulin Aspart (Novolog) 0 unit SC [facility]; Protocol Last Admin: 12/19/17 08:20 Dose: Not Given Insulin Glargine (Lantus) 15 unit SC [facility] Last Admin: 12/18/17 21:42 Dose: 15 u Losartan Potassium (Cozaar) 100 mg PO DAILY [facility] Last Admin: 12/19/17 11:08 Dose: Not Given Memantine (Namenda) 5 mg PO DAILY [facility] Last Admin: 12/19/17 11:02 Dose: 5 mg Mirtazapine (Remeron) 30 mg PO [facility] Last Admin: 12/18/17 21:42 Dose: 30 mg Oxycodone/Acetaminophen (Percocet 5/325 Mg Tab) 1 tab PO Q6H PRN PRN Reason: Pain, moderate (4-7) Stop: 12/20/17 09:16 Oxycodone/Acetaminophen (Percocet 5/325 Mg Tab) 2 tab PO Q6H PRN PRN Reason: Pain, severe (8-10) Stop: 12/20/17 09:16 Prednisone (Prednisone Tab) 50 mg PO ONCE PRN PRN Reason: Other Last Admin: 12/11/17 15:01 Dose: 50 mg Sertraline HCl (Zoloft) 25 mg PO DAILY [facility] Last Admin: 12/19/17 11:04 Dose: 25 mg Sevelamer Carbonate (Renvela) 800 mg PO DAILY [facility] Last Admin: 12/19/17 10:56 Dose: 800 mg Vitamin B Complex/Vit C/Folic Acid (Nephro-Carmen) 1 tab PO 0800 [facility] Last Admin: 12/19/17 08:17 Dose: 1 tab - Labs Labs: 12/19/17 07:43 12/19/17 07:43 PT 13.3 SECONDS (9.7-12.2) H 12/09/17 14:25 INR 1.2 12/09/17 14:25 APTT 37 SECONDS (21-34) H 12/09/17 14:25
[2017-12-19 17:36] VITALS: BP 164/74; PULSE 85; RESP 18; O2SAT 98
== END 2017-12-19 19:47 | DRG 853 ==
LOC: C.ER 11:44 → C.9E 15:12 → C.6T 19:37
PROVIDERS: ADMIT Internal Medicine Pulmonary Disease; ATTEND Internal Medicine Pulmonary Disease
PROC: 5A1D70Z Performance of Urinary Filtration, Intermittent, Less than 6 Hours Per Day (ICD-10-PCS; 2017-12-10)
PROC: 0Y6M0Z0 Detachment at Right Foot, Complete, Open Approach (ICD-10-PCS; 2017-12-11)
PROC: 5A1D70Z Performance of Urinary Filtration, Intermittent, Less than 6 Hours Per Day (ICD-10-PCS; 2017-12-12)
PROC: 5A1D70Z Performance of Urinary Filtration, Intermittent, Less than 6 Hours Per Day (ICD-10-PCS; 2017-12-13)
PROC: B40F1ZZ Plain Radiography of Right Lower Extremity Arteries using Low Osmolar Contrast (ICD-10-PCS; 2017-12-15)
PROC: 04HY32Z Insertion of Monitoring Device into Lower Artery, Percutaneous Approach (ICD-10-PCS; 2017-12-15)
PROC: 0Y6S0Z0 Detachment at Left 2nd Toe, Complete, Open Approach (ICD-10-PCS; 2017-12-17)
PROC: 5A1D70Z Performance of Urinary Filtration, Intermittent, Less than 6 Hours Per Day (ICD-10-PCS; 2017-12-17)
PROC: 02HV33Z Insertion of Infusion Device into Superior Vena Cava, Percutaneous Approach (ICD-10-PCS; principal; 2017-12-18)
PROC: B548ZZA Ultrasonography of Superior Vena Cava, Guidance (ICD-10-PCS; 2017-12-18)
PROC: 5A1D70Z Performance of Urinary Filtration, Intermittent, Less than 6 Hours Per Day (ICD-10-PCS; 2017-12-19)
DX: A41.9 Sepsis, unspecified organism (principal); A48.0 Gas gangrene; N18.6 End stage renal disease; E11.52 Type 2 diabetes mellitus with diabetic peripheral angiopathy with gangrene; M86.172 Other acute osteomyelitis, left ankle and foot; I12.0 Hypertensive chronic kidney disease with stage 5 chronic kidney disease or end stage renal disease; N25.81 Secondary hyperparathyroidism of renal origin; L97.319 Non-pressure chronic ulcer of right ankle with unspecified severity; L97.419 Non-pressure chronic ulcer of right heel and midfoot with unspecified severity; E11.22 Type 2 diabetes mellitus with diabetic chronic kidney disease; D63.1 Anemia in chronic kidney disease; E11.69 Type 2 diabetes mellitus with other specified complication; Z79.4 Long term (current) use of insulin; Z87.891 Personal history of nicotine dependence; Z99.2 Dependence on renal dialysis; F32.9 Major depressive disorder, single episode, unspecified; I70.202 Unspecified atherosclerosis of native arteries of extremities, left leg; I70.8 Atherosclerosis of other arteries; E11.65 Type 2 diabetes mellitus with hyperglycemia; E11.649 Type 2 diabetes mellitus with hypoglycemia without coma; F03.90 Unspecified dementia, unspecified severity, without behavioral disturbance, psychotic disturbance, mood disturbance, and anxiety; M10.9 Gout, unspecified; E78.00 Pure hypercholesterolemia, unspecified; E83.39 Other disorders of phosphorus metabolism; D47.3 Essential (hemorrhagic) thrombocythemia